=== PATIENT | male | born 1955 | race Two or more races ===

== ENCOUNTER 2017-11-09 19:51 | Inpatient (IN) | payer MEDICAID ==
[~2017-11-09] VITALS: Ht 180.3 cm; Wt 66.3 kg
[~2017-11-09 19:51] MED LIST: ALBUTEROL SULF8.5 GM INH; ATARAX25 MG ORAL; ELIMITE 5% CREA60 GM TOPIC; HYDROCORTISON28.4 G2 TP; LACTULOSE20 GM/301 ORAL; LEXAPRO10 MG ORAL; NORCO 10-325 T1 EACH ORAL; NORCO 5-325 TA1 EACH ORAL; ROBAXIN500 MG PO; UNK MEDS; vit D
[2017-11-09] MEDS ORDERED: Pantoprazole Inj IVP ONE (20:00)
--- NOTE | 2017-11-09 20:20 | Emergency Room Report ---
History of Present Illness General Chief Complaint: Vomiting Source: Patient Present Illness HPI 52-year-old male, history of liver cirrhosis, esophageal varices, presenting with hematemesis. Patient states that vomiting started today, about 3 episodes, Blood. Denies any abdominal pain. Complains of slight dizziness. States he has not had a bowel movement in 2 days. States that he had an outpatient endoscopy performed last Thursday but states that he does not know results and and that he does not know if there was any interventions done Allergies: Coded Allergies: IBUPROFEN (Unverified Allergy, Intermediate, 07/02/16) Patient History Past Medical History: see triage record Past Surgical History: none Pertinent Family History: none Reviewed Nursing Documentation: PMH: Agreed, PSxH: Agreed Nursing Documentation-PMH Hx Hypertension: Yes Hx Cancer: Yes - CIRRHOSIS OF LIVER Review of Systems All Other Systems: negative except mentioned in HPI Physical Exam Vital Signs Date Time Temp Pulse Resp B/P (MAP) Pulse Ox O2 Delivery O2 Flow Rate FiO2 11/09/17 19:47 98.1 115 18 109/56 100 Room Air Sp02 EP Interpretation: reviewed, normal General Appearance: alert, GCS 15, non-toxic, mild distress Head: normocephalic, atraumatic Eyes: bilateral eye normal inspection, bilateral eye PERRL, bilateral eye EOMI ENT: normal ENT inspection, normal pharynx, normal voice, moist mucus membranes Neck: normal inspection, full range of motion, supple Respiratory: normal inspection, lungs clear, normal breath sounds, no respiratory distress, no retraction, no wheezing, speaking full sentences, chest symmetrical Cardiovascular #1: tachycardia Cardiovascular #2: 2+ radial (R), 2+ radial (L) Gastrointestinal: other - +mild distension, nontender all abdomen, +bright red blood in vomitus Musculoskeletal: normal inspection, back normal, normal range of motion, non- tender Neurologic: normal inspection, alert, oriented x3, responsive, motor strength/ tone normal, sensory intact, normal gait, speech normal Psychiatric: normal inspection, judgement/insight normal, memory normal Skin: normal inspection, normal color, no rash, warm/dry, well hydrated, normal turgor Procedures Critical Care Time Critical Care Time 40 minutes of CC time 62-year-old male, history of esophageal varices, upper GI bleeding VS: Borderline hypotensive, tachycardic Airway patent. Not hypoxic. PLAN: IV access, labs, coags, but transfusion, octreotide, Protonix, GI consult Anticipate admission to icu CC time also includes review of labs, review of EMR, discussion with family and paperwork from SNF, d/w hospitalist CC could include dosing of pressors, additional Abx CC time does not include procedures Medical Decision Making Diagnostic Impression: Primary Impression: Upper GI bleeding Additional Impression: Pancreatitis ER Course 62-year-old male, history of esophageal varices, presenting with hematemesis Differential Diagnosis: Hematemesis high suspicion for esophageal varices given patient's history, versus gastritis versus peptic ulcer disease Patient is not on blood thinners Plan: Basic labs, ua, ekg Coags Protonix, octreotide Chest x-ray Possible blood transfusion ER course: hgb noted to be very low BP borderline, HR 100-110 octreotide/protonix given will xfuse 2 units prbcs I informed Dr Timmons from GI about patient Disposition: Patient will be admitted to ICU Endorsed to Dr Gayle who is covering for Dr Valencia Please note that this Emergency Department Report was dictated using [employer] immunologist technology software, occasionally this can lead to erroneous entry secondary to interpretation by the dictation equipment EKG Diagnostic Results EP Interpretation: Yes Rate: Tachycardic Rhythm: NSR ST Segments: No acute changes ASA given to patient: No Rhythm Strip EP Interpretation: Yes Rate: 108 Rhythm: NSR, no PVCs, no ectopy Chest X-ray CXR: Ordered: Yes 1 view Indication: Chest pain EP interpretation: Yes Interpretation: No consolidation, no effusion, no PTX, no acute cardiopulmonary disease Impression: No acute disease Electronically signed by Christine Lewis MD Laboratory Tests Test 11/09/17 20:08 White Blood Count 13.2 K/UL (4.8-10.8) H Red Blood Count 2.66 M/UL (4.70-6.10) L Hemoglobin 5.9 G/DL (14.2-18.0) *L Hematocrit 20.8 % (42.0-52.0) L Mean Corpuscular Volume 78 FL (80-99) L Mean Corpuscular Hemoglobin 22.1 PG (27.0-31.0) L Mean Corpuscular Hemoglobin Concent 28.3 G/DL (32.0-36.0) L Red Cell Distribution Width 21.5 % (11.6-14.8) H Platelet Count 371 K/UL (150-450) Mean Platelet Volume 5.0 FL (6.5-10.1) L Neutrophils (%) (Auto) % (45.0-75.0) Lymphocytes (%) (Auto) % (20.0-45.0) Monocytes (%) (Auto) % (1.0-10.0) Eosinophils (%) (Auto) % (0.0-3.0) Basophils (%) (Auto) % (0.0-2.0) Differential Total Cells Counted 100 Neutrophils % (Manual) 70 % (45-75) Lymphocytes % (Manual) 20 % (20-45) Monocytes % (Manual) 9 % (1-10) Eosinophils % (Manual) 0 % (0-3) Basophils % (Manual) 1 % (0-2) Band Neutrophils 0 % (0-8) Platelet Estimate Adequate Platelet Morphology Normal Polychromasia 1+ Hypochromasia 2+ Anisocytosis 2+ Prothrombin Time 11.6 SEC (9.30-11.50) H Prothrombin Time INR 1.1 (0.9-1.1) PTT 25 SEC (23-33) Sodium Level 136 MMOL/L (136-145) Potassium Level 4.1 MMOL/L (3.5-5.1) Chloride Level 103 MMOL/L (98-107) Carbon Dioxide Level 24 MMOL/L (21-32) Anion Gap 9 mmol/L (5-15) Blood Urea Nitrogen 14 mg/dL (7-18) Creatinine 1.3 MG/DL (0.55-1.30) Estimate Glomerular Filtration Rate 55.8 mL/min (>60) Glucose Level 160 MG/DL (74-106) H Calcium Level 8.2 MG/DL (8.5-10.1) L Total Bilirubin 2.0 MG/DL (0.2-1.0) H Direct Bilirubin 1.6 MG/DL (0.0-0.3) H Aspartate Amino Transferase (AST) 81 U/L (15-37) H Alanine Aminotransferase (ALT) 62 U/L (12-78) Alkaline Phosphatase 176 U/L (46-116) H Troponin I 0.009 ng/mL (0.000-0.056) Total Protein 6.4 G/DL (6.4-8.2) Albumin 2.0 G/DL (3.4-5.0) L Globulin 4.4 g/dL Albumin/Globulin Ratio 0.5 (1.0-2.7) L Lipase 569 U/L (73-393) H Last Vital Signs Date Time Temp Pulse Resp B/P (MAP) Pulse Ox O2 Delivery O2 Flow Rate FiO2 11/09/17 19:47 98.1 115 18 109/56 100 Room Air Disposition: ADMITTED INPATIENT Condition: Critical Christine Lewis M.D. Nov 09, 2017 20:20
[2017-11-09] MEDS ORDERED: PROTONIX40 MG ORAL (20:45)
[2017-11-09] MEDS ORDERED: FERROUS SULFAT325 MG ORAL (20:45)
[2017-11-09] MEDS ORDERED: TRAMADOL HCL50 MG ORAL (20:45)
[2017-11-09] MEDS ORDERED: NIFEDIPINE ER30 M2 ORAL (20:45)
[2017-11-09 20:50] LABS: MEAN CORPUSCULAR HEMOGLOBIN 22.1 PG (27.0-31.0); MEAN CORPUSCULAR HGB CONC 28.3 G/DL (32.0-36.0); MEAN CORPUSCULAR VOLUME 78 FL (80-99); PLATELET COUNT 371 K/UL (150-450); RED BLOOD COUNT 2.66 M/UL (4.70-6.10); RED CELL DISTRIBUTION WIDTH 21.5 % (11.6-14.8); WHITE BLOOD COUNT 13.2 K/UL (4.8-10.8)
[2017-11-09 20:52] LABS: ANION GAP 9 mmol/L (5-15); CALCIUM 8.2 MG/DL (8.5-10.1); CARBON DIOXIDE 24 MMOL/L (21-32); CHLORIDE 103 MMOL/L (98-107); CREATININE 1.3 MG/DL (0.55-1.30); GLOMERULAR FILTRATION RATE 55.8 mL/min (>60); POTASSIUM 4.1 MMOL/L (3.5-5.1); SODIUM 136 MMOL/L (136-145)
[2017-11-09 20:57] LABS: INR 1.1 (0.9-1.1); PROTHROMBIN TIME 11.6 SEC (9.30-11.50)
[2017-11-09 21:03] LABS: ALANINE AMINOTRANSFERASE 62 U/L (12-78); ALBUMIN/GLOBULIN RATIO 0.5 (1.0-2.7); ASPARTATE AMINO TRANSFERASE 81 U/L (15-37); LIPASE 569 U/L (73-393); TOTAL PROTEIN 6.4 G/DL (6.4-8.2)
[2017-11-09 21:09] LABS: BILIRUBIN,DIRECT 1.6 MG/DL (0.0-0.3)
[2017-11-09] MEDS: Octreotide Acetate 500 MCG in Sodium Chloride 500ML 499 ML IV SCH (21:18)
[2017-11-09 22:02] VITALS: BP 113/61
[2017-11-09 22:10] LABS: ANISOCYTOSIS 2+; BASOPHILS % (MANUAL) 1 % (0-2); HYPOCHROMASIA 2+; LYMPHOCYTES % (MANUAL) 20 % (20-45); NEUTROPHILS % (MANUAL) 70 % (45-75); TOTAL CELLS COUNTED 100
[2017-11-09 22:11] LABS: BAND NEUTROPHILS % (MANUAL) 0 % (0-8); EOSINOPHILS % (MANUAL) 0 % (0-3); PLATELET ESTIMATE ADEQUATE; PLATELET MORPHOLOGY NORMAL; POLYCHROMASIA 1+
[2017-11-09 22:17] VITALS: BP 110/65
[2017-11-10] VITALS (24 sets, daily range): BP systolic 106–159; BP diastolic 45–92
[2017-11-10 04:02] LABS: MEAN CORPUSCULAR HEMOGLOBIN 25.4 PG (27.0-31.0); MEAN CORPUSCULAR HGB CONC 31.7 G/DL (32.0-36.0); MEAN CORPUSCULAR VOLUME 80 FL (80-99); MEAN PLATELET VOLUME 6.1 FL (6.5-10.1); PLATELET COUNT 291 K/UL (150-450); RED BLOOD COUNT 3.07 M/UL (4.70-6.10); RED CELL DISTRIBUTION WIDTH 20.4 % (11.6-14.8)
[2017-11-10] MEDS: Octreotide Acetate 500 MCG in Sodium Chloride 500ML 499 ML IV SCH ×3 (06:00→23:03)
--- NOTE | 2017-11-10 08:27 | Pre-Procedure Note/Attestation ---
Pre-Procedure Note/Attestation Complete Prior to Procedure Planned Procedure: not applicable Procedure Narrative: esophagogastroduodenoscopy hemostasis Indications for Procedure Pre-Operative Diagnosis: gib Attestation I attest that I discussed the nature of the procedure; its benefits; risks and complications; and alternatives (and the risks and benefits of such alternatives ), prior to the procedure, with the patient (or the patient's legal mortician supplies sales representative). I attest that, if there was a reasonable possibility of needing a blood transfusion, the patient (or the patient's legal mortician supplies sales representative) was given the [facility] standardized written summary, pursuant to the Andrew Brooke Blood Safety Act ([place] Health and Safety Code # 1645, as amended). I attest that I re-evaluated the patient just prior to the surgery and that there has been no change in the patient's H&P, except as documented below: OZ PELLETIER Nov 10, 2017 08:27
--- NOTE | 2017-11-10 08:37 | Anethesia Preoperative Eval ---
Anesthesia Pre-op PMH/ROS General Date of Evaluation: Nov 10, 2017 Anesthesiologist: Ashish ASA Score: ASA 3 Mallampati Score Class I : Soft palate, uvula, fauces, pillars visible Class II: Soft palate, uvula, fauces visible Class III: Soft palate, base of uvula visible Class IV: Only hard plate visible Mallampati Classification: Class II Surgeon: Odilia Diagnosis: GI bleed, esophageal varices Surgical Procedure: EGD possible banding of varices Anesthesia History: none Social History: alcohol use - h/o alcohol abuse Family History: no anesthesia problems Allergies: Coded Allergies: IBUPROFEN (Unverified Allergy, Intermediate, 07/02/16) Medications: see eMAR Past Medical History Cardiovascular: Reports: HTN, Denies: CAD, [place], valve dz, arrhythmia, other Pulmonary: Denies: asthma, COPD, CARLOS, other Gastrointestinal/Genitourinary: Reports: GERD, other - Cirrhosis, liver cancer , Denies: CRI, ESRD Neurologic/Psychiatric: Denies: dementia, CVA, depression/anxiety, TIA, other Endocrine: Denies: DM, hypothyroidism, steroids, other HEENT: Denies: cataract (L), cataract (R), glaucoma, QAGAN TAYAGUNGIN (L), QAGAN TAYAGUNGIN (R), other Hematology/Immune: Denies: anemia, DVT, bleeding disorder, other Musculoskeletal/Integumentary: Denies: OA, RA, DJD, DDD, edema, other PSxH Narrative: Denies Anesthesia Pre-op Phys. Exam Physician Exam Last Vital Signs Date Time Temp Pulse Resp B/P (MAP) Pulse Ox O2 Delivery O2 Flow Rate FiO2 11/10/17 07:31 97.6 87 19 113/61 100 Room Air Constitutional: NAD Cardiovascular: other - tachy Respiratory: CTA Airway Exam Mallampati Score: Class II MO: limited ROM: full Teeth: missing, intact Anesthesia Pre-op A/P Labs Hematology Test 11/09/17 20:08 11/10/17 03:39 White Blood Count 13.2 K/UL (4.8-10.8) H 10.0 K/UL (4.8-10.8) Red Blood Count 2.66 M/UL (4.70-6.10) L 3.07 M/UL (4.70-6.10) L Hemoglobin 5.9 G/DL (14.2-18.0) *L 7.8 G/DL (14.2-18.0) #L Hematocrit 20.8 % (42.0-52.0) L 24.6 % (42.0-52.0) L Mean Corpuscular Volume 78 FL (80-99) L 80 FL (80-99) Mean Corpuscular Hemoglobin 22.1 PG (27.0-31.0) L 25.4 PG (27.0-31.0) L Mean Corpuscular Hemoglobin Concent 28.3 G/DL (32.0-36.0) L 31.7 G/DL (32.0-36.0) L Red Cell Distribution Width 21.5 % (11.6-14.8) H 20.4 % (11.6-14.8) H Platelet Count 371 K/UL (150-450) 291 K/UL (150-450) Mean Platelet Volume 5.0 FL (6.5-10.1) L 6.1 FL (6.5-10.1) L Neutrophils (%) (Auto) % (45.0-75.0) % (45.0-75.0) Lymphocytes (%) (Auto) % (20.0-45.0) % (20.0-45.0) Monocytes (%) (Auto) % (1.0-10.0) % (1.0-10.0) Eosinophils (%) (Auto) % (0.0-3.0) % (0.0-3.0) Basophils (%) (Auto) % (0.0-2.0) % (0.0-2.0) Differential Total Cells Counted 100 Neutrophils % (Manual) 70 % (45-75) Lymphocytes % (Manual) 20 % (20-45) Monocytes % (Manual) 9 % (1-10) Eosinophils % (Manual) 0 % (0-3) Basophils % (Manual) 1 % (0-2) Band Neutrophils 0 % (0-8) Platelet Estimate Adequate Platelet Morphology Normal Polychromasia 1+ Hypochromasia 2+ Anisocytosis 2+ Coagulation Test 11/09/17 20:08 Prothrombin Time 11.6 SEC (9.30-11.50) H Prothromb Time International Ratio 1.1 (0.9-1.1) Activated Partial Thromboplast Time 25 SEC (23-33) Chemistry Test 11/09/17 20:08 Sodium Level 136 MMOL/L (136-145) Potassium Level 4.1 MMOL/L (3.5-5.1) Chloride Level 103 MMOL/L (98-107) Carbon Dioxide Level 24 MMOL/L (21-32) Anion Gap 9 mmol/L (5-15) Blood Urea Nitrogen 14 mg/dL (7-18) Creatinine 1.3 MG/DL (0.55-1.30) Estimat Glomerular Filtration Rate 55.8 mL/min (>60) Glucose Level 160 MG/DL (74-106) H Calcium Level 8.2 MG/DL (8.5-10.1) L Total Bilirubin 2.0 MG/DL (0.2-1.0) H Direct Bilirubin 1.6 MG/DL (0.0-0.3) H Aspartate Amino Transf (AST/SGOT) 81 U/L (15-37) H Alanine Aminotransferase (ALT/SGPT) 62 U/L (12-78) Alkaline Phosphatase 176 U/L (46-116) H Troponin I 0.009 ng/mL (0.000-0.056) Total Protein 6.4 G/DL (6.4-8.2) Albumin 2.0 G/DL (3.4-5.0) L Globulin 4.4 g/dL Albumin/Globulin Ratio 0.5 (1.0-2.7) L Lipase 569 U/L (73-393) H Studies Pre-op Studies: EKG - ST Risk Assessment & Plan Assessment: ASA III Plan: MAC vs GA Status Change Before Surgery: No Pre-Antibiotics Drug: N/A JOSE RAI M.D. Nov 10, 2017 08:37
--- NOTE | 2017-11-10 09:21 | Short Stay Surgery H&P ---
History of Present Illness History of Present Illness Chief Complaint gib EFRAIN Guzmán is a 62 year old male who was admitted on Nov 09, 2017 at 22: 00 for Gastrointestinal Bleed Patient History Allergies: Coded Allergies: IBUPROFEN (Unverified Allergy, Intermediate, 07/02/16) PAST MEDICAL HISTORY: (1) ETOH abuse (2) Hepatitis-C (3) Back pain (4) Pancreatitis (5) Upper GI bleeding Past Surgeries: Social History: Medication History Scheduled Ferrous Sulfate* (Ferrous Sulfate*), 325 MG ORAL DAILY, (Reported) Nifedipine Er* (Nifedipine Er*), 30 MG ORAL DAILY, (Reported) Pantoprazole* (Protonix*), 40 MG ORAL EVERY 12 HOURS, (Reported) Scheduled PRN Tramadol Hcl* (Ultram*), 50 MG ORAL Q6H PRN for For Pain, (Reported) Discontinued Medications Albuterol Sulfate* (Albuterol Sulfate Mdi*), 2 PUFF INH Q4H, (Reported) Discontinued Reason: Pt stopped taking med Escitalopram Oxalate* (Lexapro*), Unknown Dose ORAL DAILY, (Reported) Discontinued Reason: Pt stopped taking med Hydrocodone Bit/Acetaminophen 10-325* ([place] 10-325*), Unknown Dose ORAL Q6H PRN for For Pain, (Reported) Discontinued Reason: Pt stopped taking med Hydrocodone Bit/Acetaminophen 5-325* ([place] 5-325*), 1 TAB ORAL Q6H PRN for For Pain Discontinued Reason: Pt stopped taking med Hydrocortisone/Aloe Vera (Hydrocortisone Plus 1% Cream), 28.4 GM TP TWICE A DAY Discontinued Reason: Pt stopped taking med Hydroxyzine HCl (Hydroxyzine HCl), 25 MG ORAL FOUR TIMES A DAY Discontinued Reason: Pt stopped taking med Lactulose (Lactulose*), 30 ML ORAL BID PRN for Constipation Discontinued Reason: Pt stopped taking med Methocarbamol* (Robaxin*), 500 MG PO TID Discontinued Reason: Pt stopped taking med Permethrin (Permethrin), 1 APPLIC TOPIC ONCE Discontinued Reason: Pt stopped taking med [vit D], (Reported) Discontinued Reason: Pt stopped taking med Review of Systems Cardiovascular: Reports: no symptoms Respiratory: Reports: no symptoms Gastrointestinal: Reports: hepatitis A,B,C Genitourinary: Reports: no symptoms Neurologic: Reports: no symptoms Endocrine: Reports: no symptoms Hematologic: Reports: no symptoms Physical Exam Vital Signs Last Vital Signs Date Time Temp Pulse Resp B/P (MAP) Pulse Ox O2 Delivery O2 Flow Rate FiO2 11/10/17 09:04 97.6 87 19 109/88 100 Room Air Labs Laboratory Tests Test 11/09/17 20:08 11/10/17 00:05 11/10/17 03:39 White Blood Count 13.2 K/UL (4.8-10.8) H 10.0 K/UL (4.8-10.8) Red Blood Count 2.66 M/UL (4.70-6.10) L 3.07 M/UL (4.70-6.10) L Hemoglobin 5.9 G/DL (14.2-18.0) *L 7.8 G/DL (14.2-18.0) #L Hematocrit 20.8 % (42.0-52.0) L 24.6 % (42.0-52.0) L Mean Corpuscular Volume 78 FL (80-99) L 80 FL (80-99) Mean Corpuscular Hemoglobin 22.1 PG (27.0-31.0) L 25.4 PG (27.0-31.0) L Mean Corpuscular Hemoglobin Concent 28.3 G/DL (32.0-36.0) L 31.7 G/DL (32.0-36.0) L Red Cell Distribution Width 21.5 % (11.6-14.8) H 20.4 % (11.6-14.8) H Platelet Count 371 K/UL (150-450) 291 K/UL (150-450) Mean Platelet Volume 5.0 FL (6.5-10.1) L 6.1 FL (6.5-10.1) L Neutrophils (%) (Auto) % (45.0-75.0) % (45.0-75.0) Lymphocytes (%) (Auto) % (20.0-45.0) % (20.0-45.0) Monocytes (%) (Auto) % (1.0-10.0) % (1.0-10.0) Eosinophils (%) (Auto) % (0.0-3.0) % (0.0-3.0) Basophils (%) (Auto) % (0.0-2.0) % (0.0-2.0) Differential Total Cells Counted 100 Neutrophils % (Manual) 70 % (45-75) Lymphocytes % (Manual) 20 % (20-45) Monocytes % (Manual) 9 % (1-10) Eosinophils % (Manual) 0 % (0-3) Basophils % (Manual) 1 % (0-2) Band Neutrophils 0 % (0-8) Platelet Estimate Adequate Platelet Morphology Normal Polychromasia 1+ Hypochromasia 2+ Anisocytosis 2+ Prothrombin Time 11.6 SEC (9.30-11.50) H Prothromb Time International Ratio 1.1 (0.9-1.1) Activated Partial Thromboplast Time 25 SEC (23-33) Sodium Level 136 MMOL/L (136-145) Potassium Level 4.1 MMOL/L (3.5-5.1) Chloride Level 103 MMOL/L (98-107) Carbon Dioxide Level 24 MMOL/L (21-32) Anion Gap 9 mmol/L (5-15) Blood Urea Nitrogen 14 mg/dL (7-18) Creatinine 1.3 MG/DL (0.55-1.30) Estimat Glomerular Filtration Rate 55.8 mL/min (>60) Glucose Level 160 MG/DL (74-106) H Calcium Level 8.2 MG/DL (8.5-10.1) L Total Bilirubin 2.0 MG/DL (0.2-1.0) H Direct Bilirubin 1.6 MG/DL (0.0-0.3) H Aspartate Amino Transf (AST/SGOT) 81 U/L (15-37) H Alanine Aminotransferase (ALT/SGPT) 62 U/L (12-78) Alkaline Phosphatase 176 U/L (46-116) H Troponin I 0.009 ng/mL (0.000-0.056) Total Protein 6.4 G/DL (6.4-8.2) Albumin 2.0 G/DL (3.4-5.0) L Globulin 4.4 g/dL Albumin/Globulin Ratio 0.5 (1.0-2.7) L Lipase 569 U/L (73-393) H Urine Opiates Screen Negative (NEGATIVE) Urine Barbiturates Screen Negative (NEGATIVE) Phencyclidine (PCP) Screen Negative (NEGATIVE) Urine Amphetamines Screen Negative (NEGATIVE) Urine Benzodiazepines Screen Negative (NEGATIVE) Urine Cocaine Screen Negative (NEGATIVE) Urine Marijuana (THC) Screen Negative (NEGATIVE) Skin: normal HENT: normal Heart: normal Lungs: normal Abdomen: normal Extremities: normal Plan Plan of Care egd Final Diagnosis: Attestation Are the patient's medical conditions optimized for surgery? Attestation Response: yes OZ PELLETIER Nov 10, 2017 09:21
--- NOTE | 2017-11-10 09:26 | Immediate Post-Op Evaluation ---
Immediate Post-Op Evalulation Immediate Post-Op Evalulation Procedure: EGD with esophageal banding Date of Evaluation: Nov 10, 2017 Time of Evaluation: 10:12 IV Fluids: 100 Blood Products: 0 Estimated Blood Loss: min Urinary Output: 0 Blood Pressure Systolic: 116 Blood Pressure Diastolic: 56 Pulse Rate: 90 Respiratory Rate: 24 O2 Sat by Pulse Oximetry: 100 Temperature (Fahrenheit): 98.6 Pain Score (1-10): 0 Nausea: No Vomiting: No Complications 0 Patient Status: awake, reacts, patent, none Hydration Status: adequate Drug: N/A JOSE RAI M.D. Nov 10, 2017 09:26
--- NOTE | 2017-11-10 09:32 | Endoscopy Procedure Note ---
Endoscopy Procedure Note Indication for Procedure: gib Procedures Performed: EGD Operative Findings/Diagnosis: banding of varices Specimen: none Pt Tolerated Procedure Well: Yes Estimated Blood Loss: none Anesthesiologist: cristian Anesthesia: MAC Implant(s) used?: No 50 yrs or older w/o bx or poly: Not Applicable 10yrs. F/U not recommended: Not Applicable OZ PELLETIER Nov 10, 2017 09:32
[2017-11-10 11:11] LABS: BASOPHILS % (AUTO) 0.8 % (0.0-2.0); EOSINOPHILS % (AUTO) 0.5 % (0.0-3.0); LYMPHOCYTES % (AUTO) 16.1 % (20.0-45.0); MEAN CORPUSCULAR HEMOGLOBIN 25.2 PG (27.0-31.0); MEAN CORPUSCULAR HGB CONC 31.1 G/DL (32.0-36.0); MEAN CORPUSCULAR VOLUME 81 FL (80-99); MEAN PLATELET VOLUME 6.6 FL (6.5-10.1); MONOCYTES % (AUTO) 15.4 % (1.0-10.0); NEUTROPHILS % (AUTO) 67.2 % (45.0-75.0); PLATELET COUNT 349 K/UL (150-450); RED BLOOD COUNT 3.37 M/UL (4.70-6.10); RED CELL DISTRIBUTION WIDTH 21.2 % (11.6-14.8); WHITE BLOOD COUNT 10.8 K/UL (4.8-10.8)
[2017-11-10] MEDS: Pantoprazole 80 MG in NS 250 ML IV SCH ×2 (12:07→22:41)
[2017-11-10] MEDS: cefTRIAXone 1 GM in D5W 55 ML IVPB SCH (12:07)
[2017-11-10] MEDS: Hydromorphone 0.5mg/0.5ml inj IVP PRN ×2 (12:11→18:31)
--- NOTE | 2017-11-10 17:23 | Pulmonolgy Critical Care Note ---
Critical Care - Asmt/Plan Problems: (1) Hepatocellular carcinoma (2) Esophageal varices (3) Upper GI bleeding (4) Pancreatitis (5) Hepatitis-C (6) ETOH abuse (7) Symptomatic anemia Assessment/Plan: 62 M h/o EtOH abuse, Hep C cirrhosis c/b EV and HCC p/w GIB 2/2 EV S/P banding and pancreatitis Respiratory: other - monitor oxygenation Cardiac: continue to monitor HR/BP Renal: other - monitor volumes Infectious Disease: other - Continue Ctx Gastrointestinal: other - F/U GI recs, octreotide and PPI gtt, advance diet per GI, monitor for bleeding Neurologic: keep patient comfortable Prophylaxis: SCDs Disposition: keep in ICU Time Spent (Minutes): 40 Notes Reviewed: manager event, GI Discussed with: nurses Critical Care - Objective Last 24 Hour Vital Signs Date Time Temp Pulse Resp B/P (MAP) Pulse Ox O2 Delivery O2 Flow Rate FiO2 11/10/17 17:00 91 19 116/68 100 Room Air 11/10/17 16:00 98.8 95 23 134/65 100 Room Air 11/10/17 16:00 90 11/10/17 15:00 95 21 159/74 99 Room Air 11/10/17 14:30 98 21 129/78 100 Room Air 11/10/17 14:00 92 19 126/64 100 Room Air 11/10/17 13:30 91 19 126/64 100 Room Air 11/10/17 13:00 94 20 112/59 100 Room Air 11/10/17 12:30 92 21 125/45 100 Room Air 11/10/17 12:00 98.5 91 20 132/59 100 Room Air 11/10/17 12:00 88 11/10/17 11:45 89 17 132/64 100 Room Air 11/10/17 11:30 91 20 132/68 100 Room Air 11/10/17 11:15 92 21 139/80 100 Room Air 11/10/17 11:00 93 25 123/57 100 Room Air 11/10/17 10:45 90 23 125/72 100 Room Air 11/10/17 10:30 93 24 116/62 100 Simple Mask 8.0 11/10/17 10:12 98.6 90 24 116/56 100 Simple Mask 8.0 11/10/17 10:00 89 11/10/17 09:04 97.6 87 19 109/88 100 Room Air 11/10/17 07:31 97.6 87 19 113/61 100 Room Air 11/10/17 03:41 98.1 99 20 11/10/17 00:36 98.1 95 20 106/62 100 Room Air 99 11/10/17 00:22 98.3 99 20 115/64 100 Room Air 11/09/17 22:34 98.2 101 20 11/09/17 22:17 97.8 101 20 110/65 100 Room Air 11/09/17 22:02 98.2 101 20 113/61 100 Room Air 11/09/17 19:47 98.1 115 18 109/56 100 Room Air Status: awake Condition: improving HEENT: atraumatic, normocephalic Lungs: clear Heart: HR/BP stable Abdomen: soft, non-tender, active bowel sounds Extremities: no C/C/E Critical Care - Subjective ROS Limited/Unobtainable: Yes ICU Day: 1 Intubation Day: N/A Interval Events: 62 M h/o Hep C, EtOH, EV p/w GIB 2/2 EV S/P EGD with banding x 4, now tx'd to ICU in stable condition. Prior imaging @ [facility] [place] with hepatic masses, states had a recent liver bx and was Dx'd with HCC, has not started therapy. Denies current therapy. Feels better, no F/C/CP/SOB/N/V/D/C/abdominal pain/urinary complaints. No further hematemesis, melena or BRBPR. Condition: critical IV Access: peripheral EKG Rhythm: Sinus Rhythm Drips: Octreotide and PPI I&O: Intake and Output 11/10/17 11/11/17 19:00 07:00 Intake Total 878 ml Output Total 295 ml Balance 583 ml Intake Oral 668 ml IV Total 170 ml Other 40 ml Output Urine Total 295 ml Subjective: Feels better, no F/C/CP/SOB/abdominal pain/BRBPR/hematemesis/melena or other complaints Labs: Laboratory Tests Test 11/09/17 20:08 11/10/17 00:05 11/10/17 03:39 11/10/17 10:55 White Blood Count 13.2 K/UL (4.8-10.8) H 10.0 K/UL (4.8-10.8) 10.8 K/UL (4.8-10.8) Red Blood Count 2.66 M/UL (4.70-6.10) L 3.07 M/UL (4.70-6.10) L 3.37 M/UL (4.70-6.10) L Hemoglobin 5.9 G/DL (14.2-18.0) *L 7.8 G/DL (14.2-18.0) #L 8.5 G/DL (14.2-18.0) L Hematocrit 20.8 % (42.0-52.0) L 24.6 % (42.0-52.0) L 27.4 % (42.0-52.0) L Mean Corpuscular Volume 78 FL (80-99) L 80 FL (80-99) 81 FL (80-99) Mean Corpuscular Hemoglobin 22.1 PG (27.0-31.0) L 25.4 PG (27.0-31.0) L 25.2 PG (27.0-31.0) L Mean Corpuscular Hemoglobin Concent 28.3 G/DL (32.0-36.0) L 31.7 G/DL (32.0-36.0) L 31.1 G/DL (32.0-36.0) L Red Cell Distribution Width 21.5 % (11.6-14.8) H 20.4 % (11.6-14.8) H 21.2 % (11.6-14.8) H Platelet Count 371 K/UL (150-450) 291 K/UL (150-450) 349 K/UL (150-450) Mean Platelet Volume 5.0 FL (6.5-10.1) L 6.1 FL (6.5-10.1) L 6.6 FL (6.5-10.1) Neutrophils (%) (Auto) % (45.0-75.0) % (45.0-75.0) 67.2 % (45.0-75.0) Lymphocytes (%) (Auto) % (20.0-45.0) % (20.0-45.0) 16.1 % (20.0-45.0) L Monocytes (%) (Auto) % (1.0-10.0) % (1.0-10.0) 15.4 % (1.0-10.0) H Eosinophils (%) (Auto) % (0.0-3.0) % (0.0-3.0) 0.5 % (0.0-3.0) Basophils (%) (Auto) % (0.0-2.0) % (0.0-2.0) 0.8 % (0.0-2.0) Differential Total Cells Counted 100 Neutrophils % (Manual) 70 % (45-75) Lymphocytes % (Manual) 20 % (20-45) Monocytes % (Manual) 9 % (1-10) Eosinophils % (Manual) 0 % (0-3) Basophils % (Manual) 1 % (0-2) Band Neutrophils 0 % (0-8) Other Cell Type Platelet Estimate Adequate Platelet Morphology Normal Polychromasia 1+ Hypochromasia 2+ Anisocytosis 2+ Prothrombin Time 11.6 SEC (9.30-11.50) H Prothromb Time International Ratio 1.1 (0.9-1.1) Activated Partial Thromboplast Time 25 SEC (23-33) Sodium Level 136 MMOL/L (136-145) Potassium Level 4.1 MMOL/L (3.5-5.1) Chloride Level 103 MMOL/L (98-107) Carbon Dioxide Level 24 MMOL/L (21-32) Anion Gap 9 mmol/L (5-15) Blood Urea Nitrogen 14 mg/dL (7-18) Creatinine 1.3 MG/DL (0.55-1.30) Estimat Glomerular Filtration Rate 55.8 mL/min (>60) Glucose Level 160 MG/DL (74-106) H Calcium Level 8.2 MG/DL (8.5-10.1) L Total Bilirubin 2.0 MG/DL (0.2-1.0) H Direct Bilirubin 1.6 MG/DL (0.0-0.3) H Aspartate Amino Transf (AST/SGOT) 81 U/L (15-37) H Alanine Aminotransferase (ALT/SGPT) 62 U/L (12-78) Alkaline Phosphatase 176 U/L (46-116) H Troponin I 0.009 ng/mL (0.000-0.056) Total Protein 6.4 G/DL (6.4-8.2) Albumin 2.0 G/DL (3.4-5.0) L Globulin 4.4 g/dL Albumin/Globulin Ratio 0.5 (1.0-2.7) L Lipase 569 U/L (73-393) H Urine Opiates Screen Negative (NEGATIVE) Urine Barbiturates Screen Negative (NEGATIVE) Phencyclidine (PCP) Screen Negative (NEGATIVE) Urine Amphetamines Screen Negative (NEGATIVE) Urine Benzodiazepines Screen Negative (NEGATIVE) Urine Cocaine Screen Negative (NEGATIVE) Urine Marijuana (THC) Screen Negative (NEGATIVE) PEE IQBAL M.D. Nov 10, 2017 17:23
--- NOTE | 2017-11-10 17:24 | Diagnostic Imaging Report ---
Indication: Reason For Exam: PAIN Technique: One view of the chest Comparison: none Findings: 2 cystic spaces are seen in the right lateral lower lung. Lungs and pleural spaces are otherwise clear. Heart size is normal. Impression: No acute process 2 cystic spaces in the right lateral lower lung, presumably residua of prior insult
--- NOTE | 2017-11-10 18:15 | Cardiology Report ---
APPROVED REPORT EKG Measurement Heart [id number] 130P31 [id number] Sinus tachycardia Minimal voltage criteria for LVH, may be normal variant Borderline ECG
--- NOTE | 2017-11-10 21:02 | Procedure Note ---
DATE OF PROCEDURE: 11/10/2017 SURGEON: Eduardo Hartley M.D. PROCEDURE: Upper endoscopy with banding of esophageal varices. ANESTHESIA: Per Dr. Hinojosa. INSTRUMENT: Olympus adult flexible upper endoscope. INDICATION: 1. Upper gastrointestinal bleeding. 2. History of esophageal varices. The procedure, risks, benefits, and possible consequences, including hemorrhage, aspiration, perforation and infection, and alternative treatments, were explained to the patient/legal guardian by Dr. Eduardo Hartley and the guardian understood and accepted these risks. DESCRIPTION OF PROCEDURE: After informed consent was obtained and the patient was adequately sedated, Olympus upper endoscope was advanced from the mouth into the second portion of the duodenum and retroflexion was performed of the stomach. The patient had four columns of grade IV distal esophageal varices with prior scarring suggestive of prior history of banding in the past. There was no evidence of any gastric varices. The patient had also evidence of portal hypertensive gastropathy. At this time, the scope was removed and we put a banding device , total of 4 bands were placed in the distal esophagus. The patient tolerated the procedure well without any complications. SUMMARY OF FINDINGS: 1. Esophageal varices, status post banding x4. 2. Portal hypertensive gastropathy. RECOMMENDATIONS: Keep the patient NPO for today. Keep hemoglobin above 7. Continue on octreotide drip. Continue on Protonix. The patient needs to be on antibiotics given the esophageal varices banding. We will start diet tomorrow if patient is stable. Eduardo Hartley M.D. DR: RADHA JOB#: [id number] CC:
[2017-11-11] VITALS (17 sets, daily range): BP systolic 115–158; BP diastolic 60–99
[2017-11-11 04:41] LABS: MEAN CORPUSCULAR HEMOGLOBIN 25.6 PG (27.0-31.0); MEAN CORPUSCULAR HGB CONC 31.5 G/DL (32.0-36.0); MEAN CORPUSCULAR VOLUME 81 FL (80-99); MEAN PLATELET VOLUME 5.5 FL (6.5-10.1); PLATELET COUNT 331 K/UL (150-450); RED BLOOD COUNT 2.91 M/UL (4.70-6.10); RED CELL DISTRIBUTION WIDTH 20.9 % (11.6-14.8); WHITE BLOOD COUNT 7.8 K/UL (4.8-10.8)
[2017-11-11 05:10] LABS: ALANINE AMINOTRANSFERASE 68 U/L (12-78); ALBUMIN/GLOBULIN RATIO 0.4 (1.0-2.7); ANION GAP 8 mmol/L (5-15); ASPARTATE AMINO TRANSFERASE 105 U/L (15-37); CALCIUM 7.9 MG/DL (8.5-10.1); CARBON DIOXIDE 24 MMOL/L (21-32); CHLORIDE 105 MMOL/L (98-107); CREATININE 0.9 MG/DL (0.55-1.30); GLOMERULAR FILTRATION RATE > 60 mL/min (>60); SODIUM 137 MMOL/L (136-145); TOTAL PROTEIN 6.2 G/DL (6.4-8.2)
[2017-11-11 05:16] LABS: BILIRUBIN,DIRECT 1.6 MG/DL (0.0-0.3)
--- NOTE | 2017-11-11 07:14 | 48 Hour Post Anesthesia Eval ---
Post Anesthesia Evaluation Procedure: EGD with esophageal banding Date of Evaluation: Nov 11, 2017 Time of Evaluation: 07:10 Blood Pressure Systolic: 126 0: 63 Pulse Rate: 85 Respiratory Rate: 20 Temperature (Fahrenheit): 98.2 O2 Sat by Pulse Oximetry: 100 Airway: patent Nausea: No Vomiting: No Pain Intensity: 0 Hydration Status: adequate Cardiopulmonary Status: at baseline Mental Status/LOC: patient returned to baseline Post-Anesthesia Complications: 0 Follow-up care needed: N/A - further care as per primary team JOSE RAI M.D. Nov 11, 2017 07:14
[2017-11-11] MEDS: Octreotide Acetate 500 MCG in Sodium Chloride 500ML 499 ML IV SCH (07:41)
[2017-11-11] MEDS: Pantoprazole 80 MG in NS 250 ML IV SCH (07:41)
[2017-11-11] MEDS: cefTRIAXone 1 GM in D5W 55 ML IVPB SCH (09:33)
--- NOTE | 2017-11-11 10:16 | History & Physical ---
History and Physical History & Physicial patient is seen and examined. Dictation completed Jack Gayle MD Nov 11, 2017 10:16
--- NOTE | 2017-11-11 11:51 | Pulmonolgy Critical Care Note ---
Critical Care - Asmt/Plan Problems: (1) Hepatocellular carcinoma (2) Esophageal varices (3) Upper GI bleeding (4) Pancreatitis (5) Hepatitis-C (6) ETOH abuse (7) Symptomatic anemia Assessment/Plan: 62 M h/o EtOH abuse, Hep C cirrhosis c/b EV and HCC p/w GIB 2/2 EV S/P banding and pancreatitis -Continue Octreotide and PPI gtt -Monitor H/H, transfuse PRN Hb < 7 -CLD per GI, ADAT -F/U GI recs -Needs O/P F/U Re: cirrhosis and HCC -Continue CTx, F/U Cx's -Monitor volumes -DVT Px: SCD -Stable from a pulmonary standpoint to transfer out of ICU if ok with GI D/W RN Time Spent (Minutes): 30 Critical Care - Objective Last 24 Hour Vital Signs Date Time Temp Pulse Resp B/P (MAP) Pulse Ox O2 Delivery O2 Flow Rate FiO2 11/11/17 11:00 89 20 158/82 100 Room Air 11/11/17 10:00 85 20 130/65 100 Room Air 11/11/17 09:00 91 20 135/78 100 Room Air 11/11/17 08:00 85 11/11/17 08:00 97.9 86 20 132/60 100 Room Air 11/11/17 07:14 85 20 100 11/11/17 07:13 90 24 100 11/11/17 07:10 85 20 126/63 100 Room Air 11/11/17 05:58 85 20 124/63 100 Room Air 11/11/17 05:00 90 18 144/75 98 Room Air 11/11/17 04:05 98.2 88 20 138/60 98 Room Air 11/11/17 04:01 88 11/11/17 03:00 90 18 115/64 100 Room Air 11/11/17 02:00 92 18 126/99 100 Room Air 11/11/17 01:00 90 19 134/63 100 Room Air 11/11/17 00:30 92 11/11/17 00:00 98.0 93 18 139/69 98 Room Air 11/10/17 23:00 95 19 130/74 100 Room Air 11/10/17 22:00 90 20 125/84 100 Room Air 11/10/17 21:00 92 18 116/47 100 Room Air 11/10/17 20:24 95 12/19/17 20:00 98.4 95 18 117/59 100 Room Air 11/10/17 18:00 100 20 121/92 99 Room Air 11/10/17 17:00 91 19 116/68 100 Room Air 11/10/17 16:00 98.8 95 23 134/65 100 Room Air 11/10/17 16:00 90 11/10/17 15:00 95 21 159/74 99 Room Air 11/10/17 14:30 98 21 129/78 100 Room Air 11/10/17 14:00 92 19 126/64 100 Room Air 11/10/17 13:30 91 19 126/64 100 Room Air 11/10/17 13:00 94 20 112/59 100 Room Air 11/10/17 12:30 92 21 125/45 100 Room Air 11/10/17 12:00 98.5 91 20 132/59 100 Room Air 11/10/17 12:00 88 Status: awake Condition: improving HEENT: atraumatic, normocephalic Neck: full ROM Lungs: clear Heart: HR/BP stable Abdomen: soft, non-tender, active bowel sounds Extremities: no C/C/E Critical Care - Subjective Interval Events: AFVSS, stable on RA, anoop CLD, no BM, no hematemesis, no melena, no BRBPR, no cough, no SOB, no FC/ H/H dropped to 7.4 from 8.f Condition: improving IV Access: peripheral EKG Rhythm: Sinus Rhythm I&O: Intake and Output 11/11/17 11/12/17 19:00 07:00 Intake Total 595 ml Output Total 600 ml Balance -5 ml Intake Oral 240 ml IV Total 355 ml Output Urine Total 600 ml Subjective: Feels better, no F/C/CP/SOB/abdominal pain/BRBPR/hematemesis/melena or other complaints Labs: Laboratory Tests Test 11/11/17 03:20 White Blood Count 7.8 K/UL (4.8-10.8) Red Blood Count 2.91 M/UL (4.70-6.10) L Hemoglobin 7.4 G/DL (14.2-18.0) L Hematocrit 23.6 % (42.0-52.0) L Mean Corpuscular Volume 81 FL (80-99) Mean Corpuscular Hemoglobin 25.6 PG (27.0-31.0) L Mean Corpuscular Hemoglobin Concent 31.5 G/DL (32.0-36.0) L Red Cell Distribution Width 20.9 % (11.6-14.8) H Platelet Count 331 K/UL (150-450) Mean Platelet Volume 5.5 FL (6.5-10.1) L Neutrophils (%) (Auto) % (45.0-75.0) Lymphocytes (%) (Auto) % (20.0-45.0) Monocytes (%) (Auto) % (1.0-10.0) Eosinophils (%) (Auto) % (0.0-3.0) Basophils (%) (Auto) % (0.0-2.0) Sodium Level 137 MMOL/L (136-145) Potassium Level 4.0 MMOL/L (3.5-5.1) Chloride Level 105 MMOL/L (98-107) Carbon Dioxide Level 24 MMOL/L (21-32) Anion Gap 8 mmol/L (5-15) Blood Urea Nitrogen 16 mg/dL (7-18) Creatinine 0.9 MG/DL (0.55-1.30) Estimat Glomerular Filtration Rate > 60 mL/min (>60) Glucose Level 88 MG/DL (74-106) Calcium Level 7.9 MG/DL (8.5-10.1) L Total Bilirubin 2.0 MG/DL (0.2-1.0) H Direct Bilirubin 1.6 MG/DL (0.0-0.3) H Aspartate Amino Transf (AST/SGOT) 105 U/L (15-37) H Alanine Aminotransferase (ALT/SGPT) 68 U/L (12-78) Alkaline Phosphatase 145 U/L (46-116) H Total Protein 6.2 G/DL (6.4-8.2) L Albumin 1.9 G/DL (3.4-5.0) L Globulin 4.3 g/dL Albumin/Globulin Ratio 0.4 (1.0-2.7) L PEE IQBAL M.D. Nov 11, 2017 11:51
--- NOTE | 2017-11-11 13:51 | GI Progress Note ---
Assessment/Plan Problems: (1) Esophageal varices ICD Codes: I85.00 - Esophageal varices without bleeding SNOMED: 14545956 (2) Symptomatic anemia ICD Codes: D64.9 - Anemia, unspecified SNOMED: 454056207 (3) Hepatitis-C ICD Codes: B19.20 - Unspecified viral hepatitis C without hepatic coma SNOMED: 94403353 (4) ETOH abuse ICD Codes: F10.10 - Alcohol abuse, uncomplicated SNOMED: 29259546, 72897018 (5) Upper GI bleeding ICD Codes: K92.2 - Gastrointestinal hemorrhage, unspecified SNOMED: 68775700 Status: stable Status Narrative Discussed with Dr. Hartley. Assessment/Plan SUMMARY OF FINDINGS: 1. Esophageal varices, status post banding x4. 2. Portal hypertensive gastropathy. RECOMMENDATIONS: adv to cardiac/low sodium soft diet monitor H&H, prn transfusion protonix gtt --> IV taper down octreotide gtt for one day avoid alcohol titrate propranolol for portal HTN >> hold for SBP under 100 / HR under 60 fu labs Subjective Gastrointestinal/Abdominal: Reports: no symptoms Subjective overall feels good hungry Objective Last 24 Hour Vital Signs Date Time Temp Pulse Resp B/P (MAP) Pulse Ox O2 Delivery O2 Flow Rate FiO2 11/11/17 13:00 87 20 149/72 100 Room Air 11/11/17 12:00 92 11/11/17 12:00 97.5 89 20 142/94 100 Room Air 11/11/17 11:00 89 20 158/82 100 Room Air 11/11/17 10:00 85 20 130/65 100 Room Air 11/11/17 09:00 91 20 135/78 100 Room Air 11/11/17 08:00 85 11/11/17 08:00 97.9 86 20 132/60 100 Room Air 11/11/17 07:14 85 20 100 11/11/17 07:13 90 24 100 11/11/17 07:10 85 20 126/63 100 Room Air 11/11/17 05:58 85 20 124/63 100 Room Air 11/11/17 05:00 90 18 144/75 98 Room Air 11/11/17 04:05 98.2 88 20 138/60 98 Room Air 11/11/17 04:01 88 11/11/17 03:00 90 18 115/64 100 Room Air 11/11/17 02:00 92 18 126/99 100 Room Air 11/11/17 01:00 90 19 134/63 100 Room Air 11/11/17 00:30 92 11/11/17 00:00 98.0 93 18 139/69 98 Room Air 11/10/17 23:00 95 19 130/74 100 Room Air 11/10/17 22:00 90 20 125/84 100 Room Air 11/10/17 21:00 92 18 116/47 100 Room Air 11/10/17 20:24 95 11/10/17 20:00 98.4 95 18 117/59 100 Room Air 11/10/17 18:00 100 20 121/92 99 Room Air 11/10/17 17:00 91 19 116/68 100 Room Air 11/10/17 16:00 98.8 95 23 134/65 100 Room Air 11/10/17 16:00 90 11/10/17 15:00 95 21 159/74 99 Room Air 11/10/17 14:30 98 21 129/78 100 Room Air 11/10/17 14:00 92 19 126/64 100 Room Air Intake and Output 11/10/17 11/11/17 19:00 07:00 Intake Total 1788 ml 1455 ml Output Total 295 ml 500 ml Balance 1493 ml 955 ml Intake Oral 1128 ml 480 ml IV Total 620 ml 975 ml Other 40 ml Output Urine Total 295 ml 500 ml Laboratory Tests Test 11/11/17 03:20 White Blood Count 7.8 K/UL (4.8-10.8) Red Blood Count 2.91 M/UL (4.70-6.10) L Hemoglobin 7.4 G/DL (14.2-18.0) L Hematocrit 23.6 % (42.0-52.0) L Mean Corpuscular Volume 81 FL (80-99) Mean Corpuscular Hemoglobin 25.6 PG (27.0-31.0) L Mean Corpuscular Hemoglobin Concent 31.5 G/DL (32.0-36.0) L Red Cell Distribution Width 20.9 % (11.6-14.8) H Platelet Count 331 K/UL (150-450) Mean Platelet Volume 5.5 FL (6.5-10.1) L Neutrophils (%) (Auto) % (45.0-75.0) Lymphocytes (%) (Auto) % (20.0-45.0) Monocytes (%) (Auto) % (1.0-10.0) Eosinophils (%) (Auto) % (0.0-3.0) Basophils (%) (Auto) % (0.0-2.0) Sodium Level 137 MMOL/L (136-145) Potassium Level 4.0 MMOL/L (3.5-5.1) Chloride Level 105 MMOL/L (98-107) Carbon Dioxide Level 24 MMOL/L (21-32) Anion Gap 8 mmol/L (5-15) Blood Urea Nitrogen 16 mg/dL (7-18) Creatinine 0.9 MG/DL (0.55-1.30) Estimat Glomerular Filtration Rate > 60 mL/min (>60) Glucose Level 88 MG/DL (74-106) Calcium Level 7.9 MG/DL (8.5-10.1) L Total Bilirubin 2.0 MG/DL (0.2-1.0) H Direct Bilirubin 1.6 MG/DL (0.0-0.3) H Aspartate Amino Transf (AST/SGOT) 105 U/L (15-37) H Alanine Aminotransferase (ALT/SGPT) 68 U/L (12-78) Alkaline Phosphatase 145 U/L (46-116) H Total Protein 6.2 G/DL (6.4-8.2) L Albumin 1.9 G/DL (3.4-5.0) L Globulin 4.3 g/dL Albumin/Globulin Ratio 0.4 (1.0-2.7) L Height (Feet): 5 Height (Inches): 11.00 Weight (Pounds): 149 General Appearance: WD/WN, no apparent distress, alert Cardiovascular: normal rate Respiratory/Chest: normal breath sounds, no respiratory distress Abdominal Exam: normal bowel sounds, non tender, soft Extremities: normal range of motion, non-tender Arlet Menendez N.Buddy Nov 11, 2017 13:51
[2017-11-11] MEDS ORDERED: Pantoprazole Inj IVP SCH (18:00)
[2017-11-11] MEDS ORDERED: Octreotide Acetate 500 MCG in Sodium Chloride 500ML 499 ML IV SCH (18:00)
[2017-11-11] MEDS ORDERED: Propranolol 10mg tab ORAL SCH (18:00)
[2017-11-11] MEDS: Pantoprazole Inj IVP SCH (18:59)
[2017-11-11] MEDS: Propranolol 10mg tab ORAL SCH (19:01)
--- NOTE | 2017-11-11 21:00 | History and Physical Report ---
DATE OF ADMISSION: 11/09/2017 SOURCE OF INFORMATION: EMR. HISTORY OF PRESENT ILLNESS: The patient is a 62-year-old male with history of upper gastrointestinal bleeding and esophageal varices. The patient is and lethargic at the time of evaluation in the emergency room of the [facility]. Therefore, this is a limited source of information. PAST MEDICAL HISTORY: Alcoholism, anxiety, depression, and upper gastrointestinal bleed. PAST SURGICAL HISTORY: Endoscopy. ALLERGIES: Ibuprofen. SOCIAL HISTORY: The patient is alcoholic. The remainder of the information is unobtainable. FAMILY HISTORY: Reviewed and noncontributory. REVIEW OF SYSTEMS: Positive episodes of throwing blood and vomitus, low blood pressure. Limited source of information. PHYSICAL EXAMINATION: VITAL SIGNS: Blood pressure 120/60, temperature 98.2, pulse oximetry 98% on room air, respiratory rate 18, and temperature 98.2. HEAD AND NECK: Atraumatic and normocephalic. CHEST: Clear to auscultation. HEART: S1 and S2. Regular rate and rhythm. ABDOMEN: Protuberant. Negative for CVA tenderness. NEUROLOGIC: The patient is awake, alert, and oriented x1. LABORATORY DATA: Labs dated 11/09/2017, WBC 13.2, hemoglobin 5.9, and platelets of 371. Sodium 136, potassium 4.1, BUN 14, and creatinine 1.3. Total bilirubin of 3, direct bilirubin of 1.6, AST 81, lipase 569. ASSESSMENT AND PLAN: 1. Acute on chronic upper gastrointestinal bleed. 2. Esophageal varices - confirmed by prior esophagogastroduodenoscopy, likely the source of information. 3. Acute pancreatitis. 4. Alcoholism. 5. Gastrointestinal and deep vein thrombosis prophylaxis. 6. Cirrhosis - the likely diagnosis not confirmed. PLAN OF CARE: I will order the abdominal ultrasound. Type and cross two units and transfuse. I agree to admit to ICU. Dr. Hartley, GI, is consulted. I will order the abdominal ultrasound. Jack Gayle M.D. DR: [place] JOB#: [id number] CC:
[2017-11-12] VITALS: BP 136/70
[2017-11-12 03:29] VITALS: BP 156/90
[2017-11-12 07:11] LABS: BASOPHILS % (AUTO) 1.3 % (0.0-2.0); EOSINOPHILS % (AUTO) 1.8 % (0.0-3.0); LYMPHOCYTES % (AUTO) 14.4 % (20.0-45.0); MEAN CORPUSCULAR HEMOGLOBIN 25.1 PG (27.0-31.0); MEAN CORPUSCULAR HGB CONC 30.8 G/DL (32.0-36.0); MEAN CORPUSCULAR VOLUME 82 FL (80-99); MEAN PLATELET VOLUME 5.2 FL (6.5-10.1); MONOCYTES % (AUTO) 13.4 % (1.0-10.0); NEUTROPHILS % (AUTO) 69.2 % (45.0-75.0); PLATELET COUNT 372 K/UL (150-450); RED BLOOD COUNT 3.35 M/UL (4.70-6.10); RED CELL DISTRIBUTION WIDTH 20.7 % (11.6-14.8); WHITE BLOOD COUNT 8.4 K/UL (4.8-10.8)
[2017-11-12 07:57] LABS: ALANINE AMINOTRANSFERASE 69 U/L (12-78); ALBUMIN/GLOBULIN RATIO 0.4 (1.0-2.7); ANION GAP 10 mmol/L (5-15); ASPARTATE AMINO TRANSFERASE 86 U/L (15-37); CALCIUM 8.2 MG/DL (8.5-10.1); CARBON DIOXIDE 25 MMOL/L (21-32); CHLORIDE 101 MMOL/L (98-107); CREATININE 0.8 MG/DL (0.55-1.30); GLOMERULAR FILTRATION RATE > 60 mL/min (>60); SODIUM 136 MMOL/L (136-145); TOTAL PROTEIN 6.7 G/DL (6.4-8.2)
[2017-11-12 08:00] VITALS: BP 151/81
[2017-11-12] MEDS: Propranolol 10mg tab ORAL SCH ×2 (08:57→18:14)
[2017-11-12] MEDS: Pantoprazole Inj IVP SCH (08:58)
[2017-11-12 10:16] LABS: BILIRUBIN,DIRECT 1.4 MG/DL (0.0-0.3)
--- NOTE | 2017-11-12 10:23 | Diagnostic Imaging Report ---
Indication: Abnormal liver function tests, pain, history of cirrhosis Technique: Spears-scale and duplex images of the upper abdomen were obtained Comparison: 07/03/2016, also CT scan dated 2 07/04/2016 Findings: Gallbladder demonstrates no stones. There is gallbladder wall thickening, gallbladder wall measuring 5 mm thick. Sonographic Robison's sign is negative. Common bile duct measures 5 mm in diameter. No intrahepatic biliary ductal dilatation. However, bright echoes within the liver parenchyma are suspicious for pneumobilia. Liver demonstrates coarsened echogenicity. There are numerous masses of varying sizes and echogenicity throughout the liver. Similar findings were reported previously. There is hepatic surface nodularity. Portal vein and hepatic veins are patent. There is a small amount of ascites fluid present. Pancreas is unremarkable. The spleen is enlarged, measuring 13.4 cm long axis dimension Left kidney measures 10.6 cm in length. Right kidney measures 9.7 cm length. Both kidneys demonstrate normal echogenicity. There is no hydronephrosis. There are bilateral renal cysts . Non-aneurysmal abdominal aorta . Impression: Multiple hepatic nodules, also previously described on [address], concerning for multifocal or disseminated neoplasm. Evidence of hepatic cirrhosis, with surface nodularity and coarse in echotexture also previously described Negative for gallstones. Gallbladder wall thickening is likely related to the above, but the possibility of acalculous acute cholecystitis should also be considered. Consider nuclear medicine hepatobiliary scan for further evaluation if clinically indicated. Negative for biliary ductal dilatation Evidence of portal hypertension, with trace ascites, splenomegaly Incidental finding bilateral renal cysts
--- NOTE | 2017-11-12 11:44 | GI Progress Note ---
Assessment/Plan Problems: (1) Esophageal varices ICD Codes: I85.00 - Esophageal varices without bleeding SNOMED: 50354309 (2) Symptomatic anemia ICD Codes: D64.9 - Anemia, unspecified SNOMED: 472920030 (3) Hepatitis-C ICD Codes: B19.20 - Unspecified viral hepatitis C without hepatic coma SNOMED: 89752793 (4) ETOH abuse ICD Codes: F10.10 - Alcohol abuse, uncomplicated SNOMED: 33662701, 79310462 (5) Upper GI bleeding ICD Codes: K92.2 - Gastrointestinal hemorrhage, unspecified SNOMED: 03121286 Status: stable Status Narrative Discussed with Dr. Hartley. Assessment/Plan SUMMARY OF FINDINGS: 1. Esophageal varices, status post banding x4. 2. Portal hypertensive gastropathy. RECOMMENDATIONS: okay for DC per GI standpoint adv to cardiac/low sodium soft diet monitor H&H, prn transfusion Protonix PO dc octreotide avoid alcohol titrate propranolol for portal HTN >> hold for SBP under 100 / HR under 60 Rx written for propranolol 10mg TID given to RN, patient to follow up as outpatient fu labs Subjective Subjective overall feels good hungry Objective Last 24 Hour Vital Signs Date Time Temp Pulse Resp B/P (MAP) Pulse Ox O2 Delivery O2 Flow Rate FiO2 11/12/17 08:57 75 141/82 11/12/17 08:00 97.5 73 20 151/81 100 11/12/17 04:07 Room Air 11/12/17 03:29 97.7 81 20 156/90 96 Room Air 11/12/17 00:00 Room Air 11/12/17 00:00 97.9 72 19 136/70 98 Room Air 11/11/17 20:00 Room Air 11/11/17 20:00 96.9 80 19 148/88 99 Room Air 11/11/17 19:01 87 151/87 11/11/17 15:38 97.3 90 20 149/86 98 11/11/17 14:00 88 20 137/76 100 Room Air 11/11/17 13:00 87 20 149/72 100 Room Air 11/11/17 12:00 92 11/11/17 12:00 97.5 89 20 142/94 100 Room Air Intake and Output 11/11/17 11/12/17 19:00 07:00 Intake Total 765 ml 275 ml Output Total 600 ml 450 ml Balance 165 ml -175 ml Intake Oral 240 ml IV Total 505 ml 275 ml Tube Feeding 20 ml Output Urine Total 600 ml 450 ml # Voids 4 # Bowel Movements 1 Laboratory Tests Test 11/12/17 04:55 White Blood Count 8.4 K/UL (4.8-10.8) Red Blood Count 3.35 M/UL (4.70-6.10) L Hemoglobin 8.4 G/DL (14.2-18.0) L Hematocrit 27.3 % (42.0-52.0) L Mean Corpuscular Volume 82 FL (80-99) Mean Corpuscular Hemoglobin 25.1 PG (27.0-31.0) L Mean Corpuscular Hemoglobin Concent 30.8 G/DL (32.0-36.0) L Red Cell Distribution Width 20.7 % (11.6-14.8) H Platelet Count 372 K/UL (150-450) Mean Platelet Volume 5.2 FL (6.5-10.1) L Neutrophils (%) (Auto) 69.2 % (45.0-75.0) Lymphocytes (%) (Auto) 14.4 % (20.0-45.0) L Monocytes (%) (Auto) 13.4 % (1.0-10.0) H Eosinophils (%) (Auto) 1.8 % (0.0-3.0) Basophils (%) (Auto) 1.3 % (0.0-2.0) Sodium Level 136 MMOL/L (136-145) Potassium Level 4.0 MMOL/L (3.5-5.1) Chloride Level 101 MMOL/L (98-107) Carbon Dioxide Level 25 MMOL/L (21-32) Anion Gap 10 mmol/L (5-15) Blood Urea Nitrogen 11 mg/dL (7-18) Creatinine 0.8 MG/DL (0.55-1.30) Estimat Glomerular Filtration Rate > 60 mL/min (>60) Glucose Level 90 MG/DL (74-106) Calcium Level 8.2 MG/DL (8.5-10.1) L Total Bilirubin 1.9 MG/DL (0.2-1.0) H Direct Bilirubin 1.4 MG/DL (0.0-0.3) H Aspartate Amino Transf (AST/SGOT) 86 U/L (15-37) H Alanine Aminotransferase (ALT/SGPT) 69 U/L (12-78) Alkaline Phosphatase 158 U/L (46-116) H Total Protein 6.7 G/DL (6.4-8.2) Albumin 2.0 G/DL (3.4-5.0) L Globulin 4.7 g/dL Albumin/Globulin Ratio 0.4 (1.0-2.7) L Height (Feet): 5 Height (Inches): 11.00 Weight (Pounds): 135 General Appearance: WD/WN, no apparent distress, alert Cardiovascular: normal rate Respiratory/Chest: normal breath sounds, no respiratory distress Abdominal Exam: normal bowel sounds, non tender, soft Extremities: normal range of motion, non-tender Arlet Menendez N.P. Nov 12, 2017 11:44
[2017-11-12 12:00] VITALS: BP 143/86
[2017-11-12] MEDS: cefTRIAXone 1 GM in D5W 55 ML IVPB SCH (12:02)
--- NOTE | 2017-11-12 12:35 | General Progress Note ---
Assessment/Plan Status: stable Assessment/Plan 1. Acute on chronic upper gastrointestinal bleed. 2. Esophageal varices - confirmed by prior esophagogastroduodenoscopy, likely the source of information. 3. Acute pancreatitis. 4. Alcoholism. 5. Liver Cirhosis 5. Gastrointestinal and deep vein thrombosis prophylaxis. 6. GI-DV prophylaxia Plan: Hospice consult, current management Subjective ROS Limited/Unobtainable: No Constitutional: Reports: no symptoms HEENT: Reports: no symptoms Cardiovascular: Reports: no symptoms Allergies: Coded Allergies: IBUPROFEN (Unverified Allergy, Intermediate, 07/02/16) Objective Last 24 Hour Vital Signs Date Time Temp Pulse Resp B/P (MAP) Pulse Ox O2 Delivery O2 Flow Rate FiO2 11/12/17 08:57 75 141/82 11/12/17 08:00 97.5 73 20 151/81 100 11/12/17 04:07 Room Air 11/12/17 03:29 97.7 81 20 156/90 96 Room Air 11/12/17 00:00 Room Air 11/12/17 00:00 97.9 72 19 136/70 98 Room Air 11/11/17 20:00 Room Air 11/11/17 20:00 96.9 80 19 148/88 99 Room Air 11/11/17 19:01 87 151/87 11/11/17 15:38 97.3 90 20 149/86 98 11/11/17 14:00 88 20 137/76 100 Room Air 11/11/17 13:00 87 20 149/72 100 Room Air Intake and Output 11/11/17 11/12/17 19:00 07:00 Intake Total 765 ml 275 ml Output Total 600 ml 450 ml Balance 165 ml -175 ml Intake Oral 240 ml IV Total 505 ml 275 ml Tube Feeding 20 ml Output Urine Total 600 ml 450 ml # Voids 4 # Bowel Movements 1 Laboratory Tests 11/12/17 04:55: White Blood Count 8.4, Red Blood Count 3.35L, Hemoglobin 8.4L, Hematocrit 27.3L , Mean Corpuscular Volume 82, Mean Corpuscular Hemoglobin 25.1L, Mean Corpuscular Hemoglobin Concent 30.8L, Red Cell Distribution Width 20.7H, Platelet Count 372, Mean Platelet Volume 5.2L, Neutrophils (%) (Auto) 69.2, Lymphocytes (%) (Auto) 14.4L, Monocytes (%) (Auto) 13.4H, Eosinophils (%) (Auto ) 1.8, Basophils (%) (Auto) 1.3, Sodium Level 136, Potassium Level 4.0, Chloride Level 101, Carbon Dioxide Level 25, Anion Gap 10, Blood Urea Nitrogen 11, Creatinine 0.8, Estimat Glomerular Filtration Rate > 60, Glucose Level 90, Calcium Level 8.2L, Total Bilirubin 1.9H, Direct Bilirubin 1.4H, Aspartate Amino Transf (AST/SGOT) 86H, Alanine Aminotransferase (ALT/SGPT) 69, Alkaline Phosphatase 158H, Total Protein 6.7, Albumin 2.0L, Globulin 4.7, Albumin/ Globulin Ratio 0.4L Height (Feet): 5 Height (Inches): 11.00 Weight (Pounds): 135 General Appearance: no apparent distress EENT: PERRL/EOMI Neck: supple Cardiovascular: normal rate Respiratory/Chest: rhonchi - bilaterally Abdomen: distended, guarding Jack Gayle MD Nov 12, 2017 12:35
[2017-11-12] MEDS ORDERED: Octreotide Acetate 500 MCG in Sodium Chloride 500ML 499 ML IV SCH (14:30)
[2017-11-12 16:00] VITALS: BP 139/76
[2017-11-12 20:00] VITALS: BP 139/77
[2017-11-12] MEDS: Hydromorphone 0.5mg/0.5ml inj IVP PRN (20:37)
--- NOTE | 2017-11-12 23:15 | Consultation ---
History of Present Illness General Date patient seen: Nov 12, 2017 Chief Complaint: Vomiting Present Illness HPI 62-year-old male with history of upper gastrointestinal bleeding and esophageal varices. the pt not able to provide hx Allergies: Coded Allergies: IBUPROFEN (Unverified Allergy, Intermediate, 07/02/16) Medication History Scheduled Ferrous Sulfate* (Ferrous Sulfate*), 325 MG ORAL DAILY, (Reported) Nifedipine Er* (Nifedipine Er*), 30 MG ORAL DAILY, (Reported) Pantoprazole* (Protonix*), 40 MG ORAL EVERY 12 HOURS, (Reported) Scheduled PRN Tramadol Hcl* (Ultram*), 50 MG ORAL Q6H PRN for For Pain, (Reported) Discontinued Medications Albuterol Sulfate* (Albuterol Sulfate Mdi*), 2 PUFF INH Q4H, (Reported) Discontinued Reason: Pt stopped taking med Escitalopram Oxalate* (Lexapro*), Unknown Dose ORAL DAILY, (Reported) Discontinued Reason: Pt stopped taking med Hydrocodone Bit/Acetaminophen 10-325* ([place] 10-325*), Unknown Dose ORAL Q6H PRN for For Pain, (Reported) Discontinued Reason: Pt stopped taking med Hydrocodone Bit/Acetaminophen 5-325* ([place] 5-325*), 1 TAB ORAL Q6H PRN for For Pain Discontinued Reason: Pt stopped taking med Hydrocortisone/Aloe Vera (Hydrocortisone Plus 1% Cream), 28.4 GM TP TWICE A DAY Discontinued Reason: Pt stopped taking med Hydroxyzine HCl (Hydroxyzine HCl), 25 MG ORAL FOUR TIMES A DAY Discontinued Reason: Pt stopped taking med Lactulose (Lactulose*), 30 ML ORAL BID PRN for Constipation Discontinued Reason: Pt stopped taking med Methocarbamol* (Robaxin*), 500 MG PO TID Discontinued Reason: Pt stopped taking med Permethrin (Permethrin), 1 APPLIC TOPIC ONCE Discontinued Reason: Pt stopped taking med [vit D], (Reported) Discontinued Reason: Pt stopped taking med Patient History Healthcare decision maker Resuscitation status Full Code Advanced Directive on File Physical Exam Last 24 Hour Vital Signs Date Time Temp Pulse Resp B/P (MAP) Pulse Ox O2 Delivery O2 Flow Rate FiO2 11/12/17 20:00 99.0 69 20 139/77 98 Room Air 11/12/17 18:14 81 147/116 11/12/17 16:00 97.3 71 20 139/76 100 12/21/17 12:00 97.3 69 20 143/86 98 11/12/17 08:57 75 141/82 11/12/17 08:00 97.5 73 20 151/81 100 11/12/17 04:07 Room Air 11/12/17 03:29 97.7 81 20 156/90 96 Room Air 11/12/17 00:00 Room Air 11/12/17 00:00 97.9 72 19 136/70 98 Room Air Intake and Output 11/11/17 11/12/17 19:00 07:00 Intake Total 765 ml 275 ml Output Total 600 ml 450 ml Balance 165 ml -175 ml Intake Oral 240 ml IV Total 505 ml 275 ml Tube Feeding 20 ml Output Urine Total 600 ml 450 ml # Voids 4 # Bowel Movements 1 Laboratory Tests Test 11/12/17 04:55 White Blood Count 8.4 K/UL (4.8-10.8) Red Blood Count 3.35 M/UL (4.70-6.10) L Hemoglobin 8.4 G/DL (14.2-18.0) L Hematocrit 27.3 % (42.0-52.0) L Mean Corpuscular Volume 82 FL (80-99) Mean Corpuscular Hemoglobin 25.1 PG (27.0-31.0) L Mean Corpuscular Hemoglobin Concent 30.8 G/DL (32.0-36.0) L Red Cell Distribution Width 20.7 % (11.6-14.8) H Platelet Count 372 K/UL (150-450) Mean Platelet Volume 5.2 FL (6.5-10.1) L Neutrophils (%) (Auto) 69.2 % (45.0-75.0) Lymphocytes (%) (Auto) 14.4 % (20.0-45.0) L Monocytes (%) (Auto) 13.4 % (1.0-10.0) H Eosinophils (%) (Auto) 1.8 % (0.0-3.0) Basophils (%) (Auto) 1.3 % (0.0-2.0) Sodium Level 136 MMOL/L (136-145) Potassium Level 4.0 MMOL/L (3.5-5.1) Chloride Level 101 MMOL/L (98-107) Carbon Dioxide Level 25 MMOL/L (21-32) Anion Gap 10 mmol/L (5-15) Blood Urea Nitrogen 11 mg/dL (7-18) Creatinine 0.8 MG/DL (0.55-1.30) Estimat Glomerular Filtration Rate > 60 mL/min (>60) Glucose Level 90 MG/DL (74-106) Calcium Level 8.2 MG/DL (8.5-10.1) L Total Bilirubin 1.9 MG/DL (0.2-1.0) H Direct Bilirubin 1.4 MG/DL (0.0-0.3) H Aspartate Amino Transf (AST/SGOT) 86 U/L (15-37) H Alanine Aminotransferase (ALT/SGPT) 69 U/L (12-78) Alkaline Phosphatase 158 U/L (46-116) H Total Protein 6.7 G/DL (6.4-8.2) Albumin 2.0 G/DL (3.4-5.0) L Globulin 4.7 g/dL Albumin/Globulin Ratio 0.4 (1.0-2.7) L Height (Feet): 5 Height (Inches): 11.00 Weight (Pounds): 135 Medications Current Medications Medications (Trade) Dose Ordered Sig/Candice Route PRN Reason Start Time Stop Time Status Last Admin Dose Admin Ceftriaxone Sodium 1 gm/ Dextrose 55 ml @ 110 mls/hr Q24H IVPB 11/12/17 10:30 11/17/17 10:29 11/12/17 12:02 Hydromorphone HCl (Dilaudid) 0.5 mg Q4H PRN IVP For Moderate to Severe Pain 11/11/17 15:45 11/17/17 15:44 11/12/17 20:37 Pantoprazole (Protonix) 40 mg DAILY ORAL 11/13/17 09:00 12/13/17 08:59 Propranolol HCl (Inderal) 10 mg BID ORAL 11/11/17 18:00 12/11/17 17:59 11/12/17 18:14 Cecilia Boswell M.D. Nov 12, 2017 23:15
[2017-11-13] VITALS: BP 119/73
[2017-11-13 04:00] VITALS: BP 127/72
[2017-11-13 06:39] LABS: BASOPHILS % (AUTO) 1.1 % (0.0-2.0); EOSINOPHILS % (AUTO) 1.9 % (0.0-3.0); LYMPHOCYTES % (AUTO) 21.9 % (20.0-45.0); MEAN CORPUSCULAR HEMOGLOBIN 24.7 PG (27.0-31.0); MEAN CORPUSCULAR HGB CONC 30.2 G/DL (32.0-36.0); MEAN CORPUSCULAR VOLUME 82 FL (80-99); MEAN PLATELET VOLUME 5.2 FL (6.5-10.1); MONOCYTES % (AUTO) 13.5 % (1.0-10.0); NEUTROPHILS % (AUTO) 61.6 % (45.0-75.0); PLATELET COUNT 405 K/UL (150-450); RED BLOOD COUNT 3.38 M/UL (4.70-6.10); WHITE BLOOD COUNT 8.1 K/UL (4.8-10.8)
[2017-11-13 07:17] LABS: ALANINE AMINOTRANSFERASE 67 U/L (12-78); ALBUMIN/GLOBULIN RATIO 0.4 (1.0-2.7); ANION GAP 5 mmol/L (5-15); ASPARTATE AMINO TRANSFERASE 88 U/L (15-37); CALCIUM 6.8 MG/DL (8.5-10.1); CARBON DIOXIDE 28 MMOL/L (21-32); CHLORIDE 104 MMOL/L (98-107); CREATININE 0.9 MG/DL (0.55-1.30); GLOMERULAR FILTRATION RATE > 60 mL/min (>60); POTASSIUM 4.7 MMOL/L (3.5-5.1); SODIUM 137 MMOL/L (136-145); TOTAL PROTEIN 6.8 G/DL (6.4-8.2)
[2017-11-13 07:28] LABS: BILIRUBIN,DIRECT 1.3 MG/DL (0.0-0.3)
[2017-11-13 08:00] VITALS: BP 134/77
[2017-11-13] MEDS: Propranolol 10mg tab ORAL SCH ×2 (08:35→17:30)
[2017-11-13] MEDS: cefTRIAXone 1 GM in D5W 55 ML IVPB SCH (09:14)
--- NOTE | 2017-11-13 09:29 | General Progress Note ---
Assessment/Plan Status: stable Assessment/Plan 1. Acute on chronic upper gastrointestinal bleed. 2. Esophageal varices - confirmed by prior esophagogastroduodenoscopy, likely the source of information. 3. Acute pancreatitis. 4. Alcoholism. 5. Liver Cirhosis 5. Gastrointestinal and deep vein thrombosis prophylaxis. 6. GI-DV prophylaxia Plan: Hospice consult, current management OK TO FU O/P ONCE ACCEPTED BY HOSPICE Subjective ROS Limited/Unobtainable: No Constitutional: Reports: malaise Cardiovascular: Reports: no symptoms Respiratory: Reports: no symptoms Gastrointestinal/Abdominal: Reports: no symptoms Allergies: Coded Allergies: IBUPROFEN (Unverified Allergy, Intermediate, 07/02/16) Objective Last 24 Hour Vital Signs Date Time Temp Pulse Resp B/P (MAP) Pulse Ox O2 Delivery O2 Flow Rate FiO2 11/13/17 08:35 69 134/77 11/13/17 08:00 97.7 69 18 134/77 100 Room Air 11/13/17 04:00 97.7 64 20 127/72 97 Room Air 11/13/17 00:00 97.9 66 20 119/73 99 Room Air 11/12/17 20:00 99.0 69 20 139/77 98 Room Air 11/12/17 18:14 81 147/116 11/12/17 16:00 97.3 71 20 139/76 100 11/12/17 12:00 97.3 69 20 143/86 98 Intake and Output 11/12/17 11/13/17 19:00 07:00 Intake Total 260 ml Balance 260 ml Intake Oral 260 ml # Voids 4 2 Laboratory Tests 11/13/17 05:15: White Blood Count 8.1, Red Blood Count 3.38L, Hemoglobin 8.3L, Hematocrit 27.7L , Mean Corpuscular Volume 82, Mean Corpuscular Hemoglobin 24.7L, Mean Corpuscular Hemoglobin Concent 30.2L, Red Cell Distribution Width 21.0H, Platelet Count 405, Mean Platelet Volume 5.2L, Neutrophils (%) (Auto) 61.6, Lymphocytes (%) (Auto) 21.9, Monocytes (%) (Auto) 13.5H, Eosinophils (%) (Auto) 1.9, Basophils (%) (Auto) 1.1, Sodium Level 137, Potassium Level 4.7, Chloride Level 104, Carbon Dioxide Level 28, Anion Gap 5, Blood Urea Nitrogen 12, Creatinine 0.9, Estimat Glomerular Filtration Rate > 60, Glucose Level 82, Calcium Level 6.8L, Total Bilirubin 1.8H, Direct Bilirubin 1.3H, Aspartate Amino Transf (AST/SGOT) 88H, Alanine Aminotransferase (ALT/SGPT) 67, Alkaline Phosphatase 191H, Total Protein 6.8, Albumin 2.0L, Globulin 4.8, Albumin/ Globulin Ratio 0.4L Height (Feet): 5 Height (Inches): 11.00 Weight (Pounds): 134 General Appearance: no apparent distress EENT: PERRL/EOMI Neck: supple Cardiovascular: normal rate Respiratory/Chest: lungs clear Abdomen: distended Extremities: other - atrophied muscles 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
[2017-11-13 12:00] VITALS: BP 128/75
[2017-11-13] MEDS: Hydromorphone 0.5mg/0.5ml inj IVP PRN (12:27)
--- NOTE | 2017-11-13 14:50 | GI Progress Note ---
Assessment/Plan Problems: (1) Esophageal varices ICD Codes: I85.00 - Esophageal varices without bleeding SNOMED: 94991482 (2) Symptomatic anemia ICD Codes: D64.9 - Anemia, unspecified SNOMED: 942581078 (3) Hepatitis-C ICD Codes: B19.20 - Unspecified viral hepatitis C without hepatic coma SNOMED: 55331725 (4) ETOH abuse ICD Codes: F10.10 - Alcohol abuse, uncomplicated SNOMED: 10217569, 71987172 (5) Upper GI bleeding ICD Codes: K92.2 - Gastrointestinal hemorrhage, unspecified SNOMED: 33522650 Status: stable Status Narrative Discussed with Dr. Hartley. Assessment/Plan SUMMARY OF FINDINGS: 1. Esophageal varices, status post banding x4. 2. Portal hypertensive gastropathy. RECOMMENDATIONS: okay for DC per GI standpoint adv to cardiac/low sodium soft diet monitor H&H, prn transfusion Protonix PO dc octreotide dc IVFs avoid alcohol titrate propranolol for portal HTN >> hold for SBP under 100 / HR under 60 Rx written for propranolol 10mg TID given to RN, patient to follow up as outpatient fu labs Subjective Subjective overall feels good hungry Objective Last 24 Hour Vital Signs Date Time Temp Pulse Resp B/P (MAP) Pulse Ox O2 Delivery O2 Flow Rate FiO2 11/13/17 12:00 97.8 66 20 128/75 100 Room Air 11/13/17 08:35 69 134/77 11/13/17 08:00 97.7 69 18 134/77 100 Room Air 11/13/17 04:00 97.7 64 20 127/72 97 Room Air 11/13/17 00:00 97.9 66 20 119/73 99 Room Air 11/12/17 20:00 99.0 69 20 139/77 98 Room Air 11/12/17 18:14 81 147/116 11/12/17 16:00 97.3 71 20 139/76 100 Intake and Output 11/12/17 11/13/17 19:00 07:00 Intake Total 260 ml Balance 260 ml Intake Oral 260 ml # Voids 4 2 Laboratory Tests Test 11/13/17 05:15 White Blood Count 8.1 K/UL (4.8-10.8) Red Blood Count 3.38 M/UL (4.70-6.10) L Hemoglobin 8.3 G/DL (14.2-18.0) L Hematocrit 27.7 % (42.0-52.0) L Mean Corpuscular Volume 82 FL (80-99) Mean Corpuscular Hemoglobin 24.7 PG (27.0-31.0) L Mean Corpuscular Hemoglobin Concent 30.2 G/DL (32.0-36.0) L Red Cell Distribution Width 21.0 % (11.6-14.8) H Platelet Count 405 K/UL (150-450) Mean Platelet Volume 5.2 FL (6.5-10.1) L Neutrophils (%) (Auto) 61.6 % (45.0-75.0) Lymphocytes (%) (Auto) 21.9 % (20.0-45.0) Monocytes (%) (Auto) 13.5 % (1.0-10.0) H Eosinophils (%) (Auto) 1.9 % (0.0-3.0) Basophils (%) (Auto) 1.1 % (0.0-2.0) Sodium Level 137 MMOL/L (136-145) Potassium Level 4.7 MMOL/L (3.5-5.1) Chloride Level 104 MMOL/L (98-107) Carbon Dioxide Level 28 MMOL/L (21-32) Anion Gap 5 mmol/L (5-15) Blood Urea Nitrogen 12 mg/dL (7-18) Creatinine 0.9 MG/DL (0.55-1.30) Estimat Glomerular Filtration Rate > 60 mL/min (>60) Glucose Level 82 MG/DL (74-106) Calcium Level 6.8 MG/DL (8.5-10.1) L Total Bilirubin 1.8 MG/DL (0.2-1.0) H Direct Bilirubin 1.3 MG/DL (0.0-0.3) H Aspartate Amino Transf (AST/SGOT) 88 U/L (15-37) H Alanine Aminotransferase (ALT/SGPT) 67 U/L (12-78) Alkaline Phosphatase 191 U/L (46-116) H Total Protein 6.8 G/DL (6.4-8.2) Albumin 2.0 G/DL (3.4-5.0) L Globulin 4.8 g/dL Albumin/Globulin Ratio 0.4 (1.0-2.7) L Height (Feet): 5 Height (Inches): 11.00 Weight (Pounds): 134 General Appearance: WD/WN, no apparent distress, alert Cardiovascular: normal rate Respiratory/Chest: normal breath sounds, no respiratory distress Abdominal Exam: normal bowel sounds, non tender, soft Extremities: normal range of motion, non-tender Arlet Menendez N.P. Nov 13, 2017 14:50
[2017-11-13 16:00] VITALS: BP 125/70
--- NOTE | 2017-11-13 17:01 | Progress Note ---
DATE: 11/11/2017 SUBJECTIVE: The patient is in bed resting. No behavior issues. The patient is calm and in no apparent distress. The patient has a long history of alcohol use and now presenting with esophageal varices. During the evaluation, encouraged him to stay away drinking alcohol. He was also notified that the hospice was consulted. The patient is able to understand and discuss his case rationally. MENTAL STATUS EXAMINATION: The patient is alert and oriented times self, place, and situation he is in. Mood is neutral. Affect is constricted. Congruent with mood. Thought process is concrete. Thought content, no suicidal or homicidal ideation. ASSESSMENT: Alcohol dependence and cognitive impairment. PLAN: We will continue with the current medications. Provide the patient with supportive therapy and reality orientation. Cecilia Boswell M.D. DR: MARION JOB#: [id number] CC:
[2017-11-13 20:00] VITALS: BP 123/74
[2017-11-14] VITALS: BP 127/70
[2017-11-14 04:00] VITALS: BP 127/73
[2017-11-14] MEDS: Hydromorphone 0.5mg/0.5ml inj IVP PRN ×2 (06:34→16:20)
[2017-11-14 07:55] VITALS: BP 138/78
--- NOTE | 2017-11-14 08:00 | General Progress Note ---
Assessment/Plan Problem List: (1) Upper GI bleeding ICD Codes: K92.2 - Gastrointestinal hemorrhage, unspecified SNOMED: 73502480 (2) Esophageal varices ICD Codes: I85.00 - Esophageal varices without bleeding SNOMED: 01615486 (3) Hepatitis-C ICD Codes: B19.20 - Unspecified viral hepatitis C without hepatic coma SNOMED: 04357602 (4) ETOH abuse ICD Codes: F10.10 - Alcohol abuse, uncomplicated SNOMED: 27969743, 14436007 Assessment/Plan s/p EGd and banding no recurrent bleed propanolol needs repeat EGd and banding as out patient in 4-6 weeks Subjective ROS Limited/Unobtainable: Yes Allergies: Coded Allergies: IBUPROFEN (Unverified Allergy, Intermediate, 07/02/16) Subjective no event Objective Last 24 Hour Vital Signs Date Time Temp Pulse Resp B/P (MAP) Pulse Ox O2 Delivery O2 Flow Rate FiO2 11/14/17 07:55 97.3 68 20 138/78 100 11/14/17 07:04 97.9 11/14/17 04:00 97.9 74 18 127/73 100 11/14/17 00:00 97.7 70 19 127/70 97 Room Air 11/13/17 20:00 98.2 65 18 123/74 99 11/13/17 17:30 88 140/73 11/13/17 16:00 97.5 69 18 125/70 100 Room Air 11/13/17 12:00 97.8 66 20 128/75 100 Room Air 11/13/17 08:35 69 134/77 11/13/17 08:00 97.7 69 18 134/77 100 Room Air Intake and Output 11/13/17 11/14/17 19:00 07:00 Intake Total 360 ml Balance 360 ml Intake Oral 360 ml # Voids 2 Height (Feet): 5 Height (Inches): 11.00 Weight (Pounds): 136 General Appearance: alert EENT: normal ENT inspection Neck: supple Cardiovascular: normal rate Respiratory/Chest: decreased breath sounds Abdomen: normal bowel sounds, non tender, soft Extremities: non-tender OZ PELLETIER Nov 14, 2017 08:00
[2017-11-14] MEDS: Propranolol 10mg tab ORAL SCH ×2 (09:22→17:37)
[2017-11-14] MEDS: cefTRIAXone 1 GM in D5W 55 ML IVPB SCH (09:23)
[2017-11-14 11:33] VITALS: BP 120/67
[2017-11-14 15:56] VITALS: BP 120/67
[2017-11-14] MEDS ORDERED: Tubing IV Secondary IV ONE (17:19)
[2017-11-14 20:00] VITALS: BP 125/69
--- NOTE | 2017-11-14 21:00 | Progress Note ---
DATE: 11/14/2017 SUBJECTIVE: The patient was in bed resting. No behavior issues. Mental condition is unchanged since previous encounter. MENTAL STATUS EXAMINATION: Mood is dysphoric. Affect is constricted, congruent with mood. Thought process is concrete. Thought content, no suicidal or homicidal ideation. ASSESSMENT: Alcohol dependence. PLAN: We will continue current medications. Cecilia Boswell M.D. DR: KATERINE JOB#: [id number] CC:
[2017-11-15] VITALS: BP 119/71
[2017-11-15 04:22] VITALS: BP 123/73
[2017-11-15 08:00] VITALS: BP 129/74
[2017-11-15] MEDS: Propranolol 10mg tab ORAL SCH ×2 (08:23→17:23)
[2017-11-15] MEDS: Hydromorphone 0.5mg/0.5ml inj IVP PRN ×3 (08:24→23:46)
--- NOTE | 2017-11-15 09:39 | General Progress Note ---
Assessment/Plan Problem List: (1) Upper GI bleeding ICD Codes: K92.2 - Gastrointestinal hemorrhage, unspecified SNOMED: 66570922 (2) Esophageal varices ICD Codes: I85.00 - Esophageal varices without bleeding SNOMED: 50462958 (3) Hepatitis-C ICD Codes: B19.20 - Unspecified viral hepatitis C without hepatic coma SNOMED: 66654403 (4) ETOH abuse ICD Codes: F10.10 - Alcohol abuse, uncomplicated SNOMED: 90221664, 64069253 Assessment/Plan s/p EGd and banding no recurrent bleed propanolol needs repeat EGd and banding as out patient in 4-6 weeks Subjective ROS Limited/Unobtainable: Yes Allergies: Coded Allergies: IBUPROFEN (Unverified Allergy, Intermediate, 07/02/16) Subjective no event Objective Last 24 Hour Vital Signs Date Time Temp Pulse Resp B/P (MAP) Pulse Ox O2 Delivery O2 Flow Rate FiO2 11/15/17 08:23 72 129/74 11/15/17 08:00 97.7 72 19 129/74 99 Room Air 11/15/17 04:22 97.7 68 19 123/73 99 11/15/17 00:00 75 18 119/71 100 11/14/17 20:00 97.9 71 18 125/69 100 11/14/17 17:37 69 120/67 11/14/17 15:56 97.7 69 20 120/67 99 11/14/17 11:33 98.0 68 20 120/67 100 Intake and Output 11/14/17 11/15/17 19:00 07:00 Intake Total 775 ml Balance 775 ml Intake Oral 720 ml IV Total 55 ml # Voids 2 # Bowel Movements 1 Height (Feet): 5 Height (Inches): 11.00 Weight (Pounds): 143 General Appearance: no apparent distress EENT: normal ENT inspection Neck: normal alignment Cardiovascular: normal rate Respiratory/Chest: decreased breath sounds Abdomen: normal bowel sounds, non tender, soft Extremities: non-tender OZ PELLETIER Nov 15, 2017 09:39
[2017-11-15] MEDS: cefTRIAXone 1 GM in D5W 55 ML IVPB SCH (10:37)
[2017-11-15 12:00] VITALS: BP 118/67
[2017-11-15 16:00] VITALS: BP 120/70
[2017-11-15 20:00] VITALS: BP 126/77
--- NOTE | 2017-11-15 20:47 | General Progress Note ---
Assessment/Plan Assessment/Plan Assessment/Plan 1. Acute on chronic upper gastrointestinal bleed s/p banding 2. Esophageal varices - confirmed by prior egd. 3. Acute pancreatitis. 4. Alcoholism. 5. Liver Cirhosis 5. Gastrointestinal and deep vein thrombosis prophylaxis. 6. GI-DV prophylaxia Subjective Allergies: Coded Allergies: IBUPROFEN (Unverified Allergy, Intermediate, 07/02/16) All Systems: reviewed and negative except above Subjective NAD Objective Last 24 Hour Vital Signs Date Time Temp Pulse Resp B/P (MAP) Pulse Ox O2 Delivery O2 Flow Rate FiO2 11/15/17 20:00 97.7 73 18 126/77 100 11/15/17 17:23 68 118/67 11/15/17 16:00 98.0 70 20 120/70 99 11/15/17 16:00 Room Air 11/15/17 13:01 98.1 11/15/17 12:00 Room Air 11/15/17 12:00 98.1 68 19 118/67 98 Room Air 11/15/17 08:23 72 129/74 11/15/17 08:00 Room Air 11/15/17 08:00 97.7 72 19 129/74 99 Room Air 11/15/17 04:22 97.7 68 19 123/73 99 11/15/17 00:00 75 18 119/71 100 Intake and Output 11/14/17 11/15/17 19:00 07:00 Intake Total 775 ml Balance 775 ml Intake Oral 720 ml IV Total 55 ml # Voids 2 # Bowel Movements 1 Height (Feet): 5 Height (Inches): 11.00 Weight (Pounds): 143 General Appearance: no apparent distress EENT: TMs normal Neck: normal alignment Cardiovascular: normal peripheral pulses Edema: trace edema 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
[2017-11-16] VITALS: BP 143/79
--- NOTE | 2017-11-16 01:00 | Consultation ---
DATE OF CONSULTATION: 11/14/2017 NOTE: POOR AUDIO QUALITY HEMATOLOGY/ONCOLOGY CONSULTATION CONSULTING PHYSICIAN: Voldoymyr Rasheed M.D. REQUESTING PHYSICIAN: Jack Gayle M.D. REASON FOR CONSULTATION: Evaluation of anemia. IDENTIFICATION: Dear Dr. Gayle, The patient is a pleasant 62-year-old male with a past medical history significant for anemia, hemoglobin of 8.3, upper GI bleed, alcohol abuse, hepatitis C, symptomatic anemia, and esophageal varices. At this time, he presented to the hospital with lethargy, presented to the ER at [facility]. Difficult to obtain further information from the patient. He has been seen and is followed by Psychiatry team and GI team as well. History of EGD completed here status post banding x4, portal hypertensive gastropathy noted, noted to be anemic. Hematology Service consulted at this time as well following the patient for anemia. Octreotide drip has been discontinued. PAST MEDICAL HISTORY: Anxiety, depression, upper gastrointestinal bleed, and alcoholism. PAST SURGICAL HISTORY: Endoscopy. ALLERGIES: Ibuprofen. SOCIAL HISTORY: Alcoholism. Other information not obtainable. FAMILY HISTORY: Noncontributory. REVIEW OF SYSTEMS: Positive for emesis, , nausea. PHYSICAL EXAMINATION: VITAL SIGNS: Reviewed. GENERAL: No acute distress. PULMONARY: Decreased breath sounds. CARDIOVASCULAR: Regular rate. No S3 or S4. ABDOMEN: Soft, nontender, and nondistended. EXTREMITIES: There is 1+ edema. LABORATORY DATA: WBC is 13.3, hemoglobin , hematocrit 16, and platelet count 372,000. ASSESSMENT AND RECOMMENDATIONS: 1. Anemia, secondary to upper gastrointestinal bleed. Obtain anemia workup. 2. Anemia, secondary to esophageal varices, prior esophagogastroduodenoscopy, likely responsible varices, status post banding. 3. Alcoholic pancreatitis. 4. Alcoholism history. Recommended cessation. 5. Alcohol dependence . I appreciate the consultation. Volodymyr Rasheed M.D. DR: MARZENA JOB#: [id number] CC:
[2017-11-16 04:00] VITALS: BP 134/80
[2017-11-16 07:08] LABS: BASOPHILS % (AUTO) 1.5 % (0.0-2.0); EOSINOPHILS % (AUTO) 1.7 % (0.0-3.0); LYMPHOCYTES % (AUTO) 23.7 % (20.0-45.0); MEAN CORPUSCULAR HEMOGLOBIN 24.3 PG (27.0-31.0); MEAN CORPUSCULAR HGB CONC 29.9 G/DL (32.0-36.0); MEAN CORPUSCULAR VOLUME 81 FL (80-99); MEAN PLATELET VOLUME 5.1 FL (6.5-10.1); MONOCYTES % (AUTO) 10.6 % (1.0-10.0); NEUTROPHILS % (AUTO) 62.4 % (45.0-75.0); PLATELET COUNT 424 K/UL (150-450); RED BLOOD COUNT 3.29 M/UL (4.70-6.10); RED CELL DISTRIBUTION WIDTH 21.3 % (11.6-14.8); WHITE BLOOD COUNT 7.2 K/UL (4.8-10.8)
[2017-11-16 08:08] VITALS: BP 147/75
[2017-11-16] MEDS: Propranolol 10mg tab ORAL SCH ×2 (08:18→17:36)
[2017-11-16] MEDS: Hydromorphone 0.5mg/0.5ml inj IVP PRN ×2 (08:36→17:36)
[2017-11-16] MEDS: cefTRIAXone 1 GM in D5W 55 ML IVPB SCH (10:32)
--- NOTE | 2017-11-16 10:40 | General Progress Note ---
Assessment/Plan Problem List: (1) Upper GI bleeding ICD Codes: K92.2 - Gastrointestinal hemorrhage, unspecified SNOMED: 33635919 (2) Esophageal varices ICD Codes: I85.00 - Esophageal varices without bleeding SNOMED: 65426307 (3) Hepatitis-C ICD Codes: B19.20 - Unspecified viral hepatitis C without hepatic coma SNOMED: 61416364 (4) ETOH abuse ICD Codes: F10.10 - Alcohol abuse, uncomplicated SNOMED: 07007375, 81500633 Assessment/Plan s/p EGD and banding no recurrent bleed propanolol needs repeat EGD and banding as out patient in 4-6 weeks Subjective ROS Limited/Unobtainable: Yes Allergies: Coded Allergies: IBUPROFEN (Unverified Allergy, Intermediate, 07/02/16) Subjective no event Objective Last 24 Hour Vital Signs Date Time Temp Pulse Resp B/P (MAP) Pulse Ox O2 Delivery O2 Flow Rate FiO2 11/16/17 09:06 97.9 11/16/17 08:18 74 147/75 11/16/17 08:08 97.9 74 20 147/75 99 11/16/17 04:00 Room Air 11/16/17 04:00 97.7 74 21 134/80 98 11/16/17 00:00 98.1 74 21 143/79 99 11/16/17 00:00 Room Air 11/15/17 20:00 Room Air 11/15/17 20:00 97.7 73 18 126/77 100 11/15/17 17:23 68 118/67 11/15/17 16:00 98.0 70 20 120/70 99 11/15/17 16:00 Room Air 11/15/17 12:00 Room Air 11/15/17 12:00 98.1 68 19 118/67 98 Room Air Intake and Output 11/15/17 11/16/17 19:00 07:00 Intake Total 1015 ml Output Total 900 ml Balance 115 ml Intake Oral 960 ml IV Total 55 ml Output Urine Total 900 ml # Voids 3 4 Laboratory Tests 11/16/17 04:40: White Blood Count 7.2, Red Blood Count 3.29L, Hemoglobin 8.0L, Hematocrit 26.7L , Mean Corpuscular Volume 81, Mean Corpuscular Hemoglobin 24.3L, Mean Corpuscular Hemoglobin Concent 29.9L, Red Cell Distribution Width 21.3H, Platelet Count 424, Mean Platelet Volume 5.1L, Neutrophils (%) (Auto) 62.4, Lymphocytes (%) (Auto) 23.7, Monocytes (%) (Auto) 10.6H, Eosinophils (%) (Auto) 1.7, Basophils (%) (Auto) 1.5 Height (Feet): 5 Height (Inches): 11.00 Weight (Pounds): 134 General Appearance: alert EENT: normal ENT inspection Neck: supple Cardiovascular: normal rate Respiratory/Chest: decreased breath sounds Abdomen: normal bowel sounds, non tender, soft Extremities: non-tender OZ PELLETIER Nov 16, 2017 10:40
[2017-11-16 12:06] VITALS: BP 137/85
--- NOTE | 2017-11-16 12:53 | Consultation ---
Consult Note Consult Note ID # [id number] FELIX DELUNA M.D. Nov 16, 2017 12:53
[2017-11-16 16:00] VITALS: BP 134/73
--- NOTE | 2017-11-16 19:09 | General Progress Note ---
Assessment/Plan Assessment/Plan Assessment/Plan # Multiple hepatic nodules, also previously described on [address] , concerning for multifocal or disseminated neoplasm. ==> order afp, cea, ca 19.9 as well as were elevated back in 2016 --> onco outpatient followup # Acute on chronic upper gastrointestinal bleed s/p egd banding, will need repeat in 4-6 weeks per GI # Esophageal varices - confirmed by prior egd. # Acute pancreatitis. # Anemia 2/2 GI bleed, s/p 2 units prbc. H/H improved. Continue to monitor # Liver Cirrhosis Subjective Allergies: Coded Allergies: IBUPROFEN (Unverified Allergy, Intermediate, 07/02/16) All Systems: reviewed and negative except above Subjective NAD Objective Last 24 Hour Vital Signs Date Time Temp Pulse Resp B/P (MAP) Pulse Ox O2 Delivery O2 Flow Rate FiO2 11/16/17 18:06 97.7 11/16/17 17:36 74 134/73 11/16/17 16:00 97.7 74 20 134/73 99 Room Air 11/16/17 12:06 98.2 70 20 137/85 98 11/16/17 08:18 74 147/75 11/16/17 08:08 97.9 74 20 147/75 99 11/16/17 04:00 Room Air 11/16/17 04:00 97.7 74 21 134/80 98 11/16/17 00:00 98.1 74 21 143/79 99 11/16/17 00:00 Room Air 11/15/17 20:00 Room Air 11/15/17 20:00 97.7 73 18 126/77 100 Intake and Output 11/15/17 11/16/17 19:00 07:00 Intake Total 1015 ml Output Total 900 ml Balance 115 ml Intake Oral 960 ml IV Total 55 ml Output Urine Total 900 ml # Voids 3 4 Laboratory Tests 11/16/17 04:40: White Blood Count 7.2, Red Blood Count 3.29L, Hemoglobin 8.0L, Hematocrit 26.7L , Mean Corpuscular Volume 81, Mean Corpuscular Hemoglobin 24.3L, Mean Corpuscular Hemoglobin Concent 29.9L, Red Cell Distribution Width 21.3H, Platelet Count 424, Mean Platelet Volume 5.1L, Neutrophils (%) (Auto) 62.4, Lymphocytes (%) (Auto) 23.7, Monocytes (%) (Auto) 10.6H, Eosinophils (%) (Auto) 1.7, Basophils (%) (Auto) 1.5 Height (Feet): 5 Height (Inches): 11.00 Weight (Pounds): 134 General Appearance: no apparent distress EENT: normal ENT inspection Neck: normal alignment Cardiovascular: normal rate Respiratory/Chest: chest wall non-tender Edema: trace edema Volodymyr Rasheed Nov 16, 2017 19:09
[2017-11-16 20:00] VITALS: BP 141/77
--- NOTE | 2017-11-16 21:00 | Consultation ---
DATE OF CONSULTATION: 11/16/2017 INFECTIOUS DISEASES CONSULTATION CONSULTING PHYSICIAN: Ezekiel Brooks M.D. REFERRING PHYSICIAN: Volodymyr Rasheed M.D. REASON FOR CONSULTATION: Evaluation of the patient for rash. HISTORY OF PRESENT ILLNESS: The patient is a 62-year-old male with multiple medical problems as listed below, who was admitted to this medical center for anemia. The patient was found to have pruritic rash that the patient is experiencing for the last four months and I have been consulted for possible scabies. Elimite was ordered yesterday. Infectious Diseases consultation has been requested for further evaluation of the patient and antibiotic management. The patient has history of three episodes of bloody vomiting prior to admission. PAST MEDICAL HISTORY: 1. Hepatitis C (untreated). 2. History of hepatocellular carcinoma. 3. History of pulmonary hypertension. 4. History of esophageal varices. 5. History of alcohol abuse. MEDICATIONS: Intravenous Rocephin. ALLERGIES: Ibuprofen. SOCIAL HISTORY: As mentioned above. FAMILY HISTORY: Noncontributory. REVIEW OF SYSTEMS: HEENT: No recent change in vision or hearing. PULMONARY: No cough or shortness of breath. CARDIOVASCULAR: No chest pain or palpitation. GASTROINTESTINAL: Abdomen, as mentioned. GENITOURINARY: No dysuria. MUSCULOSKELETAL: As mentioned above. SKIN: As mentioned above. NEUROLOGIC: No seizure. PHYSICAL EXAMINATION: VITAL SIGNS: Temperature 98 degrees, blood pressure 137/85, pulse 86, and respiratory rate 18. HEENT: No pale conjunctivae. No icterus. NECK: No lymphadenopathy. CHEST: Clear. HEART: S1 and S2. ABDOMEN: Soft and nontender. EXTREMITIES: No cyanosis. NEUROLOGIC: Awake. SKIN: The patient has rash, some are desquamated, some papular on the upper chest, arm, back, and one lesion on the scalp. LABORATORY AND DIAGNOSTIC DATA: White blood 7.3, hemoglobin 8, and platelets 242. White blood cells at the time of admission 13. BUN and creatinine unremarkable. Liver function tests elevated. Bilirubin 1.8. Ultrasound of the abdomen showed liver cirrhosis. Chest x-ray, unremarkable. ASSESSMENT: 1. Status post leukocytosis. 2. Afebrile. 3. Hepatitis C, was untreated. 4. History of human immunodeficiency virus test negative two months ago as per the patient. 5. Status post leukocytosis due to acute gastrointestinal bleed. 6. Skin rash, low suspicion for scabies. The patient received one dose of Elimite last night. PLAN: 1. We will repeat Elimite in one week, the patient is instructed to wash all his cloths at home. 2. We will discontinue IV Rocephin. 3. CBC and BMP. 4. We will follow GI evaluation (status post banding of esophageal varices). 5. Transfuse as needed. 6. Hepatocellular carcinoma. Workup on the way as an outpatient. Thank you, Dr. Rasheed, for allowing me to participate in the care of this patient. I will follow the patient with you during this hospitalization. Ezekiel Brooks M.D. DR: Coby JOB#: [id number] CC:
[2017-11-17] VITALS: BP 144/79
[2017-11-17 04:00] VITALS: BP 145/78
[2017-11-17 08:00] VITALS: BP 133/78
[2017-11-17] MEDS: Propranolol 10mg tab ORAL SCH (08:43)
--- NOTE | 2017-11-17 08:58 | Pulmonology Progress Note ---
Assessment/Plan Assessment/Plan Assessment Hepatocellular carcinoma Esophageal varices Upper GI bleeding s/p EGD with EV banding alcoholic pancreatitis Hepatitis-C ETOH abuse symptomatic anemia , requiring blood transfusion skin rash Plan of care MS floor pain management, denies pain tolerates diet HH at baseline, no further bleeding check anemia w/up and ferritin abdominal US noted, no gallstones, no dilated ducts goal to keep Hgb above 8 s/p EGD with banding, need to repeat in 4-6 wks EGD on PPI adn Propranolol, encourage complacence advised on abstinence from ETOH ID follows, s/p Elimite x 1 , low suspicion for scabies, instructed by ID to repeat at home in 1 week dc today iron apnel with low iron and ferritin, continue iron supplements outpt fup with GI and onco, tumor markers pending case discussed and evaluated by supervising physician Subjective Allergies: Coded Allergies: IBUPROFEN (Unverified Allergy, Intermediate, 07/02/16) Subjective denies chest pain, SOB, palpitations, no abdominal pain tolerates diet no evidence of GI bleeding wants to go home Objective Last 24 Hour Vital Signs Date Time Temp Pulse Resp B/P (MAP) Pulse Ox O2 Delivery O2 Flow Rate FiO2 11/17/17 08:00 97.3 74 20 133/78 100 11/17/17 04:00 97.7 70 20 145/78 96 Room Air 11/17/17 00:00 100 Room Air 11/17/17 00:00 97.0 68 20 144/79 100 Room Air 11/16/17 20:00 98 Room Air 11/16/17 20:00 98.1 72 20 141/77 98 Room Air 11/16/17 18:06 97.7 11/16/17 17:36 74 134/73 11/16/17 16:00 97.7 74 20 134/73 99 Room Air 11/16/17 12:06 98.2 70 20 137/85 98 Intake and Output 11/16/17 11/17/17 19:00 07:00 Intake Total 1255 ml 200 ml Output Total 1100 ml Balance 1255 ml -900 ml Intake Oral 1200 ml 200 ml IV Total 55 ml Output Urine Total 1100 ml # Voids 2 # Bowel Movements 3 General Appearance: no acute distress, cachetic HEENT: normocephalic, atraumatic, anicteric, mucous membranes moist Respiratory/Chest: lungs clear, no respiratory distress, no accessory muscle use Cardiovascular: normal peripheral pulses, normal rate, no gallop/murmur Abdomen: normal bowel sounds, soft, non tender, non distended Extremities: no edema, pedal pulses normal Neurologic/Psychiatric: no motor/sensory deficits, alert, oriented x 3, responsive Current Medications Medications (Trade) Dose Ordered Sig/Candice Route PRN Reason Start Time Stop Time Status Last Admin Dose Admin Hydromorphone HCl (Dilaudid) 0.5 mg Q4H PRN IVP For Moderate to Severe Pain 11/16/17 20:15 11/23/17 20:14 11/17/17 03:53 Pantoprazole (Protonix) 40 mg DAILY ORAL 11/13/17 09:00 12/13/17 08:59 11/16/17 08:18 Propranolol HCl (Inderal) 10 mg BID ORAL 11/11/17 18:00 12/11/17 17:59 11/16/17 17:36 [facility] Nov 17, 2017 08:58
[2017-11-17] MEDS ORDERED: INDERAL10 MG ORAL (09:07)
[2017-11-17] MEDS ORDERED: PROTONIX40 MG ORAL (09:07)
--- NOTE | 2017-11-17 09:09 | Discharge Instructions ---
Discharge Instructions Discharge Instructions Follow up with: with GI doctor and oncologist Call MD/Return to Hospital if: bloody emesis, blod in stool, intractable abd pain Special Instructions need EGD to repeat in 4-6 weeks For Congestive Heart Failure Reminder Report to your physician any weight gain of 5 pounds or more in one week. Tyler ([facility]),Krysta SOFIA Nov 17, 2017 09:09
[2017-11-17 09:46] LABS: BASOPHILS % (AUTO) 0.8 % (0.0-2.0); EOSINOPHILS % (AUTO) 1.3 % (0.0-3.0); LYMPHOCYTES % (AUTO) 15.7 % (20.0-45.0); MEAN CORPUSCULAR HEMOGLOBIN 24.2 PG (27.0-31.0); MEAN CORPUSCULAR HGB CONC 29.6 G/DL (32.0-36.0); MEAN CORPUSCULAR VOLUME 82 FL (80-99); MEAN PLATELET VOLUME 5.7 FL (6.5-10.1); MONOCYTES % (AUTO) 12.3 % (1.0-10.0); PLATELET COUNT 418 K/UL (150-450); RED BLOOD COUNT 3.32 M/UL (4.70-6.10); RED CELL DISTRIBUTION WIDTH 20.8 % (11.6-14.8); WHITE BLOOD COUNT 8.3 K/UL (4.8-10.8)
[2017-11-17 10:09] LABS: IRON 22 ug/dL (50-175); TOTAL IRON BINDING CAPACITY 329 ug/dL (250-450)
[2017-11-17 10:14] LABS: CALCIUM 7.7 MG/DL (8.5-10.1)
[2017-11-17 10:22] LABS: ANION GAP 6 mmol/L (5-15); CARBON DIOXIDE 26 MMOL/L (21-32); CHLORIDE 104 MMOL/L (98-107); CREATININE 0.9 MG/DL (0.55-1.30); FERRITIN 43 NG/ML (8-388); GLOMERULAR FILTRATION RATE > 60 mL/min (>60); LIPASE 633 U/L (73-393); POTASSIUM 4.1 MMOL/L (3.5-5.1); SODIUM 136 MMOL/L (136-145)
--- NOTE | 2017-11-17 10:52 | Infectious Diseases Prog Note ---
Assessment/Plan Assessment/Plan ASSESSMENT: 1. Status post leukocytosis -2ry to acute GIB 2. Afebrile. 3. Hepatitis C/Ethanol cirrhosis, untreated c/w HCC -esophagela varices 4. History of human immunodeficiency virus test negative two months ago as per the patient. 5.. Skin rash, low suspicion for scabies. on empiricc Rx PLAN: -Continue to monitor off abx -11/16 SP CEftriaxone #5 -. We will repeat topical permethrin in one week, the patient is instructed to washall his cloths at home. -Monitor CBC/BMP. - We will follow GI evaluation (status post banding of esophageal varices). - Transfuse as needed. - Hepatocellular carcinoma. Workup on the way as an outpatient. -Refer for Hep C tx as outpatient Thank you, Dr. Rasheed, for allowing me to participate in the care of this patient. I will follow the patient with you during this hospitalization. Subjective Allergies: Coded Allergies: IBUPROFEN (Unverified Allergy, Intermediate, 07/02/16) Subjective afebrile no leukocytosis Objective Vital Signs Last 24 Hour Vital Signs Date Time Temp Pulse Resp B/P (MAP) Pulse Ox O2 Delivery O2 Flow Rate FiO2 11/17/17 08:43 74 133/78 11/17/17 08:00 97.3 74 20 133/78 100 11/17/17 04:00 97.7 70 20 145/78 96 Room Air 11/17/17 00:00 100 Room Air 11/17/17 00:00 97.0 68 20 144/79 100 Room Air 11/16/17 20:00 98 Room Air 11/16/17 20:00 98.1 72 20 141/77 98 Room Air 11/16/17 18:06 97.7 11/16/17 17:36 74 134/73 11/16/17 16:00 97.7 74 20 134/73 99 Room Air 11/16/17 12:06 98.2 70 20 137/85 98 Height (Feet): 5 Height (Inches): 11.00 Weight (Pounds): 146 Objective HEENT: No pale conjunctivae. No icterus. NECK: No lymphadenopathy. CHEST: Clear. HEART: S1 and S2. ABDOMEN: Soft and nontender. EXTREMITIES: No cyanosis. NEUROLOGIC: Awake. SKIN: The patient has rash, some are desquamated, some papular on the upper chest, arm, back, and one lesion on the scalp. Laboratory Tests Test 11/17/17 09:35 White Blood Count 8.3 K/UL (4.8-10.8) Red Blood Count 3.32 M/UL (4.70-6.10) L Hemoglobin 8.0 G/DL (14.2-18.0) L Hematocrit 27.1 % (42.0-52.0) L Mean Corpuscular Volume 82 FL (80-99) Mean Corpuscular Hemoglobin 24.2 PG (27.0-31.0) L Mean Corpuscular Hemoglobin Concent 29.6 G/DL (32.0-36.0) L Red Cell Distribution Width 20.8 % (11.6-14.8) H Platelet Count 418 K/UL (150-450) Mean Platelet Volume 5.7 FL (6.5-10.1) L Neutrophils (%) (Auto) 70.0 % (45.0-75.0) Lymphocytes (%) (Auto) 15.7 % (20.0-45.0) L Monocytes (%) (Auto) 12.3 % (1.0-10.0) H Eosinophils (%) (Auto) 1.3 % (0.0-3.0) Basophils (%) (Auto) 0.8 % (0.0-2.0) Sodium Level 136 MMOL/L (136-145) Potassium Level 4.1 MMOL/L (3.5-5.1) Chloride Level 104 MMOL/L (98-107) Carbon Dioxide Level 26 MMOL/L (21-32) Anion Gap 6 mmol/L (5-15) Blood Urea Nitrogen 12 mg/dL (7-18) Creatinine 0.9 MG/DL (0.55-1.30) Estimat Glomerular Filtration Rate > 60 mL/min (>60) Glucose Level 114 MG/DL (74-106) H Calcium Level 7.7 MG/DL (8.5-10.1) L Iron Level 22 ug/dL (50-175) L Total Iron Binding Capacity 329 ug/dL (250-450) Percent Iron Saturation 7 % (15-50) L Unsaturated Iron Binding 307 ug/dL (112-346) Ferritin 43 NG/ML (8-388) Lipase 633 U/L (73-393) H Alpha Fetoprotein Pending Vitamin B12 Level Pending RBC Folate Hemolysate Pending Red Blood Cell Folate Pending Current Medications Medications (Trade) Dose Ordered Sig/Candice Route PRN Reason Start Time Stop Time Status Last Admin Dose Admin Hydromorphone HCl (Dilaudid) 0.5 mg Q4H PRN IVP For Moderate to Severe Pain 11/16/17 20:15 11/23/17 20:14 11/17/17 03:53 Pantoprazole (Protonix) 40 mg DAILY ORAL 11/13/17 09:00 12/13/17 08:59 11/17/17 08:42 Propranolol HCl (Inderal) 10 mg BID ORAL 11/11/17 18:00 12/11/17 17:59 11/17/17 08:43 Johana Salazar M.D. Nov 17, 2017 10:52
[2017-11-17] MEDS ORDERED: VITAMIN B-1100 MG ORAL (11:01)
[2017-11-17 12:00] VITALS: BP 137/76
--- NOTE | 2017-11-17 14:40 | GI Progress Note ---
Assessment/Plan Problems: (1) Esophageal varices ICD Codes: I85.00 - Esophageal varices without bleeding SNOMED: 88891561 (2) Symptomatic anemia ICD Codes: D64.9 - Anemia, unspecified SNOMED: 624109664 (3) Hepatitis-C ICD Codes: B19.20 - Unspecified viral hepatitis C without hepatic coma SNOMED: 46156972 (4) ETOH abuse ICD Codes: F10.10 - Alcohol abuse, uncomplicated SNOMED: 68708249, 82814118 (5) Upper GI bleeding ICD Codes: K92.2 - Gastrointestinal hemorrhage, unspecified SNOMED: 59386648 Status: stable Status Narrative Discussed with Dr. Hartley. Assessment/Plan SUMMARY OF FINDINGS: 1. Esophageal varices, status post banding x4. 2. Portal hypertensive gastropathy. RECOMMENDATIONS: okay for DC per GI standpoint adv to cardiac/low sodium soft diet monitor H&H, prn transfusion Protonix PO avoid alcohol titrate propranolol for portal HTN >> hold for SBP under 100 / HR under 60 Rx written for propranolol 10mg TID given to RN, patient to follow up as outpatient fu labs Subjective Subjective no symptoms Objective Last 24 Hour Vital Signs Date Time Temp Pulse Resp B/P (MAP) Pulse Ox O2 Delivery O2 Flow Rate FiO2 11/17/17 12:00 97.3 69 20 137/76 100 11/17/17 08:43 74 133/78 11/17/17 08:00 97.3 74 20 133/78 100 11/17/17 04:00 97.7 70 20 145/78 96 Room Air 11/17/17 00:00 100 Room Air 11/17/17 00:00 97.0 68 20 144/79 100 Room Air 11/16/17 20:00 98 Room Air 11/16/17 20:00 98.1 72 20 141/77 98 Room Air 11/16/17 18:06 97.7 11/16/17 17:36 74 134/73 11/16/17 16:00 97.7 74 20 134/73 99 Room Air Intake and Output 11/16/17 11/17/17 19:00 07:00 Intake Total 1255 ml 200 ml Output Total 1100 ml Balance 1255 ml -900 ml Intake Oral 1200 ml 200 ml IV Total 55 ml Output Urine Total 1100 ml # Voids 2 # Bowel Movements 3 Laboratory Tests Test 11/17/17 09:35 White Blood Count 8.3 K/UL (4.8-10.8) Red Blood Count 3.32 M/UL (4.70-6.10) L Hemoglobin 8.0 G/DL (14.2-18.0) L Hematocrit 27.1 % (42.0-52.0) L Mean Corpuscular Volume 82 FL (80-99) Mean Corpuscular Hemoglobin 24.2 PG (27.0-31.0) L Mean Corpuscular Hemoglobin Concent 29.6 G/DL (32.0-36.0) L Red Cell Distribution Width 20.8 % (11.6-14.8) H Platelet Count 418 K/UL (150-450) Mean Platelet Volume 5.7 FL (6.5-10.1) L Neutrophils (%) (Auto) 70.0 % (45.0-75.0) Lymphocytes (%) (Auto) 15.7 % (20.0-45.0) L Monocytes (%) (Auto) 12.3 % (1.0-10.0) H Eosinophils (%) (Auto) 1.3 % (0.0-3.0) Basophils (%) (Auto) 0.8 % (0.0-2.0) Sodium Level 136 MMOL/L (136-145) Potassium Level 4.1 MMOL/L (3.5-5.1) Chloride Level 104 MMOL/L (98-107) Carbon Dioxide Level 26 MMOL/L (21-32) Anion Gap 6 mmol/L (5-15) Blood Urea Nitrogen 12 mg/dL (7-18) Creatinine 0.9 MG/DL (0.55-1.30) Estimat Glomerular Filtration Rate > 60 mL/min (>60) Glucose Level 114 MG/DL (74-106) H Calcium Level 7.7 MG/DL (8.5-10.1) L Iron Level 22 ug/dL (50-175) L Total Iron Binding Capacity 329 ug/dL (250-450) Percent Iron Saturation 7 % (15-50) L Unsaturated Iron Binding 307 ug/dL (112-346) Ferritin 43 NG/ML (8-388) Lipase 633 U/L (73-393) H Alpha Fetoprotein Pending Vitamin B12 Level 1313 PG/ML (193-986) H RBC Folate Hemolysate Pending Red Blood Cell Folate Pending Height (Feet): 5 Height (Inches): 11.00 Weight (Pounds): 146 General Appearance: WD/WN, no apparent distress, alert, thin Cardiovascular: normal rate Respiratory/Chest: normal breath sounds, no respiratory distress Abdominal Exam: normal bowel sounds, non tender, soft Extremities: normal range of motion, non-tender Arlet Menendez N.P. Nov 17, 2017 14:40
--- NOTE | 2017-11-17 22:46 | General Progress Note ---
Assessment/Plan Assessment/Plan Assessment/Plan # Multiple hepatic nodules, also previously described on [address] , concerning for multifocal or disseminated neoplasm. ==> order afp, cea, ca 19.9 as well as were elevated back in 2016 --> tumor markers pending --> onco outpatient followup # Acute on chronic upper gastrointestinal bleed s/p egd banding, will need repeat in 4-6 weeks per GI # Esophageal varices - confirmed by prior egd. # Acute pancreatitis. # Anemia 2/2 GI bleed, s/p 2 units prbc. H/H improved. Continue to monitor and continue iron supplements. # Liver Cirrhosis Subjective Hematologic/Lymphatic: Reports: anemia Allergies: Coded Allergies: IBUPROFEN (Unverified Allergy, Intermediate, 07/02/16) All Systems: reviewed and negative except above Subjective NAD Objective Last 24 Hour Vital Signs Date Time Temp Pulse Resp B/P (MAP) Pulse Ox O2 Delivery O2 Flow Rate FiO2 11/17/17 12:00 97.3 69 20 137/76 100 11/17/17 08:43 74 133/78 11/17/17 08:00 97.3 74 20 133/78 100 11/17/17 04:00 97.7 70 20 145/78 96 Room Air 11/17/17 00:00 100 Room Air 11/17/17 00:00 97.0 68 20 144/79 100 Room Air Intake and Output 11/16/17 11/17/17 19:00 07:00 Intake Total 1255 ml 200 ml Output Total 1100 ml Balance 1255 ml -900 ml Intake Oral 1200 ml 200 ml IV Total 55 ml Output Urine Total 1100 ml # Voids 2 # Bowel Movements 3 Laboratory Tests 11/17/17 09:35: White Blood Count 8.3, Red Blood Count 3.32L, Hemoglobin 8.0L, Hematocrit 27.1L , Mean Corpuscular Volume 82, Mean Corpuscular Hemoglobin 24.2L, Mean Corpuscular Hemoglobin Concent 29.6L, Red Cell Distribution Width 20.8H, Platelet Count 418, Mean Platelet Volume 5.7L, Neutrophils (%) (Auto) 70.0, Lymphocytes (%) (Auto) 15.7L, Monocytes (%) (Auto) 12.3H, Eosinophils (%) (Auto ) 1.3, Basophils (%) (Auto) 0.8, Sodium Level 136, Potassium Level 4.1, Chloride Level 104, Carbon Dioxide Level 26, Anion Gap 6, Blood Urea Nitrogen 12 , Creatinine 0.9, Estimat Glomerular Filtration Rate > 60, Glucose Level 114H, Calcium Level 7.7L, Iron Level 22L, Total Iron Binding Capacity 329, Percent Iron Saturation 7L, Unsaturated Iron Binding 307, Ferritin 43, Lipase 633H, Alpha Fetoprotein [Pending], Vitamin B12 Level 1313H, RBC Folate Hemolysate [ Pending], Red Blood Cell Folate [Pending] Height (Feet): 5 Height (Inches): 11.00 Weight (Pounds): 146 General Appearance: no apparent distress Neck: normal alignment Cardiovascular: normal peripheral pulses Respiratory/Chest: chest wall non-tender Edema: mild edema Neurologic: screw down II-XII grossly normal Volodymyr Rasheed Nov 17, 2017 22:46
--- NOTE | 2017-11-17 23:23 | General Progress Note ---
Assessment/Plan Status: stable, progressing Subjective Date patient seen: Nov 17, 2017 Neurologic/Psychiatric: Reports: anxiety, depressed, emotional problems Allergies: Coded Allergies: IBUPROFEN (Unverified Allergy, Intermediate, 07/02/16) Objective Last 24 Hour Vital Signs Date Time Temp Pulse Resp B/P (MAP) Pulse Ox O2 Delivery O2 Flow Rate FiO2 11/17/17 12:00 97.3 69 20 137/76 100 11/17/17 08:43 74 133/78 11/17/17 08:00 97.3 74 20 133/78 100 11/17/17 04:00 97.7 70 20 145/78 96 Room Air 11/17/17 00:00 100 Room Air 11/17/17 00:00 97.0 68 20 144/79 100 Room Air Intake and Output 11/16/17 11/17/17 19:00 07:00 Intake Total 1255 ml 200 ml Output Total 1100 ml Balance 1255 ml -900 ml Intake Oral 1200 ml 200 ml IV Total 55 ml Output Urine Total 1100 ml # Voids 2 # Bowel Movements 3 Laboratory Tests 11/17/17 09:35: White Blood Count 8.3, Red Blood Count 3.32L, Hemoglobin 8.0L, Hematocrit 27.1L , Mean Corpuscular Volume 82, Mean Corpuscular Hemoglobin 24.2L, Mean Corpuscular Hemoglobin Concent 29.6L, Red Cell Distribution Width 20.8H, Platelet Count 418, Mean Platelet Volume 5.7L, Neutrophils (%) (Auto) 70.0, Lymphocytes (%) (Auto) 15.7L, Monocytes (%) (Auto) 12.3H, Eosinophils (%) (Auto ) 1.3, Basophils (%) (Auto) 0.8, Sodium Level 136, Potassium Level 4.1, Chloride Level 104, Carbon Dioxide Level 26, Anion Gap 6, Blood Urea Nitrogen 12 , Creatinine 0.9, Estimat Glomerular Filtration Rate > 60, Glucose Level 114H, Calcium Level 7.7L, Iron Level 22L, Total Iron Binding Capacity 329, Percent Iron Saturation 7L, Unsaturated Iron Binding 307, Ferritin 43, Lipase 633H, Alpha Fetoprotein [Pending], Vitamin B12 Level 1313H, RBC Folate Hemolysate [ Pending], Red Blood Cell Folate [Pending] Height (Feet): 5 Height (Inches): 11.00 Weight (Pounds): 146 General Appearance: no apparent distress, alert Neurologic: alert, oriented x 3, responsive Cecilia Boswell M.D. Nov 17, 2017 23:23
[2017-11-18 12:14] LABS: HEMATOCRIT 25.6 % (37.5-51.0)
--- NOTE | 2017-11-19 10:50 | Diagnostic Imaging Report ---
APPROVED REPORT CPT Code: 80119 Present Symptoms Comments: R/O DVT BILATERAL: Imaging reveals a patent deep venous system bilaterally. There is no evidence of thrombus within the femoral, popliteal or tibial segments. The greater saphenous veins are also within normal limits. Doppler indicates normal spontaneous flow within these segments.
--- NOTE | 2017-11-20 10:20 | Discharge Summary ---
Discharge Summary Hospital Course Date of Admission Nov 09, 2017 at 22:00 Date of Discharge Nov 17, 2017 at 16:00 Admitting Diagnosis GASTROINTESTINAL BLEED HPI Trell Guzmán is a 62 year old male who was admitted on Nov 09, 2017 at 22: 00 for Gastrointestinal Bleed Hospital Course [id number] Discharge Discharge Disposition Patient was discharged to Home with Hospice (50) Discharge Diagnoses: Discharge Instructions Discharge Instructions Follow up with: with GI doctor and oncologist Call MD/Return to Hospital if: bloody emesis, blod in stool, intractable abd pain Nissa Wilson NP Nov 20, 2017 10:20
--- NOTE | 2017-11-21 00:15 | Discharge Summary 2 SIG ---
DATE OF ADMISSION: 11/09/2017 DATE OF DISCHARGE: 11/17/2017 ATTENDING PHYSICIAN: Kecia Valencia M.D. CONSULTS: 1. Volodymyr Rasheed M.D. 2. Jack Gayle M.D. 3. Johana Salazar M.D. 4. Eduardo Hartley M.D. 5. Cecilia Boswell M.D. BRIEF HOSPITAL COURSE: The patient is a 62-year-old male with history of upper gastrointestinal bleed and esophageal varices, who was taken to [facility] for evaluation of vomiting. On evaluation at ED, was found to have hemoglobin of 5.9, lipase 569, AST 81, direct bilirubin of 1.6, and total bilirubin of 3. He was admitted to ICU for evaluation of acute gastrointestinal bleed and esophageal varices as well as possible pancreatitis. He was given two units of packed RBC blood transfusion and on 11/10/2017, underwent endoscopy status post banding of esophageal varices by Dr. Hartley. He was given octreotide drip and Protonix. He was given propranolol for portal hypertension and octreotide drip was tapered down. Diet was advanced. He was diagnosed with anemia secondary to gastrointestinal bleed due to esophageal varices. Post transfusion, hemoglobin had been stable. He had multiple hepatic nodules previously seen on ultrasound and CT from prior imaging. There was concern for multifocal or disseminated neoplasm. Tumor markers were checked. Results still pending. He had skin rash and was given Elimite treatment. Abdominal ultrasound done showed no gallstones or dilated ducts. The patient has hepatitis C, which was untreated. He was recommended hep C treatment as outpatient. He was taken off antibiotic treatment. Leukocytosis resolved. He was discharged home to follow up with PMD and Oncology. FINAL DIAGNOSES: 1. Hepatocellular carcinoma. 2. Acute anemia secondary to gastrointestinal bleed due to esophageal varices. 3. Status post esophagogastroduodenoscopy with esophageal varices and banding x4. 4. Alcoholic pancreatitis. 5. Hepatitis C. 6. Ethyl alcohol abuse. 7. Acute symptomatic anemia requiring blood transfusion. 8. Skin rash, possible scabies. 9. Multiple hepatic nodules. 10. Acute pancreatitis. 11. Liver cirrhosis. 12. Anemia. DISPOSITION: The patient was discharged home with hospice care. DISCHARGE MEDICATIONS: Refer to medication list. DISCHARGE INSTRUCTIONS: Repeat esophagogastroduodenoscopy in four to six weeks. FOLLOWUP: Follow up with Oncology and GI as an outpatient. Volodymyr Rasheed M.D. I have been assigned to dictate discharge summary on this account and I was not involved in the patient's management. Nissa Wilson N.P. DR: Sherron JOB#: [id number] CC:
== END 2017-11-17 16:00 | disposition hospice, home (50) | DRG 242 ==
LOC: EDBD 19:51 → EMR 21:08 → ICU 22:00 → EDBEDREQ 11-10 07:34 → 4E 11-11 14:50
PROC: 30233N1 Transfusion of Nonautologous Red Blood Cells into Peripheral Vein, Percutaneous Approach (ICD-10-PCS; 2017-11-10)
PROC: 06L38CZ Occlusion of Esophageal Vein with Extraluminal Device, Via Natural or Artificial Opening Endoscopic (ICD-10-PCS; principal; 2017-11-10 09:24)
DX: I85.01 Esophageal varices with bleeding (principal); C22.0 Liver cell carcinoma; K76.6 Portal hypertension; K85.20 Alcohol induced acute pancreatitis without necrosis or infection; K74.60 Unspecified cirrhosis of liver; D72.829 Elevated white blood cell count, unspecified; K31.89 Other diseases of stomach and duodenum; D62 Acute posthemorrhagic anemia; B19.20 Unspecified viral hepatitis C without hepatic coma; F10.20 Alcohol dependence, uncomplicated; Z88.6 Allergy status to analgesic agent; B86 Scabies
CPT/HCPCS: 36415; 71010; 76700; 80048; 80053; 80307; 82105; 82248; 82378; 82607; 82728; 82747; 83540; 83550; 83690; 84484; 85007; 85025; 85610; 85730; 86850; 86900; 86901; 86920; 93005; 93970; 94003; 94150

== ENCOUNTER 2017-12-19 23:24 | Inpatient (IN) | payer MEDICAID ==
[~2017-12-19] VITALS: Ht 180.3 cm; Wt 61.2 kg
[~2017-12-19 23:24] MED LIST changes: +FERROUS SULFAT325 MG ORAL; +INDERAL10 MG ORAL; +NIFEDIPINE ER30 M2 ORAL; +PROTONIX40 MG ORAL; +TRAMADOL HCL50 MG ORAL; +VITAMIN B-1100 MG ORAL
[2017-12-19 23:25] VITALS: BP 107/67
[2017-12-19 23:45] LABS: EOSINOPHILS % (AUTO) 1.3 % (0.0-3.0); HEMATOCRIT 30.7 % (42.0-52.0); HEMOGLOBIN 9.4 G/DL (14.2-18.0); LYMPHOCYTES % (AUTO) 11.9 % (20.0-45.0); MEAN CORPUSCULAR VOLUME 87 FL (80-99); NEUTROPHILS % (AUTO) 71.8 % (45.0-75.0); PLATELET COUNT 254 K/UL (150-450); RED BLOOD COUNT 3.54 M/UL (4.70-6.10); RED CELL DISTRIBUTION WIDTH 22.3 % (11.6-14.8); WHITE BLOOD COUNT 10.2 K/UL (4.8-10.8)
[2017-12-19] MEDS ORDERED: cefTRIAXone 1 GM in NS 55 ML IVPB ONE (23:45)
[2017-12-19] MEDS ORDERED: Pantoprazole Inj IVP ONE (23:45)
[2017-12-19] MEDS ORDERED: SandoSTATIN 50mcg Inj IVP ONE (23:45)
--- NOTE | 2017-12-19 23:46 | Emergency Room Report ---
History of Present Illness General Chief Complaint: Vomiting Source: Patient, EMS Present Illness HPI 62-year-old male, history of liver cirrhosis, esophageal varices, presenting with hematemesis. 1L blood per EMS at home. Denies assoc vomiting prior to bleed. States had 2 cheeseburgers from [employer] then "felt sick" and vomited right after. Denies diarrhea, sick contacts, abd pain, feeling sick otherwise. Per EMR, had banding of varices in Oct 2017 on last admission. Allergies: Coded Allergies: IBUPROFEN (Unverified Allergy, Intermediate, 07/02/16) Patient History Past Medical History: see triage record, old chart reviewed Past Surgical History: none Pertinent Family History: none Social History: Denies: smoking, alcohol use, drug use Immunizations: UTD Reviewed Nursing Documentation: PMH: Agreed, PSxH: Agreed Nursing Documentation-PMH Hx Hypertension: Yes Hx Cancer: Yes - liver CA Hx Gastrointestinal Problems: Yes - esophageal varices Hx Neurological Problems: No Review of Systems All Other Systems: negative except mentioned in HPI Physical Exam Vital Signs Date Time Temp Pulse Resp B/P (MAP) Pulse Ox O2 Delivery O2 Flow Rate FiO2 12/19/17 23:06 97.9 98 16 107/67 Sp02 EP Interpretation: reviewed, normal General Appearance: normal inspection, well appearing, no apparent distress, alert, GCS 15, non-toxic Head: normocephalic, atraumatic Eyes: bilateral eye PERRL, bilateral eye EOMI ENT: normal ENT inspection, hearing grossly normal, normal pharynx, no angioedema, normal voice, TMs + canals normal, uvula midline, moist mucus membranes Neck: normal inspection, full range of motion, supple, thyroid normal, no meningismus, no bony tend Respiratory: normal inspection, lungs clear, normal breath sounds, no rhonchi, no respiratory distress, no retraction, no accessory muscle use, no wheezing, speaking full sentences Cardiovascular #1: regular rate, rhythm, no edema, no JVD, normal capillary refill Gastrointestinal: normal inspection, normal bowel sounds, non tender, soft, no mass, no peritonitis, non-distended, no guarding, no hernia, no pulsatile mass Genitourinary: no CVA tenderness Musculoskeletal: normal inspection, back normal, normal range of motion, no calf tenderness, pelvis stable, Alisa's Sign negative Neurologic: normal inspection, alert, oriented x3, responsive, syrup blender III-XII nml as tested, motor strength/tone normal, cerebellar normal, normal gait, speech normal Psychiatric: normal inspection, judgement/insight normal, mood/affect normal, no suicidal/homicidal ideation, no delusions Skin: normal inspection, normal color, no rash Lymphatic: normal inspection, no adenopathy Procedures Critical Care Time Critical Care Time CC time 40 min Critical care time endorsed for this patient for massive hematemsis Critical care time includes review of laboratory tests, imaging, review of EMR, review of paperwork from SNF (if available), discussion with patient and family (if available), review of code status/POLS (if available). Critical care time also likely includes assessment of fluid status, stabilization of vital signs, transfusion, dosing of protonix and octreotide bolus, gtt. Critical care time does not include any procedures which are documented elsewhere in this EMR. Medical Decision Making Diagnostic Impression: Primary Impression: Upper GI bleeding Additional Impression: Esophageal varices Qualified Codes: I85.01 - Esophageal varices with bleeding ER Course Upper GI bleed, ?ruptured recently placed variceal band or new onset variceal bleed after vomiting ?from food poisoning VSS, afebrile in ED No active bleeding in ED Hb 9.4 Was given protonix, octreotide, ceftriaxone in the ED Feels better now Airway patent Non-focal abdomen Endorsed to Dr Valencia for tele admit at 1245am EKG Diagnostic Results Rate: normal Rhythm: NSR ST Segments: no acute changes ASA given to the pt in ED: No Rhythm Strip Diag. Results EP Interpretation: yes Rate: 89 Rhythm: NSR, no PVC's, no ectopy Chest X-Ray Diagnostic Results Chest X-Ray Diagnostic Results : Chest X-Ray Ordered: Yes # of Views/Limited/Complete: 1 View EP Interpretation: Yes Interpretation: no consolidation, no effusion, no pneumothorax, no acute cardiopulmonary disease Impression: No acute disease Electronically Signed by: Dr Reid Jacob MD Last Vital Signs Date Time Temp Pulse Resp B/P (MAP) Pulse Ox O2 Delivery O2 Flow Rate FiO2 12/19/17 23:06 97.9 98 16 107/67 Status: improved Disposition: ADMITTED INPATIENT Condition: Critical Referrals: [facility],REFERRING (PCP) REID JACOB M.D. Dec 19, 2017 23:46
[2017-12-19 23:54] LABS: INR 1.1 (0.9-1.1)
[2017-12-20 00:08] LABS: ANION GAP 8 mmol/L (5-15); BLOOD UREA NITROGEN 16 mg/dL (7-18); CALCIUM 8.8 MG/DL (8.5-10.1); CARBON DIOXIDE 23 MMOL/L (21-32); CHLORIDE 107 MMOL/L (98-107); CREATININE 1.1 MG/DL (0.55-1.30); POTASSIUM 4.6 MMOL/L (3.5-5.1); SODIUM 138 MMOL/L (136-145)
[2017-12-20 00:13] LABS: ALANINE AMINOTRANSFERASE 87 U/L (12-78); ALBUMIN 2.5 G/DL (3.4-5.0); ALBUMIN/GLOBULIN RATIO 0.5 (1.0-2.7); ALKALINE PHOSPHATASE 347 U/L (46-116); ASPARTATE AMINO TRANSFERASE 133 U/L (15-37); BILIRUBIN,TOTAL 0.9 MG/DL (0.2-1.0)
[2017-12-20 00:57] VITALS: BP 112/63
[2017-12-20] MEDS: D5NS 1,000 ML IV SCH ×2 (06:14→15:40)
[2017-12-20] MEDS ORDERED: Nitroglycerin Subl 0.4mg tab SL PRN (06:15)
[2017-12-20] MEDS ORDERED: Miralax 17gm pkt ORAL PRN (06:15)
[2017-12-20] MEDS ORDERED: Mylanta II UD 30ml ORAL PRN (06:15)
[2017-12-20] MEDS ORDERED: Phytonadione 10 MG in D5W 55 ML IVPB ONE (07:00)
[2017-12-20 08:00] VITALS: BP 110/65
--- NOTE | 2017-12-20 08:33 | History and Physical ---
History of Present Illness General Date patient seen: Dec 20, 2017 Reason for Hospitalization: Vomiting Present Illness HPI 62-year-old male, history of liver cirrhosis, liver cancer, esophageal varices, presenting with hematemesis. 1L blood per EMS at home. Denies assoc vomiting prior to bleed. pt is admitted to telemetry for further work up. Allergies: Coded Allergies: IBUPROFEN (Unverified Allergy, Intermediate, 07/02/16) Medication History Scheduled Ferrous Sulfate* (Ferrous Sulfate*), 325 MG ORAL DAILY, (Reported) Pantoprazole* (Protonix*), 40 MG ORAL DAILY Propranolol HCl (Propranolol HCl), 10 MG ORAL BID Thiamine Hcl* (Vitamin B-1*), 100 MG ORAL DAILY Patient History Healthcare decision maker Resuscitation status Full Code Advanced Directive on File No Past Medical/Surgical History Past Medical/Surgical History: (1) Upper GI bleeding (2) Hepatitis-C (3) ETOH abuse Review of Systems Constitutional: Reports: no symptoms Eye: Reports: no symptoms ENT: Reports: no symptoms Physical Exam General Appearance: WD/WN, alert Lines, tubes and drains: peripheral, central line HEENT: normocephalic, anicteric Neck: non-tender, normal alignment Respiratory/Chest: chest wall non-tender, lungs clear Last 24 Hour Vital Signs Date Time Temp Pulse Resp B/P (MAP) Pulse Ox O2 Delivery O2 Flow Rate FiO2 12/20/17 04:00 85 12/20/17 01:53 105 12/20/17 01:30 97.9 91 22 112/63 99 Room Air 12/20/17 00:57 91 22 112/63 99 Room Air 12/19/17 23:25 97.9 16 107/67 12/19/17 23:06 97.9 98 16 107/67 Intake and Output 12/19/17 12/20/17 19:00 07:00 Intake Total 0 ml Balance 0 ml Intake Oral 0 ml # Voids 1 # Bowel Movements 2 Laboratory Tests Test 12/19/17 23:30 White Blood Count 10.2 K/UL (4.8-10.8) Red Blood Count 3.54 M/UL (4.70-6.10) L Hemoglobin 9.4 G/DL (14.2-18.0) L Hematocrit 30.7 % (42.0-52.0) L Mean Corpuscular Volume 87 FL (80-99) Mean Corpuscular Hemoglobin 26.6 PG (27.0-31.0) L Mean Corpuscular Hemoglobin Concent 30.6 G/DL (32.0-36.0) L Red Cell Distribution Width 22.3 % (11.6-14.8) H Platelet Count 254 K/UL (150-450) Mean Platelet Volume 5.6 FL (6.5-10.1) L Neutrophils (%) (Auto) 71.8 % (45.0-75.0) Lymphocytes (%) (Auto) 11.9 % (20.0-45.0) L Monocytes (%) (Auto) 14.0 % (1.0-10.0) H Eosinophils (%) (Auto) 1.3 % (0.0-3.0) Basophils (%) (Auto) 1.0 % (0.0-2.0) Prothrombin Time 11.1 SEC (9.30-11.50) Prothromb Time International Ratio 1.1 (0.9-1.1) Sodium Level 138 MMOL/L (136-145) Potassium Level 4.6 MMOL/L (3.5-5.1) Chloride Level 107 MMOL/L (98-107) Carbon Dioxide Level 23 MMOL/L (21-32) Anion Gap 8 mmol/L (5-15) Blood Urea Nitrogen 16 mg/dL (7-18) Creatinine 1.1 MG/DL (0.55-1.30) Estimat Glomerular Filtration Rate > 60 mL/min (>60) Glucose Level 136 MG/DL (74-106) H Calcium Level 8.8 MG/DL (8.5-10.1) Total Bilirubin 0.9 MG/DL (0.2-1.0) Aspartate Amino Transf (AST/SGOT) 133 U/L (15-37) H Alanine Aminotransferase (ALT/SGPT) 87 U/L (12-78) H Alkaline Phosphatase 347 U/L (46-116) H Total Protein 7.7 G/DL (6.4-8.2) Albumin 2.5 G/DL (3.4-5.0) L Globulin 5.2 g/dL Albumin/Globulin Ratio 0.5 (1.0-2.7) L Lipase 358 U/L (73-393) Height (Feet): 5 Height (Inches): 11.00 Weight (Pounds): 135 Medications Current Medications Medications (Trade) Dose Ordered Sig/Candice Route PRN Reason Start Time Stop Time Status Last Admin Dose Admin Acetaminophen (Tylenol) 650 mg Q4H PRN ORAL fever 12/20/17 06:15 01/19/18 06:14 Al Hydroxide/Mg Hydroxide (Mylanta II) 30 ml Q6H PRN ORAL dyspepsia 12/20/17 06:15 01/19/18 06:14 Dextrose (Dextrose 50%) STAT PRN IV Hypoglycemia 12/20/17 06:15 01/19/18 06:14 Dextrose/Sodium Chloride 1,000 ml @ 100 mls/hr Q10H IV 12/20/17 06:14 01/19/18 06:13 12/20/17 06:14 Diphenhydramine HCl (Benadryl) 25 mg Q6H PRN ORAL Itching/Pruritis 12/20/17 06:15 01/19/18 06:14 Morphine Sulfate (Morphine Sulfate) 2 mg Q4H PRN IVP severe Pain (Pain Scale 7-10) 12/20/17 06:15 12/27/17 06:14 Nitroglycerin (Ntg) 0.4 mg Q5M X 3 DOSES PRN SL Prn Chest Pain 12/20/17 06:15 01/19/18 06:14 Ondansetron HCl (Zofran) 4 mg Q6H PRN IVP Nausea & Vomiting 12/20/17 06:15 01/19/18 06:14 Polyethylene Glycol (Miralax) 17 gm HSPRN PRN ORAL Constipation 12/20/17 06:15 01/19/18 06:14 Temazepam (Restoril) 15 mg HSPRN PRN ORAL Insomnia 12/20/17 06:15 12/27/17 06:14 Assessment/Plan Problem List: (1) Upper GI bleeding ICD Codes: K92.2 - Gastrointestinal hemorrhage, unspecified SNOMED: 66402453 (2) Esophageal varices ICD Codes: I85.00 - Esophageal varices without bleeding SNOMED: 11245261 Qualifiers: Qualified Codes: I85.01 - Esophageal varices with bleeding (3) Hepatocellular carcinoma ICD Codes: C22.0 - Liver cell carcinoma SNOMED: 715246545 Assessment/Plan npo iv fluids check electrolytes Morphine for comfort prbc prn LOREN WOLF Dec 20, 2017 08:33
[2017-12-20 09:20] LABS: HEMATOCRIT 25.9 % (42.0-52.0); HEMOGLOBIN 7.9 G/DL (14.2-18.0); MEAN CORPUSCULAR VOLUME 88 FL (80-99); PLATELET COUNT 187 K/UL (150-450); RED BLOOD COUNT 2.96 M/UL (4.70-6.10); RED CELL DISTRIBUTION WIDTH 21.6 % (11.6-14.8); WHITE BLOOD COUNT 5.9 K/UL (4.8-10.8)
--- NOTE | 2017-12-20 10:11 | Diagnostic Imaging Report ---
Indication: Reason For Exam: SOB Technique: One view of the chest Comparison: 11/09/2017 Findings: Cystic lesions are again noted in the right lateral lower lung, corresponding to the pneumatoceles noted in this region on images from the lower lungs included on CT of the abdomen and pelvis 07/04/2016. There is no focal airspace consolidation. No pleural effusion or pneumothorax. Heart size and mediastinal contours are stable. Impression: No radiographic evidence of acute cardiac pulmonary disease. Cystic spaces in the right lower lung unchanged likely pneumatoceles.
[2017-12-20 16:00] VITALS: BP 117/71
[2017-12-20] MEDS ORDERED: Tubing Blood Filter IV ONE (16:21)
[2017-12-20] MEDS ORDERED: NS 500ML ONE (16:21)
[2017-12-20] MEDS ORDERED: Tubing IV Secondary IV ONE (16:21)
[2017-12-20] MEDS: Pantoprazole Inj IVP SCH ×2 (17:57→23:00)
[2017-12-20 20:00] VITALS: BP 128/75
[2017-12-20] MEDS ORDERED: Morphine Sulfate 4mg/ml Inj ONE (21:29)
[2017-12-20] MEDS: Morphine Sulfate 2mg/ml Inj IVP PRN (21:52)
[2017-12-21] VITALS (12 sets, daily range): BP systolic 130–177; BP diastolic 74–100
[2017-12-21] MEDS: D5NS 1,000 ML IV SCH ×3 (02:14→22:01)
--- NOTE | 2017-12-21 02:45 | Consultation ---
DATE OF CONSULTATION: 12/20/2017 GASTROENTEROLOGY CONSULTATION CONSULTING PHYSICIAN: Kelly Timmons M.D. REFERRING PHYSICIAN: Kecia Valencia M.D. CHIEF COMPLAINT: I was asked to see this patient by Dr. Kecia Valencia for evaluation of upper gastrointestinal bleeding. HISTORY OF PRESENT ILLNESS: The patient is a 62-year-old man, who has a history of alcoholic liver cirrhosis, who came in to hospital for gastrointestinal bleeding. Was initially scheduled for outpatient endoscopy. Now, he comes in with one-day history of recurrent bright red hematemesis, which happened yesterday. He has no abdominal pain and the bowel movement was brown yesterday. PAST MEDICAL HISTORY: History of alcoholism, anxiety, depression, upper gastrointestinal bleeding, and esophageal varices. MEDICATIONS: See the chart list for details. ALLERGIES: None reported. FAMILY HISTORY: Noncontributory. SOCIAL HISTORY: The patient has had a history of alcoholism. REVIEW OF SYSTEMS: Otherwise, negative. PHYSICAL EXAMINATION: GENERAL: A pleasant man, seen in his room. HEENT: Normocephalic and atraumatic. Sclerae anicteric. Oropharynx clear. NECK: Supple. CHEST: Clear to auscultation. CARDIOVASCULAR: Regular rate. ABDOMEN: Soft and mildly distended with good bowel sounds. There is no organomegaly. EXTREMITIES: No edema. LABORATORY AND DIAGNOSTIC DATA: Laboratory data was noted. The patient's hematocrit has dropped to 26. ASSESSMENT: The patient has alcoholic liver disease with esophageal varices about a month ago. This is the time he will be scheduled for second look endoscopy for esophageal banding as well as another look for the current upper gastrointestinal bleeding. Indications and risks were explained to the patient and informed consent was obtained. RECOMMENDATIONS: 1. Clear liquid diet. 2. PPI 3. Endoscopy with banding tomorrow. 4. follow CBC 5. Discontinue alcohol. Thank you for asking me to participate in care of this patient. Kelly Timmons M.D. DR: IRVING JOB#: [id number] CC: DEIDRA
--- NOTE | 2017-12-21 06:44 | Anethesia Preoperative Eval ---
Anesthesia Pre-op PMH/ROS General Date of Evaluation: Dec 21, 2017 Time of Evaluation: 06:40 Anesthesiologist: zoya ASA Score: ASA 3 Mallampati Score Class I : Soft palate, uvula, fauces, pillars visible Class II: Soft palate, uvula, fauces visible Class III: Soft palate, base of uvula visible Class IV: Only hard plate visible Mallampati Classification: Class II Surgeon: gerardo Diagnosis: hematemesis Surgical Procedure: egd Anesthesia History: none Social History: smoking - former smoker Family History: no anesthesia problems Allergies: Coded Allergies: IBUPROFEN (Unverified Allergy, Intermediate, 07/02/16) Medications: see eMAR Past Medical History Cardiovascular: Reports: HTN Gastrointestinal/Genitourinary: Reports: GERD, other - liver cancer, esophageal varices Anesthesia Pre-op Phys. Exam Physician Exam Last Vital Signs Date Time Temp Pulse Resp B/P (MAP) Pulse Ox O2 Delivery O2 Flow Rate FiO2 12/21/17 04:00 95 12/21/17 04:00 99.0 18 130/78 97 Room Air Constitutional: NAD Neurologic: CN 2-12 intact Cardiovascular: RRR Respiratory: CTA Gastrointestinal: S/NT/ND Airway Exam Mallampati Score: Class II MO: limited Neck: supple TMD: 2fb ROM: limited Teeth: missing Anesthesia Pre-op A/P Labs Hematology Test 12/20/17 08:55 White Blood Count 5.9 K/UL (4.8-10.8) Red Blood Count 2.96 M/UL (4.70-6.10) L Hemoglobin 7.9 G/DL (14.2-18.0) L Hematocrit 25.9 % (42.0-52.0) L Mean Corpuscular Volume 88 FL (80-99) Mean Corpuscular Hemoglobin 26.6 PG (27.0-31.0) L Mean Corpuscular Hemoglobin Concent 30.4 G/DL (32.0-36.0) L Red Cell Distribution Width 21.6 % (11.6-14.8) H Platelet Count 187 K/UL (150-450) Mean Platelet Volume 6.4 FL (6.5-10.1) L Neutrophils (%) (Auto) % (45.0-75.0) Lymphocytes (%) (Auto) % (20.0-45.0) Monocytes (%) (Auto) % (1.0-10.0) Eosinophils (%) (Auto) % (0.0-3.0) Basophils (%) (Auto) % (0.0-2.0) Differential Total Cells Counted 100 Neutrophils % (Manual) 60 % (45-75) Lymphocytes % (Manual) 30 % (20-45) Monocytes % (Manual) 10 % (1-10) Eosinophils % (Manual) 0 % (0-3) Basophils % (Manual) 0 % (0-2) Band Neutrophils 0 % (0-8) Platelet Estimate Adequate Platelet Morphology Normal Hypochromasia 1+ Anisocytosis 2+ Risk Assessment & Plan Assessment: asa3 Plan: mac Status Change Before Surgery: No Pre-Antibiotics Drug: cefoxitin 1 gm Given Within 1 Hr of Incision: Yes Time Given: 08:16 DEBORAH RAINEY Dec 21, 2017 06:44
[2017-12-21 07:20] LABS: HEMOGLOBIN 7.9 G/DL (14.2-18.0); MEAN CORPUSCULAR VOLUME 87 FL (80-99); PLATELET COUNT 159 K/UL (150-450); RED BLOOD COUNT 2.89 M/UL (4.70-6.10); RED CELL DISTRIBUTION WIDTH 21.3 % (11.6-14.8); WHITE BLOOD COUNT 6.2 K/UL (4.8-10.8)
[2017-12-21] MEDS ORDERED: Propofol 200mg/20ml IV ONE (08:00)
[2017-12-21] MEDS ORDERED: Lidocaine 1% MPF 10mg/ml 5ml ONE (08:00)
[2017-12-21 08:04] LABS: ALANINE AMINOTRANSFERASE 79 U/L (12-78); ALBUMIN 2.1 G/DL (3.4-5.0); ALBUMIN/GLOBULIN RATIO 0.5 (1.0-2.7); ALKALINE PHOSPHATASE 221 U/L (46-116); AMYLASE 75 U/L (25-115); ASPARTATE AMINO TRANSFERASE 159 U/L (15-37); BILIRUBIN,TOTAL 0.8 MG/DL (0.2-1.0); BLOOD UREA NITROGEN 12 mg/dL (7-18); CALCIUM 8.3 MG/DL (8.5-10.1); CARBON DIOXIDE 24 MMOL/L (21-32); CREATININE 0.8 MG/DL (0.55-1.30)
[2017-12-21] MEDS ORDERED: NS 500ML IV ONE (08:05)
[2017-12-21 08:09] LABS: CHLORIDE 109 MMOL/L (98-107); POTASSIUM 3.9 MMOL/L (3.5-5.1); SODIUM 140 MMOL/L (136-145)
[2017-12-21] MEDS ORDERED: cefOXitin 1gm Inj IVP ONE (08:18)
--- NOTE | 2017-12-21 08:24 | Pre-Procedure Note/Attestation ---
Pre-Procedure Note/Attestation Complete Prior to Procedure Planned Procedure: not applicable Procedure Narrative: eGD Indications for Procedure Pre-Operative Diagnosis: esoph varices Attestation I attest that I discussed the nature of the procedure; its benefits; risks and complications; and alternatives (and the risks and benefits of such alternatives ), prior to the procedure, with the patient (or the patient's legal leather goods sales representative). I attest that, if there was a reasonable possibility of needing a blood transfusion, the patient (or the patient's legal leather goods sales representative) was given the [facility] standardized written summary, pursuant to the [place] Blood Safety Act ([place] Health and Safety Code # 1645, as amended). I attest that I re-evaluated the patient just prior to the surgery and that there has been no change in the patient's H&P, except as documented below: OZ PELLETIER Dec 21, 2017 08:24
--- NOTE | 2017-12-21 08:32 | Endoscopy Procedure Note ---
Endoscopy Procedure Note Indication for Procedure: gib Procedures Performed: EGD Operative Findings/Diagnosis: EV s/p banding x6 Specimen: none Pt Tolerated Procedure Well: Yes Estimated Blood Loss: none Anesthesiologist: ila Anesthesia: MAC Implant(s) used?: No 50 yrs or older w/o bx or poly: Not Applicable 10yrs. F/U not recommended: Not Applicable OZ PELLETIER Dec 21, 2017 08:31
[2017-12-21] MEDS ORDERED: Midazolam 2mg/2ml Inj IVP PRN (09:00)
[2017-12-21] MEDS ORDERED: Atropine Inj 1mg/10ml Syr IV PRN (09:00)
[2017-12-21] MEDS ORDERED: DiphenhydrAMINE 50mg/ml Inj IVP PRN (09:00)
[2017-12-21] MEDS ORDERED: fentaNYL 100 mcg/2 mL IV PRN (09:00)
[2017-12-21] MEDS: Pantoprazole Inj IVP SCH ×2 (09:37→21:44)
[2017-12-21] MEDS: cefTRIAXone 1 GM in NS 55 ML IVPB SCH (09:38)
[2017-12-21] MEDS: Octreotide Acetate 500 MCG in Sodium Chloride 500ML 499 ML IV SCH ×2 (10:28→21:43)
--- NOTE | 2017-12-21 12:10 | Immediate Post-Op Evaluation ---
Immediate Post-Op Evalulation Immediate Post-Op Evalulation Procedure: egd Date of Evaluation: Dec 21, 2017 Time of Evaluation: 08:50 IV Fluids: 200ml Blood Products: none Estimated Blood Loss: negligible Blood Pressure Systolic: 155 Blood Pressure Diastolic: 92 Pulse Rate: 92 Respiratory Rate: 18 O2 Sat by Pulse Oximetry: 99 Temperature (Fahrenheit): 98.9 Pain Score (1-10): 0 Nausea: No Vomiting: No Complications none Patient Status: awake, reacts, patent Hydration Status: adequate Drug: cefoxitin 1gm Given Within 1 Hr of Incision: Yes Time Given: 08:16 DEBORAH RAINEY Dec 21, 2017 12:10
--- NOTE | 2017-12-21 12:12 | 48 Hour Post Anesthesia Eval ---
Post Anesthesia Evaluation Procedure: egd Date of Evaluation: Dec 21, 2017 Time of Evaluation: 08:52 Blood Pressure Systolic: 177 0: 75 Pulse Rate: 88 Respiratory Rate: 18 Temperature (Fahrenheit): 98.9 O2 Sat by Pulse Oximetry: 99 Airway: patent Nausea: No Vomiting: No Pain Intensity: 0 Hydration Status: adequate Cardiopulmonary Status: stable Mental Status/LOC: patient returned to baseline Post-Anesthesia Complications: none Follow-up care needed: N/A DEBORAH RAINEY Dec 21, 2017 12:12
[2017-12-21] MEDS: Morphine Sulfate 2mg/ml Inj IVP PRN ×2 (12:24→21:45)
--- NOTE | 2017-12-21 12:44 | Pulmonology Progress Note ---
Assessment/Plan Problems: (1) Upper GI bleeding (2) Esophageal varices (3) Hepatocellular carcinoma (4) Tachycardia (5) Hepatitis-C Assessment/Plan s/p endoscopy check h/h cariology to see. cardizem prn add digoxin Subjective ROS Limited/Unobtainable: No Constitutional: Reports: no symptoms HEENT: Repors: no symptoms Allergies: Coded Allergies: IBUPROFEN (Unverified Allergy, Intermediate, 07/02/16) Objective Last 24 Hour Vital Signs Date Time Temp Pulse Resp B/P (MAP) Pulse Ox O2 Delivery O2 Flow Rate FiO2 12/21/17 12:12 88 18 99 12/21/17 12:10 92 18 99 12/21/17 09:56 86 12/21/17 09:11 98.9 88 23 160/96 97 Room Air 12/21/17 09:00 85 25 162/90 99 Room Air 12/21/17 08:55 86 24 153/91 98 Room Air 12/21/17 08:50 88 22 177/75 98 Room Air 12/21/17 08:45 92 18 155/92 100 Nasal Cannula 3.0 12/21/17 08:38 99.0 95 16 147/91 100 Nasal Cannula 3.0 12/21/17 08:00 98.2 89 20 133/77 100 Room Air 12/21/17 04:00 95 12/21/17 04:00 99.0 88 18 130/78 97 Room Air 12/21/17 00:00 99.0 89 18 130/76 98 Room Air 12/21/17 00:00 89 12/20/17 20:00 98.2 83 18 128/75 100 Room Air 12/20/17 20:00 89 12/20/17 16:00 98.4 87 117/71 12/20/17 16:00 87 Intake and Output 12/20/17 12/21/17 19:00 07:00 Intake Total 240 ml 400 ml Output Total 1100 ml Balance 240 ml -700 ml Intake Oral 240 ml 300 ml IV Total 100 ml Output Urine Total 1100 ml # Voids 2 Objective General Appearance: cachectic, alert Lines, tubes and drains: peripheral, central line HEENT: normocephalic, anicteric Neck: non-tender, normal alignment Respiratory/Chest: chest wall non-tender, lungs clear\ Abdomen: distended Laboratory Tests 12/21/17 05:05: White Blood Count 6.2, Red Blood Count 2.89L, Hemoglobin 7.9L, Hematocrit 25.0L , Mean Corpuscular Volume 87, Mean Corpuscular Hemoglobin 27.2, Mean Corpuscular Hemoglobin Concent 31.4L, Red Cell Distribution Width 21.3H, Platelet Count 159, Mean Platelet Volume 6.0L, Neutrophils (%) (Auto) , Lymphocytes (%) (Auto) , Monocytes (%) (Auto) , Eosinophils (%) (Auto) , Basophils (%) (Auto) , Differential Total Cells Counted 100, Neutrophils % ( Manual) 68, Lymphocytes % (Manual) 13L, Monocytes % (Manual) 17H, Eosinophils % (Manual) 1, Basophils % (Manual) 1, Band Neutrophils 0, Platelet Estimate Adequate, Platelet Morphology Normal, Hypochromasia 3+, Anisocytosis 3+, Prothrombin Time 10.4, Prothromb Time International Ratio 1.0, Activated Partial Thromboplast Time 28, Sodium Level 140, Potassium Level 3.9, Chloride Level 109H, Carbon Dioxide Level 24, Blood Urea Nitrogen 12, Creatinine 0.8, Estimat Glomerular Filtration Rate > 60, Glucose Level 103, Calcium Level 8.3L, Total Bilirubin 0.8, Aspartate Amino Transf (AST/SGOT) 159H, Alanine Aminotransferase (ALT/SGPT) 79H, Alkaline Phosphatase 221H, Total Protein 6.3L, Albumin 2.1L, Globulin 4.2, Albumin/Globulin Ratio 0.5L, Amylase Level 75, Lipase 240 Current Medications Medications (Trade) Dose Ordered Sig/Candice Route PRN Reason Start Time Stop Time Status Last Admin Dose Admin Acetaminophen (Tylenol) 650 mg Q4H PRN ORAL fever 12/20/17 06:15 01/19/18 06:14 Al Hydroxide/Mg Hydroxide (Mylanta II) 30 ml Q6H PRN ORAL dyspepsia 12/20/17 06:15 01/19/18 06:14 Al Hydroxide/Mg Hydroxide (Mylanta) 15 ml Q1H PRN ORAL gi upset 12/21/17 09:00 12/21/17 15:00 Atropine Sulfate (Atropine) 0.5 mg Q5M PRN IV bpm less than 45 12/21/17 09:00 12/21/17 15:00 Ceftriaxone Sodium 1 gm/ Sodium Chloride 55 ml @ 110 mls/hr Q24H IVPB 12/21/17 09:00 12/28/17 08:59 12/21/17 09:38 Dextrose (Dextrose 50%) STAT PRN IV Hypoglycemia 12/20/17 06:15 01/19/18 06:14 Dextrose/Sodium Chloride 1,000 ml @ 100 mls/hr Q10H IV 12/20/17 06:14 01/19/18 06:13 12/21/17 02:14 Diphenhydramine HCl (Benadryl) 25 mg Q15M PRN IVP Itching 12/21/17 09:00 12/21/17 15:00 Diphenhydramine HCl (Benadryl) 25 mg Q6H PRN ORAL Itching/Pruritis 12/20/17 06:15 01/19/18 06:14 Fentanyl Citrate (Sublimaze 100 mcg/2 mL) 25 mcg Q10M PRN IV Moderate Pain (Pain Scale 4-6) 12/21/17 09:00 12/21/17 15:00 Hydralazine HCl (Apresoline) 5 mg Q30M PRN IV SBP>160/DBP>90 12/21/17 09:00 12/21/17 15:00 Midazolam HCl (Versed 2mg/2ml vial) 1 mg Q15M PRN IVP For Anxiety 12/21/17 09:00 12/21/17 15:00 Morphine Sulfate (Morphine Sulfate) 2 mg Q4H PRN IVP severe Pain (Pain Scale 7-10) 12/20/17 06:15 12/27/17 06:14 12/21/17 12:24 Nitroglycerin (Ntg) 0.4 mg Q5M X 3 DOSES PRN SL Prn Chest Pain 12/20/17 06:15 01/19/18 06:14 Octreotide Acetate 500 mcg/ Sodium Chloride 500 ml @ 50 mls/hr Q10H IV 12/21/17 09:30 01/20/18 09:29 12/21/17 10:28 Ondansetron HCl (Zofran) 4 mg Q1H PRN IVP Nausea & Vomiting 12/21/17 09:00 12/21/17 15:00 Ondansetron HCl (Zofran) 4 mg Q6H PRN IVP Nausea & Vomiting 12/20/17 06:15 01/19/18 06:14 Pantoprazole (Protonix) 40 mg EVERY 12 HOURS IVP 12/20/17 17:00 01/19/18 16:59 12/21/17 09:37 Polyethylene Glycol (Miralax) 17 gm HSPRN PRN ORAL Constipation 12/20/17 06:15 01/19/18 06:14 Temazepam (Restoril) 15 mg HSPRN PRN ORAL Insomnia 12/20/17 06:15 12/27/17 06:14 LOREN WOLF Dec 21, 2017 12:44
[2017-12-21] MEDS ORDERED: dilTIAZem HCl 25mg/5ml Inj IV PRN (12:45)
[2017-12-21] MEDS ORDERED: Digoxin 0.5mg/2ml Inj IVP ONE (12:50)
[2017-12-21] MEDS ORDERED: Tubing Blood Filter IV ONE (15:30)
[2017-12-21] MEDS ORDERED: D5NS 1000ml IV ONE (15:30)
[2017-12-21] MEDS ORDERED: Tubing IV Secondary IV ONE (15:30)
--- NOTE | 2017-12-21 16:00 | Procedure Note ---
DATE OF PROCEDURE: 12/21/2017 PROCEDURE: Upper endoscopy with banding of esophageal varices. SURGEON: Eduardo Hartley M.D. REFERRING PHYSICIAN: Kecia Valencia M.D. ANESTHESIA: Per Dr. Harris. INSTRUMENT: Olympus adult flexible endoscope. INDICATIONS: Esophageal varices, GI bleeding. The procedure, risks, benefits, and possible consequences, including hemorrhage, aspiration, perforation and infection, and alternative treatments, were explained to the patient/legal guardian by Dr. Eduardo Hartley and the patient/legal guardian understood and accepted these risks. DESCRIPTION OF PROCEDURE: After informed consent was obtained and the patient was adequately sedated, Olympus upper endoscope was advanced from mouth into second portion of the duodenum and retroflexion was performed in the stomach. The patient has evidence of four columns of grade 4 distal esophageal varices, one of them had actually possible nipple on it. In the stomach, there was evidence of moderate portal hypertensive gastropathy. Retroflexion in the stomach was performed, which showed no evidence of any gastric varices. At this time, the upper endoscope was retrieved and banding device was placed. We reintroduced the scope with a banding device into the distal esophagus. A total of 6 bands were placed in the distal esophagus. The patient tolerated the procedure well without any complication. SUMMARY FINDINGS: 1. Portal hypertensive gastropathy. 2. Four columns of grade 4 distal esophageal varices, status post banding x6. RECOMMENDATIONS: Start octreotide. The patient received dose of antibiotics prior to this procedure, and we are going to start the patient on ceftriaxone 1 g daily for SBP prophylaxis. The patient to be started on a beta-swati when the patient is more stable, may be restarted tomorrow if the vital signs are stable. The patient to be kept NPO for today and start clear liquid diet tomorrow if stable. I want to thank, Dr. Valencia, for this kind referral. Eduardo Hartley M.D. DR: RADHA JOB#: [id number] CC: Kecia Valencia M.D.; Fax#: [phone]
[2017-12-21] MEDS ORDERED: Morphine Sulfate 4mg/ml Inj ONE (21:36)
[2017-12-22] VITALS (8 sets, daily range): BP systolic 127–166; BP diastolic 73–102
[2017-12-22] MEDS: Octreotide Acetate 500 MCG in Sodium Chloride 500ML 499 ML IV SCH (04:45)
[2017-12-22] MEDS: Pantoprazole Inj IVP SCH ×2 (08:08→21:58)
[2017-12-22] MEDS: cefTRIAXone 1 GM in NS 55 ML IVPB SCH (08:09)
[2017-12-22 08:29] LABS: BASOPHILS % (AUTO) 0.7 % (0.0-2.0); EOSINOPHILS % (AUTO) 1.3 % (0.0-3.0); HEMATOCRIT 28.7 % (42.0-52.0); HEMOGLOBIN 9.1 G/DL (14.2-18.0); LYMPHOCYTES % (AUTO) 17.3 % (20.0-45.0); MEAN CORPUSCULAR VOLUME 87 FL (80-99); MONOCYTES % (AUTO) 12.3 % (1.0-10.0); NEUTROPHILS % (AUTO) 68.3 % (45.0-75.0); PLATELET COUNT 129 K/UL (150-450); RED BLOOD COUNT 3.32 M/UL (4.70-6.10); RED CELL DISTRIBUTION WIDTH 19.5 % (11.6-14.8); WHITE BLOOD COUNT 6.8 K/UL (4.8-10.8)
[2017-12-22 08:41] LABS: ALANINE AMINOTRANSFERASE 72 U/L (12-78); ALBUMIN 2.3 G/DL (3.4-5.0); ALBUMIN/GLOBULIN RATIO 0.5 (1.0-2.7); ALKALINE PHOSPHATASE 208 U/L (46-116); ANION GAP 8 mmol/L (5-15); ASPARTATE AMINO TRANSFERASE 126 U/L (15-37); BILIRUBIN,TOTAL 2.1 MG/DL (0.2-1.0); BLOOD UREA NITROGEN 6 mg/dL (7-18); CALCIUM 8.5 MG/DL (8.5-10.1); CARBON DIOXIDE 26 MMOL/L (21-32); CHLORIDE 103 MMOL/L (98-107); CREATININE 0.8 MG/DL (0.55-1.30); POTASSIUM 3.6 MMOL/L (3.5-5.1); SODIUM 137 MMOL/L (136-145)
[2017-12-22 08:48] LABS: PHOSPHORUS 3.1 MG/DL (2.5-4.9)
[2017-12-22 08:50] LABS: BILIRUBIN,DIRECT 1.4 MG/DL (0.0-0.3)
--- NOTE | 2017-12-22 09:54 | GI Progress Note ---
Assessment/Plan Problems: (1) Hepatitis-C ICD Codes: B19.20 - Unspecified viral hepatitis C without hepatic coma SNOMED: 78738566 (2) ETOH abuse ICD Codes: F10.10 - Alcohol abuse, uncomplicated SNOMED: 22801572, 91537536 (3) Upper GI bleeding ICD Codes: K92.2 - Gastrointestinal hemorrhage, unspecified SNOMED: 51931250 (4) Esophageal varices ICD Codes: I85.00 - Esophageal varices without bleeding SNOMED: 95981467 Qualifiers: Qualified Codes: I85.01 - Esophageal varices with bleeding (5) Symptomatic anemia ICD Codes: D64.9 - Anemia, unspecified SNOMED: 842642618 Status: stable Status Narrative Discussed with Dr. Hartley. Assessment/Plan SUMMARY FINDINGS: 1. Portal hypertensive gastropathy. 2. Four columns of grade 4 distal esophageal varices, status post banding x6. RECOMMENDATIONS: taper octreotide gtt to 25mcg/hr today, will stop tomorrow. adv to soft diet start propranolol >> titrate SBP [100-120] ppi daily fu labs dc planning am Subjective Gastrointestinal/Abdominal: Reports: no symptoms Objective Last 24 Hour Vital Signs Date Time Temp Pulse Resp B/P (MAP) Pulse Ox O2 Delivery O2 Flow Rate FiO2 12/22/17 08:08 86 12/22/17 08:00 97.9 88 18 146/85 99 Room Air 12/22/17 07:17 127/73 12/22/17 04:45 162/91 12/22/17 04:43 162/91 12/22/17 04:00 100.0 84 20 160/102 99 Room Air 12/22/17 04:00 84 12/22/17 00:00 100.0 92 20 166/91 96 Room Air 12/22/17 00:00 93 12/21/17 20:00 100.0 96 20 146/91 98 Room Air 12/21/17 20:00 96 12/21/17 16:00 99.0 96 18 159/74 100 Room Air 12/21/17 16:00 99 12/21/17 13:13 164 177/75 12/21/17 12:53 158 12/21/17 12:12 88 18 99 12/21/17 12:10 92 18 99 12/21/17 12:00 99 12/21/17 12:00 96.1 156 18 156/100 100 Room Air 12/21/17 09:56 86 Intake and Output 12/21/17 12/22/17 19:00 07:00 Intake Total 1730 ml 236 ml Output Total 300 ml 350 ml Balance 1430 ml -114 ml Intake Oral 236 ml IV Total 1730 ml Output Urine Total 300 ml 350 ml Estimated Blood Loss 0 ml # Voids 2 5 Laboratory Tests Test 12/22/17 06:15 White Blood Count 6.8 K/UL (4.8-10.8) Red Blood Count 3.32 M/UL (4.70-6.10) L Hemoglobin 9.1 G/DL (14.2-18.0) L Hematocrit 28.7 % (42.0-52.0) L Mean Corpuscular Volume 87 FL (80-99) Mean Corpuscular Hemoglobin 27.4 PG (27.0-31.0) Mean Corpuscular Hemoglobin Concent 31.7 G/DL (32.0-36.0) L Red Cell Distribution Width 19.5 % (11.6-14.8) H Platelet Count 129 K/UL (150-450) L Mean Platelet Volume 5.4 FL (6.5-10.1) L Neutrophils (%) (Auto) 68.3 % (45.0-75.0) Lymphocytes (%) (Auto) 17.3 % (20.0-45.0) L Monocytes (%) (Auto) 12.3 % (1.0-10.0) H Eosinophils (%) (Auto) 1.3 % (0.0-3.0) Basophils (%) (Auto) 0.7 % (0.0-2.0) Prothrombin Time 10.5 SEC (9.30-11.50) Prothromb Time International Ratio 1.0 (0.9-1.1) Activated Partial Thromboplast Time 28 SEC (23-33) Sodium Level 137 MMOL/L (136-145) Potassium Level 3.6 MMOL/L (3.5-5.1) Chloride Level 103 MMOL/L (98-107) Carbon Dioxide Level 26 MMOL/L (21-32) Anion Gap 8 mmol/L (5-15) Blood Urea Nitrogen 6 mg/dL (7-18) L Creatinine 0.8 MG/DL (0.55-1.30) Estimat Glomerular Filtration Rate > 60 mL/min (>60) Glucose Level 109 MG/DL (74-106) H Calcium Level 8.5 MG/DL (8.5-10.1) Phosphorus Level 3.1 MG/DL (2.5-4.9) Magnesium Level 1.4 MG/DL (1.8-2.4) L Total Bilirubin 2.1 MG/DL (0.2-1.0) H Direct Bilirubin 1.4 MG/DL (0.0-0.3) H Aspartate Amino Transf (AST/SGOT) 126 U/L (15-37) H Alanine Aminotransferase (ALT/SGPT) 72 U/L (12-78) Alkaline Phosphatase 208 U/L (46-116) H Total Protein 6.9 G/DL (6.4-8.2) Albumin 2.3 G/DL (3.4-5.0) L Globulin 4.6 g/dL Albumin/Globulin Ratio 0.5 (1.0-2.7) L Height (Feet): 5 Height (Inches): 11.00 Weight (Pounds): 135 General Appearance: WD/WN, no apparent distress, alert Cardiovascular: normal rate Respiratory/Chest: normal breath sounds, no respiratory distress Abdominal Exam: normal bowel sounds, non tender, soft Extremities: normal range of motion, non-tender Arlet Menendez N.P. Dec 22, 2017 09:54
[2017-12-22] MEDS ORDERED: Octreotide Acetate 500 MCG in Sodium Chloride 500ML 499 ML IV SCH ×2 (10:30→12:00)
--- NOTE | 2017-12-22 12:32 | Pulmonology Progress Note ---
Assessment/Plan Problems: (1) Upper GI bleeding (2) Esophageal varices (3) Hepatocellular carcinoma (4) Tachycardia (5) Hepatitis-C Assessment/Plan s/p endoscopy check h/h cariology to see. cardizem prn add digoxin US of abdomen for paracentesis. Subjective ROS Limited/Unobtainable: No Interval Events: no more hematemesis Allergies: Coded Allergies: IBUPROFEN (Unverified Allergy, Intermediate, 07/02/16) Objective Last 24 Hour Vital Signs Date Time Temp Pulse Resp B/P (MAP) Pulse Ox O2 Delivery O2 Flow Rate FiO2 12/22/17 12:00 99.1 82 18 157/84 98 Room Air 12/22/17 08:08 86 12/22/17 08:00 97.9 88 18 146/85 99 Room Air 12/22/17 08:00 80 12/22/17 07:17 127/73 12/22/17 04:45 162/91 12/22/17 04:43 162/91 12/22/17 04:00 100.0 84 20 160/102 99 Room Air 12/22/17 04:00 84 12/22/17 00:00 100.0 92 20 166/91 96 Room Air 12/22/17 00:00 93 12/21/17 20:00 100.0 96 20 146/91 98 Room Air 12/21/17 20:00 96 12/21/17 16:00 99.0 96 18 159/74 100 Room Air 12/21/17 16:00 99 12/21/17 13:13 164 177/75 12/21/17 12:53 158 Intake and Output 12/21/17 12/22/17 19:00 07:00 Intake Total 1730 ml 236 ml Output Total 300 ml 350 ml Balance 1430 ml -114 ml Intake Oral 236 ml IV Total 1730 ml Output Urine Total 300 ml 350 ml Estimated Blood Loss 0 ml # Voids 2 5 Objective General Appearance: cachectic, alert Lines, tubes and drains: peripheral, central line HEENT: normocephalic, anicteric Neck: non-tender, normal alignment Respiratory/Chest: chest wall non-tender, lungs clear\ Abdomen: distended Laboratory Tests 12/22/17 06:15: White Blood Count 6.8, Red Blood Count 3.32L, Hemoglobin 9.1L, Hematocrit 28.7L , Mean Corpuscular Volume 87, Mean Corpuscular Hemoglobin 27.4, Mean Corpuscular Hemoglobin Concent 31.7L, Red Cell Distribution Width 19.5H, Platelet Count 129L, Mean Platelet Volume 5.4L, Neutrophils (%) (Auto) 68.3, Lymphocytes (%) (Auto) 17.3L, Monocytes (%) (Auto) 12.3H, Eosinophils (%) (Auto ) 1.3, Basophils (%) (Auto) 0.7, Prothrombin Time 10.5, Prothromb Time International Ratio 1.0, Activated Partial Thromboplast Time 28, Sodium Level 137, Potassium Level 3.6, Chloride Level 103, Carbon Dioxide Level 26, Anion Gap 8, Blood Urea Nitrogen 6L, Creatinine 0.8, Estimat Glomerular Filtration Rate > 60, Glucose Level 109H, Calcium Level 8.5, Phosphorus Level 3.1, Magnesium Level 1.4L, Total Bilirubin 2.1H, Direct Bilirubin 1.4H, Aspartate Amino Transf (AST/SGOT) 126H, Alanine Aminotransferase (ALT/SGPT) 72, Alkaline Phosphatase 208H, Total Protein 6.9, Albumin 2.3L, Globulin 4.6, Albumin/ Globulin Ratio 0.5L Current Medications Medications (Trade) Dose Ordered Sig/Candice Route PRN Reason Start Time Stop Time Status Last Admin Dose Admin Acetaminophen (Tylenol) 650 mg Q4H PRN ORAL fever 12/20/17 06:15 01/19/18 06:14 Al Hydroxide/Mg Hydroxide (Mylanta II) 30 ml Q6H PRN ORAL dyspepsia 12/20/17 06:15 01/19/18 06:14 Ceftriaxone Sodium 1 gm/ Sodium Chloride 55 ml @ 110 mls/hr Q24H IVPB 12/21/17 09:00 12/28/17 08:59 12/22/17 08:09 Dextrose (Dextrose 50%) STAT PRN IV Hypoglycemia 12/20/17 06:15 01/19/18 06:14 Digoxin (Lanoxin) 0.25 mg DAILY ORAL 12/22/17 09:00 01/21/18 08:59 12/22/17 08:08 Diltiazem HCl (Cardizem) 10 mg Q1H PRN IV heart rate more than 120, 12/21/17 12:45 01/20/18 12:44 12/21/17 13:13 Diphenhydramine HCl (Benadryl) 25 mg Q6H PRN ORAL Itching/Pruritis 12/20/17 06:15 01/19/18 06:14 Morphine Sulfate (Morphine Sulfate) 2 mg Q4H PRN IVP severe Pain (Pain Scale 7-10) 12/20/17 06:15 12/27/17 06:14 12/21/17 21:45 Nitroglycerin (Ntg) 0.4 mg Q5M X 3 DOSES PRN SL Prn Chest Pain 12/20/17 06:15 01/19/18 06:14 Octreotide Acetate 500 mcg/ Sodium Chloride 500 ml @ 25 mls/hr Q20H IV 12/22/17 12:00 01/21/18 11:59 12/22/17 12:13 Ondansetron HCl (Zofran) 4 mg Q6H PRN IVP Nausea & Vomiting 12/20/17 06:15 01/19/18 06:14 Pantoprazole (Protonix) 40 mg EVERY 12 HOURS IVP 12/20/17 17:00 01/19/18 16:59 12/22/17 08:08 Polyethylene Glycol (Miralax) 17 gm HSPRN PRN ORAL Constipation 12/20/17 06:15 01/19/18 06:14 Propranolol HCl (Inderal) 10 mg Q8HR ORAL 12/22/17 14:00 01/21/18 13:59 Temazepam (Restoril) 15 mg HSPRN PRN ORAL Insomnia 12/20/17 06:15 12/27/17 06:14 LOREN WOLF Dec 22, 2017 12:32
[2017-12-22] MEDS: Propranolol 10mg tab ORAL SCH ×2 (13:16→21:57)
[2017-12-22] MEDS ORDERED: D5NS 1000ml IV ONE (14:54)
--- NOTE | 2017-12-22 16:19 | Diagnostic Imaging Report ---
Indication: Abdominal distention, suspected ascites Technique: Grayscale images of all 4 quadrants of the abdomen assessing the peritoneal space in anticipation of paracentesis Comparison: Reference made to complete abdominal ultrasound 11/11/2017 Findings: No ascites fluid could be demonstrated Impression: Negative for evidence of ascites. Therefore no paracentesis performed
[2017-12-23] VITALS: BP 153/79
[2017-12-23 04:00] VITALS: BP 141/78
[2017-12-23] MEDS: Morphine Sulfate 2mg/ml Inj IVP PRN (04:14)
[2017-12-23] MEDS: Propranolol 10mg tab ORAL SCH ×2 (06:15→13:25)
[2017-12-23 08:00] VITALS: BP 127/73
[2017-12-23] MEDS: cefTRIAXone 1 GM in NS 55 ML IVPB SCH (09:38)
[2017-12-23] MEDS: Pantoprazole Inj IVP SCH (09:39)
--- NOTE | 2017-12-23 10:25 | GI Progress Note ---
Assessment/Plan Problems: (1) Hepatitis-C ICD Codes: B19.20 - Unspecified viral hepatitis C without hepatic coma SNOMED: 91617976 (2) ETOH abuse ICD Codes: F10.10 - Alcohol abuse, uncomplicated SNOMED: 45507617, 81150785 (3) Upper GI bleeding ICD Codes: K92.2 - Gastrointestinal hemorrhage, unspecified SNOMED: 08867730 (4) Esophageal varices ICD Codes: I85.00 - Esophageal varices without bleeding SNOMED: 57122731 Qualifiers: Qualified Codes: I85.01 - Esophageal varices with bleeding (5) Symptomatic anemia ICD Codes: D64.9 - Anemia, unspecified SNOMED: 493706742 Status: stable Status Narrative Discussed with Dr. Hartley. Assessment/Plan SUMMARY FINDINGS: 1. Portal hypertensive gastropathy. 2. Four columns of grade 4 distal esophageal varices, status post banding x6. RECOMMENDATIONS: okay for DC per GI standpoint dc octreotide gtt adv to soft diet propranolol >> titrate SBP [100-120] ppi daily fu labs Subjective Gastrointestinal/Abdominal: Reports: no symptoms Subjective improved ready to be discharged Objective Last 24 Hour Vital Signs Date Time Temp Pulse Resp B/P (MAP) Pulse Ox O2 Delivery O2 Flow Rate FiO2 12/23/17 09:38 63 12/23/17 08:00 98.1 63 18 127/73 97 Room Air 12/23/17 06:15 67 141/78 12/23/17 04:00 67 12/23/17 04:00 98.6 68 20 141/78 97 Room Air 12/23/17 00:00 98.6 70 18 153/79 98 Room Air 12/23/17 00:00 85 12/22/17 21:57 93 150/89 12/22/17 20:00 78 12/22/17 20:00 99.7 77 20 157/82 100 Room Air 12/22/17 16:00 78 12/22/17 15:40 99.4 84 20 158/86 97 Room Air 12/22/17 13:16 82 157/84 12/22/17 12:00 99.1 82 18 157/84 98 Room Air 12/22/17 12:00 82 Intake and Output 12/22/17 12/23/17 19:00 07:00 Intake Total 1046.5 ml 600 ml Output Total 2200 ml 400 ml Balance -1153.5 ml 200 ml Intake Oral 360 ml 300 ml IV Total 686.5 ml 300 ml Output Urine Total 2200 ml 400 ml # Bowel Movements 2 Laboratory Tests Test 12/22/17 18:50 Ferritin 158 NG/ML (8-388) Alpha Fetoprotein Pending CA 15-3 Antigen Pending Height (Feet): 5 Height (Inches): 11.00 Weight (Pounds): 135 General Appearance: WD/WN, no apparent distress, alert Cardiovascular: normal rate Respiratory/Chest: normal breath sounds, no respiratory distress Abdominal Exam: normal bowel sounds, non tender, soft Extremities: normal range of motion, non-tender Arlet Menendez N.P. Dec 23, 2017 10:25
[2017-12-23 11:04] LABS: BASOPHILS % (AUTO) 0.9 % (0.0-2.0); EOSINOPHILS % (AUTO) 1.4 % (0.0-3.0); HEMATOCRIT 29.6 % (42.0-52.0); HEMOGLOBIN 9.2 G/DL (14.2-18.0); LYMPHOCYTES % (AUTO) 15.9 % (20.0-45.0); MEAN CORPUSCULAR VOLUME 88 FL (80-99); MONOCYTES % (AUTO) 15.4 % (1.0-10.0); NEUTROPHILS % (AUTO) 66.4 % (45.0-75.0); PLATELET COUNT 149 K/UL (150-450); RED BLOOD COUNT 3.36 M/UL (4.70-6.10); RED CELL DISTRIBUTION WIDTH 19.8 % (11.6-14.8); WHITE BLOOD COUNT 6.5 K/UL (4.8-10.8)
[2017-12-23 11:44] LABS: ALANINE AMINOTRANSFERASE 60 U/L (12-78); ALBUMIN 2.2 G/DL (3.4-5.0); ALBUMIN/GLOBULIN RATIO 0.5 (1.0-2.7); ALKALINE PHOSPHATASE 195 U/L (46-116); ANION GAP 7 mmol/L (5-15); ASPARTATE AMINO TRANSFERASE 81 U/L (15-37); BILIRUBIN,TOTAL 2.1 MG/DL (0.2-1.0); BLOOD UREA NITROGEN 8 mg/dL (7-18); CALCIUM 8.7 MG/DL (8.5-10.1); CARBON DIOXIDE 26 MMOL/L (21-32); CHLORIDE 103 MMOL/L (98-107); CREATININE 0.8 MG/DL (0.55-1.30); POTASSIUM 4.1 MMOL/L (3.5-5.1); SODIUM 136 MMOL/L (136-145)
[2017-12-23 11:54] LABS: BILIRUBIN,DIRECT 1.4 MG/DL (0.0-0.3)
[2017-12-23 12:00] VITALS: BP 135/81
--- NOTE | 2017-12-23 14:49 | Pulmonology Progress Note ---
Assessment/Plan Problems: (1) Upper GI bleeding (2) Esophageal varices (3) Hepatocellular carcinoma (4) Tachycardia (5) Hepatitis-C Assessment/Plan s/p endoscopy check h/h heart rate better dc home today Subjective ROS Limited/Unobtainable: No Constitutional: Reports: no symptoms HEENT: Repors: no symptoms Allergies: Coded Allergies: IBUPROFEN (Unverified Allergy, Intermediate, 07/02/16) Objective Last 24 Hour Vital Signs Date Time Temp Pulse Resp B/P (MAP) Pulse Ox O2 Delivery O2 Flow Rate FiO2 12/23/17 13:25 61 135/81 12/23/17 12:00 97.8 61 18 135/81 98 Room Air 12/23/17 09:38 63 12/23/17 08:00 98.1 63 18 127/73 97 Room Air 12/23/17 08:00 69 12/23/17 06:15 67 141/78 12/23/17 04:00 67 12/23/17 04:00 98.6 68 20 141/78 97 Room Air 12/23/17 00:00 98.6 70 18 153/79 98 Room Air 12/23/17 00:00 85 12/22/17 21:57 93 150/89 12/22/17 20:00 78 12/22/17 20:00 99.7 77 20 157/82 100 Room Air 12/22/17 16:00 78 12/22/17 15:40 99.4 84 20 158/86 97 Room Air Intake and Output 12/22/17 12/23/17 19:00 07:00 Intake Total 1046.5 ml 600 ml Output Total 2200 ml 400 ml Balance -1153.5 ml 200 ml Intake Oral 360 ml 300 ml IV Total 686.5 ml 300 ml Output Urine Total 2200 ml 400 ml # Bowel Movements 2 Objective General Appearance: cachectic, alert Lines, tubes and drains: peripheral, central line HEENT: normocephalic, anicteric Neck: non-tender, normal alignment Respiratory/Chest: chest wall non-tender, lungs clear\ Abdomen: distended Laboratory Tests 12/22/17 18:50: Ferritin 158, Alpha Fetoprotein [Pending], CA 15-3 Antigen [Pending] 12/23/17 10:20: White Blood Count 6.5, Red Blood Count 3.36L, Hemoglobin 9.2L, Hematocrit 29.6L , Mean Corpuscular Volume 88, Mean Corpuscular Hemoglobin 27.2, Mean Corpuscular Hemoglobin Concent 31.0L, Red Cell Distribution Width 19.8H, Platelet Count 149L, Mean Platelet Volume 6.0L, Neutrophils (%) (Auto) 66.4, Lymphocytes (%) (Auto) 15.9L, Monocytes (%) (Auto) 15.4H, Eosinophils (%) (Auto ) 1.4, Basophils (%) (Auto) 0.9, Sodium Level 136, Potassium Level 4.1, Chloride Level 103, Carbon Dioxide Level 26, Anion Gap 7, Blood Urea Nitrogen 8 , Creatinine 0.8, Estimat Glomerular Filtration Rate > 60, Glucose Level 130H, Calcium Level 8.7, Total Bilirubin 2.1H, Direct Bilirubin 1.4H, Aspartate Amino Transf (AST/SGOT) 81H, Alanine Aminotransferase (ALT/SGPT) 60, Alkaline Phosphatase 195H, Total Protein 7.0, Albumin 2.2L, Globulin 4.8, Albumin/ Globulin Ratio 0.5L Current Medications Medications (Trade) Dose Ordered Sig/Candice Route PRN Reason Start Time Stop Time Status Last Admin Dose Admin Acetaminophen (Tylenol) 650 mg Q4H PRN ORAL fever 12/20/17 06:15 01/19/18 06:14 Al Hydroxide/Mg Hydroxide (Mylanta II) 30 ml Q6H PRN ORAL dyspepsia 12/20/17 06:15 01/19/18 06:14 Ceftriaxone Sodium 1 gm/ Sodium Chloride 55 ml @ 110 mls/hr Q24H IVPB 12/21/17 09:00 12/28/17 08:59 12/23/17 09:38 Dextrose (Dextrose 50%) STAT PRN IV Hypoglycemia 12/20/17 06:15 01/19/18 06:14 Digoxin (Lanoxin) 0.25 mg DAILY ORAL 12/22/17 09:00 01/21/18 08:59 12/23/17 09:38 Diltiazem HCl (Cardizem) 10 mg Q1H PRN IV heart rate more than 120, 12/21/17 12:45 01/20/18 12:44 12/21/17 13:13 Diphenhydramine HCl (Benadryl) 25 mg Q6H PRN ORAL Itching/Pruritis 12/20/17 06:15 01/19/18 06:14 12/23/17 09:51 Morphine Sulfate (Morphine Sulfate) 2 mg Q4H PRN IVP severe Pain (Pain Scale 7-10) 12/20/17 06:15 12/27/17 06:14 12/23/17 04:14 Nitroglycerin (Ntg) 0.4 mg Q5M X 3 DOSES PRN SL Prn Chest Pain 12/20/17 06:15 01/19/18 06:14 Ondansetron HCl (Zofran) 4 mg Q6H PRN IVP Nausea & Vomiting 12/20/17 06:15 01/19/18 06:14 Pantoprazole (Protonix) 40 mg EVERY 12 HOURS IVP 12/20/17 17:00 01/19/18 16:59 12/23/17 09:39 Polyethylene Glycol (Miralax) 17 gm HSPRN PRN ORAL Constipation 12/20/17 06:15 01/19/18 06:14 Propranolol HCl (Inderal) 10 mg Q8HR ORAL 12/22/17 14:00 01/21/18 13:59 12/23/17 13:25 Temazepam (Restoril) 15 mg HSPRN PRN ORAL Insomnia 12/20/17 06:15 12/27/17 06:14 LOREN WOLF Dec 23, 2017 14:49
[2017-12-23 16:00] VITALS: BP 149/76
[2017-12-23] MEDS ORDERED: Tubing IV Secondary IV ONE (17:14)
--- NOTE | 2017-12-24 10:56 | Discharge Summary ---
Discharge Summary Hospital Course Date of Admission Dec 20, 2017 at 00:34 Date of Discharge Dec 23, 2017 at 17:15 Admitting Diagnosis hematemesis HPI Trell Guzmán is a 62 year old male who was admitted on Dec 20, 2017 at 00: 34 for Hematemesis Hospital Course [id number] Discharge Discharge Disposition Patient was discharged to Home (01) Discharge Diagnoses: Nissa Wilson NP Dec 24, 2017 10:56
--- NOTE | 2017-12-24 23:49 | General Progress Note ---
Assessment/Plan Status: unchanged Assessment/Plan #. Alcoholic liver disease with esophageal varices. --> Recommened endoscopy for esophageal banding #. Upper GI bleeding. --> Monitor hgb levels, goal is >7 --> Trend cbc #. Anemia of chronic disease. --> Monitor closely. #. Hepatocellular carcinoma. Subjective Date patient seen: Dec 23, 2017 Constitutional: Denies: no symptoms, chills, diaphoresis, fever, malaise, weakness, other HEENT: Denies: no symptoms, eye pain, blurred vision, tearing, double vision, ear pain, ear discharge, nose pain, nose congestion, throat pain, throat swelling, mouth pain, mouth swelling, other Cardiovascular: Denies: no symptoms, chest pain, edema, irregular heart rate, lightheadedness, palpitations, syncope, other Respiratory: Denies: no symptoms, cough, orthopnea, shortness of breath, SOB with excertion, SOB at rest, sputum, stridor, wheezing, other Gastrointestinal/Abdominal: Denies: no symptoms, abdomen distended, abdominal pain, black stools, tarry stools, blood in stool, constipated, diarrhea, difficulty swallowing, nausea, poor appetite, poor fluid intake, rectal bleeding , vomiting, other Hematologic/Lymphatic: Reports: anemia Allergies: Coded Allergies: IBUPROFEN (Unverified Allergy, Intermediate, 07/02/16) Subjective On pain control. No fever. Objective Intake and Output 12/23/17 12/24/17 19:00 07:00 Intake Total 338.5 ml Output Total 650 ml Balance -311.5 ml Intake Oral 240 ml IV Total 98.5 ml Output Urine Total 650 ml Labs Test 12/22/17 06:15 12/22/17 18:50 12/23/17 10:20 White Blood Count 6.8 K/UL (4.8-10.8) 6.5 K/UL (4.8-10.8) Red Blood Count 3.32 M/UL (4.70-6.10) 3.36 M/UL (4.70-6.10) Hemoglobin 9.1 G/DL (14.2-18.0) 9.2 G/DL (14.2-18.0) Hematocrit 28.7 % (42.0-52.0) 29.6 % (42.0-52.0) Mean Corpuscular Volume 87 FL (80-99) 88 FL (80-99) Mean Corpuscular Hemoglobin 27.4 PG (27.0-31.0) 27.2 PG (27.0-31.0) Mean Corpuscular Hemoglobin Concent 31.7 G/DL (32.0-36.0) 31.0 G/DL (32.0-36.0) Red Cell Distribution Width 19.5 % (11.6-14.8) 19.8 % (11.6-14.8) Platelet Count 129 K/UL (150-450) 149 K/UL (150-450) Mean Platelet Volume 5.4 FL (6.5-10.1) 6.0 FL (6.5-10.1) Neutrophils (%) (Auto) 68.3 % (45.0-75.0) 66.4 % (45.0-75.0) Lymphocytes (%) (Auto) 17.3 % (20.0-45.0) 15.9 % (20.0-45.0) Monocytes (%) (Auto) 12.3 % (1.0-10.0) 15.4 % (1.0-10.0) Eosinophils (%) (Auto) 1.3 % (0.0-3.0) 1.4 % (0.0-3.0) Basophils (%) (Auto) 0.7 % (0.0-2.0) 0.9 % (0.0-2.0) Prothrombin Time 10.5 SEC (9.30-11.50) Prothromb Time International Ratio 1.0 (0.9-1.1) Activated Partial Thromboplast Time 28 SEC (23-33) Sodium Level 137 MMOL/L (136-145) 136 MMOL/L (136-145) Potassium Level 3.6 MMOL/L (3.5-5.1) 4.1 MMOL/L (3.5-5.1) Chloride Level 103 MMOL/L (98-107) 103 MMOL/L (98-107) Carbon Dioxide Level 26 MMOL/L (21-32) 26 MMOL/L (21-32) Anion Gap 8 mmol/L (5-15) 7 mmol/L (5-15) Blood Urea Nitrogen 6 mg/dL (7-18) 8 mg/dL (7-18) Creatinine 0.8 MG/DL (0.55-1.30) 0.8 MG/DL (0.55-1.30) Estimat Glomerular Filtration Rate > 60 mL/min (>60) > 60 mL/min (>60) Glucose Level 109 MG/DL (74-106) 130 MG/DL (74-106) Calcium Level 8.5 MG/DL (8.5-10.1) 8.7 MG/DL (8.5-10.1) Phosphorus Level 3.1 MG/DL (2.5-4.9) Magnesium Level 1.4 MG/DL (1.8-2.4) Total Bilirubin 2.1 MG/DL (0.2-1.0) 2.1 MG/DL (0.2-1.0) Direct Bilirubin 1.4 MG/DL (0.0-0.3) 1.4 MG/DL (0.0-0.3) Aspartate Amino Transf (AST/SGOT) 126 U/L (15-37) 81 U/L (15-37) Alanine Aminotransferase (ALT/SGPT) 72 U/L (12-78) 60 U/L (12-78) Alkaline Phosphatase 208 U/L (46-116) 195 U/L (46-116) Total Protein 6.9 G/DL (6.4-8.2) 7.0 G/DL (6.4-8.2) Albumin 2.3 G/DL (3.4-5.0) 2.2 G/DL (3.4-5.0) Globulin 4.6 g/dL 4.8 g/dL Albumin/Globulin Ratio 0.5 (1.0-2.7) 0.5 (1.0-2.7) Ferritin 158 NG/ML (8-388) Alpha Fetoprotein 14286.0 ng/mL (0.0-8.3) CA 15-3 Antigen 20.4 U/mL (0.0-25.0) Height (Feet): 5 Height (Inches): 11.00 Weight (Pounds): 135 Volodymyr Rasheed Dec 24, 2017 23:48
--- NOTE | 2017-12-25 12:54 | Consultation ---
DATE OF CONSULTATION: 12/22/2017 NOTE: POOR AUDIO AND GENDER DISCRIPANCY. GENDER KEPT PER PREVIOUS REPORTS HEMATOLOGY/ONCOLOGY CONSULTATION CONSULTING PHYSICIAN: Volodymyr Rasheed M.D. REQUESTING PHYSICIAN: Kecia Valencia M.D. REASON FOR CONSULTATION: Evaluation of multiple hepatic lesions. IDENTIFICATION DATA: Dear Dr. Valencia, The patient is a pleasant 62-year-old male. I have seen him before with past medical history significant for multiple hepatic nodules concerning for multifocal neoplasm dating back to 2016, elevated AFP, CEA, and CA 19-9, chronic abdominal pain, gastrointestinal bleeding, status post banding, esophageal varices, acute pancreatitis, and liver cirrhosis history. At this time, he presents to the hospital with hematemesis and decreased hemoglobin and hematocrit and history of cancer. Denies any associated bleeding further workup. Hematology Service was consulted for further evaluation and treatment. PAST MEDICAL HISTORY: Alcoholism, anxiety, depression, upper GI bleeding, and esophageal varices. PAST SURGICAL HISTORY: None noted. MEDICATIONS: Reviewed. ALLERGIES: No known drug allergies. FAMILY HISTORY: Noncontributory. SOCIAL HISTORY: Alcohol abuse. REVIEW OF SYSTEMS: A 12-point review of systems completed and is otherwise negative. PHYSICAL EXAMINATION: VITAL SIGNS: Reviewed. GENERAL: No distress. PULMONARY: Decreased breath sounds. CARDIOVASCULAR: Regular rate. No S3 or S4. ABDOMEN: Soft and nontender. EXTREMITIES: No cyanosis, swelling, or edema. LABORATORY DATA: Reviewed. WBC of 6.8, hemoglobin , and platelet count of 129,000. Prior AFP of . CEA cancer, multifocal. ASSESSMENT AND RECOMMENDATIONS: 1. I have seen him in the past before. We will obtain tumor markers again. The patient may require occasional paracentesis for ascites. 2. Anemia due to underlying chronic disease. Continue to closely monitor. I have reviewed anemia workup in the past. History of iron deficiency. Recheck the patient's ferritin. 3. Thrombocytopenia, likely secondary to liver cirrhosis and splenomegaly. 4. Hematemesis due to esophageal varices. The patient is seen by GI team, status post endoscopy. 5. Hepatocellular carcinoma. 6. Hepatitis C. I appreciate the consultation. Volodymyr [place] Rasheed DR: LUBA JOB#: [id number] CC:
--- NOTE | 2017-12-25 12:56 | Discharge Summary 2 SIG ---
DATE OF ADMISSION: 12/20/2017 DATE OF DISCHARGE: 12/23/2017 CONSULTANTS: Eduardo Hartley M.D. BRIEF HOSPITAL COURSE: The patient is a 62-year-old male with history of liver cirrhosis, liver CA, and esophageal varices presented to ED for hematemesis. He was brought in by EMS. The patient came from home. The patient felt sick after eating and vomited right after. He had history of banding of the esophageal varices on October 2017. On evaluation at ED, hemoglobin was 9.4. There was no active bleed. He was started on octreotide drip and was given Protonix. EKG was in normal sinus rhythm. Chest x-ray done showed no acute disease. He was admitted to telemetry for evaluation of acute gastrointestinal bleed and was seen by GI. There was drop in hemoglobin to 7.9 and two units packed RBCs was given. On 12/21/2017 the patient underwent esophagogastroduodenoscopy. Findings showed portal hypertensive gastropathy with four columns of grade 4 distal esophageal varices status post banding x6. Postprocedure, he was restarted on octreotide drip but on tapered dose. He was kept NPO. Diet was started the day after endoscopy. He was given ceftriaxone for SBP prophylaxis. Diet was advanced. He was given propranolol. He had episodes of increased heart rate and was given digoxin and Cardizem. Hemoglobin and hematocrit had been stable and heart rate with better control. There were no further episodes of bleeding. He was eventually discharged home. FINAL DIAGNOSES: 1. Acute upper gastrointestinal bleed secondary to esophageal varices. 2. Esophageal varices status post banding x6. 3. Hepatocellular carcinoma. 4. Tachycardia. 5. Hepatitis C. 6. ETOH abuse. DISPOSITION: The patient was discharged home. DISCHARGE MEDICATIONS: Continue with Protonix and propranolol. DISCHARGE INSTRUCTIONS: Follow up with PMD in a week. Kecia Valencia M.D. I have been assigned to dictate discharge summary on this account and I was not involved in the patient's management. Nissa Wilson N.P. DR: Juliana JOB#: [id number] CC: DEIDRA
--- NOTE | 2017-12-28 13:52 | Cardiology Report ---
APPROVED REPORT EKG Measurement Heart [id number] Normal sinus rhythm Minimal voltage criteria for LVH, may be normal variant Cannot rule out Anterior infarct, age undetermined Abnormal ECG
--- NOTE | 2017-12-29 11:43 | Diagnostic Imaging Report ---
APPROVED REPORT CPT Code: 75649 Present Symptoms Comments: R/O DVT BILATERAL: Imaging reveals a patent deep venous system bilaterally. There is no evidence of thrombus within the femoral, popliteal or tibial segments. The greater saphenous veins are also within normal limits. Doppler indicates normal spontaneous flow within these segments.
== END 2017-12-23 17:15 | disposition home or self-care (01) ==
LOC: EDBD 23:24 → EMR 23:34 → 2E 12-20 00:34 → EDBEDREQ 12-20 01:05
PROC: 30233N1 Transfusion of Nonautologous Red Blood Cells into Peripheral Vein, Percutaneous Approach (ICD-10-PCS; 2017-12-21)
PROC: 06L38CZ Occlusion of Esophageal Vein with Extraluminal Device, Via Natural or Artificial Opening Endoscopic (ICD-10-PCS; principal; 2017-12-21 08:21)
DX: K76.6 Portal hypertension (principal); I85.11 Secondary esophageal varices with bleeding; C22.0 Liver cell carcinoma; B19.20 Unspecified viral hepatitis C without hepatic coma; F10.10 Alcohol abuse, uncomplicated; D63.8 Anemia in other chronic diseases classified elsewhere; K31.89 Other diseases of stomach and duodenum; R00.0 Tachycardia, unspecified; K70.30 Alcoholic cirrhosis of liver without ascites; Z88.6 Allergy status to analgesic agent
CPT/HCPCS: 36415; 71045; 76942; 80053; 82105; 82150; 82248; 82378; 82728; 83690; 83735; 84100; 85007; 85025; 85610; 85730; 86300; 86850; 86900; 86901; 86920; 93005; 93970; 94003; 94150; 99291; J2405

== ENCOUNTER 2018-01-29 13:04 | Inpatient (IN) | payer MEDICAID ==
[~2018-01-29] VITALS: Ht 180.3 cm; Wt 60.4 kg
[2018-01-29] VITALS (9 sets, daily range): BP systolic 93–123; BP diastolic 50–67
[2018-01-29] MEDS ORDERED: Sodium Chloride 500ML 500 ML IV ONE (13:12)
[2018-01-29] MEDS ORDERED: Pantoprazole Inj IVP ONE (13:15)
--- NOTE | 2018-01-29 13:53 | Emergency Room Report ---
History of Present Illness General Chief Complaint: Gastrointestinal Bleed Source: Patient, Medical Record Present Illness HPI Patient present with complaints of vomiting blood Patient has history of recent upper GI bleed requiring acute intervention Patient admits to drinking alcohol again recently Denies any diarrhea has some mild epigastric discomfort Denies any dysuria frequency denies any back or flank pain Patient reports general weakness No focal weakness Allergies: Coded Allergies: IBUPROFEN (Unverified Allergy, Intermediate, 07/02/16) Patient History Past Medical History: see triage record Pertinent Family History: none Reviewed Nursing Documentation: PMH: Agreed, PSxH: Agreed Nursing Documentation-PMH Past Medical History: No History, Except For Hx Cardiac Problems: Yes Hx Hypertension: Yes Hx Cancer: Yes Hx Gastrointestinal Problems: Yes - esophageal varices Hx Neurological Problems: No Review of Systems All Other Systems: negative except mentioned in HPI Physical Exam Vital Signs Date Time Temp Pulse Resp B/P (MAP) Pulse Ox O2 Delivery O2 Flow Rate FiO2 01/29/18 13:09 98.6 93 18 126/79 96 Room Air 98.6 Sp02 EP Interpretation: reviewed, normal General Appearance: mild distress - actively vomiting Head: normocephalic, atraumatic Eyes: bilateral eye PERRL, bilateral eye EOMI ENT: hearing grossly normal, normal pharynx, TMs + canals normal, uvula midline Neck: full range of motion, supple, no meningismus, no bony tend Respiratory: lungs clear, normal breath sounds, no rhonchi, no respiratory distress, no retraction, no accessory muscle use Cardiovascular #1: normal peripheral pulses, regular rate, rhythm, no edema, no gallop, no JVD, no murmur Gastrointestinal: normal bowel sounds, soft, non-distended, no guarding, no hernia, no pulsatile mass, no rebound, hepatomegaly - With mild jaundice Genitourinary: no CVA tenderness Musculoskeletal: normal inspection Neurologic: oriented x3, responsive, bid clerk III-XII nml as tested, motor strength/ tone normal, sensory intact Psychiatric: mood/affect normal Skin: warm/dry, palpation normal, other - Mild jaundic Lymphatic: normal inspection, no adenopathy Procedures Critical Care Time Critical Care Time 40 minutes for emergency findings including possible and organ injury and possible active hemorrhage not including any procedural time Medical Decision Making Diagnostic Impression: Primary Impression: Gastrointestinal hemorrhage ER Course Patient presents with active vomiting On reevaluation there is evidence of hemoptysis Given the patient's recent intervention and now presentation is extremely concerning for active hemorrhage Patient requiring ICU admission GI consultation is made emergently patient placed on medications and is admitted in guarded condition Labs Test 01/30/18 22:09 01/31/18 03:50 02/01/18 03:50 White Blood Count 4.6 K/UL (4.8-10.8) 4.8 K/UL (4.8-10.8) 4.8 K/UL (4.8-10.8) Red Blood Count 3.26 M/UL (4.70-6.10) 3.55 M/UL (4.70-6.10) 3.23 M/UL (4.70-6.10) Hemoglobin 9.1 G/DL (14.2-18.0) 10.0 G/DL (14.2-18.0) 9.0 G/DL (14.2-18.0) Hematocrit 28.3 % (42.0-52.0) 31.4 % (42.0-52.0) 28.6 % (42.0-52.0) Mean Corpuscular Volume 87 FL (80-99) 88 FL (80-99) 88 FL (80-99) Mean Corpuscular Hemoglobin 27.9 PG (27.0-31.0) 28.2 PG (27.0-31.0) 27.9 PG (27.0-31.0) Mean Corpuscular Hemoglobin Concent 32.1 G/DL (32.0-36.0) 31.9 G/DL (32.0-36.0) 31.6 G/DL (32.0-36.0) Red Cell Distribution Width 15.5 % (11.6-14.8) 16.0 % (11.6-14.8) 15.2 % (11.6-14.8) Platelet Count 167 K/UL (150-450) 168 K/UL (150-450) 163 K/UL (150-450) Mean Platelet Volume 7.2 FL (6.5-10.1) 6.6 FL (6.5-10.1) 6.4 FL (6.5-10.1) Neutrophils (%) (Auto) 54.2 % (45.0-75.0) 56.7 % (45.0-75.0) 57.0 % (45.0-75.0) Lymphocytes (%) (Auto) 26.7 % (20.0-45.0) 25.1 % (20.0-45.0) 24.5 % (20.0-45.0) Monocytes (%) (Auto) 14.5 % (1.0-10.0) 13.6 % (1.0-10.0) 14.5 % (1.0-10.0) Eosinophils (%) (Auto) 3.5 % (0.0-3.0) 3.1 % (0.0-3.0) 2.7 % (0.0-3.0) Basophils (%) (Auto) 1.2 % (0.0-2.0) 1.4 % (0.0-2.0) 1.2 % (0.0-2.0) Prothrombin Time 10.9 SEC (9.30-11.50) 10.7 SEC (9.30-11.50) Prothromb Time International Ratio 1.0 (0.9-1.1) 1.1 (0.9-1.1) Activated Partial Thromboplast Time 27 SEC (23-33) 25 SEC (23-33) Sodium Level 138 MMOL/L (136-145) 139 MMOL/L (136-145) Potassium Level 3.7 MMOL/L (3.5-5.1) 4.4 MMOL/L (3.5-5.1) Chloride Level 104 MMOL/L (98-107) 106 MMOL/L (98-107) Carbon Dioxide Level 30 MMOL/L (21-32) 27 MMOL/L (21-32) Anion Gap 4 mmol/L (5-15) 6 mmol/L (5-15) Blood Urea Nitrogen 18 mg/dL (7-18) 10 mg/dL (7-18) Creatinine 0.9 MG/DL (0.55-1.30) 0.9 MG/DL (0.55-1.30) Estimat Glomerular Filtration Rate > 60 mL/min (>60) > 60 mL/min (>60) Glucose Level 80 MG/DL (74-106) 84 MG/DL (74-106) Calcium Level 8.5 MG/DL (8.5-10.1) 8.4 MG/DL (8.5-10.1) Phosphorus Level 3.4 MG/DL (2.5-4.9) 3.1 MG/DL (2.5-4.9) Magnesium Level 1.4 MG/DL (1.8-2.4) 1.4 MG/DL (1.8-2.4) Total Bilirubin 1.6 MG/DL (0.2-1.0) 1.6 MG/DL (0.2-1.0) Direct Bilirubin 0.8 MG/DL (0.0-0.3) 1.1 MG/DL (0.0-0.3) Aspartate Amino Transf (AST/SGOT) 156 U/L (15-37) 116 U/L (15-37) Alanine Aminotransferase (ALT/SGPT) 60 U/L (12-78) 54 U/L (12-78) Alkaline Phosphatase 207 U/L (46-116) 192 U/L (46-116) Total Protein 7.0 G/DL (6.4-8.2) 6.9 G/DL (6.4-8.2) Albumin 2.4 G/DL (3.4-5.0) 2.3 G/DL (3.4-5.0) Globulin 4.6 g/dL 4.6 g/dL Albumin/Globulin Ratio 0.5 (1.0-2.7) 0.5 (1.0-2.7) Rhythm Strip Diag. Results EP Interpretation: yes Rate: 88 Rhythm: NSR, no PVC's, no ectopy Chest X-Ray Diagnostic Results Chest X-Ray Diagnostic Results : Chest X-Ray Ordered: Yes # of Views/Limited/Complete: 1 View Indication: Chest Pain EP Interpretation: Yes Interpretation: no consolidation, no effusion, no pneumothorax Impression: No acute disease Electronically Signed by: reza Boss DO Last Vital Signs Date Time Temp Pulse Resp B/P (MAP) Pulse Ox O2 Delivery O2 Flow Rate FiO2 01/29/18 13:30 97.6 80 15 123/62 96 Room Air 97.6 Status: improved Disposition: ADMITTED INPATIENT Condition: Critical Referrals: [facility],REFERRING (PCP) REZA BOSS D.O. Jan 29, 2018 13:53
[2018-01-29 14:09] LABS: BASOPHILS % (AUTO) 1.5 % (0.0-2.0); EOSINOPHILS % (AUTO) 1.5 % (0.0-3.0); HEMATOCRIT 29.6 % (42.0-52.0); HEMOGLOBIN 9.3 G/DL (14.2-18.0); LYMPHOCYTES % (AUTO) 20.1 % (20.0-45.0); MEAN CORPUSCULAR VOLUME 87 FL (80-99); MONOCYTES % (AUTO) 12.1 % (1.0-10.0); PLATELET COUNT 260 K/UL (150-450); RED BLOOD COUNT 3.41 M/UL (4.70-6.10); RED CELL DISTRIBUTION WIDTH 17.1 % (11.6-14.8); WHITE BLOOD COUNT 7.2 K/UL (4.8-10.8)
[2018-01-29 14:21] LABS: ANION GAP 4 mmol/L (5-15); BLOOD UREA NITROGEN 29 mg/dL (7-18); CALCIUM 9.4 MG/DL (8.5-10.1); CARBON DIOXIDE 36 MMOL/L (21-32); CHLORIDE 99 MMOL/L (98-107); INR 1.4 (0.9-1.1); SODIUM 139 MMOL/L (136-145)
[2018-01-29 14:35] LABS: ALANINE AMINOTRANSFERASE 69 U/L (12-78); ALBUMIN 2.6 G/DL (3.4-5.0); ALBUMIN/GLOBULIN RATIO 0.5 (1.0-2.7); ALKALINE PHOSPHATASE 291 U/L (46-116); ASPARTATE AMINO TRANSFERASE 156 U/L (15-37); BILIRUBIN,TOTAL 1.2 MG/DL (0.2-1.0); CREATINE KINASE 154 U/L (26-308)
[2018-01-29 14:38] LABS: BILIRUBIN,DIRECT 0.4 MG/DL (0.0-0.3)
[2018-01-29] MEDS: Octreotide Acetate 500 MCG in Sodium Chloride 500ML 499 ML IV SCH ×3 (16:45→22:00)
--- NOTE | 2018-01-29 17:20 | GI Initial Consult Note ---
History of Present Illness General Date patient seen: Jan 29, 2018 Time patient seen: 17:11 Reason for Hospitalization: Gastrointestinal Bleed Referring physician: LOREN NAIR Reason for Consultation: GI BLEED Present Illness HPI Patient present with complaints of vomiting blood Patient has history of recent upper GI bleed requiring acute intervention Patient admits to drinking alcohol again recently Denies any diarrhea has some mild epigastric discomfort Denies any dysuria frequency denies any back or flank pain Patient reports general weakness No focal weakness GI consulted for GI bleed. Pt seen in ED, awake A&OX4 NAD with no active s/sx of N/V/D. Per patient, he had an episode of emesis; approximately 300 cc's of gastric contents with noted blood in it. Patient has history of recent esophageal varices s/p banding x 6 approximately one month ago. He denies any recent ETOH or drug use. Takes propranolol 10mg BID for his portal HTN. Currently has no abdominal pain, but noted epigastric discomfort. In addition, he presents today with anemia and abnormal LFTs. s/p EGD SUMMARY FINDINGS 12/21/17: 1. Portal hypertensive gastropathy. 2. Four columns of grade 4 distal esophageal varices, status post banding x6. Home Meds Active Scripts Thiamine Hcl* (VITAMIN B-1*) 100 Mg Tablet, 100 MG ORAL DAILY, #30 TAB 0 Refills Prov:Krysta Scott NP ([facility]) 11/17/17 Pantoprazole* (PROTONIX*) 40 Mg Tablet.dr, 40 MG ORAL DAILY, #30 TAB Prov:Krysta Scott NP (Vanchtein) 11/17/17 Propranolol HCl (Propranolol HCl) 10 Mg Tablet, 10 MG ORAL BID, #60 TAB Prov:Krysta Scott NP (Vanchtein) 11/17/17 Reported Medications Ferrous Sulfate* (FERROUS SULFATE*) 325 Mg Tablet, 325 MG ORAL DAILY 11/09/17 Med list reviewed/reconciled: Yes Allergies: Coded Allergies: IBUPROFEN (Unverified Allergy, Intermediate, 07/02/16) Patient History History Provided By: Patient, Medical Record Past Medical History: liver disease PMH Narrative Past Medical History: No History, Except For Hx Cardiac Problems: Yes Hx Hypertension: Yes Hx Cancer: Yes Hx Gastrointestinal Problems: Yes - esophageal varices Hx Neurological Problems: No Social History: Denies: smoking, alcohol use, drug use, other Review of Systems All Other Systems: negative except mentioned in HPI Physical Exam Vital Signs Date Time Temp Pulse Resp B/P (MAP) Pulse Ox O2 Delivery O2 Flow Rate FiO2 01/29/18 13:09 98.6 93 18 126/79 96 Room Air 98.6 Sp02 EP Interpretation: reviewed, normal Labs Laboratory Tests Test 01/29/18 13:50 01/29/18 15:06 White Blood Count 7.2 K/UL (4.8-10.8) Red Blood Count 3.41 M/UL (4.70-6.10) L Hemoglobin 9.3 G/DL (14.2-18.0) L Hematocrit 29.6 % (42.0-52.0) L Mean Corpuscular Volume 87 FL (80-99) Mean Corpuscular Hemoglobin 27.1 PG (27.0-31.0) Mean Corpuscular Hemoglobin Concent 31.3 G/DL (32.0-36.0) L Red Cell Distribution Width 17.1 % (11.6-14.8) H Platelet Count 260 K/UL (150-450) Mean Platelet Volume 6.9 FL (6.5-10.1) Neutrophils (%) (Auto) 65.0 % (45.0-75.0) Lymphocytes (%) (Auto) 20.1 % (20.0-45.0) Monocytes (%) (Auto) 12.1 % (1.0-10.0) H Eosinophils (%) (Auto) 1.5 % (0.0-3.0) Basophils (%) (Auto) 1.5 % (0.0-2.0) Prothrombin Time 14.2 SEC (9.30-11.50) H Prothromb Time International Ratio 1.4 (0.9-1.1) H Activated Partial Thromboplast Time 29 SEC (23-33) Sodium Level 139 MMOL/L (136-145) Potassium Level 5.0 MMOL/L (3.5-5.1) Chloride Level 99 MMOL/L (98-107) Carbon Dioxide Level 36 MMOL/L (21-32) H Anion Gap 4 mmol/L (5-15) L Blood Urea Nitrogen 29 mg/dL (7-18) H Creatinine 1.0 MG/DL (0.55-1.30) Estimat Glomerular Filtration Rate > 60 mL/min (>60) Glucose Level 100 MG/DL (74-106) Calcium Level 9.4 MG/DL (8.5-10.1) Total Bilirubin 1.2 MG/DL (0.2-1.0) H Direct Bilirubin 0.4 MG/DL (0.0-0.3) H Aspartate Amino Transf (AST/SGOT) 156 U/L (15-37) H Alanine Aminotransferase (ALT/SGPT) 69 U/L (12-78) Alkaline Phosphatase 291 U/L (46-116) H Total Creatine Kinase 154 U/L (26-308) Creatine Kinase MB 1.0 NG/ML (0.0-3.6) Creatine Kinase MB Relative Index 0.6 Troponin I 0.005 ng/mL (0.000-0.056) Total Protein 7.7 G/DL (6.4-8.2) Albumin 2.6 G/DL (3.4-5.0) L Globulin 5.1 g/dL Albumin/Globulin Ratio 0.5 (1.0-2.7) L Lipase 189 U/L (73-393) Urine Opiates Screen Negative (NEGATIVE) Urine Barbiturates Screen Negative (NEGATIVE) Phencyclidine (PCP) Screen Negative (NEGATIVE) Urine Amphetamines Screen Negative (NEGATIVE) Urine Benzodiazepines Screen Negative (NEGATIVE) Urine Cocaine Screen Negative (NEGATIVE) Urine Marijuana (THC) Screen Negative (NEGATIVE) General Appearance: well appearing, no apparent distress, alert, thin Head: normocephalic EENT: PERRL/EOMI, normal ENT inspection Neck: supple Respiratory: normal breath sounds, no respiratory distress Cardiovascular: normal rate Gastrointestinal: normal inspection, non tender, soft, normal bowel sounds, non -distended Rectal: deferred Genitourinary: deferred Musculoskeletal: normal inspection, back normal Neurologic: normal inspection, alert, oriented x3, responsive Psychiatric: normal inspection, judgement/insight normal, memory normal Skin: normal inspection, normal color, no rash, warm/dry, palpation normal, well hydrated Lymphatic: normal inspection, no adenopathy Current Medications Current Medications Medications (Trade) Dose Ordered Sig/Candice Route PRN Reason Start Time Stop Time Status Last Admin Dose Admin Octreotide Acetate 500 mcg/ Sodium Chloride 500 ml @ 50 mls/hr Q10H IV 01/29/18 14:00 02/28/18 13:59 01/29/18 16:45 GI: Plan Problems: (1) Esophageal varices (2) Upper GI bleeding (3) Hepatitis-C Plan SUMMARY FINDINGS: 1. Portal hypertensive gastropathy. 2. Four columns of grade 4 distal esophageal varices, status post banding x6. ?hx of hep C utox negative RECOMMENDATIONS: plan for EGD next thursday >> this patient will need to be placed on the surgical schedule over the weekend, since he was seen in ED. octreotide gtt PPI BID CLD, adv to soft diet if no active s/sx of hematemesis or coffee grounds propranolol 10 mg BID>> titrate SBP [100-120] prn transfusions fu labs, hep panel Discussed with Dr. Hartley. Thank you for this patient referral, we will follow. Arlet Menendez N.P. Jan 29, 2018 17:20
[2018-01-29] MEDS ORDERED: FLONASE1 SPRAYS (17:48)
[2018-01-29] MEDS ORDERED: ATARAX25 MG (17:48)
--- NOTE | 2018-01-29 18:01 | Diagnostic Imaging Report ---
Indication: Chest pain Technique: One view of the chest Comparison: 12/19/2017 Findings: Lungs and pleural spaces are clear. Heart size is normal. Better inspiration on the current exam. There are cysts again demonstrated in the right mid and lower lung, and possibly left perihilar region Impression: No acute process. Findings as noted
[2018-01-29] MEDS: Propranolol 10mg tab ORAL SCH (19:31)
[2018-01-30] VITALS (23 sets, daily range): BP systolic 90–159; BP diastolic 42–100
[2018-01-30 05:12] LABS: HEMATOCRIT 22.9 % (42.0-52.0); HEMOGLOBIN 7.4 G/DL (14.2-18.0); MEAN CORPUSCULAR VOLUME 86 FL (80-99); PLATELET COUNT 167 K/UL (150-450); RED BLOOD COUNT 2.65 M/UL (4.70-6.10); RED CELL DISTRIBUTION WIDTH 16.7 % (11.6-14.8); WHITE BLOOD COUNT 5.2 K/UL (4.8-10.8)
[2018-01-30 05:38] LABS: INR 1.3 (0.9-1.1)
[2018-01-30 05:47] LABS: ALANINE AMINOTRANSFERASE 54 U/L (12-78); ALBUMIN 2.1 G/DL (3.4-5.0); ALBUMIN/GLOBULIN RATIO 0.5 (1.0-2.7); ALKALINE PHOSPHATASE 203 U/L (46-116); ANION GAP 4 mmol/L (5-15); ASPARTATE AMINO TRANSFERASE 129 U/L (15-37); BILIRUBIN,TOTAL 0.9 MG/DL (0.2-1.0); BLOOD UREA NITROGEN 26 mg/dL (7-18); CALCIUM 8.3 MG/DL (8.5-10.1); CARBON DIOXIDE 33 MMOL/L (21-32); CHLORIDE 103 MMOL/L (98-107); POTASSIUM 3.8 MMOL/L (3.5-5.1); SODIUM 140 MMOL/L (136-145)
--- NOTE | 2018-01-30 07:48 | History and Physical ---
History of Present Illness General Date patient seen: Jan 30, 2018 Reason for Hospitalization: Gastrointestinal Bleed Present Illness HPI 63 year old male with hx of end stage liver disease, recurrent UGI bleeding present with complaints of vomiting blood. Pt had previous banding of the esophageal varices. GI has been consulted. Allergies: Coded Allergies: IBUPROFEN (Unverified Allergy, Intermediate, 07/02/16) Medication History Scheduled Pantoprazole* (Protonix*), 40 MG ORAL DAILY Propranolol HCl (Propranolol HCl), 10 MG ORAL BID Thiamine Hcl* (Vitamin B-1*), 100 MG ORAL DAILY Miscellaneous Medications Fluticasone Propionate (Fluticasone Propionate), (Reported) Hydroxyzine HCl (Hydroxyzine HCl), (Reported) Discontinued Medications Ferrous Sulfate* (Ferrous Sulfate*), 325 MG ORAL DAILY, (Reported) Discontinued Reason: Pt stopped taking med Patient History Healthcare decision maker Resuscitation status Full Code Advanced Directive on File Review of Systems All Other Systems: negative except mentioned in HPI Physical Exam General Appearance: cachetic Lines, tubes and drains: peripheral HEENT: normocephalic, atraumatic Neck: non-tender, normal alignment Respiratory/Chest: chest wall non-tender, lungs clear Breasts: no masses Cardiovascular/Chest: normal peripheral pulses Abdomen: normal bowel sounds Genitourinary/Rectal: normal genital exam Extremities: normal range of motion Lymphatic: anterior cervical Last 24 Hour Vital Signs Date Time Temp Pulse Resp B/P (MAP) Pulse Ox O2 Delivery O2 Flow Rate FiO2 01/30/18 07:00 65 15 90/42 98 Room Air 01/30/18 06:00 65 15 101/53 98 Room Air 01/30/18 05:00 85 15 117/57 98 Room Air 01/30/18 04:00 98.4 85 15 99/54 98 Room Air 98.4 01/30/18 04:00 71 01/30/18 03:00 85 15 136/48 98 Room Air 01/30/18 02:00 85 15 136/48 98 Room Air 01/30/18 01:00 81 15 100/60 98 Room Air 01/30/18 00:00 98.6 70 15 102/60 99 Room Air 98.6 01/30/18 00:00 79 01/29/18 23:00 69 15 93/50 98 Room Air 01/29/18 22:00 69 16 115/64 98 Room Air 01/29/18 21:00 69 15 96/55 98 Room Air 01/29/18 20:00 71 01/29/18 20:00 98.4 71 14 115/60 99 Room Air 98.4 01/29/18 19:31 79 102/60 01/29/18 19:00 81 15 102/60 98 Room Air 01/29/18 18:47 80 01/29/18 18:30 78 15 105/67 100 Room Air 01/29/18 18:02 97.6 90 16 123/60 100 Room Air 97.6 01/29/18 18:00 74 15 100 Room Air 01/29/18 15:00 90 16 123/60 100 Room Air 01/29/18 14:00 84 15 116/62 99 Room Air 01/29/18 13:30 97.6 80 15 123/62 96 Room Air 97.6 01/29/18 13:09 98.6 93 18 126/79 96 Room Air 98.6 Intake and Output 01/29/18 01/30/18 19:00 07:00 Intake Total 560 ml 450 ml Output Total 150 ml 250 ml Balance 410 ml 200 ml Intake Oral 60 ml 0 ml IV Total 500 ml 450 ml Output Urine Total 150 ml 250 ml # Bowel Movements 2 Laboratory Tests Test 01/29/18 13:50 01/29/18 15:06 01/30/18 04:35 White Blood Count 7.2 K/UL (4.8-10.8) 5.2 K/UL (4.8-10.8) Red Blood Count 3.41 M/UL (4.70-6.10) L 2.65 M/UL (4.70-6.10) L Hemoglobin 9.3 G/DL (14.2-18.0) L 7.4 G/DL (14.2-18.0) L Hematocrit 29.6 % (42.0-52.0) L 22.9 % (42.0-52.0) L Mean Corpuscular Volume 87 FL (80-99) 86 FL (80-99) Mean Corpuscular Hemoglobin 27.1 PG (27.0-31.0) 28.0 PG (27.0-31.0) Mean Corpuscular Hemoglobin Concent 31.3 G/DL (32.0-36.0) L 32.4 G/DL (32.0-36.0) Red Cell Distribution Width 17.1 % (11.6-14.8) H 16.7 % (11.6-14.8) H Platelet Count 260 K/UL (150-450) 167 K/UL (150-450) Mean Platelet Volume 6.9 FL (6.5-10.1) 7.2 FL (6.5-10.1) Neutrophils (%) (Auto) 65.0 % (45.0-75.0) % (45.0-75.0) Lymphocytes (%) (Auto) 20.1 % (20.0-45.0) % (20.0-45.0) Monocytes (%) (Auto) 12.1 % (1.0-10.0) H % (1.0-10.0) Eosinophils (%) (Auto) 1.5 % (0.0-3.0) % (0.0-3.0) Basophils (%) (Auto) 1.5 % (0.0-2.0) % (0.0-2.0) Prothrombin Time 14.2 SEC (9.30-11.50) H 13.3 SEC (9.30-11.50) H Prothromb Time International Ratio 1.4 (0.9-1.1) H 1.3 (0.9-1.1) H Activated Partial Thromboplast Time 29 SEC (23-33) 29 SEC (23-33) Sodium Level 139 MMOL/L (136-145) 140 MMOL/L (136-145) Potassium Level 5.0 MMOL/L (3.5-5.1) 3.8 MMOL/L (3.5-5.1) Chloride Level 99 MMOL/L (98-107) 103 MMOL/L (98-107) Carbon Dioxide Level 36 MMOL/L (21-32) H 33 MMOL/L (21-32) H Anion Gap 4 mmol/L (5-15) L 4 mmol/L (5-15) L Blood Urea Nitrogen 29 mg/dL (7-18) H 26 mg/dL (7-18) H Creatinine 1.0 MG/DL (0.55-1.30) 1.0 MG/DL (0.55-1.30) Estimat Glomerular Filtration Rate > 60 mL/min (>60) > 60 mL/min (>60) Glucose Level 100 MG/DL (74-106) 83 MG/DL (74-106) Calcium Level 9.4 MG/DL (8.5-10.1) 8.3 MG/DL (8.5-10.1) L Total Bilirubin 1.2 MG/DL (0.2-1.0) H 0.9 MG/DL (0.2-1.0) Direct Bilirubin 0.4 MG/DL (0.0-0.3) H Aspartate Amino Transf (AST/SGOT) 156 U/L (15-37) H 129 U/L (15-37) H Alanine Aminotransferase (ALT/SGPT) 69 U/L (12-78) 54 U/L (12-78) Alkaline Phosphatase 291 U/L (46-116) H 203 U/L (46-116) H Total Creatine Kinase 154 U/L (26-308) Creatine Kinase MB 1.0 NG/ML (0.0-3.6) Creatine Kinase MB Relative Index 0.6 Troponin I 0.005 ng/mL (0.000-0.056) Total Protein 7.7 G/DL (6.4-8.2) 6.3 G/DL (6.4-8.2) L Albumin 2.6 G/DL (3.4-5.0) L 2.1 G/DL (3.4-5.0) L Globulin 5.1 g/dL 4.2 g/dL Albumin/Globulin Ratio 0.5 (1.0-2.7) L 0.5 (1.0-2.7) L Lipase 189 U/L (73-393) Urine Opiates Screen Negative (NEGATIVE) Urine Barbiturates Screen Negative (NEGATIVE) Phencyclidine (PCP) Screen Negative (NEGATIVE) Urine Amphetamines Screen Negative (NEGATIVE) Urine Benzodiazepines Screen Negative (NEGATIVE) Urine Cocaine Screen Negative (NEGATIVE) Urine Marijuana (THC) Screen Negative (NEGATIVE) Neutrophils % (Manual) Pending Lymphocytes % (Manual) Pending Platelet Estimate Pending Platelet Morphology Pending Hepatitis A IgM Antibody Pending Hepatitis B Surface Antigen Pending Hepatitis B Core IgM Antibody Pending Hepatitis C Antibody Pending Height (Feet): 5 Height (Inches): 11.00 Weight (Pounds): 132 Medications Current Medications Medications (Trade) Dose Ordered Sig/Candice Route PRN Reason Start Time Stop Time Status Last Admin Dose Admin Octreotide Acetate 500 mcg/ Sodium Chloride 500 ml @ 50 mls/hr Q10H IV 01/29/18 22:00 02/28/18 21:59 01/29/18 22:00 Pantoprazole (Protonix) 40 mg EVERY 12 HOURS IVP 01/30/18 09:00 03/01/18 08:59 Propranolol HCl (Inderal) 10 mg BID ORAL 01/29/18 18:00 02/28/18 17:59 01/29/18 19:31 Assessment/Plan Problem List: (1) Upper GI bleeding ICD Codes: K92.2 - Gastrointestinal hemorrhage, unspecified SNOMED: 36319481 (2) Hepatocellular carcinoma ICD Codes: C22.0 - Liver cell carcinoma SNOMED: 180399902 (3) Hepatitis-C ICD Codes: B19.20 - Unspecified viral hepatitis C without hepatic coma SNOMED: 25872141 Assessment/Plan npo iv fluids GI evaluation f/u coagulation check h/h prbc prn LOREN WOLF Jan 30, 2018 07:48
[2018-01-30] MEDS: Octreotide Acetate 500 MCG in Sodium Chloride 500ML 499 ML IV SCH ×2 (08:14→18:11)
[2018-01-30] MEDS: Pantoprazole Inj IVP SCH ×2 (08:14→21:03)
[2018-01-30] MEDS: Propranolol 10mg tab ORAL SCH ×2 (08:21→18:11)
[2018-01-30] MEDS ORDERED: Phytonadione 10 MG in NS 55 ML IVPB ONE (09:00)
--- NOTE | 2018-01-30 18:14 | General Progress Note ---
Assessment/Plan Assessment/Plan Assessment (1) Esophageal varices (2) Upper GI bleeding (3) Hepatitis-C Plan follow closely daily CBC PPI EGD Thursday Subjective Allergies: Coded Allergies: IBUPROFEN (Unverified Allergy, Intermediate, 07/02/16) Subjective Feels OK no abdominal complaints Objective Last 24 Hour Vital Signs Date Time Temp Pulse Resp B/P (MAP) Pulse Ox O2 Delivery O2 Flow Rate FiO2 01/30/18 18:11 64 138/76 01/30/18 17:00 63 18 136/75 100 Room Air 01/30/18 16:00 98.3 75 18 117/65 100 Room Air 98.3 01/30/18 16:00 66 01/30/18 15:00 67 18 159/69 100 Room Air 01/30/18 14:00 68 16 108/66 98 Room Air 01/30/18 13:00 80 16 157/100 98 Room Air 01/30/18 12:00 97.8 72 17 127/62 100 Room Air 97.8 01/30/18 12:00 69 01/30/18 11:00 64 17 115/73 98 Room Air 01/30/18 10:00 67 15 108/61 98 Room Air 01/30/18 09:00 65 15 104/71 98 Room Air 01/30/18 08:21 75 107/61 01/30/18 08:00 98.4 75 15 107/61 98 Room Air 98.4 01/30/18 08:00 74 01/30/18 07:00 65 15 90/42 98 Room Air 01/30/18 06:00 65 15 101/53 98 Room Air 01/30/18 05:00 85 15 117/57 98 Room Air 01/30/18 04:00 98.4 85 15 99/54 98 Room Air 98.4 01/30/18 04:00 71 01/30/18 03:00 85 15 136/48 98 Room Air 01/30/18 02:00 85 15 136/48 98 Room Air 01/30/18 01:00 81 15 100/60 98 Room Air 01/30/18 00:00 98.6 70 15 102/60 99 Room Air 98.6 01/30/18 00:00 79 01/29/18 23:00 69 15 93/50 98 Room Air 01/29/18 22:00 69 16 115/64 98 Room Air 01/29/18 21:00 69 15 96/55 98 Room Air 01/29/18 20:00 71 01/29/18 20:00 98.4 71 14 115/60 99 Room Air 98.4 01/29/18 19:31 79 102/60 01/29/18 19:00 81 15 102/60 98 Room Air 01/29/18 18:47 80 01/29/18 18:30 78 15 105/67 100 Room Air Intake and Output 01/29/18 01/30/18 19:00 07:00 Intake Total 560 ml 500 ml Output Total 150 ml 250 ml Balance 410 ml 250 ml Intake Oral 60 ml 0 ml IV Total 500 ml 500 ml Output Urine Total 150 ml 250 ml # Bowel Movements 2 Laboratory Tests 01/30/18 04:35: White Blood Count 5.2, Red Blood Count 2.65L, Hemoglobin 7.4L, Hematocrit 22.9L , Mean Corpuscular Volume 86, Mean Corpuscular Hemoglobin 28.0, Mean Corpuscular Hemoglobin Concent 32.4, Red Cell Distribution Width 16.7H, Platelet Count 167, Mean Platelet Volume 7.2, Neutrophils (%) (Auto) , Lymphocytes (%) (Auto) , Monocytes (%) (Auto) , Eosinophils (%) (Auto) , Basophils (%) (Auto) , Differential Total Cells Counted 100, Neutrophils % ( Manual) 45, Lymphocytes % (Manual) 43, Monocytes % (Manual) 10, Eosinophils % ( Manual) 2, Basophils % (Manual) 0, Band Neutrophils 0, Platelet Estimate Adequate, Platelet Morphology Normal, Hypochromasia 1+, Anisocytosis 1+, Prothrombin Time 13.3H, Prothromb Time International Ratio 1.3H, Activated Partial Thromboplast Time 29, Sodium Level 140, Potassium Level 3.8, Chloride Level 103, Carbon Dioxide Level 33H, Anion Gap 4L, Blood Urea Nitrogen 26H, Creatinine 1.0, Estimat Glomerular Filtration Rate > 60, Glucose Level 83, Calcium Level 8.3L, Total Bilirubin 0.9, Aspartate Amino Transf (AST/SGOT) 129H , Alanine Aminotransferase (ALT/SGPT) 54, Alkaline Phosphatase 203H, Total Protein 6.3L, Albumin 2.1L, Globulin 4.2, Albumin/Globulin Ratio 0.5L, Hepatitis A IgM Antibody [Pending], Hepatitis B Surface Antigen [Pending], Hepatitis B Core IgM Antibody [Pending], Hepatitis C Antibody [Pending] Height (Feet): 5 Height (Inches): 11.00 Weight (Pounds): 132 Objective Thin AA man NCAT supple CTA RRR Soft ND NT no edema NORMA MENDOZA Jan 30, 2018 18:14
[2018-01-30 22:21] LABS: BASOPHILS % (AUTO) 1.2 % (0.0-2.0); EOSINOPHILS % (AUTO) 3.5 % (0.0-3.0); HEMATOCRIT 28.3 % (42.0-52.0); HEMOGLOBIN 9.1 G/DL (14.2-18.0); LYMPHOCYTES % (AUTO) 26.7 % (20.0-45.0); MEAN CORPUSCULAR VOLUME 87 FL (80-99); MONOCYTES % (AUTO) 14.5 % (1.0-10.0); NEUTROPHILS % (AUTO) 54.2 % (45.0-75.0); PLATELET COUNT 167 K/UL (150-450); RED BLOOD COUNT 3.26 M/UL (4.70-6.10); RED CELL DISTRIBUTION WIDTH 15.5 % (11.6-14.8); WHITE BLOOD COUNT 4.6 K/UL (4.8-10.8)
[2018-01-31] VITALS: BP 132/70
[2018-01-31 04:00] VITALS: BP 139/74
[2018-01-31 05:18] LABS: BASOPHILS % (AUTO) 1.4 % (0.0-2.0); EOSINOPHILS % (AUTO) 3.1 % (0.0-3.0); HEMATOCRIT 31.4 % (42.0-52.0); LYMPHOCYTES % (AUTO) 25.1 % (20.0-45.0); MEAN CORPUSCULAR VOLUME 88 FL (80-99); MONOCYTES % (AUTO) 13.6 % (1.0-10.0); NEUTROPHILS % (AUTO) 56.7 % (45.0-75.0); PLATELET COUNT 168 K/UL (150-450); RED BLOOD COUNT 3.55 M/UL (4.70-6.10); WHITE BLOOD COUNT 4.8 K/UL (4.8-10.8)
[2018-01-31] MEDS: Octreotide Acetate 500 MCG in Sodium Chloride 500ML 499 ML IV SCH ×3 (05:26→23:24)
[2018-01-31 06:08] LABS: ALANINE AMINOTRANSFERASE 60 U/L (12-78); ALBUMIN 2.4 G/DL (3.4-5.0); ALBUMIN/GLOBULIN RATIO 0.5 (1.0-2.7); ALKALINE PHOSPHATASE 207 U/L (46-116); ANION GAP 4 mmol/L (5-15); ASPARTATE AMINO TRANSFERASE 156 U/L (15-37); BILIRUBIN,TOTAL 1.6 MG/DL (0.2-1.0); BLOOD UREA NITROGEN 18 mg/dL (7-18); CALCIUM 8.5 MG/DL (8.5-10.1); CARBON DIOXIDE 30 MMOL/L (21-32); CHLORIDE 104 MMOL/L (98-107); CREATININE 0.9 MG/DL (0.55-1.30); PHOSPHORUS 3.4 MG/DL (2.5-4.9); POTASSIUM 3.7 MMOL/L (3.5-5.1); SODIUM 138 MMOL/L (136-145)
[2018-01-31 07:20] LABS: BILIRUBIN,DIRECT 0.8 MG/DL (0.0-0.3)
[2018-01-31 08:00] VITALS: BP 131/70
[2018-01-31] MEDS: Propranolol 10mg tab ORAL SCH ×2 (08:26→18:20)
[2018-01-31] MEDS: Pantoprazole Inj IVP SCH ×2 (08:27→20:16)
--- NOTE | 2018-01-31 10:30 | Pulmonology Progress Note ---
Assessment/Plan Problems: (1) Upper GI bleeding (2) Hepatocellular carcinoma (3) Hepatitis-C Assessment/Plan f/u h/h egd thursday check electrolytes GI following Subjective ROS Limited/Unobtainable: No Constitutional: Reports: no symptoms HEENT: Repors: no symptoms Respiratory: Reports: no symptoms Allergies: Coded Allergies: IBUPROFEN (Unverified Allergy, Intermediate, 07/02/16) Objective Last 24 Hour Vital Signs Date Time Temp Pulse Resp B/P (MAP) Pulse Ox O2 Delivery O2 Flow Rate FiO2 01/31/18 08:26 62 131/70 01/31/18 08:00 61 01/31/18 08:00 98.2 62 18 131/70 100 Room Air 98.2 01/31/18 04:00 98.1 65 18 139/74 100 Room Air 98.1 01/31/18 04:00 63 01/31/18 00:00 98.3 65 20 132/70 99 Room Air 98.3 01/30/18 22:00 62 20 136/76 100 Room Air 01/30/18 21:00 70 18 134/75 98 Room Air 01/30/18 20:00 60 01/30/18 20:00 98.1 63 20 131/80 96 Room Air 98.1 01/30/18 19:00 65 18 127/72 100 Room Air 01/30/18 18:11 64 138/76 01/30/18 18:00 67 18 137/78 100 Room Air 01/30/18 17:00 63 18 136/75 100 Room Air 01/30/18 16:00 98.3 75 18 117/65 100 Room Air 98.3 01/30/18 16:00 66 01/30/18 15:00 67 18 159/69 100 Room Air 01/30/18 14:00 68 16 108/66 98 Room Air 01/30/18 13:00 80 16 157/100 98 Room Air 01/30/18 12:00 97.8 72 17 127/62 100 Room Air 97.8 01/30/18 12:00 69 01/30/18 11:00 64 17 115/73 98 Room Air Intake and Output 01/30/18 01/31/18 19:00 07:00 Intake Total 350 ml 526.666 ml Output Total 300 ml Balance 50 ml 526.666 ml Intake Oral 0 ml 20 ml IV Total 350 ml 506.666 ml Output Urine Total 300 ml # Voids 6 1 # Bowel Movements 7 General Appearance: WD/WN HEENT: normocephalic, anicteric Respiratory/Chest: chest wall non-tender, lungs clear Cardiovascular: normal peripheral pulses, normal rate Abdomen: normal bowel sounds, soft, non tender Genitourinary: normal external genitalia Neurologic/Psychiatric: director 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 II-XII grossly normal Lymphatic: no neck adenopathy Musculoskeletal: normal muscle bulk Laboratory Tests 01/30/18 22:09: White Blood Count 4.6L, Red Blood Count 3.26L, Hemoglobin 9.1L, Hematocrit 28.3L , Mean Corpuscular Volume 87, Mean Corpuscular Hemoglobin 27.9, Mean Corpuscular Hemoglobin Concent 32.1, Red Cell Distribution Width 15.5H, Platelet Count 167, Mean Platelet Volume 7.2, Neutrophils (%) (Auto) 54.2, Lymphocytes (%) (Auto) 26.7, Monocytes (%) (Auto) 14.5H, Eosinophils (%) (Auto) 3.5H, Basophils (%) (Auto) 1.2 01/31/18 03:50: White Blood Count 4.8, Red Blood Count 3.55L, Hemoglobin 10.0L, Hematocrit 31.4L , Mean Corpuscular Volume 88, Mean Corpuscular Hemoglobin 28.2, Mean Corpuscular Hemoglobin Concent 31.9L, Red Cell Distribution Width 16.0H, Platelet Count 168, Mean Platelet Volume 6.6, Neutrophils (%) (Auto) 56.7, Lymphocytes (%) (Auto) 25.1, Monocytes (%) (Auto) 13.6H, Eosinophils (%) (Auto) 3.1H, Basophils (%) (Auto) 1.4, Prothrombin Time 10.9, Prothromb Time International Ratio 1.0, Activated Partial Thromboplast Time 27, Sodium Level 138, Potassium Level 3.7, Chloride Level 104, Carbon Dioxide Level 30, Anion Gap 4L, Blood Urea Nitrogen 18, Creatinine 0.9, Estimat Glomerular Filtration Rate > 60, Glucose Level 80, Calcium Level 8.5, Phosphorus Level 3.4, Magnesium Level 1.4L, Total Bilirubin 1.6H, Direct Bilirubin 0.8H, Aspartate Amino Transf (AST/SGOT) 156H, Alanine Aminotransferase (ALT/SGPT) 60, Alkaline Phosphatase 207H, Total Protein 7.0, Albumin 2.4L, Globulin 4.6, Albumin/Globulin Ratio 0.5L Current Medications Medications (Trade) Dose Ordered Sig/Candice Route PRN Reason Start Time Stop Time Status Last Admin Dose Admin Octreotide Acetate 500 mcg/ Sodium Chloride 500 ml @ 50 mls/hr Q10H IV 01/29/18 22:00 02/28/18 21:59 01/31/18 05:26 Pantoprazole (Protonix) 40 mg EVERY 12 HOURS IVP 01/30/18 09:00 03/01/18 08:59 01/31/18 08:27 Propranolol HCl (Inderal) 10 mg BID ORAL 01/29/18 18:00 02/28/18 17:59 01/31/18 08:26 LOREN WOLF Jan 31, 2018 10:30
[2018-01-31 12:00] VITALS: BP 143/76
--- NOTE | 2018-01-31 14:57 | General Progress Note ---
Assessment/Plan Assessment/Plan Assessment (1) Esophageal varices (2) Upper GI bleeding (3) Hepatitis-C Plan follow closely daily CBC PPI EGD Thursday Subjective Allergies: Coded Allergies: IBUPROFEN (Unverified Allergy, Intermediate, 07/02/16) Subjective Feels OK no abdominal complaints Objective Last 24 Hour Vital Signs Date Time Temp Pulse Resp B/P (MAP) Pulse Ox O2 Delivery O2 Flow Rate FiO2 01/31/18 12:00 57 01/31/18 12:00 97.5 60 20 143/76 100 Room Air 97.5 01/31/18 08:26 62 131/70 01/31/18 08:00 61 01/31/18 08:00 98.2 62 18 131/70 100 Room Air 98.2 01/31/18 04:00 98.1 65 18 139/74 100 Room Air 98.1 01/31/18 04:00 63 01/31/18 00:00 98.3 65 20 132/70 99 Room Air 98.3 01/30/18 22:00 62 20 136/76 100 Room Air 01/30/18 21:00 70 18 134/75 98 Room Air 01/30/18 20:00 60 01/30/18 20:00 98.1 63 20 131/80 96 Room Air 98.1 01/30/18 19:00 65 18 127/72 100 Room Air 01/30/18 18:11 64 138/76 01/30/18 18:00 67 18 137/78 100 Room Air 01/30/18 17:00 63 18 136/75 100 Room Air 01/30/18 16:00 98.3 75 18 117/65 100 Room Air 98.3 01/30/18 16:00 66 01/30/18 15:00 67 18 159/69 100 Room Air Intake and Output 01/30/18 01/31/18 19:00 07:00 Intake Total 350 ml 548.333 ml Output Total 300 ml Balance 50 ml 548.333 ml Intake Oral 0 ml 20 ml IV Total 350 ml 528.333 ml Output Urine Total 300 ml # Voids 6 1 # Bowel Movements 7 Laboratory Tests 01/30/18 22:09: White Blood Count 4.6L, Red Blood Count 3.26L, Hemoglobin 9.1L, Hematocrit 28.3L , Mean Corpuscular Volume 87, Mean Corpuscular Hemoglobin 27.9, Mean Corpuscular Hemoglobin Concent 32.1, Red Cell Distribution Width 15.5H, Platelet Count 167, Mean Platelet Volume 7.2, Neutrophils (%) (Auto) 54.2, Lymphocytes (%) (Auto) 26.7, Monocytes (%) (Auto) 14.5H, Eosinophils (%) (Auto) 3.5H, Basophils (%) (Auto) 1.2 01/31/18 03:50: White Blood Count 4.8, Red Blood Count 3.55L, Hemoglobin 10.0L, Hematocrit 31.4L , Mean Corpuscular Volume 88, Mean Corpuscular Hemoglobin 28.2, Mean Corpuscular Hemoglobin Concent 31.9L, Red Cell Distribution Width 16.0H, Platelet Count 168, Mean Platelet Volume 6.6, Neutrophils (%) (Auto) 56.7, Lymphocytes (%) (Auto) 25.1, Monocytes (%) (Auto) 13.6H, Eosinophils (%) (Auto) 3.1H, Basophils (%) (Auto) 1.4, Prothrombin Time 10.9, Prothromb Time International Ratio 1.0, Activated Partial Thromboplast Time 27, Sodium Level 138, Potassium Level 3.7, Chloride Level 104, Carbon Dioxide Level 30, Anion Gap 4L, Blood Urea Nitrogen 18, Creatinine 0.9, Estimat Glomerular Filtration Rate > 60, Glucose Level 80, Calcium Level 8.5, Phosphorus Level 3.4, Magnesium Level 1.4L, Total Bilirubin 1.6H, Direct Bilirubin 0.8H, Aspartate Amino Transf (AST/SGOT) 156H, Alanine Aminotransferase (ALT/SGPT) 60, Alkaline Phosphatase 207H, Total Protein 7.0, Albumin 2.4L, Globulin 4.6, Albumin/Globulin Ratio 0.5L Height (Feet): 5 Height (Inches): 11.00 Weight (Pounds): 131 Objective Thin AA man NCAT supple CTA RRR Soft ND NT no edema STEFFANIELUIS FERNANDOLYLY FARMERJAYLEN Jan 31, 2018 14:57
[2018-01-31 16:00] VITALS: BP 142/80
--- NOTE | 2018-01-31 16:32 | Cardiology Report ---
APPROVED REPORT EKG Measurement Heart [id number] Normal sinus rhythm Minimal voltage criteria for LVH, may be normal variant Borderline ECG
[2018-01-31 20:00] VITALS: BP 136/83
[2018-02-01] VITALS (9 sets, daily range): BP systolic 140–197; BP diastolic 77–100
[2018-02-01 06:12] LABS: BASOPHILS % (AUTO) 1.2 % (0.0-2.0); EOSINOPHILS % (AUTO) 2.7 % (0.0-3.0); HEMATOCRIT 28.6 % (42.0-52.0); LYMPHOCYTES % (AUTO) 24.5 % (20.0-45.0); MEAN CORPUSCULAR VOLUME 88 FL (80-99); MONOCYTES % (AUTO) 14.5 % (1.0-10.0); PLATELET COUNT 163 K/UL (150-450); RED BLOOD COUNT 3.23 M/UL (4.70-6.10); RED CELL DISTRIBUTION WIDTH 15.2 % (11.6-14.8); WHITE BLOOD COUNT 4.8 K/UL (4.8-10.8)
[2018-02-01 06:32] LABS: INR 1.1 (0.9-1.1)
[2018-02-01 06:59] LABS: ALANINE AMINOTRANSFERASE 54 U/L (12-78); ALBUMIN 2.3 G/DL (3.4-5.0); ALBUMIN/GLOBULIN RATIO 0.5 (1.0-2.7); ALKALINE PHOSPHATASE 192 U/L (46-116); ANION GAP 6 mmol/L (5-15); ASPARTATE AMINO TRANSFERASE 116 U/L (15-37); BILIRUBIN,TOTAL 1.6 MG/DL (0.2-1.0); BLOOD UREA NITROGEN 10 mg/dL (7-18); CALCIUM 8.4 MG/DL (8.5-10.1); CARBON DIOXIDE 27 MMOL/L (21-32); CHLORIDE 106 MMOL/L (98-107); CREATININE 0.9 MG/DL (0.55-1.30); PHOSPHORUS 3.1 MG/DL (2.5-4.9); POTASSIUM 4.4 MMOL/L (3.5-5.1); SODIUM 139 MMOL/L (136-145)
[2018-02-01 07:05] LABS: BILIRUBIN,DIRECT 1.1 MG/DL (0.0-0.3)
[2018-02-01] MEDS: Pantoprazole Inj IVP SCH (08:06)
[2018-02-01] MEDS: Propranolol 10mg tab ORAL SCH ×2 (08:11→11:42)
[2018-02-01] MEDS: Octreotide Acetate 500 MCG in Sodium Chloride 500ML 499 ML IV SCH (09:43)
[2018-02-01] MEDS ORDERED: NS 500ML IV ONE (10:28)
--- NOTE | 2018-02-01 10:28 | Pre-Procedure Note/Attestation ---
Pre-Procedure Note/Attestation Complete Prior to Procedure Planned Procedure: not applicable Procedure Narrative: egd Indications for Procedure Pre-Operative Diagnosis: gib Attestation I attest that I discussed the nature of the procedure; its benefits; risks and complications; and alternatives (and the risks and benefits of such alternatives ), prior to the procedure, with the patient (or the patient's legal ocean import representative). I attest that, if there was a reasonable possibility of needing a blood transfusion, the patient (or the patient's legal ocean import representative) was given the [facility] standardized written summary, pursuant to the Andrew Brooke Blood Safety Act ([place] Health and Safety Code # 1645, as amended). I attest that I re-evaluated the patient just prior to the surgery and that there has been no change in the patient's H&P, except as documented below: OZ PELLETIER Feb 01, 2018 10:28
[2018-02-01] MEDS ORDERED: Propofol 200mg/20ml IV ONE (10:30)
[2018-02-01] MEDS ORDERED: Midazolam 2mg/2ml Inj ONE (10:30)
[2018-02-01] MEDS ORDERED: fentaNYL 100 mcg/2 mL IV ONE (10:30)
--- NOTE | 2018-02-01 10:47 | Endoscopy Procedure Note ---
Endoscopy Procedure Note General Indication for Procedure: gib Procedures Performed: EGD Operative Findings/Diagnosis: esoph varices Specimen: none Pt Tolerated Procedure Well: Yes Estimated Blood Loss: none Anesthesia Anesthesiologist: see chart Anesthesia: MAC Inserted Devices Implant(s) used?: No GI Core Measures 50 yrs or older w/o bx or poly: Not Applicable 10yrs. F/U not recommended: Not Applicable OZ PELLETIER Feb 01, 2018 10:47
--- NOTE | 2018-02-01 12:15 | Pulmonology Progress Note ---
Assessment/Plan Problems: (1) Upper GI bleeding (2) Hepatocellular carcinoma (3) Hepatitis-C Assessment/Plan f/u h/h egd done h/h stable dc plan to day to home with hospice Subjective ROS Limited/Unobtainable: No Constitutional: Reports: no symptoms HEENT: Repors: no symptoms Respiratory: Reports: no symptoms Allergies: Coded Allergies: IBUPROFEN (Unverified Allergy, Intermediate, 07/02/16) Objective Last 24 Hour Vital Signs Date Time Temp Pulse Resp B/P (MAP) Pulse Ox O2 Delivery O2 Flow Rate FiO2 02/01/18 11:42 64 183/100 02/01/18 11:14 64 20 183/100 100 Room Air 64 02/01/18 11:07 63 20 190/99 97 Room Air 63 02/01/18 11:00 98.9 65 20 196/97 100 Nasal Cannula 3.0 98.9 65 02/01/18 10:47 98.9 65 20 197/99 100 Nasal Cannula 3.0 98.9 65 02/01/18 10:42 98.9 65 20 197/99 100 Nasal Cannula 3.0 98.9 65 02/01/18 08:54 97.9 63 20 140/77 96 Room Air 97.9 02/01/18 08:00 60 02/01/18 04:00 62 02/01/18 04:00 97.9 63 20 145/80 99 Room Air 97.9 02/01/18 00:00 98.4 62 20 140/78 97 Room Air 98.4 02/01/18 00:00 74 01/31/18 20:00 62 01/31/18 20:00 97.5 64 18 136/83 99 Room Air 97.5 01/31/18 18:20 60 142/80 01/31/18 16:00 59 01/31/18 16:00 97.2 60 20 142/80 96 Room Air 97.2 Intake and Output 01/31/18 02/01/18 19:00 07:00 Intake Total 600 ml 480 ml Balance 600 ml 480 ml IV Total 600 ml 480 ml # Voids 2 General Appearance: WD/WN HEENT: normocephalic, atraumatic Respiratory/Chest: chest wall non-tender, lungs clear Cardiovascular: normal peripheral pulses, normal rate Abdomen: soft, non tender, non distended Genitourinary: normal external genitalia Extremities: no cyanosis Skin: no ulcers Microbiology Date/Time Source Procedure Growth Status 01/29/18 18:00 Nasal Nares MRSA Culture - Final NO METHICILLIN RESISTANT STAPH AUREUS... Complete 01/29/18 18:00 Rectum VRE Culture - Final NO VANCOMYCIN RESISTANT ENTEROCOCCUS ... Complete Laboratory Tests 02/01/18 03:50: White Blood Count 4.8, Red Blood Count 3.23L, Hemoglobin 9.0L, Hematocrit 28.6L , Mean Corpuscular Volume 88, Mean Corpuscular Hemoglobin 27.9, Mean Corpuscular Hemoglobin Concent 31.6L, Red Cell Distribution Width 15.2H, Platelet Count 163, Mean Platelet Volume 6.4L, Neutrophils (%) (Auto) 57.0, Lymphocytes (%) (Auto) 24.5, Monocytes (%) (Auto) 14.5H, Eosinophils (%) (Auto) 2.7, Basophils (%) (Auto) 1.2, Prothrombin Time 10.7, Prothromb Time International Ratio 1.1, Activated Partial Thromboplast Time 25, Sodium Level 139, Potassium Level 4.4, Chloride Level 106, Carbon Dioxide Level 27, Anion Gap 6, Blood Urea Nitrogen 10, Creatinine 0.9, Estimat Glomerular Filtration Rate > 60, Glucose Level 84, Calcium Level 8.4L, Phosphorus Level 3.1, Magnesium Level 1.4L, Total Bilirubin 1.6H, Direct Bilirubin 1.1H, Aspartate Amino Transf (AST/SGOT) 116H, Alanine Aminotransferase (ALT/SGPT) 54, Alkaline Phosphatase 192H, Total Protein 6.9, Albumin 2.3L, Globulin 4.6, Albumin/ Globulin Ratio 0.5L Current Medications Medications (Trade) Dose Ordered Sig/Candice Route PRN Reason Start Time Stop Time Status Last Admin Dose Admin Octreotide Acetate 500 mcg/ Sodium Chloride 500 ml @ 25 mls/hr Q20H IV 02/01/18 13:00 03/03/18 12:59 Pantoprazole (Protonix) 40 mg EVERY 12 HOURS IVP 01/30/18 09:00 03/01/18 08:59 02/01/18 08:06 Propranolol HCl (Inderal) 10 mg BID ORAL 01/29/18 18:00 02/28/18 17:59 02/01/18 11:42 LOREN WOLF Feb 01, 2018 12:14
[2018-02-01] MEDS ORDERED: Octreotide Acetate 500 MCG in Sodium Chloride 500ML 499 ML IV SCH (13:00)
[2018-02-01] MEDS ORDERED: oxyCONTIN 10mg tab ORAL ONE (13:00)
[2018-02-01] MEDS ORDERED: Tubing IV Secondary IV ONE (16:08)
[2018-02-01] MEDS ORDERED: Tubing Blood Filter IV ONE (16:08)
[2018-02-01] MEDS ORDERED: NS 275ml ONE ×2 (16:08)
--- NOTE | 2018-02-01 17:15 | Procedure Note ---
DATE OF PROCEDURE: 02/01/2018 SURGEON: Eduardo Hartley M.D. REFERRING PHYSICIAN: Kecia Valencia M.D. PROCEDURE: EGD with banding of esophageal varices. ANESTHESIOLOGIST: Tomás Hinojosa MD INSTRUMENT: Olympus adult flexible upper endoscope. INDICATION: Upper GI bleeding, history of cirrhosis, history of esophageal varices with banding before. The procedure, risks, benefits, and possible consequences, including hemorrhage, aspiration, perforation and infection, and alternative treatments, were explained to the patient/legal guardian by Dr. Eduardo Hartley and the patient/legal guardian understood and accepted these risks. DESCRIPTION OF PROCEDURE: After informed consent was obtained and the patient was adequately sedated, Olympus upper endoscope was advanced from mouth to the second portion of the duodenum and retroflexion was performed in the stomach. The patient had evidence of the persistent esophageal varices with one of them at the GE junction. There was one ulceration at about 2 o'clock position at the GE junction from prior bandings. In the stomach, there was diffuse and severe portal hypertensive gastropathy. Retroflexion of the stomach showed no evidence of any gastric varices at this time. Then, we removed the scope. Banding device was placed. A total of 5 bands were placed in the distal esophagus. The patient tolerated the procedure very well without any complication. SUMMARY OF FINDINGS: 1. Esophageal varices, status post banding x5. 2. Portal hypertensive gastropathy. RECOMMENDATIONS: The patient just got 5 bands, on octreotide drip. We will cut the octreotide drip rate to half. Continue on Protonix daily. Start liquid diet later today and possibly discharge tomorrow if patient is stable. I want to thank Dr. Valencia for this kind referral. Eduardo Hartley M.D. DR: RADHA JOB#: [id number] CC: Kecia Valencia M.D.; Fax#: [phone]
--- NOTE | 2018-02-03 15:26 | Discharge Summary ---
Discharge Summary Hospital Course Date of Admission Jan 29, 2018 at 14:33 Date of Discharge Feb 01, 2018 at 16:09 Admitting Diagnosis upper GI bleed HPI Trell Guzmán is a 63 year old male who was admitted on Jan 29, 2018 at 14: 33 for Upper Gastro Intestinal Bleed Hospital Course dc summary #[id number] Discharge Medications Continued Medications: Pantoprazole* (Protonix*) 40 Mg Tablet.dr 40 MG ORAL DAILY, #30 TAB Propranolol HCl (Propranolol HCl) 10 Mg Tablet 10 MG ORAL BID, #60 TAB Discharge Discharge Disposition Patient was discharged to Home with hospice services Discharge Diagnoses: Discharge Instructions Discharge Instructions Special Instructions I have been assigned to complete a D/C Summary on this account. I was not involved in the patient management Krysta Scott NP (Vanchtein) Feb 03, 2018 15:26
--- NOTE | 2018-02-03 23:15 | Discharge Summary 2 SIG ---
DATE OF ADMISSION: 01/29/2018 DATE OF DISCHARGE: 02/01/2018 REASON FOR ADMISSION: 63 years old male with history of hypertension, liver cancer, cirrhosis, hepatitis C, and alcohol abuse, presented to the emergency department with complaints of vomiting blood. The patient had a history of recent upper GI bleeding for which he required acute intervention. The patient reported recent alcohol use. He denied diarrhea, but reported some mild epigastric discomfort. He denied dysuria or frequency. Denied back or flank pain. The patient reported generalized weakness. Vital signs were stable. No leukocytosis, hemoglobin -9.1, hematocrit -28.3. Magnesium low- 1.4. Elevated liver enzymes/ALT and AST; hyperbilirubinemia: total bilirubin -1.6 and direct bilirubin- 1.4. INR -1.4. The patient admitted with upper GI bleeding, hepatocellular carcinoma, and hepatitis C history. HOSPITAL COURSE: The patient was admitted. GI consult was requested. The patient was initially kept NPO. The patient was started on the IV fluids. The patient was started on octreotide drip and PPI b.i.d. Magnesium was replaced. Coagulopathy was corrected . Hemoglobin and hematocrit were closely monitored. The patient required one unit of blood transfusion for hemoglobin -7.4 and hematocrit- 22.9. The patient undergone upper endoscopy with banding of esophageal varices x5. The patient also noted to have portal hypertensive gastropathy. Octreotide drip was tapered down and eventually discontinued. PPI continued Hepatitis panel again revealed evidence of hepatitis C. The patient was started on liquid diet and was advance as tolerated. Antiemetics were on board as needed. Hemoglobin and hematocrit remained stable after transfusion and banding. Prior to discharge, hemoglobin- 9.0, hematocrit -28.6. AST down from 156 to 116. Elevated total and direct bilirubin. INR down to 1.1. Propranolol added to existing regimen. The patient was stable for discharge home with hospice services. The patient with end-stage liver disease, heaptocellular carcinoma, agreed to hospice services. FINAL DIAGNOSES: 1. Upper gastrointestinal bleeding. 2. Hepatocellular carcinoma 3. Hepatitis C. 4. Status post recent esophagogastroduodenoscopy with banding of esophageal varices x5. 5. Portal hypertensive gastropathy. 6. Coagulopathy. DISCHARGE MEDICATIONS: See medication reconciliation list. The patient was discharged on PPI and propranolol. DISCHARGE INSTRUCTIONS: The patient was discharged home with hospice services. Kecia Valencia M.D. I have been assigned to dictate discharge summary on this account and I was not involved in the patient's management. Krysta Scott (Vanchtein) NWilber DR: Melissa JOB#: [id number] CC: DEIDRA
== END 2018-02-01 16:09 | disposition home or self-care (01) | DRG 253 ==
LOC: EMR 13:25 → EDBEDREQ 13:49 → EDBEDREQSVC 13:49 → ICU 14:33 → EDBEDREQ 15:28 → 2W 01-31 00:48
PROC: 30233N1 Transfusion of Nonautologous Red Blood Cells into Peripheral Vein, Percutaneous Approach (ICD-10-PCS; 2018-01-30)
PROC: 06L38CZ Occlusion of Esophageal Vein with Extraluminal Device, Via Natural or Artificial Opening Endoscopic (ICD-10-PCS; principal; 2018-02-01 10:34)
DX: K92.2 Gastrointestinal hemorrhage, unspecified (principal); C22.0 Liver cell carcinoma; K76.6 Portal hypertension; D68.4 Acquired coagulation factor deficiency; K31.89 Other diseases of stomach and duodenum; I10 Essential (primary) hypertension; I85.00 Esophageal varices without bleeding; K70.30 Alcoholic cirrhosis of liver without ascites; B19.20 Unspecified viral hepatitis C without hepatic coma; Z88.6 Allergy status to analgesic agent
CPT/HCPCS: 36415; 71045; 80053; 80307; 82248; 82550; 82553; 83690; 83735; 84100; 84484; 85007; 85025; 85610; 85730; 86705; 86709; 86803; 86850; 86900; 86901; 86920; 87081; 87340; 93005; 94003; 94150; 99291; J2250

== ENCOUNTER 2018-02-15 03:08 | Inpatient (IN) | payer MEDICAID ==
[2018-02-15] VITALS (17 sets, daily range): BP systolic 118–183; BP diastolic 61–93
[~2018-02-15] VITALS: Ht 177.8 cm; Wt 60.3 kg
[~2018-02-15 03:08] MED LIST changes: +ATARAX25 MG; +FLONASE1 SPRAYS
[2018-02-15] MEDS ORDERED: PROPRANOLOL HCL10 MG ORAL (03:11)
[2018-02-15] MEDS ORDERED: Octreotide Acetate 500 MCG in Sodium Chloride 500ML 499 ML IV SCH ×3 (03:15→10:30)
[2018-02-15] MEDS ORDERED: Pantoprazole Inj IVP ONE (03:15)
--- NOTE | 2018-02-15 03:57 | Emergency Room Report ---
History of Present Illness General Chief Complaint: Vomiting Source: Patient, Medical Record, EMS Present Illness HPI 63-year-old male, history of liver cirrhosis from alcoholism, history of esophageal varices, status post banding within the last month, presenting with hematemesis. Patient states that he vomited bright red blood, estimated 3 cups , denies any current melena. Not on any blood thinners. No abdominal pain. Allergies: Coded Allergies: IBUPROFEN (Unverified Allergy, Intermediate, 07/02/16) Patient History Past Medical History: see triage record Past Surgical History: none Pertinent Family History: none Reviewed Nursing Documentation: PMH: Agreed; PSxH: Agreed Nursing Documentation-PMH Past Medical History: No History, Except For Hx Cardiac Problems: Yes Hx Hypertension: Yes Hx Cancer: Yes Hx Gastrointestinal Problems: Yes Hx Neurological Problems: No Review of Systems All Other Systems: negative except mentioned in HPI Physical Exam Vital Signs Date Time Temp Pulse Resp B/P (MAP) Pulse Ox O2 Delivery O2 Flow Rate FiO2 02/15/18 03:06 97.0 108 20 118/71 98 Room Air 97.0 Sp02 EP Interpretation: reviewed, normal General Appearance: alert, GCS 15, moderate distress Head: normocephalic, atraumatic Eyes: bilateral eye normal inspection, bilateral eye PERRL, bilateral eye EOMI ENT: normal ENT inspection, normal pharynx, normal voice, moist mucus membranes Neck: normal inspection, full range of motion, supple Respiratory: normal inspection, lungs clear, normal breath sounds, no respiratory distress, no retraction, no wheezing, speaking full sentences, chest symmetrical Cardiovascular #1: normal peripheral pulses, tachycardia Cardiovascular #2: 2+ radial (R), 2+ radial (L) Gastrointestinal: other - ascites, nontender abdomen Genitourinary: no CVA tenderness Musculoskeletal: normal inspection, back normal, normal range of motion, non- tender Neurologic: normal inspection, alert, oriented x3, responsive, motor strength/ tone normal, sensory intact, normal gait, speech normal Psychiatric: normal inspection, judgement/insight normal, memory normal Skin: other - well healing scars on back/abdomen, scabbed, none interwebs in fingers Procedures Critical Care Time Critical Care Time 40 minutes of CC time 63-year-old male with hematemesis VS: Tachycardic Airway patent. Not hypoxic. PLAN: IV access, labs, blood transfusion, octreotide, Protonix Anticipate admission to ICU CC time also includes review of labs, review of EMR, discussion with family and paperwork from SNF, d/w hospitalist CC could include dosing of pressors, additional Abx CC time does not include procedures Medical Decision Making Diagnostic Impression: Primary Impression: Upper GI bleeding Additional Impressions: History of esophageal varices with bleeding Hyperkalemia Renal failure Severe anemia ER Course 63-year-old male with hematemesis DDX: Upper GI bleed, esophageal varices, gastric ulcer Plan: Obtain labs, ua, EKG, CXR Octreotide, Protonix ER course: Patient tachycardic, ranging from 150-180 Systolic is 110 Given Protonix, octreotide permethrin cream ordered however not in stock at this time hgb 6.6, patient to be xfused to units prbcs in ED patient is notified of his critical condition, he is full code hyperK cocktail given Disposition: Patient is to be admitted to ICU D/W hospitalist Dr Gayle. Also told Dr Hartley from GI Please note that this Emergency Department Report was dictated using [employer] machinist apprentice technology software, occasionally this can lead to erroneous entry secondary to interpretation by the dictation equipment. EKG Diagnostic Results EP Interpretation: Yes Rate: normal Rhythm: NSR ST Segments: No acute changes ASA given to patient: No Rhythm Strip EP Interpretation: Yes Rate: 110 Rhythm: NSR, no PVCs, no ectopy Chest X-ray CXR: Ordered: Yes 1 view Indication: Pain EP interpretation: Yes Interpretation: No consolidation, no effusion, no PTX, no acute cardiopulmonary disease Impression: No acute disease Electronically signed by Christine Lewis MD Laboratory Tests Test 02/15/18 04:00 White Blood Count 13.2 K/UL (4.8-10.8) H Red Blood Count 2.39 M/UL (4.70-6.10) L Hemoglobin 6.6 G/DL (14.2-18.0) *L Hematocrit 20.9 % (42.0-52.0) L Mean Corpuscular Volume 88 FL (80-99) Mean Corpuscular Hemoglobin 27.6 PG (27.0-31.0) Mean Corpuscular Hemoglobin Concent 31.5 G/DL (32.0-36.0) L Red Cell Distribution Width 16.9 % (11.6-14.8) H Platelet Count 314 K/UL (150-450) Mean Platelet Volume 5.2 FL (6.5-10.1) L Neutrophils (%) (Auto) % (45.0-75.0) Lymphocytes (%) (Auto) % (20.0-45.0) Monocytes (%) (Auto) % (1.0-10.0) Eosinophils (%) (Auto) % (0.0-3.0) Basophils (%) (Auto) % (0.0-2.0) Prothrombin Time 14.7 SEC (9.30-11.50) H Prothrombin Time INR 1.4 (0.9-1.1) H PTT 24 SEC (23-33) Sodium Level 138 MMOL/L (136-145) Potassium Level 5.9 MMOL/L (3.5-5.1) H Chloride Level 103 MMOL/L (98-107) Carbon Dioxide Level 19 MMOL/L (21-32) L Anion Gap 16 mmol/L (5-15) H Blood Urea Nitrogen 25 mg/dL (7-18) H Creatinine 1.4 MG/DL (0.55-1.30) H Estimate Glomerular Filtration Rate 51.0 mL/min (>60) Glucose Level 133 MG/DL (74-106) H Calcium Level 8.0 MG/DL (8.5-10.1) L Total Bilirubin 1.4 MG/DL (0.2-1.0) H Direct Bilirubin 0.9 MG/DL (0.0-0.3) H Aspartate Amino Transferase (AST) 170 U/L (15-37) H Alanine Aminotransferase (ALT) 60 U/L (12-78) Alkaline Phosphatase 239 U/L (46-116) H Troponin I 0.007 ng/mL (0.000-0.056) Pro-B-Type Natriuretic Peptide 229 pg/mL (0-125) H Total Protein 6.1 G/DL (6.4-8.2) L Albumin 1.8 G/DL (3.4-5.0) L Globulin 4.3 g/dL Albumin/Globulin Ratio 0.4 (1.0-2.7) L Last Vital Signs Date Time Temp Pulse Resp B/P (MAP) Pulse Ox O2 Delivery O2 Flow Rate FiO2 02/15/18 03:06 97.0 108 20 118/71 98 Room Air 97.0 Disposition: ADMITTED INPATIENT Condition: Critical Referrals: [facility],REFERRING (PCP) Christine Lewis M.D. Feb 15, 2018 03:57
[2018-02-15] MEDS ORDERED: SandoSTATIN 50mcg Inj IVP ONE (04:00)
[2018-02-15 04:04] LABS: HEMATOCRIT 20.9 % (42.0-52.0); MEAN CORPUSCULAR VOLUME 88 FL (80-99); PLATELET COUNT 314 K/UL (150-450); RED BLOOD COUNT 2.39 M/UL (4.70-6.10); RED CELL DISTRIBUTION WIDTH 16.9 % (11.6-14.8); WHITE BLOOD COUNT 13.2 K/UL (4.8-10.8)
[2018-02-15 04:09] LABS: HEMOGLOBIN 6.6 G/DL (14.2-18.0)
[2018-02-15] MEDS ORDERED: Morphine Sulfate 4mg/ml Inj IVP ONE (04:15)
[2018-02-15 04:22] LABS: INR 1.4 (0.9-1.1)
[2018-02-15 04:32] LABS: ALANINE AMINOTRANSFERASE 60 U/L (12-78); ALBUMIN 1.8 G/DL (3.4-5.0); ALBUMIN/GLOBULIN RATIO 0.4 (1.0-2.7); ALKALINE PHOSPHATASE 239 U/L (46-116); ANION GAP 16 mmol/L (5-15); ASPARTATE AMINO TRANSFERASE 170 U/L (15-37); BILIRUBIN,TOTAL 1.4 MG/DL (0.2-1.0); BLOOD UREA NITROGEN 25 mg/dL (7-18); CARBON DIOXIDE 19 MMOL/L (21-32); CHLORIDE 103 MMOL/L (98-107); CREATININE 1.4 MG/DL (0.55-1.30); SODIUM 138 MMOL/L (136-145)
[2018-02-15 04:34] LABS: POTASSIUM 5.9 MMOL/L (3.5-5.1)
[2018-02-15 04:36] LABS: BILIRUBIN,DIRECT 0.9 MG/DL (0.0-0.3)
[2018-02-15] MEDS ORDERED: Sodium Bicarbonate 50ml Carp IV ONE (04:45)
[2018-02-15] MEDS ORDERED: Calcium Gluconate 1gm/10ml vial IVP ONE (04:45)
[2018-02-15 08:11] LABS: APPEARANCE,URINE CLEAR; BILIRUBIN, URINE NEGATIVE (NEGATIVE); GLUCOSE, URINE (UA) 1+ (NEGATIVE); KETONES,URINE 2+ (NEGATIVE); LEUKOCYTE ESTERASE ,URINE 1+ (NEGATIVE); NITRITE,URINE NEGATIVE (NEGATIVE); PH,URINE 5 (4.5-8.0); PROTEIN,URINE 2+ (NEGATIVE); UROBILINOGEN,URINE 8 MG/DL (0.0-1.0)
[2018-02-15 08:31] LABS: COLOR,URINE YELLOW
--- NOTE | 2018-02-15 09:12 | Pulmonolgy Critical Care Note ---
Critical Care - Asmt/Plan Problems: (1) Upper GI bleeding (2) Severe anemia (3) History of esophageal varices with bleeding (4) Renal failure (5) Hyperkalemia (6) Hepatocellular carcinoma (7) Hepatitis-C (8) Esophageal varices (9) Tachycardia (10) ETOH abuse (11) Hepatic lesion Respiratory: ABG Cardiac: continue to monitor HR/BP Renal: keep IV fluid, check electrolytes, other - Renal eval Infectious Disease: check cultures, add antibiotics - Zosyn, other Gastrointestinal: other - NPO until GI eval, PPI IV BID, octreotide gtt, PRBC Endocrine: monitor blood sugar Hematologic: monitor H/H, transfuse if hgb<8.5 Prophylaxis: Heparin, SCDs Disposition: keep in ICU Time Spent (Minutes): 50 Discussed with: nurses Critical Care - Objective Last 24 Hour Vital Signs Date Time Temp Pulse Resp B/P (MAP) Pulse Ox O2 Delivery O2 Flow Rate FiO2 02/15/18 08:50 97.8 108 15 97.8 02/15/18 08:35 97.7 109 19 97.7 02/15/18 08:00 97.7 102 0 97.7 02/15/18 06:40 100 16 143/64 100 Room Air 02/15/18 05:50 97.1 95 18 97.1 02/15/18 05:45 97.1 97 23 97.1 02/15/18 05:43 206.6 139 20 118/71 98 Room Air 206.6 02/15/18 05:40 97.1 95 21 97.1 02/15/18 04:51 206.6 02/15/18 04:21 97.0 02/15/18 03:10 97.0 139 20 118/71 98 Room Air 97.0 02/15/18 03:06 97.0 108 20 118/71 98 Room Air 97.0 Status: awake Condition: critical HEENT: atraumatic Neck: full ROM Lungs: clear Heart: HR/BP stable Abdomen: soft, non-tender, active bowel sounds Extremities: no C/C/E Critical Care - Subjective ROS Limited/Unobtainable: Yes ICU Day: 1 Interval Events: 63 M h/o ESLD, HCC, cirrhosis, Hep C, prior EtOH recent EV S/P banding p/w several episodes of hematemesis, Hb 6.6, WCt 13.2, + ALANNA and hyperkalemia. No F/C/CP/SOB/ISAAC/dizziness, + N, + V, + hematemesis x 5, no abdominal pain, no abd pain, no urinary complaints Condition: grave IV Access: peripheral EKG Rhythm: Sinus Rhythm Labs: Laboratory Tests Test 02/15/18 04:00 02/15/18 07:45 White Blood Count 13.2 K/UL (4.8-10.8) H Red Blood Count 2.39 M/UL (4.70-6.10) L Hemoglobin 6.6 G/DL (14.2-18.0) *L Hematocrit 20.9 % (42.0-52.0) L Mean Corpuscular Volume 88 FL (80-99) Mean Corpuscular Hemoglobin 27.6 PG (27.0-31.0) Mean Corpuscular Hemoglobin Concent 31.5 G/DL (32.0-36.0) L Red Cell Distribution Width 16.9 % (11.6-14.8) H Platelet Count 314 K/UL (150-450) Mean Platelet Volume 5.2 FL (6.5-10.1) L Neutrophils (%) (Auto) % (45.0-75.0) Lymphocytes (%) (Auto) % (20.0-45.0) Monocytes (%) (Auto) % (1.0-10.0) Eosinophils (%) (Auto) % (0.0-3.0) Basophils (%) (Auto) % (0.0-2.0) Prothrombin Time 14.7 SEC (9.30-11.50) H Prothromb Time International Ratio 1.4 (0.9-1.1) H Activated Partial Thromboplast Time 24 SEC (23-33) Sodium Level 138 MMOL/L (136-145) Potassium Level 5.9 MMOL/L (3.5-5.1) H Chloride Level 103 MMOL/L (98-107) Carbon Dioxide Level 19 MMOL/L (21-32) L Anion Gap 16 mmol/L (5-15) H Blood Urea Nitrogen 25 mg/dL (7-18) H Creatinine 1.4 MG/DL (0.55-1.30) H Estimat Glomerular Filtration Rate 51.0 mL/min (>60) Glucose Level 133 MG/DL (74-106) H Calcium Level 8.0 MG/DL (8.5-10.1) L Total Bilirubin 1.4 MG/DL (0.2-1.0) H Direct Bilirubin 0.9 MG/DL (0.0-0.3) H Aspartate Amino Transf (AST/SGOT) 170 U/L (15-37) H Alanine Aminotransferase (ALT/SGPT) 60 U/L (12-78) Alkaline Phosphatase 239 U/L (46-116) H Troponin I 0.007 ng/mL (0.000-0.056) Pro-B-Type Natriuretic Peptide 229 pg/mL (0-125) H Total Protein 6.1 G/DL (6.4-8.2) L Albumin 1.8 G/DL (3.4-5.0) L Globulin 4.3 g/dL Albumin/Globulin Ratio 0.4 (1.0-2.7) L Urine Color Yellow Urine Appearance Clear Urine pH 5 (4.5-8.0) Urine Specific [place] 1.020 (1.005-1.035) Urine Protein 2+ (NEGATIVE) H Urine Glucose (UA) 1+ (NEGATIVE) H Urine Ketones 2+ (NEGATIVE) H Urine Occult Blood 4+ (NEGATIVE) H Urine Nitrite Negative (NEGATIVE) Urine Bilirubin Negative (NEGATIVE) Urine Urobilinogen 8 MG/DL (0.0-1.0) H Urine Leukocyte Esterase 1+ (NEGATIVE) H Urine RBC 20-30 /HPF (0 - 0) H Urine WBC 2-4 /HPF (0 - 0) Urine Squamous Epithelial Cells Occasional /LPF Urine Bacteria Occasional /HPF (NONE) PEE IQBAL M.D. Feb 15, 2018 09:12
--- NOTE | 2018-02-15 09:44 | GI Initial Consult Note ---
History of Present Illness General Date patient seen: Feb 15, 2018 Time patient seen: 09:39 Reason for Hospitalization: Vomiting Referring physician: CONCHITA HERZOG Reason for Consultation: HEMATAEMESIS Present Illness HPI 63-year-old male, history of liver cirrhosis from alcoholism, history of esophageal varices, status post banding within the last month, presenting with hematemesis. Patient states that he vomited bright red blood, estimated 3 cups , denies any current melena. Not on any blood thinners. No abdominal pain. Patient present with complaints of vomiting blood Patient has history of recent upper GI bleed requiring acute intervention Denies drinking alcohol recently Denies any diarrhea has some mild epigastric discomfort Denies any dysuria frequency denies any back or flank pain Patient reports general weakness No focal weakness Pt seen in ICU, awake A&OX4 NAD with no active s/sx of N/V/D. Per patient, he had an episode of emesis; approximately half a plastic bag of blood. Patient has history of recent esophageal varices s/p banding twice once on 02/01/18 and another on 12/21/17. He denies any recent ETOH or drug use. Takes propranolol 10mg BID for his portal HTN. Currently has no abdominal pain, but noted epigastric discomfort. In addition, he presents today with anemia and abnormal LFTs. s/p EGD SUMMARY FINDINGS 02/01/18: 1. Esophageal varices, status post banding x5. 2. Portal hypertensive gastropathy. s/p EGD SUMMARY FINDINGS 12/21/17: 1. Portal hypertensive gastropathy. 2. Four columns of grade 4 distal esophageal varices, status post banding x6. Home Meds Active Scripts Thiamine Hcl* (VITAMIN B-1*) 100 Mg Tablet, 100 MG ORAL DAILY, #30 TAB 0 Refills Prov:Tyler (Reza)Krysta NP 11/17/17 Pantoprazole* (PROTONIX*) 40 Mg Tablet.dr, 40 MG ORAL DAILY, #30 TAB Prov:Krysta Scott NP (Vanchtein) 11/17/17 Propranolol HCl (Propranolol HCl) 10 Mg Tablet, 10 MG ORAL BID, #60 TAB Prov:Tyler (Krysta Hernandez NP 11/17/17 Reported Medications Propranolol Hcl* (INDERAL*) 10 Mg Tablet, 10 MG ORAL THREE TIMES A DAY, #90 TAB 0 Refills 02/15/18 Hydroxyzine HCl (Hydroxyzine HCl) 25 Mg Tablet 01/29/18 Fluticasone Propionate (Fluticasone Propionate) 16 Gm [place].susp 01/29/18 Med list reviewed/reconciled: Yes Allergies: Coded Allergies: IBUPROFEN (Unverified Allergy, Intermediate, 07/02/16) Patient History History Provided By: Patient, Medical Record PMH Narrative Past Medical History: see triage record Past Surgical History: none Pertinent Family History: none Reviewed Nursing Documentation: PMH: Agreed; PSxH: Agreed Nursing Documentation-PMH History Provided By: Patient, Medical Record Past Medical History: liver disease PMH Narrative Past Medical History: No History, Except For Hx Cardiac Problems: Yes Hx Hypertension: Yes Hx Cancer: Yes Hx Gastrointestinal Problems: Yes - esophageal varices Hx Neurological Problems: No Social History: Denies: smoking, alcohol use, drug use, other Review of Systems All Other Systems: negative except mentioned in HPI Physical Exam Vital Signs Date Time Temp Pulse Resp B/P (MAP) Pulse Ox O2 Delivery O2 Flow Rate FiO2 02/15/18 03:06 97.0 108 20 118/71 98 Room Air 97.0 Sp02 EP Interpretation: reviewed, normal Labs Laboratory Tests Test 02/15/18 04:00 02/15/18 07:45 White Blood Count 13.2 K/UL (4.8-10.8) H Red Blood Count 2.39 M/UL (4.70-6.10) L Hemoglobin 6.6 G/DL (14.2-18.0) *L Hematocrit 20.9 % (42.0-52.0) L Mean Corpuscular Volume 88 FL (80-99) Mean Corpuscular Hemoglobin 27.6 PG (27.0-31.0) Mean Corpuscular Hemoglobin Concent 31.5 G/DL (32.0-36.0) L Red Cell Distribution Width 16.9 % (11.6-14.8) H Platelet Count 314 K/UL (150-450) Mean Platelet Volume 5.2 FL (6.5-10.1) L Neutrophils (%) (Auto) % (45.0-75.0) Lymphocytes (%) (Auto) % (20.0-45.0) Monocytes (%) (Auto) % (1.0-10.0) Eosinophils (%) (Auto) % (0.0-3.0) Basophils (%) (Auto) % (0.0-2.0) Prothrombin Time 14.7 SEC (9.30-11.50) H Prothromb Time International Ratio 1.4 (0.9-1.1) H Activated Partial Thromboplast Time 24 SEC (23-33) Sodium Level 138 MMOL/L (136-145) Potassium Level 5.9 MMOL/L (3.5-5.1) H Chloride Level 103 MMOL/L (98-107) Carbon Dioxide Level 19 MMOL/L (21-32) L Anion Gap 16 mmol/L (5-15) H Blood Urea Nitrogen 25 mg/dL (7-18) H Creatinine 1.4 MG/DL (0.55-1.30) H Estimat Glomerular Filtration Rate 51.0 mL/min (>60) Glucose Level 133 MG/DL (74-106) H Calcium Level 8.0 MG/DL (8.5-10.1) L Total Bilirubin 1.4 MG/DL (0.2-1.0) H Direct Bilirubin 0.9 MG/DL (0.0-0.3) H Aspartate Amino Transf (AST/SGOT) 170 U/L (15-37) H Alanine Aminotransferase (ALT/SGPT) 60 U/L (12-78) Alkaline Phosphatase 239 U/L (46-116) H Troponin I 0.007 ng/mL (0.000-0.056) Pro-B-Type Natriuretic Peptide 229 pg/mL (0-125) H Total Protein 6.1 G/DL (6.4-8.2) L Albumin 1.8 G/DL (3.4-5.0) L Globulin 4.3 g/dL Albumin/Globulin Ratio 0.4 (1.0-2.7) L Urine Color Yellow Urine Appearance Clear Urine pH 5 (4.5-8.0) Urine Specific [place] 1.020 (1.005-1.035) Urine Protein 2+ (NEGATIVE) H Urine Glucose (UA) 1+ (NEGATIVE) H Urine Ketones 2+ (NEGATIVE) H Urine Occult Blood 4+ (NEGATIVE) H Urine Nitrite Negative (NEGATIVE) Urine Bilirubin Negative (NEGATIVE) Urine Urobilinogen 8 MG/DL (0.0-1.0) H Urine Leukocyte Esterase 1+ (NEGATIVE) H Urine RBC 20-30 /HPF (0 - 0) H Urine WBC 2-4 /HPF (0 - 0) Urine Squamous Epithelial Cells Occasional /LPF Urine Bacteria Occasional /HPF (NONE) General Appearance: well appearing, no apparent distress, alert, thin Head: normocephalic EENT: PERRL/EOMI, normal ENT inspection Neck: supple Respiratory: normal breath sounds, no respiratory distress Cardiovascular: normal rate Gastrointestinal: non tender, soft, distended Rectal: deferred Genitourinary: deferred Musculoskeletal: normal inspection, back normal Neurologic: normal inspection, alert, oriented x3, responsive Psychiatric: normal inspection, judgement/insight normal, memory normal Skin: normal inspection, normal color, no rash, warm/dry, palpation normal, well hydrated Lymphatic: normal inspection, no adenopathy Current Medications Current Medications Medications (Trade) Dose Ordered Sig/Candice Route PRN Reason Start Time Stop Time Status Last Admin Dose Admin Dextrose/Sodium Chloride 1,000 ml @ 75 mls/hr [id number] IV 02/15/18 10:00 03/17/18 09:59 Octreotide Acetate 500 mcg/ Sodium Chloride 500 ml @ 50 mls/hr Q10H IV 02/15/18 10:30 03/17/18 10:29 Pantoprazole 80 mg/Sodium Chloride 250 ml @ 25 mls/hr Q10H IV 02/15/18 10:45 03/17/18 10:44 Piperacillin Sod/ Tazobactam Sod 3.375 gm/Dextrose 110 ml @ 27.5 mls/hr EVERY 8 HOURS IVPB 02/15/18 14:00 02/20/18 13:59 Propranolol HCl (Inderal) 10 mg Q8HR ORAL 02/15/18 14:00 03/17/18 13:59 GI: Plan Problems: (1) Hepatitis-C (2) ETOH abuse (3) Upper GI bleeding (4) Esophageal varices (5) Severe anemia Plan EGD today. maintain NPO + IVFs ppt gtt octreotide gtt receiving 1 unit now will follow up with additional recs Discussed with Dr. Hartley. Thank you for this patient referral, we will follow. Arlet Menendez N.P. Feb 15, 2018 09:44
--- NOTE | 2018-02-15 10:42 | Diagnostic Imaging Report ---
Indication: Chest pain Technique: One view of the chest Comparison: 01/29/2018 Findings: A suboptimal inspiration. Left perihilar and basilar atelectatic changes are noted. Pneumatoceles in the right middle lower lung again demonstrated. Normal heart size. No acute infiltrates. No effusions Impression: Hypoventilatory exam with left basilar and perihilar atelectatic changes Chronic right pneumatoceles Negative for infiltrate or effusion
[2018-02-15] MEDS ORDERED: Pantoprazole 80 MG in NS 250 ML IV SCH (10:45)
[2018-02-15] MEDS: D5NS 1,000 ML IV SCH ×2 (10:56→23:20)
[2018-02-15 11:01] LABS: BASOPHILS % (AUTO) 0.3 % (0.0-2.0); HEMATOCRIT 25.4 % (42.0-52.0); HEMOGLOBIN 8.3 G/DL (14.2-18.0); LYMPHOCYTES % (AUTO) 11.4 % (20.0-45.0); MEAN CORPUSCULAR VOLUME 86 FL (80-99); MONOCYTES % (AUTO) 8.8 % (1.0-10.0); NEUTROPHILS % (AUTO) 79.5 % (45.0-75.0); PLATELET COUNT 254 K/UL (150-450); RED BLOOD COUNT 2.94 M/UL (4.70-6.10); RED CELL DISTRIBUTION WIDTH 15.2 % (11.6-14.8); WHITE BLOOD COUNT 11.8 K/UL (4.8-10.8)
[2018-02-15] MEDS ORDERED: Lactulose 20gm/30ml UDC ORAL ONE (11:30)
[2018-02-15] MEDS ORDERED: Propofol 200mg/20ml IV ONE (12:30)
[2018-02-15] MEDS ORDERED: Midazolam 2mg/2ml Inj ONE (12:30)
[2018-02-15] MEDS ORDERED: fentaNYL 100 mcg/2 mL IV ONE (12:30)
[2018-02-15] MEDS ORDERED: NS 500ML IV ONE (12:35)
--- NOTE | 2018-02-15 12:41 | History & Physical ---
History and Physical History & Physicial Dictated for Int Med-Dr Gayle no. [id number]. ICU PUJA LONG Feb 15, 2018 12:41
--- NOTE | 2018-02-15 12:58 | Endoscopy Procedure Note ---
Endoscopy Procedure Note General Indication for Procedure: gib Procedures Performed: EGD Operative Findings/Diagnosis: GEJ ulcer Specimen: none Pt Tolerated Procedure Well: Yes Estimated Blood Loss: none Anesthesia Anesthesiologist: david Anesthesia: MAC Inserted Devices Implant(s) used?: No GI Core Measures 50 yrs or older w/o bx or poly: Not Applicable 10yrs. F/U not recommended: Not Applicable OZ PELLETIER Feb 15, 2018 12:58
--- NOTE | 2018-02-15 13:20 | Anethesia Preoperative Eval ---
Anesthesia Pre-op PMH/ROS General Date of Evaluation: Feb 15, 2018 Time of Evaluation: 12:21 Anesthesiologist: Ahmet ASA Score: ASA 4 Mallampati Score Class I : Soft palate, uvula, fauces, pillars visible Class II: Soft palate, uvula, fauces visible Class III: Soft palate, base of uvula visible Class IV: Only hard plate visible Mallampati Classification: Class III Surgeon: Odilia Diagnosis: Upper GI bleed Surgical Procedure: EGD possible banding Anesthesia History: none Social History: smoking - h/o, alcohol use - h/o abuse Family History: no anesthesia problems Allergies: Coded Allergies: IBUPROFEN (Unverified Allergy, Intermediate, 07/02/16) Past Medical History Cardiovascular: Reports: HTN; Denies: CAD, LA, valve dz, arrhythmia, other Pulmonary: Denies: asthma, COPD, CARLOS, other Gastrointestinal/Genitourinary: Reports: GERD, CRI, other - Liver cirrosis ascitis recurrent GI bleed Neurologic/Psychiatric: Reports: depression/anxiety; Denies: dementia, CVA, TIA, other Endocrine: Reports: hypothyroidism HEENT: Denies: cataract (L), cataract (R), glaucoma, [place] (L), [place] (R), other Hematology/Immune: Reports: anemia - severe posthemorrhagic anemia; Denies: DVT, bleeding disorder, other Musculoskeletal/Integumentary: Denies: OA, RA, DJD, DDD, edema, other Other: other - malnourished PMH Narrative: admitted for hematemesis, black stool PSxH Narrative: See H&P Anesthesia Pre-op Phys. Exam Physician Exam Last Vital Signs Date Time Temp Pulse Resp B/P (MAP) Pulse Ox O2 Delivery O2 Flow Rate FiO2 02/15/18 09:00 97.8 108 15 135/80 98 Room Air 97.8 Constitutional: NAD Neurologic: CN 2-12 intact Cardiovascular: no M/R/G Respiratory: CTA Gastrointestinal: other - distended Airway Exam Mallampati Score: Class III MO: limited Neck: stiff ROM: limited Teeth: missing, broken Dentures: no upper, no lower Anesthesia Pre-op A/P Labs Hematology Test 02/15/18 04:00 02/15/18 10:40 White Blood Count 13.2 K/UL (4.8-10.8) H 11.8 K/UL (4.8-10.8) H Red Blood Count 2.39 M/UL (4.70-6.10) L 2.94 M/UL (4.70-6.10) L Hemoglobin 6.6 G/DL (14.2-18.0) *L 8.3 G/DL (14.2-18.0) L Hematocrit 20.9 % (42.0-52.0) L 25.4 % (42.0-52.0) L Mean Corpuscular Volume 88 FL (80-99) 86 FL (80-99) Mean Corpuscular Hemoglobin 27.6 PG (27.0-31.0) 28.3 PG (27.0-31.0) Mean Corpuscular Hemoglobin Concent 31.5 G/DL (32.0-36.0) L 32.9 G/DL (32.0-36.0) Red Cell Distribution Width 16.9 % (11.6-14.8) H 15.2 % (11.6-14.8) H Platelet Count 314 K/UL (150-450) 254 K/UL (150-450) Mean Platelet Volume 5.2 FL (6.5-10.1) L 6.0 FL (6.5-10.1) L Neutrophils (%) (Auto) % (45.0-75.0) 79.5 % (45.0-75.0) H Lymphocytes (%) (Auto) % (20.0-45.0) 11.4 % (20.0-45.0) L Monocytes (%) (Auto) % (1.0-10.0) 8.8 % (1.0-10.0) Eosinophils (%) (Auto) % (0.0-3.0) 0.0 % (0.0-3.0) Basophils (%) (Auto) % (0.0-2.0) 0.3 % (0.0-2.0) Coagulation Test 02/15/18 04:00 Prothrombin Time 14.7 SEC (9.30-11.50) H Prothromb Time International Ratio 1.4 (0.9-1.1) H Activated Partial Thromboplast Time 24 SEC (23-33) Chemistry Test 02/15/18 04:00 Sodium Level 138 MMOL/L (136-145) Potassium Level 5.9 MMOL/L (3.5-5.1) H Chloride Level 103 MMOL/L (98-107) Carbon Dioxide Level 19 MMOL/L (21-32) L Anion Gap 16 mmol/L (5-15) H Blood Urea Nitrogen 25 mg/dL (7-18) H Creatinine 1.4 MG/DL (0.55-1.30) H Estimat Glomerular Filtration Rate 51.0 mL/min (>60) Glucose Level 133 MG/DL (74-106) H Calcium Level 8.0 MG/DL (8.5-10.1) L Total Bilirubin 1.4 MG/DL (0.2-1.0) H Direct Bilirubin 0.9 MG/DL (0.0-0.3) H Aspartate Amino Transf (AST/SGOT) 170 U/L (15-37) H Alanine Aminotransferase (ALT/SGPT) 60 U/L (12-78) Alkaline Phosphatase 239 U/L (46-116) H Troponin I 0.007 ng/mL (0.000-0.056) Pro-B-Type Natriuretic Peptide 229 pg/mL (0-125) H Total Protein 6.1 G/DL (6.4-8.2) L Albumin 1.8 G/DL (3.4-5.0) L Globulin 4.3 g/dL Albumin/Globulin Ratio 0.4 (1.0-2.7) L Risk Assessment & Plan Assessment: ASA 4 Plan: MAC with minimal sedation Status Change Before Surgery: No Pre-Antibiotics Drug: none CJ ALMONTE M.D. Feb 15, 2018 13:20
--- NOTE | 2018-02-15 13:22 | Immediate Post-Op Evaluation ---
Immediate Post-Op Evalulation Immediate Post-Op Evalulation Procedure: EGD Date of Evaluation: Feb 15, 2018 Time of Evaluation: 13:10 IV Fluids: 300 Blood Products: none Estimated Blood Loss: none Urinary Output: none Blood Pressure Systolic: 98 Blood Pressure Diastolic: 54 Pulse Rate: 86 Respiratory Rate: 22 O2 Sat by Pulse Oximetry: 98 Temperature (Fahrenheit): 97.5 Pain Score (1-10): 1 Nausea: No Vomiting: No Complications none Patient Status: reacts, patent, none Hydration Status: adequate CJ ALMONTE M.D. Feb 15, 2018 13:22
--- NOTE | 2018-02-15 13:23 | 48 Hour Post Anesthesia Eval ---
Post Anesthesia Evaluation Procedure: EGD Date of Evaluation: Feb 15, 2018 Time of Evaluation: 13:22 Blood Pressure Systolic: 104 0: 52 Pulse Rate: 76 Respiratory Rate: 20 Temperature (Fahrenheit): 97.6 O2 Sat by Pulse Oximetry: 98 Airway: patent Nausea: No Vomiting: No Pain Intensity: 2 Hydration Status: adequate Cardiopulmonary Status: stable Mental Status/LOC: patient returned to baseline Follow-up Care/Observations: n/a Post-Anesthesia Complications: none Follow-up care needed: N/A CJ ALMONTE M.D. Feb 15, 2018 13:23
[2018-02-15] MEDS ORDERED: Phytonadione 1 MG in D5W 55 ML IVPB ONE (13:45)
[2018-02-15] MEDS: Octreotide Acetate 500 MCG in Sodium Chloride 500ML 499 ML IV SCH ×2 (15:00→19:56)
[2018-02-15] MEDS: Piperacillin/Tazobactam 3.375 GM in D5W 110 ML IVPB SCH ×2 (15:13→22:44)
[2018-02-15] MEDS: Propranolol 10mg tab ORAL SCH ×2 (15:13→22:00)
--- NOTE | 2018-02-15 17:10 | Consultation ---
Consult Note Consult Note 63-year-old male, history of liver cirrhosis from alcoholism, history of esophageal varices, status post banding within the last month, presenting with hematemesis. Patient states that he vomited bright red blood, estimated 3 cups , denies any current melena. Not on any blood thinners. No abdominal pain. Allergies: Coded Allergies: IBUPROFEN (Unverified Allergy, Intermediate, 07/02/16) Patient History Past Medical History: see triage record Past Surgical History: none Pertinent Family History: none Reviewed Nursing Documentation: PMH: Agreed; PSxH: Agreed Nursing Documentation-PMH Past Medical History: No History, Except For Hx Cardiac Problems: Yes Hx Hypertension: Yes Hx Cancer: Yes Hx Gastrointestinal Problems: Yes Hx Neurological Problems: No Assessment/Plan (1) Upper GI bleeding (2) Severe anemia (3) History of esophageal varices with bleeding (4) Renal failure (5) Hyperkalemia (6) Hepatocellular carcinoma (7) Hepatitis-C (8) Esophageal varices (9) Tachycardia (10) ETOH abuse (11) Hepatic lesion per GI monitor renal parameters watch H&H avoid nephrotoxics per consultants HANNY MARCOS Feb 15, 2018 17:10
[2018-02-15] MEDS ORDERED: Hydromorphone 0.5mg/0.5ml inj IM PRN (17:15)
--- NOTE | 2018-02-15 18:12 | Cardiology Report ---
APPROVED REPORT EXAM: Two-dimensional and M-mode echocardiogram with Doppler and color Doppler. INDICATION Abnormal cardiac function study M-Mode DIMENSIONS IVSd1.0 (0.7-1.1cm)Left Atrium (MM)4.0 (1.6-4.0cm) LVDd4.5 (3.5-5.6cm)Aortic Root2.9 (2.0-3.7cm) PWd0.8 (0.7-1.1cm)Aortic Cusp Exc.2.0 (1.5-2.0cm) LVDs2.5 (2.5-4.0cm) PWs1.4 cm Technically difficult and limited study due to patient's resistance. Study quality precludes accurate assessment of regional wall motion. Normal left ventricular chamber size, systolic function and wall motion. Left ventricular ejection fraction estimated to be 55%. No evidence of left ventricular hypertrophy. No evidence of pericardial effusion. All other cardiac chamber sizes are within normal limits. Focal aortic valve sclerosis with adequate cusp excursion. Heavily thickened mitral valve leaflets with normal excursion. Mild mitral annulus and aortic root calcification. Normal pulmonic valve structure. Normal tricuspid valve structure. Subcostal views not obtainable. A color flow and spectral Doppler study was performed and revealed: Trace aortic insufficiency. Moderate mitral regurgitation. Mitral diastolic velocities suggest mild left ventricular diastolic dysfunction (Grade I). Mild tricuspid regurgitation. Tricuspid systolic velocities suggests peak right ventricular systolic pressure of 35 mmHg, consistent with mild pulmonary hypertension. Mild pulmonic regurgitation present.
--- NOTE | 2018-02-15 20:46 | Procedure Note ---
DATE OF PROCEDURE: 02/15/2018 SURGEON: Eduardo Hartley M.D. PROCEDURE: Upper endoscopy. ANESTHESIOLOGIST: Ismael Leo M.D. INSTRUMENT: Olympus adult flexible upper endoscope. INDICATION: Upper GI bleeding. REASON FOR PROCEDURE: The procedure, risks, benefits, and possible consequences, including hemorrhage, aspiration, perforation and infection, and alternative treatments, were explained to the patient/legal guardian by Dr. Eduardo Hartley and the patient/legal guardian understood and accepted these risks. DESCRIPTION OF PROCEDURE: After informed consent was obtained and the patient was adequately sedated, Olympus upper endoscope was advanced from mouth into the second portion of the duodenum and retroflexion was performed in the stomach. This examination was limited. There was some blood clot sitting in the stomach made GE junction evaluation little bit difficult. There was no obvious esophageal varices, bleeding at this time. The patient had banding about few weeks ago since there was some ulceration of the prior banding site but there was no obvious large varices with stigmata at this time to band. The patient most probably bled from the old ulcer from the old banding site especially the one at the GE junction. There was no oozing blood at this time. Given the location of this and difficulty of the doing hemostasis at this time, we decided to hold off on doing any injection or cauterization at this time. We performed retroflexion of the stomach looking for gastric varices, again there was some blood clot sitting there so examination was limited but we did not see any obvious gastric varices at this time. At this time, the scope was retrieved and procedure was terminated. SUMMARY OF FINDINGS: Ulcers at the GE junction from prior banding site most probably the source of bleeding. RECOMMENDATIONS: 1. Keep the patient NPO. 2. Continue on Protonix. 3. Continue on octreotide. 4. Check if keep hemoglobin above 7. 5. Consider rescoping if patient rebleeds again. Eduardo Hartley M.D. DR: Pham JOB#: [id number] CC:
[2018-02-15] MEDS ORDERED: Pantoprazole Inj IVP SCH (21:00)
[2018-02-15] MEDS: Pantoprazole Inj IVP SCH (21:00)
--- NOTE | 2018-02-15 21:01 | History and Physical Report ---
DATE OF ADMISSION: 02/15/2018 CHIEF COMPLAINT: The patient is a 63-year-old male, who presents with a chief complaint of vomiting blood. HISTORY OF PRESENT ILLNESS: The patient has a history of esophageal varices secondary to alcoholic cirrhosis. The patient also has a history of hepatitis C. The patient previously had esophageal varices banding. The patient was admitted to [facility] from 01/29/2018 to 02/01/2018. Please see history and physical and discharge summary dictated at that time. The patient states history of present illness began yesterday, 02/14/2018. The patient experienced vomiting of bright red blood. The patient states he vomited about three cups of blood. The patient presented to [facility] emergency room. The patient was admitted for upper gastrointestinal bleeding. PAST MEDICAL HISTORY: Significant for, 1. Hypertension. 2. History of hepatocellular cancer. 3. Liver cirrhosis. 4. Hepatitis C. 5. History of alcohol dependence. 6. History of esophageal varices. PAST SURGICAL HISTORY: Significant for esophageal varices banding as above. CURRENT MEDICATIONS: 1. Flonase two sprays in each nostril once daily. 2. Atarax 25 mg p.o. q.6 hours p.r.n. 3. Protonix 40 mg p.o. daily. 4. Propranolol 10 mg p.o. two to three times daily. 5. Vitamin B1. ALLERGIES: Ibuprofen. SOCIAL HISTORY: The patient is single. The patient admits to previous alcohol abuse. The patient denies current tobacco use. REVIEW OF SYSTEMS: CONSTITUTIONAL: The patient denies weight loss or weight gain. The patient denies fevers or chills. HEENT: The patient denies ear or throat pain. The patient denies headache. CARDIOVASCULAR: The patient denies palpitations or chest pain. CHEST: The patient denies wheeze or shortness of breath. ABDOMEN: The patient complains of vomiting bright red blood as above. The patient denies diarrhea or constipation. GENITOURINARY: The patient denies dysuria or increased frequency of urination. NEUROMUSCULAR: The patient denies seizures or generalized weakness. PHYSICAL EXAMINATION: VITAL SIGNS: Temperature 97.1, respirations 18, pulse 95, and blood pressure 143/64. GENERAL: The patient is a thin-appearing male, in no apparent distress. HEENT: Eyes, pupils are equal and responsive to light and accommodation. Extraocular movements are intact. NECK: Supple without lymphadenopathy. CHEST: Lungs are clear to auscultation bilaterally without wheezes or rales. CARDIOVASCULAR: Regular rhythm and rate. S1 and S2 are normal without murmurs, rubs, or gallops. ABDOMEN: Soft, nontender, and nondistended. Positive bowel sounds. No evidence of hepatosplenomegaly. Currently, no rebound or guarding noted. EXTREMITIES: Negative for clubbing, cyanosis, or edema. RECTAL/GENITAL: Refused. NEUROLOGIC: Cranial nerves II to XII are grossly intact without focal deficits. Motor strength is 5/5 bilaterally. Deep tendon reflexes are 2+ plantar. LABORATORY STUDIES: WBC 13.2, hemoglobin 6.6, hematocrit 28.9, and platelets 314,000. Sodium 138, potassium 5.9, chloride 103, CO2 19, BUN 25, creatinine 1.4, and glucose 133. Liver function tests were elevated with alkaline phosphatase of 239 and AST of 170. ASSESSMENT: This is a 63-year-old male. 1. Hematemesis. 2. Anemia of blood loss. 3. Hypertension. 4. Hepatic cirrhosis of the liver. 5. Hepatocellular carcinoma. 6. Hepatitis C. 7. Alcohol abuse. TREATMENT: 1. Hematemesis/cirrhosis/hepatocellular cancer/hepatitis C. A Gastroenterology consultation is pending with Dr. Eduardo Hartley. The patient may require emergent endoscopy. We will follow recommendations of Dr. Hartley. 2. Anemia of blood loss. The patient has been typed and crossed 4 units of packed RBCs for possible transfusion. 3. Hypertension. The patient is currently hypotensive. Continue propranolol as above. Nando Wolf M.D. DR: KATHI JOB#: [id number] CC:
[2018-02-15] MEDS: Hydromorphone 0.5mg/0.5ml inj IVP PRN (22:39)
[2018-02-16] VITALS (18 sets, daily range): BP systolic 114–158; BP diastolic 63–96
[2018-02-16] MEDS: Hydromorphone 0.5mg/0.5ml inj IVP PRN ×4 (02:28→21:58)
[2018-02-16 05:46] LABS: BASOPHILS % (AUTO) 0.3 % (0.0-2.0); EOSINOPHILS % (AUTO) 0.1 % (0.0-3.0); HEMATOCRIT 25.6 % (42.0-52.0); HEMOGLOBIN 8.4 G/DL (14.2-18.0); LYMPHOCYTES % (AUTO) 10.3 % (20.0-45.0); MEAN CORPUSCULAR VOLUME 85 FL (80-99); MONOCYTES % (AUTO) 9.8 % (1.0-10.0); NEUTROPHILS % (AUTO) 79.6 % (45.0-75.0); PLATELET COUNT 275 K/UL (150-450); RED CELL DISTRIBUTION WIDTH 15.7 % (11.6-14.8); WHITE BLOOD COUNT 16.5 K/UL (4.8-10.8)
[2018-02-16] MEDS: Piperacillin/Tazobactam 3.375 GM in D5W 110 ML IVPB SCH ×3 (05:51→21:41)
[2018-02-16] MEDS: Propranolol 10mg tab ORAL SCH ×3 (05:52→21:29)
[2018-02-16 05:53] LABS: INR 1.2 (0.9-1.1)
[2018-02-16 06:10] LABS: ALANINE AMINOTRANSFERASE 376 U/L (12-78); ALBUMIN 2.2 G/DL (3.4-5.0); ALBUMIN/GLOBULIN RATIO 0.5 (1.0-2.7); ALKALINE PHOSPHATASE 250 U/L (46-116); ANION GAP 11 mmol/L (5-15); ASPARTATE AMINO TRANSFERASE 1597 U/L (15-37); BILIRUBIN,TOTAL 1.9 MG/DL (0.2-1.0); BLOOD UREA NITROGEN 27 mg/dL (7-18); CALCIUM 8.1 MG/DL (8.5-10.1); CARBON DIOXIDE 24 MMOL/L (21-32); CHLORIDE 108 MMOL/L (98-107); POTASSIUM 4.3 MMOL/L (3.5-5.1); SODIUM 143 MMOL/L (136-145)
[2018-02-16 06:12] LABS: BILIRUBIN,DIRECT 1.3 MG/DL (0.0-0.3)
[2018-02-16 06:19] LABS: PHOSPHORUS 3.1 MG/DL (2.5-4.9)
--- NOTE | 2018-02-16 07:44 | General Progress Note ---
Assessment/Plan Assessment/Plan 1. UGI bleeding: S/P EGD 2. Acute Hepatic encephalopathy with hyperammonemia 3 Hepatic cirrhosis of the liver. 5. Hepatocellular carcinoma. 6. Hepatitis C. 7. Alcohol abuse. 8. Ascitis 8. GI-DVT prophylaxia Plan: avoid hepatotoxic meds Notes from GI-Nephro- reviewed Subjective ROS Limited/Unobtainable: Yes Allergies: Coded Allergies: IBUPROFEN (Unverified Allergy, Intermediate, 07/02/16) Objective Last 24 Hour Vital Signs Date Time Temp Pulse Resp B/P (MAP) Pulse Ox O2 Delivery O2 Flow Rate FiO2 02/16/18 06:00 80 15 114/63 100 Room Air 02/16/18 05:52 80 156/88 02/16/18 05:00 82 15 157/86 100 Room Air 02/16/18 04:00 98.1 93 17 158/88 100 Room Air 98.1 02/16/18 04:00 93 02/16/18 03:00 89 15 148/83 100 Room Air 02/16/18 03:00 97.6 02/16/18 02:28 97.6 02/16/18 02:00 88 15 157/81 100 Room Air 02/16/18 01:00 90 15 148/81 100 Room Air 02/16/18 00:00 86 02/16/18 00:00 86 15 137/77 100 Room Air 02/15/18 23:00 80 21 124/75 100 Room Air 02/15/18 22:39 97.2 02/15/18 22:00 83 17 135/75 99 Room Air 02/15/18 22:00 85 135/75 02/15/18 21:00 83 19 182/83 99 Room Air 02/15/18 20:00 97.6 96 23 183/92 98 Room Air 97.6 02/15/18 19:00 86 21 153/86 100 Room Air 02/15/18 18:00 79 24 147/93 100 Room Air 02/15/18 17:48 97.8 02/15/18 17:18 97.8 02/15/18 17:00 80 24 142/84 100 Room Air 02/15/18 16:00 80 02/15/18 16:00 83 16 144/84 100 Room Air 02/15/18 15:13 85 120/79 02/15/18 15:00 84 16 126/72 100 Room Air 02/15/18 14:00 89 18 136/76 100 Room Air 02/15/18 13:23 207.7 76 20 98 02/15/18 13:22 207.5 86 22 98 02/15/18 13:00 91 18 143/64 100 Room Air 02/15/18 11:00 93 19 128/61 100 Room Air 02/15/18 10:00 94 17 140/71 100 Room Air 02/15/18 09:00 97.6 100 18 123/70 100 Room Air 97.6 02/15/18 09:00 97.8 108 15 135/80 98 Room Air 97.8 02/15/18 09:00 100 02/15/18 08:50 97.8 108 15 97.8 02/15/18 08:35 97.7 109 19 97.7 02/15/18 08:00 97.7 102 0 97.7 Intake and Output 02/15/18 02/16/18 19:00 07:00 Intake Total 2115.5 ml 1420 ml Output Total 450 ml 475 ml Balance 1665.5 ml 945 ml Intake IV Total 865.5 ml 1420 ml Blood Product 1250 ml Output Urine Total 450 ml 475 ml # Voids 1 # Bowel Movements 3 7 Laboratory Tests 02/15/18 07:45: Urine Color Yellow, Urine Appearance Clear, Urine pH 5, Urine Specific Randolph 1.020, Urine Protein 2+H, Urine Glucose (UA) 1+H, Urine Ketones 2+H, Urine Occult Blood 4+H, Urine Nitrite Negative, Urine Bilirubin Negative, Urine Urobilinogen 8H, Urine Leukocyte Esterase 1+H, Urine RBC 20-30H, Urine WBC 2-4, Urine Squamous Epithelial Cells Occasional, Urine Bacteria Occasional 02/15/18 09:13: Arterial Blood pH 7.460H, Arterial Blood Partial Pressure CO2 29.2L, Arterial Blood Partial Pressure O2 96.4, Arterial Blood HCO3 20.7L, Arterial Blood Oxygen Saturation 97.1, Arterial Blood Base Excess -2.5, Noah Test Positive 02/15/18 10:40: White Blood Count 11.8H, Red Blood Count 2.94L, Hemoglobin 8.3L, Hematocrit 25.4L, Mean Corpuscular Volume 86, Mean Corpuscular Hemoglobin 28.3, Mean Corpuscular Hemoglobin Concent 32.9, Red Cell Distribution Width 15.2H, Platelet Count 254, Mean Platelet Volume 6.0L, Neutrophils (%) (Auto) 79.5H, Lymphocytes (%) (Auto) 11.4L, Monocytes (%) (Auto) 8.8, Eosinophils (%) (Auto) 0.0, Basophils (%) (Auto) 0.3 02/15/18 18:05: Ammonia 54H 02/16/18 05:20: White Blood Count 16.5H, Red Blood Count 3.00L, Hemoglobin 8.4L, Hematocrit 25.6L, Mean Corpuscular Volume 85, Mean Corpuscular Hemoglobin 28.0, Mean Corpuscular Hemoglobin Concent 32.9, Red Cell Distribution Width 15.7H, Platelet Count 275, Mean Platelet Volume 5.8L, Neutrophils (%) (Auto) 79.6H, Lymphocytes (%) (Auto) 10.3L, Monocytes (%) (Auto) 9.8, Eosinophils (%) (Auto) 0.1, Basophils (%) (Auto) 0.3, Prothrombin Time 13.0H, Prothromb Time International Ratio 1.2H, Sodium Level 143, Potassium Level 4.3, Chloride Level 108H, Carbon Dioxide Level 24, Anion Gap 11, Blood Urea Nitrogen 27H, Creatinine 1.0, Estimat Glomerular Filtration Rate > 60, Glucose Level 127H, Uric Acid 4.8, Calcium Level 8.1L, Phosphorus Level 3.1, Magnesium Level 1.5L, Total Bilirubin 1.9H, Direct Bilirubin 1.3H, Aspartate Amino Transf (AST/SGOT) 1597H, Alanine Aminotransferase (ALT/SGPT) 376H, Alkaline Phosphatase 250H, Total Protein 6.6, Albumin 2.2L, Globulin 4.4, Albumin/Globulin Ratio 0.5L, Thyroid Stimulating Hormone (TSH) 0.343L Height (Feet): 5 Height (Inches): 10.00 Weight (Pounds): 133 General Appearance: no apparent distress EENT: scleral icterus Neck: supple Cardiovascular: normal rate Respiratory/Chest: lungs clear Abdomen: distended, other - shfiting dullness Extremities: other - attrophied muscles Neurologic: disoriented Jack Gayle MD Feb 16, 2018 07:44
[2018-02-16] MEDS: Pantoprazole Inj IVP SCH ×2 (09:03→21:29)
[2018-02-16] MEDS: D5NS 1,000 ML IV SCH (11:58)
--- NOTE | 2018-02-16 12:05 | Nephrology Progress Note ---
Assessment/Plan Problem List: (1) Hyperkalemia (2) Renal failure Assessment (1) Upper GI bleeding (2) Severe anemia (3) History of esophageal varices with bleeding (4) Renal failure Cr of 1.4 on admit now wnl (5) Hyperkalemia, resolved (6) Hepatocellular carcinoma (7) Hepatitis-C (8) Esophageal varices (9) Tachycardia (10) ETOH abuse (11) Hepatic lesion Plan per GI watch H&H and Renal parameters Subjective ROS Limited/Unobtainable: No Constitutional: Reports: malaise Objective Objective Last 24 Hour Vital Signs Date Time Temp Pulse Resp B/P (MAP) Pulse Ox O2 Delivery O2 Flow Rate FiO2 02/16/18 11:00 99.0 91 16 152/92 100 Nasal Cannula 2.0 99.0 02/16/18 10:00 86 14 138/78 100 Nasal Cannula 2.0 02/16/18 09:00 86 15 136/78 100 Nasal Cannula 2.0 02/16/18 08:00 84 18 135/77 100 Nasal Cannula 2.0 02/16/18 07:26 91 02/16/18 07:00 98.0 89 18 156/89 100 Nasal Cannula 2.0 98.0 02/16/18 06:00 80 15 114/63 100 Room Air 02/16/18 05:52 80 156/88 02/16/18 05:00 82 15 157/86 100 Room Air 02/16/18 04:00 98.1 93 17 158/88 100 Room Air 98.1 02/16/18 04:00 93 02/16/18 03:00 89 15 148/83 100 Room Air 02/16/18 03:00 97.6 02/16/18 02:28 97.6 02/16/18 02:00 88 15 157/81 100 Room Air 02/16/18 01:00 90 15 148/81 100 Room Air 02/16/18 00:00 86 02/16/18 00:00 86 15 137/77 100 Room Air 02/15/18 23:00 80 21 124/75 100 Room Air 02/15/18 22:39 97.2 02/15/18 22:00 83 17 135/75 99 Room Air 02/15/18 22:00 85 135/75 02/15/18 21:00 83 19 182/83 99 Room Air 02/15/18 20:00 97.6 96 23 183/92 98 Room Air 97.6 02/15/18 19:00 86 21 153/86 100 Room Air 02/15/18 18:00 79 24 147/93 100 Room Air 02/15/18 17:48 97.8 02/15/18 17:18 97.8 02/15/18 17:00 80 24 142/84 100 Room Air 02/15/18 16:00 80 02/15/18 16:00 83 16 144/84 100 Room Air 02/15/18 15:13 85 120/79 02/15/18 15:00 84 16 126/72 100 Room Air 02/15/18 14:00 89 18 136/76 100 Room Air 02/15/18 13:23 207.7 76 20 98 02/15/18 13:22 207.5 86 22 98 02/15/18 13:00 91 18 143/64 100 Room Air Intake and Output 02/15/18 02/16/18 19:00 07:00 Intake Total 2115.5 ml 1420 ml Output Total 450 ml 475 ml Balance 1665.5 ml 945 ml Intake IV Total 865.5 ml 1420 ml Blood Product 1250 ml Output Urine Total 450 ml 475 ml # Voids 1 # Bowel Movements 3 7 Laboratory Tests 02/15/18 18:05: Ammonia 54H 02/16/18 05:20: White Blood Count 16.5H, Red Blood Count 3.00L, Hemoglobin 8.4L, Hematocrit 25.6L, Mean Corpuscular Volume 85, Mean Corpuscular Hemoglobin 28.0, Mean Corpuscular Hemoglobin Concent 32.9, Red Cell Distribution Width 15.7H, Platelet Count 275, Mean Platelet Volume 5.8L, Neutrophils (%) (Auto) 79.6H, Lymphocytes (%) (Auto) 10.3L, Monocytes (%) (Auto) 9.8, Eosinophils (%) (Auto) 0.1, Basophils (%) (Auto) 0.3, Prothrombin Time 13.0H, Prothromb Time International Ratio 1.2H, Sodium Level 143, Potassium Level 4.3, Chloride Level 108H, Carbon Dioxide Level 24, Anion Gap 11, Blood Urea Nitrogen 27H, Creatinine 1.0, Estimat Glomerular Filtration Rate > 60, Glucose Level 127H, Uric Acid 4.8, Calcium Level 8.1L, Phosphorus Level 3.1, Magnesium Level 1.5L, Total Bilirubin 1.9H, Direct Bilirubin 1.3H, Aspartate Amino Transf (AST/SGOT) 1597H, Alanine Aminotransferase (ALT/SGPT) 376H, Alkaline Phosphatase 250H, Total Protein 6.6, Albumin 2.2L, Globulin 4.4, Albumin/Globulin Ratio 0.5L, Thyroid Stimulating Hormone (TSH) 0.343L Height (Feet): 5 Height (Inches): 10.00 Weight (Pounds): 133 General Appearance: no apparent distress Objective no change HANNY MARCOS Feb 16, 2018 12:05
--- NOTE | 2018-02-16 12:12 | Pulmonolgy Critical Care Note ---
Critical Care - Asmt/Plan Problems: (1) Upper GI bleeding (2) Severe anemia (3) History of esophageal varices with bleeding (4) Renal failure (5) Hyperkalemia (6) Hepatocellular carcinoma (7) Hepatitis-C (8) Esophageal varices (9) Tachycardia (10) ETOH abuse (11) Hepatic lesion Respiratory: adjust FIO2 - titrate to keep SaO2 > 90% Cardiac: continue to monitor HR/BP Renal: F/U I&O, keep IV fluid, check electrolytes, other - F/U renal recs Infectious Disease: check cultures, continue antibiotics - Zosyn (D2), other - Monitor WCt Gastrointestinal: other - Octreotide, PPI, F/U GI recs, D/W Dr. Correa --> para eval, NPO until seen by GI, then advance diet if ok, trend LFT's Endocrine: monitor blood sugar Neurologic: keep patient comfortable Prophylaxis: Protonix, SCDs Disposition: keep in ICU Time Spent (Minutes): 40 Notes Reviewed: data management engineer, renal, GI Discussed with: nurses, consultants Critical Care - Objective Last 24 Hour Vital Signs Date Time Temp Pulse Resp B/P (MAP) Pulse Ox O2 Delivery O2 Flow Rate FiO2 02/16/18 11:00 99.0 91 16 152/92 100 Nasal Cannula 2.0 99.0 02/16/18 10:00 86 14 138/78 100 Nasal Cannula 2.0 02/16/18 09:00 86 15 136/78 100 Nasal Cannula 2.0 02/16/18 08:00 84 18 135/77 100 Nasal Cannula 2.0 02/16/18 07:26 91 02/16/18 07:00 98.0 89 18 156/89 100 Nasal Cannula 2.0 98.0 02/16/18 06:00 80 15 114/63 100 Room Air 02/16/18 05:52 80 156/88 02/16/18 05:00 82 15 157/86 100 Room Air 02/16/18 04:00 98.1 93 17 158/88 100 Room Air 98.1 02/16/18 04:00 93 02/16/18 03:00 89 15 148/83 100 Room Air 02/16/18 03:00 97.6 02/16/18 02:28 97.6 02/16/18 02:00 88 15 157/81 100 Room Air 02/16/18 01:00 90 15 148/81 100 Room Air 02/16/18 00:00 86 02/16/18 00:00 86 15 137/77 100 Room Air 02/15/18 23:00 80 21 124/75 100 Room Air 02/15/18 22:39 97.2 02/15/18 22:00 83 17 135/75 99 Room Air 02/15/18 22:00 85 135/75 02/15/18 21:00 83 19 182/83 99 Room Air 02/15/18 20:00 97.6 96 23 183/92 98 Room Air 97.6 02/15/18 19:00 86 21 153/86 100 Room Air 02/15/18 18:00 79 24 147/93 100 Room Air 02/15/18 17:48 97.8 02/15/18 17:18 97.8 02/15/18 17:00 80 24 142/84 100 Room Air 02/15/18 16:00 80 02/15/18 16:00 83 16 144/84 100 Room Air 02/15/18 15:13 85 120/79 02/15/18 15:00 84 16 126/72 100 Room Air 02/15/18 14:00 89 18 136/76 100 Room Air 02/15/18 13:23 207.7 76 20 98 02/15/18 13:22 207.5 86 22 98 02/15/18 13:00 91 18 143/64 100 Room Air Status: awake Condition: grave HEENT: atraumatic, normocephalic Neck: full ROM Lungs: clear Heart: HR/BP stable Abdomen: soft, non-tender, active bowel sounds, distended Extremities: no C/C/E Critical Care - Subjective ROS Limited/Unobtainable: Yes ICU Day: 2 Intubation Day: N/A Interval Events: S/P EGD some bleeding @ old banding site @ GEJ o/w now active EV WCt 16.5, LFT's worse Condition: critical IV Access: peripheral EKG Rhythm: Sinus Rhythm I&O: Intake and Output 02/15/18 02/16/18 19:00 07:00 Intake Total 2115.5 ml 1420 ml Output Total 450 ml 475 ml Balance 1665.5 ml 945 ml Intake IV Total 865.5 ml 1420 ml Blood Product 1250 ml Output Urine Total 450 ml 475 ml # Voids 1 # Bowel Movements 3 7 Subjective: Inc abd dist, + pain, no F/C, no NV, NPO, no cough/SOB, no F/C Labs: Laboratory Tests Test 02/15/18 18:05 02/16/18 05:20 Ammonia 54 umol/L (11-32) H White Blood Count 16.5 K/UL (4.8-10.8) H Red Blood Count 3.00 M/UL (4.70-6.10) L Hemoglobin 8.4 G/DL (14.2-18.0) L Hematocrit 25.6 % (42.0-52.0) L Mean Corpuscular Volume 85 FL (80-99) Mean Corpuscular Hemoglobin 28.0 PG (27.0-31.0) Mean Corpuscular Hemoglobin Concent 32.9 G/DL (32.0-36.0) Red Cell Distribution Width 15.7 % (11.6-14.8) H Platelet Count 275 K/UL (150-450) Mean Platelet Volume 5.8 FL (6.5-10.1) L Neutrophils (%) (Auto) 79.6 % (45.0-75.0) H Lymphocytes (%) (Auto) 10.3 % (20.0-45.0) L Monocytes (%) (Auto) 9.8 % (1.0-10.0) Eosinophils (%) (Auto) 0.1 % (0.0-3.0) Basophils (%) (Auto) 0.3 % (0.0-2.0) Prothrombin Time 13.0 SEC (9.30-11.50) H Prothromb Time International Ratio 1.2 (0.9-1.1) H Sodium Level 143 MMOL/L (136-145) Potassium Level 4.3 MMOL/L (3.5-5.1) Chloride Level 108 MMOL/L (98-107) H Carbon Dioxide Level 24 MMOL/L (21-32) Anion Gap 11 mmol/L (5-15) Blood Urea Nitrogen 27 mg/dL (7-18) H Creatinine 1.0 MG/DL (0.55-1.30) Estimat Glomerular Filtration Rate > 60 mL/min (>60) Glucose Level 127 MG/DL (74-106) H Uric Acid 4.8 MG/DL (2.6-7.2) Calcium Level 8.1 MG/DL (8.5-10.1) L Phosphorus Level 3.1 MG/DL (2.5-4.9) Magnesium Level 1.5 MG/DL (1.8-2.4) L Total Bilirubin 1.9 MG/DL (0.2-1.0) H Direct Bilirubin 1.3 MG/DL (0.0-0.3) H Aspartate Amino Transf (AST/SGOT) 1597 U/L (15-37) H Alanine Aminotransferase (ALT/SGPT) 376 U/L (12-78) H Alkaline Phosphatase 250 U/L (46-116) H Total Protein 6.6 G/DL (6.4-8.2) Albumin 2.2 G/DL (3.4-5.0) L Globulin 4.4 g/dL Albumin/Globulin Ratio 0.5 (1.0-2.7) L Thyroid Stimulating Hormone (TSH) 0.343 uiU/mL (0.358-3.740) PEE IQBAL M.D. Feb 16, 2018 12:12
--- NOTE | 2018-02-16 14:51 | GI Progress Note ---
Assessment/Plan Problems: (1) Hepatitis-C ICD Codes: B19.20 - Unspecified viral hepatitis C without hepatic coma SNOMED: 07593534 (2) ETOH abuse ICD Codes: F10.10 - Alcohol abuse, uncomplicated SNOMED: 30276943, 40487848 (3) Upper GI bleeding ICD Codes: K92.2 - Gastrointestinal hemorrhage, unspecified SNOMED: 77653091 (4) Severe anemia ICD Codes: D64.9 - Anemia, unspecified SNOMED: 966095593 Status: progressing Status Narrative Discussed with Dr. Hartley. Assessment/Plan sj/p EGD SUMMARY OF FINDINGS: Ulcers at the GE junction from prior banding site most probably the source of bleeding. RECOMMENDATIONS: NPO + IVFs, will consider advancing diet tomorrow cont ppi gtt + octreotide gtt monitor H&H, prn transfusion Hgb above 7. paracentesis >> r/o SBP fu labs consider rescoping if patient rebleeds again. Subjective Gastrointestinal/Abdominal: Reports: abdomen distended Objective Last 24 Hour Vital Signs Date Time Temp Pulse Resp B/P (MAP) Pulse Ox O2 Delivery O2 Flow Rate FiO2 02/16/18 14:20 100 145/109 02/16/18 14:00 87 18 154/81 100 Nasal Cannula 2.0 02/16/18 13:00 98 18 138/91 100 Nasal Cannula 2.0 02/16/18 12:00 90 14 138/96 100 Nasal Cannula 2.0 02/16/18 11:53 98 02/16/18 11:00 99.0 91 16 152/92 100 Nasal Cannula 2.0 99.0 02/16/18 10:00 86 14 138/78 100 Nasal Cannula 2.0 02/16/18 09:00 86 15 136/78 100 Nasal Cannula 2.0 02/16/18 08:00 84 18 135/77 100 Nasal Cannula 2.0 02/16/18 07:26 91 02/16/18 07:00 98.0 89 18 156/89 100 Nasal Cannula 2.0 98.0 02/16/18 06:00 80 15 114/63 100 Room Air 02/16/18 05:52 80 156/88 02/16/18 05:00 82 15 157/86 100 Room Air 02/16/18 04:00 98.1 93 17 158/88 100 Room Air 98.1 02/16/18 04:00 93 02/16/18 03:00 89 15 148/83 100 Room Air 02/16/18 03:00 97.6 02/16/18 02:28 97.6 02/16/18 02:00 88 15 157/81 100 Room Air 02/16/18 01:00 90 15 148/81 100 Room Air 02/16/18 00:00 86 02/16/18 00:00 86 15 137/77 100 Room Air 02/15/18 23:00 80 21 124/75 100 Room Air 02/15/18 22:39 97.2 02/15/18 22:00 83 17 135/75 99 Room Air 02/15/18 22:00 85 135/75 02/15/18 21:00 83 19 182/83 99 Room Air 02/15/18 20:00 97.6 96 23 183/92 98 Room Air 97.6 02/15/18 19:00 86 21 153/86 100 Room Air 02/15/18 18:00 79 24 147/93 100 Room Air 02/15/18 17:48 97.8 02/15/18 17:18 97.8 02/15/18 17:00 80 24 142/84 100 Room Air 02/15/18 16:00 80 02/15/18 16:00 83 16 144/84 100 Room Air 02/15/18 15:13 85 120/79 02/15/18 15:00 84 16 126/72 100 Room Air Intake and Output 02/15/18 02/16/18 19:00 07:00 Intake Total 2115.5 ml 1420 ml Output Total 450 ml 475 ml Balance 1665.5 ml 945 ml Intake IV Total 865.5 ml 1420 ml Blood Product 1250 ml Output Urine Total 450 ml 475 ml # Voids 1 # Bowel Movements 3 7 Laboratory Tests Test 02/15/18 18:05 02/16/18 05:20 Ammonia 54 umol/L (11-32) H White Blood Count 16.5 K/UL (4.8-10.8) H Red Blood Count 3.00 M/UL (4.70-6.10) L Hemoglobin 8.4 G/DL (14.2-18.0) L Hematocrit 25.6 % (42.0-52.0) L Mean Corpuscular Volume 85 FL (80-99) Mean Corpuscular Hemoglobin 28.0 PG (27.0-31.0) Mean Corpuscular Hemoglobin Concent 32.9 G/DL (32.0-36.0) Red Cell Distribution Width 15.7 % (11.6-14.8) H Platelet Count 275 K/UL (150-450) Mean Platelet Volume 5.8 FL (6.5-10.1) L Neutrophils (%) (Auto) 79.6 % (45.0-75.0) H Lymphocytes (%) (Auto) 10.3 % (20.0-45.0) L Monocytes (%) (Auto) 9.8 % (1.0-10.0) Eosinophils (%) (Auto) 0.1 % (0.0-3.0) Basophils (%) (Auto) 0.3 % (0.0-2.0) Prothrombin Time 13.0 SEC (9.30-11.50) H Prothromb Time International Ratio 1.2 (0.9-1.1) H Sodium Level 143 MMOL/L (136-145) Potassium Level 4.3 MMOL/L (3.5-5.1) Chloride Level 108 MMOL/L (98-107) H Carbon Dioxide Level 24 MMOL/L (21-32) Anion Gap 11 mmol/L (5-15) Blood Urea Nitrogen 27 mg/dL (7-18) H Creatinine 1.0 MG/DL (0.55-1.30) Estimat Glomerular Filtration Rate > 60 mL/min (>60) Glucose Level 127 MG/DL (74-106) H Uric Acid 4.8 MG/DL (2.6-7.2) Calcium Level 8.1 MG/DL (8.5-10.1) L Phosphorus Level 3.1 MG/DL (2.5-4.9) Magnesium Level 1.5 MG/DL (1.8-2.4) L Total Bilirubin 1.9 MG/DL (0.2-1.0) H Direct Bilirubin 1.3 MG/DL (0.0-0.3) H Aspartate Amino Transf (AST/SGOT) 1597 U/L (15-37) H Alanine Aminotransferase (ALT/SGPT) 376 U/L (12-78) H Alkaline Phosphatase 250 U/L (46-116) H Total Protein 6.6 G/DL (6.4-8.2) Albumin 2.2 G/DL (3.4-5.0) L Globulin 4.4 g/dL Albumin/Globulin Ratio 0.5 (1.0-2.7) L Thyroid Stimulating Hormone (TSH) 0.343 uiU/mL (0.358-3.740) Height (Feet): 5 Height (Inches): 10.00 Weight (Pounds): 133 General Appearance: WD/WN, no apparent distress, alert, thin Cardiovascular: normal rate Respiratory/Chest: normal breath sounds, no respiratory distress Abdominal Exam: normal bowel sounds, non tender, soft, distended - c/d/i Extremities: non-tender Arlet Menendez N.P. Feb 16, 2018 14:51
[2018-02-17] VITALS: BP 142/80
[2018-02-17] MEDS: D5NS 1,000 ML IV SCH ×3 (01:52→20:38)
[2018-02-17 04:00] VITALS: BP 148/84
[2018-02-17] MEDS: Piperacillin/Tazobactam 3.375 GM in D5W 110 ML IVPB SCH ×3 (05:46→22:12)
[2018-02-17] MEDS: Propranolol 10mg tab ORAL SCH ×3 (05:47→22:00)
[2018-02-17 08:00] VITALS: BP 114/54
--- NOTE | 2018-02-17 08:09 | Pulmonology Progress Note ---
Assessment/Plan Problems: (1) Esophageal varices (2) Upper GI bleeding (3) ETOH abuse (4) Hepatitis-C (5) Hepatic lesion Assessment/Plan -Stable from pulmonary standpoint -F/U GI recs: para, PPI, octreotide -Defer to GI Re: advancing diet -Continue Abx -F/U AML -DVT Px: SCD's -Will sign off and follow peripherally, please call with any questions Subjective Allergies: Coded Allergies: IBUPROFEN (Unverified Allergy, Intermediate, 07/02/16) Subjective AFVSS, tx'd to floor, awaiting AML Abd less distended, awaiting para No F/C/CP/SOB/N/V/D/C Objective Last 24 Hour Vital Signs Date Time Temp Pulse Resp B/P (MAP) Pulse Ox O2 Delivery O2 Flow Rate FiO2 02/17/18 08:00 98.0 66 17 114/54 97 98.0 02/17/18 05:47 80 148/84 02/17/18 04:00 97.9 80 19 148/84 99 Nasal Cannula 2.0 97.9 02/17/18 04:00 71 02/17/18 00:00 79 02/17/18 00:00 98.1 89 19 142/80 99 Nasal Cannula 2.0 98.1 02/16/18 21:29 87 144/83 02/16/18 20:00 87 02/16/18 20:00 98.2 87 20 144/83 100 Nasal Cannula 2.0 98.2 02/16/18 16:00 98 18 155/91 100 Nasal Cannula 2.0 02/16/18 15:44 104 02/16/18 15:00 98.2 102 18 155/89 100 Nasal Cannula 2.0 98.2 02/16/18 14:20 100 145/109 02/16/18 14:00 87 18 154/81 100 Nasal Cannula 2.0 02/16/18 13:00 98 18 138/91 100 Nasal Cannula 2.0 02/16/18 12:00 90 14 138/96 100 Nasal Cannula 2.0 02/16/18 11:53 98 02/16/18 11:00 99.0 91 16 152/92 100 Nasal Cannula 2.0 99.0 02/16/18 10:00 86 14 138/78 100 Nasal Cannula 2.0 02/16/18 09:00 86 15 136/78 100 Nasal Cannula 2.0 Intake and Output 02/16/18 02/17/18 19:00 07:00 Intake Total 1055.0 ml 432.5 ml Output Total 575 ml 750 ml Balance 480.0 ml -317.5 ml Intake IV Total 1055.0 ml 432.5 ml Output Urine Total 575 ml 750 ml # Voids 1 1 # Bowel Movements 2 General Appearance: no acute distress, cachetic HEENT: normocephalic, atraumatic, other - icteric sclera Respiratory/Chest: chest wall non-tender, lungs clear, normal breath sounds, no respiratory distress Cardiovascular: normal peripheral pulses, normal rate, regular rhythm Abdomen: normal bowel sounds, soft, non tender, no organomegaly, distended Extremities: no cyanosis, no clubbing, no edema Microbiology Date/Time Source Procedure Growth Status 02/15/18 10:40 Blood Blood Culture - Preliminary NO GROWTH AFTER 24 HOURS Resulted 02/15/18 10:25 Blood Blood Culture - Preliminary NO GROWTH AFTER 24 HOURS Resulted Current Medications Medications (Trade) Dose Ordered Sig/Candice Route PRN Reason Start Time Stop Time Status Last Admin Dose Admin Dextrose/Sodium Chloride 1,000 ml @ 75 mls/hr [id number] IV 02/16/18 17:15 03/17/18 17:14 02/17/18 01:52 Hydromorphone HCl (Dilaudid) 0.5 mg Q4H PRN IVP Moderate to Severe Pain 02/16/18 16:45 02/22/18 16:44 02/16/18 21:58 Pantoprazole (Protonix) 40 mg EVERY 12 HOURS IVP 02/16/18 21:00 03/17/18 20:59 02/16/18 21:29 Piperacillin Sod/ Tazobactam Sod 3.375 gm/Dextrose 110 ml @ 27.5 mls/hr EVERY 8 HOURS IVPB 02/16/18 22:00 02/21/18 21:59 02/17/18 05:46 Propranolol HCl (Inderal) 10 mg Q8HR ORAL 02/16/18 22:00 03/17/18 13:59 02/17/18 05:47 PEE IQBAL M.D. Feb 17, 2018 08:09
[2018-02-17] MEDS ORDERED: Lidocaine 1% MPF 10mg/ml 5ml INJ PRN (09:15)
[2018-02-17] MEDS: Pantoprazole Inj IVP SCH ×2 (09:15→22:11)
--- NOTE | 2018-02-17 10:15 | Nephrology Progress Note ---
Assessment/Plan Problem List: (1) Hyperkalemia (2) Renal failure Assessment (1) Upper GI bleeding (2) Severe anemia (3) History of esophageal varices with bleeding (4) Renal failure Cr of 1.4 on admit now wnl (5) Hyperkalemia, resolved (6) Hepatocellular carcinoma (7) Hepatitis-C (8) Esophageal varices (9) Tachycardia (10) ETOH abuse (11) Hepatic lesion Plan per GI watch H&H and Renal parameters Subjective ROS Limited/Unobtainable: No Constitutional: Reports: malaise Objective Objective Last 24 Hour Vital Signs Date Time Temp Pulse Resp B/P (MAP) Pulse Ox O2 Delivery O2 Flow Rate FiO2 02/17/18 08:00 98.0 66 17 114/54 97 98.0 02/17/18 05:47 80 148/84 02/17/18 04:00 97.9 80 19 148/84 99 Nasal Cannula 2.0 97.9 02/17/18 04:00 71 02/17/18 00:00 79 02/17/18 00:00 98.1 89 19 142/80 99 Nasal Cannula 2.0 98.1 02/16/18 21:29 87 144/83 02/16/18 20:00 87 02/16/18 20:00 98.2 87 20 144/83 100 Nasal Cannula 2.0 98.2 02/16/18 16:00 98 18 155/91 100 Nasal Cannula 2.0 02/16/18 15:44 104 02/16/18 15:00 98.2 102 18 155/89 100 Nasal Cannula 2.0 98.2 02/16/18 14:20 100 145/109 02/16/18 14:00 87 18 154/81 100 Nasal Cannula 2.0 02/16/18 13:00 98 18 138/91 100 Nasal Cannula 2.0 02/16/18 12:00 90 14 138/96 100 Nasal Cannula 2.0 02/16/18 11:53 98 02/16/18 11:00 99.0 91 16 152/92 100 Nasal Cannula 2.0 99.0 Intake and Output 02/16/18 02/17/18 19:00 07:00 Intake Total 1055.0 ml 432.5 ml Output Total 575 ml 750 ml Balance 480.0 ml -317.5 ml Intake IV Total 1055.0 ml 432.5 ml Output Urine Total 575 ml 750 ml # Voids 1 1 # Bowel Movements 2 Height (Feet): 5 Height (Inches): 10.00 Weight (Pounds): 132 Cardiovascular: normal rate Respiratory/Chest: decreased breath sounds Abdomen: distended, other - ascitis Objective no change HANNY MARCOS Feb 17, 2018 10:15
--- NOTE | 2018-02-17 10:25 | Pre-Procedure Note/Attestation ---
Pre-Procedure Note/Attestation Complete Prior to Procedure Planned Procedure: not applicable Procedure Narrative: US guided paracentesis Indications for Procedure Pre-Operative Diagnosis: ascites Attestation I attest that I discussed the nature of the procedure; its benefits; risks and complications; and alternatives (and the risks and benefits of such alternatives ), prior to the procedure, with the patient (or the patient's legal delivery representative). I attest that, if there was a reasonable possibility of needing a blood transfusion, the patient (or the patient's legal delivery representative) was given the [facility] standardized written summary, pursuant to the [place] Blood Safety Act ([place] Health and Safety Code # 1645, as amended). I attest that I re-evaluated the patient just prior to the surgery and that there has been no change in the patient's H&P, except as documented below: Discussed by phone with pt's sister Monica at [id number] CHRISTOPH HEWITT M.D. Feb 17, 2018 10:25
[2018-02-17] MEDS: Hydromorphone 0.5mg/0.5ml inj IVP PRN ×3 (11:15→22:12)
--- NOTE | 2018-02-17 11:51 | Internal Med Progress Note ---
Subjective Date of Service: Feb 17, 2018 Physician Name Nando Long Attending Physician Jack Gayle MD Current Medications Medications (Trade) Dose Ordered Sig/Candice Route PRN Reason Start Time Stop Time Status Last Admin Dose Admin Dextrose/Sodium Chloride 1,000 ml @ 75 mls/hr [id number] IV 02/16/18 17:15 03/17/18 17:14 02/17/18 01:52 Hydromorphone HCl (Dilaudid) 0.5 mg Q4H PRN IVP Moderate to Severe Pain 02/16/18 16:45 02/22/18 16:44 02/17/18 11:15 Lidocaine (Xylocaine 1% MPF 5ml) 10 ml ONCE PRN INJ FOR PARACENTESIS 02/17/18 09:15 02/17/18 23:59 Pantoprazole (Protonix) 40 mg EVERY 12 HOURS IVP 02/16/18 21:00 03/17/18 20:59 02/17/18 09:15 Piperacillin Sod/ Tazobactam Sod 3.375 gm/Dextrose 110 ml @ 27.5 mls/hr EVERY 8 HOURS IVPB 02/16/18 22:00 02/21/18 21:59 02/17/18 05:46 Propranolol HCl (Inderal) 10 mg Q8HR ORAL 02/16/18 22:00 03/17/18 13:59 02/17/18 05:47 Allergies: Coded Allergies: IBUPROFEN (Unverified Allergy, Intermediate, 07/02/16) ROS Limited/Unobtainable: No Constitutional: Reports: no symptoms HEENT: Reports: no symptoms Cardiovascular: Reports: no symptoms Respiratory: Reports: no symptoms Gastrointestinal/Abdominal: Reports: abdomen distended, abdominal pain, nausea Genitourinary: Reports: no symptoms Neurologic/Psychiatric: Reports: no symptoms Subjective 63 YO M admitted with hematemesis and anemia. S/P EGD 02/15/18. Cover for Int Med-Dr Gayle. Await paracentesis. Objective Last Vital Signs Date Time Temp Pulse Resp B/P (MAP) Pulse Ox O2 Delivery O2 Flow Rate FiO2 02/17/18 08:00 98.0 66 17 114/54 97 98.0 02/17/18 04:00 Nasal Cannula 2.0 General Appearance: alert, mild distress, thin EENT: PERRL/EOMI, normal ENT inspection Neck: non-tender, normal alignment, supple, normal inspection Cardiovascular: normal peripheral pulses, normal rate, regular rhythm, no gallop/murmur, no JVD Respiratory/Chest: chest wall non-tender, lungs clear, normal breath sounds, no respiratory distress, no accessory muscle use Abdomen: decreased bowel sounds, distended, tender, hepatomegaly, splenomegaly Extremities: normal range of motion, non-tender 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 Complete 02/15/18 07:45 Rectum VRE Culture - Final NO VANCOMYCIN RESISTANT ENTEROCOCCUS ... Complete Intake and Output 02/16/18 02/17/18 19:00 07:00 Intake Total 1055.0 ml 432.5 ml Output Total 575 ml 750 ml Balance 480.0 ml -317.5 ml Intake IV Total 1055.0 ml 432.5 ml Output Urine Total 575 ml 750 ml # Voids 1 1 # Bowel Movements 2 Assessment/Plan Problem List: (1) Cirrhosis of liver (2) HTN (hypertension) (3) Hematemesis Assessment & Plan: S/P endoscopy 02/15/18-see GI note. (4) Esophageal varices Assessment & Plan: S/P banding (5) Severe anemia Assessment & Plan: Secondary to GI hemorrhage. S/P transfusion 2 units packed RBC (6) Hepatocellular carcinoma (7) Hepatitis-C (8) ETOH abuse (9) Upper GI bleeding (10) Ascites Assessment & Plan: Await paracentesis Status: not improved NANDO LONG Feb 17, 2018 11:51
--- NOTE | 2018-02-17 12:11 | GI Progress Note ---
Assessment/Plan Problems: (1) Hepatitis-C ICD Codes: B19.20 - Unspecified viral hepatitis C without hepatic coma SNOMED: 57928823 (2) ETOH abuse ICD Codes: F10.10 - Alcohol abuse, uncomplicated SNOMED: 62398161, 19620271 (3) Upper GI bleeding ICD Codes: K92.2 - Gastrointestinal hemorrhage, unspecified SNOMED: 28490057 (4) Severe anemia ICD Codes: D64.9 - Anemia, unspecified SNOMED: 874581317 Status: progressing Status Narrative Discussed with Dr. Hartley. Assessment/Plan sj/p EGD SUMMARY OF FINDINGS: Ulcers at the GE junction from prior banding site most probably the source of bleeding. RECOMMENDATIONS: adv diet after paracentesis >> r/o SBP ppi BID, dc octreotide monitor H&H, prn transfusion Hgb above 7. fu labs consider rescoping if patient rebleeds again. Subjective Gastrointestinal/Abdominal: Reports: abdomen distended Objective Last 24 Hour Vital Signs Date Time Temp Pulse Resp B/P (MAP) Pulse Ox O2 Delivery O2 Flow Rate FiO2 02/17/18 08:00 98.0 66 17 114/54 97 98.0 02/17/18 05:47 80 148/84 02/17/18 04:00 97.9 80 19 148/84 99 Nasal Cannula 2.0 97.9 02/17/18 04:00 71 02/17/18 00:00 79 02/17/18 00:00 98.1 89 19 142/80 99 Nasal Cannula 2.0 98.1 02/16/18 21:29 87 144/83 02/16/18 20:00 87 02/16/18 20:00 98.2 87 20 144/83 100 Nasal Cannula 2.0 98.2 02/16/18 16:00 98 18 155/91 100 Nasal Cannula 2.0 02/16/18 15:44 104 02/16/18 15:00 98.2 102 18 155/89 100 Nasal Cannula 2.0 98.2 02/16/18 14:20 100 145/109 02/16/18 14:00 87 18 154/81 100 Nasal Cannula 2.0 02/16/18 13:00 98 18 138/91 100 Nasal Cannula 2.0 Intake and Output 02/16/18 02/17/18 19:00 07:00 Intake Total 1055.0 ml 432.5 ml Output Total 575 ml 750 ml Balance 480.0 ml -317.5 ml Intake IV Total 1055.0 ml 432.5 ml Output Urine Total 575 ml 750 ml # Voids 1 1 # Bowel Movements 2 Height (Feet): 5 Height (Inches): 10.00 Weight (Pounds): 132 General Appearance: WD/WN, no apparent distress, alert, thin Cardiovascular: normal rate Respiratory/Chest: normal breath sounds, no respiratory distress Abdominal Exam: normal bowel sounds, non tender, soft, distended Extremities: normal range of motion, non-tender Arlet Menendez N.P. Feb 17, 2018 12:11
--- NOTE | 2018-02-17 12:18 | Consultation ---
History of Present Illness General Date patient seen: Feb 17, 2018 Chief Complaint: Vomiting Referring physician: CONCHITA HERZOG Reason for Consultation: HEMATAEMESIS Present Illness HPI 63-year-old male, history of liver cirrhosis, alcoholism,esophageal varices, status post banding within the last month, presenting with hematemesis. the pt was agitated and somewhat confused. not refractable. the pt is having cognitive impairment Allergies: Coded Allergies: IBUPROFEN (Unverified Allergy, Intermediate, 07/02/16) Medication History Scheduled Pantoprazole* (Protonix*), 40 MG ORAL DAILY Propranolol HCl (Propranolol HCl), 10 MG ORAL BID Propranolol Hcl* (Inderal*), 10 MG ORAL THREE TIMES A DAY, (Reported) Thiamine Hcl* (Vitamin B-1*), 100 MG ORAL DAILY Miscellaneous Medications Fluticasone Propionate (Fluticasone Propionate), (Reported) Hydroxyzine HCl (Hydroxyzine HCl), (Reported) Patient History Limited by: medical condition History Provided By: Patient, Medical Record, PMD Healthcare decision maker none Resuscitation status Full Code Advanced Directive on File No Past Medical/Surgical History Past Medical/Surgical History: (1) Scabies (2) Back pain (3) Symptomatic anemia (4) Hyperkalemia (5) Renal failure (6) History of esophageal varices with bleeding (7) Severe anemia (8) Hepatocellular carcinoma (9) Esophageal varices (10) Tachycardia (11) Upper GI bleeding (12) ETOH abuse (13) Hepatitis-C (14) Hepatic lesion (15) Hematemesis (16) Cirrhosis of liver (17) HTN (hypertension) (18) Ascites Review of Systems Psychiatric: Reports: prior hx, anxiety, depressed feelings, emotional problems Physical Exam General Appearance: no apparent distress, alert, confused Last 24 Hour Vital Signs Date Time Temp Pulse Resp B/P (MAP) Pulse Ox O2 Delivery O2 Flow Rate FiO2 02/17/18 08:00 98.0 66 17 114/54 97 98.0 02/17/18 05:47 80 148/84 02/17/18 04:00 97.9 80 19 148/84 99 Nasal Cannula 2.0 97.9 02/17/18 04:00 71 02/17/18 00:00 79 02/17/18 00:00 98.1 89 19 142/80 99 Nasal Cannula 2.0 98.1 02/16/18 21:29 87 144/83 02/16/18 20:00 87 02/16/18 20:00 98.2 87 20 144/83 100 Nasal Cannula 2.0 98.2 02/16/18 16:00 98 18 155/91 100 Nasal Cannula 2.0 02/16/18 15:44 104 02/16/18 15:00 98.2 102 18 155/89 100 Nasal Cannula 2.0 98.2 02/16/18 14:20 100 145/109 02/16/18 14:00 87 18 154/81 100 Nasal Cannula 2.0 02/16/18 13:00 98 18 138/91 100 Nasal Cannula 2.0 Intake and Output 02/16/18 02/17/18 19:00 07:00 Intake Total 1055.0 ml 432.5 ml Output Total 575 ml 750 ml Balance 480.0 ml -317.5 ml Intake IV Total 1055.0 ml 432.5 ml Output Urine Total 575 ml 750 ml # Voids 1 1 # Bowel Movements 2 Height (Feet): 5 Height (Inches): 10.00 Weight (Pounds): 132 Medications Current Medications Medications (Trade) Dose Ordered Sig/Candice Route PRN Reason Start Time Stop Time Status Last Admin Dose Admin Dextrose/Sodium Chloride 1,000 ml @ 75 mls/hr [id number] IV 02/16/18 17:15 03/17/18 17:14 02/17/18 01:52 Hydromorphone HCl (Dilaudid) 0.5 mg Q4H PRN IVP Moderate to Severe Pain 02/16/18 16:45 02/22/18 16:44 02/17/18 11:15 Lidocaine (Xylocaine 1% MPF 5ml) 10 ml ONCE PRN INJ FOR PARACENTESIS 02/17/18 09:15 02/17/18 23:59 Pantoprazole (Protonix) 40 mg EVERY 12 HOURS IVP 02/16/18 21:00 03/17/18 20:59 02/17/18 09:15 Piperacillin Sod/ Tazobactam Sod 3.375 gm/Dextrose 110 ml @ 27.5 mls/hr EVERY 8 HOURS IVPB 02/16/18 22:00 02/21/18 21:59 02/17/18 05:46 Propranolol HCl (Inderal) 10 mg Q8HR ORAL 02/16/18 22:00 03/17/18 13:59 02/17/18 05:47 Assessment/Plan Assessment/Plan hepato-encephalopathy alcohol dependence -ativan prn -xyprexa 5mg po qhs Cecilia Mendez M.D. Feb 17, 2018 12:18
[2018-02-17] MEDS ORDERED: LORazepam 1mg tab ORAL PRN (12:45)
--- NOTE | 2018-02-17 12:52 | Diagnostic Imaging Report ---
Indications: Ascites Technique: Ultrasound used to localize optimal puncture site. Sterile prepping and draping . Local anesthesia with 1% lidocaine. Under real-time ultrasound guidance, puncture peritoneal space using paracentesis needle. Stylet removed. Catheter placed to vacuum bottle suction. Total 3.6 liters of blood-tinged fluid aspirated. Patient tolerated procedure well, without immediate complication. Specimen was sent to the for laboratory for analysis Findings: Followup sonography demonstrates complete resolution of peritoneal fluid. Impression: Successful ultrasound-guided paracentesis, yielding 3.6 liters of blood-tinged fluid
[2018-02-17 20:00] VITALS: BP 106/58
[2018-02-18] VITALS (7 sets, daily range): BP systolic 96–124; BP diastolic 54–72
[2018-02-18] MEDS: Hydromorphone 0.5mg/0.5ml inj IVP PRN ×4 (04:43→23:27)
[2018-02-18] MEDS: Piperacillin/Tazobactam 3.375 GM in D5W 110 ML IVPB SCH ×4 (05:43→21:06)
[2018-02-18] MEDS: Propranolol 10mg tab ORAL SCH ×3 (05:43→21:06)
[2018-02-18 07:35] LABS: HEMATOCRIT 24.2 % (42.0-52.0); HEMOGLOBIN 7.6 G/DL (14.2-18.0); MEAN CORPUSCULAR VOLUME 85 FL (80-99); PLATELET COUNT 176 K/UL (150-450); RED BLOOD COUNT 2.87 M/UL (4.70-6.10); RED CELL DISTRIBUTION WIDTH 14.7 % (11.6-14.8); WHITE BLOOD COUNT 12.4 K/UL (4.8-10.8)
[2018-02-18 07:44] LABS: ANION GAP 4 mmol/L (5-15); BLOOD UREA NITROGEN 18 mg/dL (7-18); CALCIUM 7.2 MG/DL (8.5-10.1); CARBON DIOXIDE 27 MMOL/L (21-32); CHLORIDE 107 MMOL/L (98-107); CREATININE 0.8 MG/DL (0.55-1.30); POTASSIUM 3.9 MMOL/L (3.5-5.1); SODIUM 138 MMOL/L (136-145)
[2018-02-18] MEDS: Pantoprazole Inj IVP SCH ×2 (08:52→20:11)
[2018-02-18] MEDS: D5NS 1,000 ML IV SCH ×2 (08:54→13:45)
[2018-02-18] MEDS ORDERED: Lomotil 2.5mg tab ORAL PRN ×2 (09:45→13:45)
--- NOTE | 2018-02-18 09:52 | Nephrology Progress Note ---
Assessment/Plan Problem List: (1) Hyperkalemia (2) Renal failure Assessment (1) Upper GI bleeding (2) Severe anemia (3) History of esophageal varices with bleeding (4) Renal failure Cr of 1.4 on admit now wnl (5) Hyperkalemia, resolved (6) Hepatocellular carcinoma (7) Hepatitis-C (8) Esophageal varices (9) Tachycardia (10) ETOH abuse (11) Hepatic lesion Plan per GI watch H&H and Renal parameters Subjective ROS Limited/Unobtainable: No Objective Objective Last 24 Hour Vital Signs Date Time Temp Pulse Resp B/P (MAP) Pulse Ox O2 Delivery O2 Flow Rate FiO2 02/18/18 08:00 97.0 68 22 96/54 95 Room Air 97.0 02/18/18 05:43 78 124/68 02/18/18 05:11 97.0 02/18/18 04:43 97.0 02/18/18 04:00 97.0 75 20 124/68 100 Nasal Cannula 2.0 97.0 02/18/18 04:00 78 02/18/18 00:00 72 02/18/18 00:00 97.0 79 20 105/61 96 Nasal Cannula 2.0 97.0 02/17/18 22:12 97.3 02/17/18 22:00 78 106/58 02/17/18 20:00 76 02/17/18 20:00 97.3 78 20 106/58 98 Nasal Cannula 2.0 97.3 02/17/18 17:43 66 114/54 02/17/18 16:00 64 Intake and Output 02/17/18 02/18/18 19:00 07:00 Intake Total 700 ml 200 ml Output Total 600 ml 1400 ml Balance 100 ml -1200 ml Intake Oral 700 ml 200 ml Output Urine Total 600 ml 1400 ml # Bowel Movements 1 Laboratory Tests 02/18/18 06:15: White Blood Count 12.4H, Red Blood Count 2.87L, Hemoglobin 7.6L, Hematocrit 24.2L, Mean Corpuscular Volume 85, Mean Corpuscular Hemoglobin 26.6L, Mean Corpuscular Hemoglobin Concent 31.5L, Red Cell Distribution Width 14.7, Platelet Count 176, Mean Platelet Volume 6.3L, Neutrophils (%) (Auto) , Lymphocytes (%) (Auto) , Monocytes (%) (Auto) , Eosinophils (%) (Auto) , Basophils (%) (Auto) , Neutrophils % (Manual) [Pending], Lymphocytes % (Manual) [Pending], Platelet Estimate [Pending], Platelet Morphology [Pending], Sodium Level 138, Potassium Level 3.9, Chloride Level 107, Carbon Dioxide Level 27, Anion Gap 4L, Blood Urea Nitrogen 18, Creatinine 0.8, Estimat Glomerular Filtration Rate > 60, Glucose Level 123H, Calcium Level 7.2L Height (Feet): 5 Height (Inches): 10.00 Weight (Pounds): 138 General Appearance: no apparent distress, lethargic Respiratory/Chest: decreased breath sounds Abdomen: distended Objective no change HANNY MARCOS Feb 18, 2018 09:52
--- NOTE | 2018-02-18 10:05 | GI Progress Note ---
Assessment/Plan Problems: (1) Hepatitis-C ICD Codes: B19.20 - Unspecified viral hepatitis C without hepatic coma SNOMED: 40282527 (2) ETOH abuse ICD Codes: F10.10 - Alcohol abuse, uncomplicated SNOMED: 18964849, 22580928 (3) Upper GI bleeding ICD Codes: K92.2 - Gastrointestinal hemorrhage, unspecified SNOMED: 89101778 (4) Severe anemia ICD Codes: D64.9 - Anemia, unspecified SNOMED: 831626997 Status: stable Status Narrative Discussed with Dr. Hartley. Assessment/Plan s/p EGD SUMMARY OF FINDINGS: Ulcers at the GE junction from prior banding site most probably the source of bleeding. s/p paracentesis yielding 3.7L blood tinged fluid >> r/o SBP RECOMMENDATIONS: adv diet ppi BID, dc octreotide monitor H&H, prn transfusion Hgb above 7. fu labs consider rescoping if patient rebleeds again. dc planning Subjective Subjective abdominal pain Objective Last 24 Hour Vital Signs Date Time Temp Pulse Resp B/P (MAP) Pulse Ox O2 Delivery O2 Flow Rate FiO2 02/18/18 08:00 97.0 68 22 96/54 95 Room Air 97.0 02/18/18 05:43 78 124/68 02/18/18 05:11 97.0 02/18/18 04:43 97.0 02/18/18 04:00 97.0 75 20 124/68 100 Nasal Cannula 2.0 97.0 02/18/18 04:00 78 02/18/18 00:00 72 02/18/18 00:00 97.0 79 20 105/61 96 Nasal Cannula 2.0 97.0 02/17/18 22:12 97.3 02/17/18 22:00 78 106/58 02/17/18 20:00 76 02/17/18 20:00 97.3 78 20 106/58 98 Nasal Cannula 2.0 97.3 02/17/18 17:43 66 114/54 02/17/18 16:00 64 Intake and Output 02/17/18 02/18/18 19:00 07:00 Intake Total 700 ml 200 ml Output Total 600 ml 1400 ml Balance 100 ml -1200 ml Intake Oral 700 ml 200 ml Output Urine Total 600 ml 1400 ml # Bowel Movements 1 Laboratory Tests Test 02/18/18 06:15 White Blood Count 12.4 K/UL (4.8-10.8) H Red Blood Count 2.87 M/UL (4.70-6.10) L Hemoglobin 7.6 G/DL (14.2-18.0) L Hematocrit 24.2 % (42.0-52.0) L Mean Corpuscular Volume 85 FL (80-99) Mean Corpuscular Hemoglobin 26.6 PG (27.0-31.0) L Mean Corpuscular Hemoglobin Concent 31.5 G/DL (32.0-36.0) L Red Cell Distribution Width 14.7 % (11.6-14.8) Platelet Count 176 K/UL (150-450) Mean Platelet Volume 6.3 FL (6.5-10.1) L Neutrophils (%) (Auto) % (45.0-75.0) Lymphocytes (%) (Auto) % (20.0-45.0) Monocytes (%) (Auto) % (1.0-10.0) Eosinophils (%) (Auto) % (0.0-3.0) Basophils (%) (Auto) % (0.0-2.0) Neutrophils % (Manual) Pending Lymphocytes % (Manual) Pending Platelet Estimate Pending Platelet Morphology Pending Sodium Level 138 MMOL/L (136-145) Potassium Level 3.9 MMOL/L (3.5-5.1) Chloride Level 107 MMOL/L (98-107) Carbon Dioxide Level 27 MMOL/L (21-32) Anion Gap 4 mmol/L (5-15) L Blood Urea Nitrogen 18 mg/dL (7-18) Creatinine 0.8 MG/DL (0.55-1.30) Estimat Glomerular Filtration Rate > 60 mL/min (>60) Glucose Level 123 MG/DL (74-106) H Calcium Level 7.2 MG/DL (8.5-10.1) L Height (Feet): 5 Height (Inches): 10.00 Weight (Pounds): 138 General Appearance: WD/WN, no apparent distress, alert, thin Cardiovascular: normal rate Respiratory/Chest: normal breath sounds, no respiratory distress Abdominal Exam: normal bowel sounds, non tender, soft, distended Extremities: normal range of motion, non-tender MenendezArlet N.P. Feb 18, 2018 10:05
[2018-02-18 12:42] LABS: ALANINE AMINOTRANSFERASE 219 U/L (12-78); ALBUMIN 1.9 G/DL (3.4-5.0); ALKALINE PHOSPHATASE 198 U/L (46-116); ASPARTATE AMINO TRANSFERASE 417 U/L (15-37); BILIRUBIN,DIRECT 1.5 MG/DL (0.0-0.3)
--- NOTE | 2018-02-18 13:16 | General Progress Note ---
Assessment/Plan Status: stable Assessment/Plan 1. UGI bleeding: S/P EGD 2. Acute Hepatic encephalopathy with hyperammonemia 3 Hepatic cirrhosis of the liver. 5. Hepatocellular carcinoma. 6. Hepatitis C. 7. Alcohol abuse. 8. Ascitis 8. GI-DVT prophylaxia Plan: avoid hepatotoxic meds Notes from GI-Nephro- reviewed Ok to Monitor HH in Med-Surge current management. Subjective ROS Limited/Unobtainable: Yes Allergies: Coded Allergies: IBUPROFEN (Unverified Allergy, Intermediate, 07/02/16) Objective Last 24 Hour Vital Signs Date Time Temp Pulse Resp B/P (MAP) Pulse Ox O2 Delivery O2 Flow Rate FiO2 02/18/18 08:00 76 02/18/18 08:00 97.0 68 22 96/54 95 Room Air 97.0 02/18/18 05:43 78 124/68 02/18/18 05:11 97.0 02/18/18 04:43 97.0 02/18/18 04:00 97.0 75 20 124/68 100 Nasal Cannula 2.0 97.0 02/18/18 04:00 78 02/18/18 00:00 72 02/18/18 00:00 97.0 79 20 105/61 96 Nasal Cannula 2.0 97.0 02/17/18 22:12 97.3 02/17/18 22:00 78 106/58 02/17/18 20:00 76 02/17/18 20:00 97.3 78 20 106/58 98 Nasal Cannula 2.0 97.3 02/17/18 17:43 66 114/54 02/17/18 16:00 64 Intake and Output 02/17/18 02/18/18 19:00 07:00 Intake Total 700 ml 200 ml Output Total 600 ml 1400 ml Balance 100 ml -1200 ml Intake Oral 700 ml 200 ml Output Urine Total 600 ml 1400 ml # Bowel Movements 1 Laboratory Tests 02/18/18 06:15: White Blood Count 12.4H, Red Blood Count 2.87L, Hemoglobin 7.6L, Hematocrit 24.2L, Mean Corpuscular Volume 85, Mean Corpuscular Hemoglobin 26.6L, Mean Corpuscular Hemoglobin Concent 31.5L, Red Cell Distribution Width 14.7, Platelet Count 176, Mean Platelet Volume 6.3L, Neutrophils (%) (Auto) , Lymphocytes (%) (Auto) , Monocytes (%) (Auto) , Eosinophils (%) (Auto) , Basophils (%) (Auto) , Differential Total Cells Counted 100, Neutrophils % ( Manual) 64, Lymphocytes % (Manual) 20, Monocytes % (Manual) 16H, Eosinophils % ( Manual) 0, Basophils % (Manual) 0, Band Neutrophils 0, Platelet Estimate Adequate, Platelet Morphology Normal, Hypochromasia 1+, Anisocytosis 1+, Sodium Level 138, Potassium Level 3.9, Chloride Level 107, Carbon Dioxide Level 27, Anion Gap 4L, Blood Urea Nitrogen 18, Creatinine 0.8, Estimat Glomerular Filtration Rate > 60, Glucose Level 123H, Calcium Level 7.2L, Total Bilirubin 2.0H, Direct Bilirubin 1.5H, Aspartate Amino Transf (AST/SGOT) 417H, Alanine Aminotransferase (ALT/SGPT) 219H, Alkaline Phosphatase 198H, Total Protein 5.8L , Albumin 1.9L Height (Feet): 5 Height (Inches): 10.00 Weight (Pounds): 138 General Appearance: no apparent distress EENT: PERRL/EOMI, scleral icterus Neck: supple Cardiovascular: normal rate Respiratory/Chest: lungs clear Abdomen: soft Extremities: non-tender, other - loss of muscles 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
[2018-02-18] MEDS: Lactulose 20gm/30ml UDC ORAL SCH ×2 (17:19→17:23)
--- NOTE | 2018-02-18 19:18 | Cardiology Report ---
APPROVED REPORT EKG Measurement Heart [id number] ID [id number] Sinus tachycardia Nonspecific ST abnormality Abnormal ECG
--- NOTE | 2018-02-18 21:16 | General Progress Note ---
Assessment/Plan Status: stable, progressing Subjective Date patient seen: Feb 18, 2018 Neurologic/Psychiatric: Reports: anxiety, depressed Allergies: Coded Allergies: IBUPROFEN (Unverified Allergy, Intermediate, 07/02/16) Objective Last 24 Hour Vital Signs Date Time Temp Pulse Resp B/P (MAP) Pulse Ox O2 Delivery O2 Flow Rate FiO2 02/18/18 20:00 97.7 83 18 122/72 100 97.7 02/18/18 16:00 97.8 86 19 98/56 99 Room Air 97.8 86 02/18/18 15:42 98.0 02/18/18 15:12 98.0 02/18/18 14:00 99 100/58 02/18/18 14:00 98.0 99 18 100/58 100 Room Air 98.0 02/18/18 08:00 76 02/18/18 08:00 97.0 68 22 96/54 95 Room Air 97.0 02/18/18 05:43 78 124/68 02/18/18 05:11 97.0 02/18/18 04:43 97.0 02/18/18 04:00 97.0 75 20 124/68 100 Nasal Cannula 2.0 97.0 02/18/18 04:00 78 02/18/18 00:00 72 02/18/18 00:00 97.0 79 20 105/61 96 Nasal Cannula 2.0 97.0 02/17/18 22:12 97.3 02/17/18 22:00 78 106/58 Intake and Output 02/17/18 02/18/18 19:00 07:00 Intake Total 700 ml 200 ml Output Total 600 ml 1400 ml Balance 100 ml -1200 ml Intake Oral 700 ml 200 ml Output Urine Total 600 ml 1400 ml # Bowel Movements 1 Laboratory Tests 02/18/18 06:15: White Blood Count 12.4H, Red Blood Count 2.87L, Hemoglobin 7.6L, Hematocrit 24.2L, Mean Corpuscular Volume 85, Mean Corpuscular Hemoglobin 26.6L, Mean Corpuscular Hemoglobin Concent 31.5L, Red Cell Distribution Width 14.7, Platelet Count 176, Mean Platelet Volume 6.3L, Neutrophils (%) (Auto) , Lymphocytes (%) (Auto) , Monocytes (%) (Auto) , Eosinophils (%) (Auto) , Basophils (%) (Auto) , Differential Total Cells Counted 100, Neutrophils % ( Manual) 64, Lymphocytes % (Manual) 20, Monocytes % (Manual) 16H, Eosinophils % ( Manual) 0, Basophils % (Manual) 0, Band Neutrophils 0, Platelet Estimate Adequate, Platelet Morphology Normal, Hypochromasia 1+, Anisocytosis 1+, Sodium Level 138, Potassium Level 3.9, Chloride Level 107, Carbon Dioxide Level 27, Anion Gap 4L, Blood Urea Nitrogen 18, Creatinine 0.8, Estimat Glomerular Filtration Rate > 60, Glucose Level 123H, Calcium Level 7.2L, Total Bilirubin 2.0H, Direct Bilirubin 1.5H, Aspartate Amino Transf (AST/SGOT) 417H, Alanine Aminotransferase (ALT/SGPT) 219H, Alkaline Phosphatase 198H, Total Protein 5.8L , Albumin 1.9L Height (Feet): 5 Height (Inches): 10.00 Weight (Pounds): 138 General Appearance: no apparent distress, alert Cecilia Boswell M.D. Feb 18, 2018 21:16
[2018-02-19] MEDS: LORazepam 1mg tab ORAL PRN ×2 (02:05→09:11)
[2018-02-19] MEDS: D5NS 1,000 ML IV SCH (03:05)
[2018-02-19 04:15] VITALS: BP 118/67
[2018-02-19] MEDS: Piperacillin/Tazobactam 3.375 GM in D5W 110 ML IVPB SCH ×3 (04:56→21:34)
[2018-02-19] MEDS: Propranolol 10mg tab ORAL SCH ×3 (04:56→21:35)
[2018-02-19 06:21] LABS: BASOPHILS % (AUTO) 0.8 % (0.0-2.0); EOSINOPHILS % (AUTO) 0.1 % (0.0-3.0); HEMATOCRIT 26.5 % (42.0-52.0); HEMOGLOBIN 8.5 G/DL (14.2-18.0); LYMPHOCYTES % (AUTO) 11.5 % (20.0-45.0); MEAN CORPUSCULAR VOLUME 85 FL (80-99); MONOCYTES % (AUTO) 17.2 % (1.0-10.0); NEUTROPHILS % (AUTO) 70.4 % (45.0-75.0); PLATELET COUNT 226 K/UL (150-450); RED BLOOD COUNT 3.11 M/UL (4.70-6.10); RED CELL DISTRIBUTION WIDTH 15.1 % (11.6-14.8); WHITE BLOOD COUNT 14.5 K/UL (4.8-10.8)
[2018-02-19 06:55] LABS: ALANINE AMINOTRANSFERASE 163 U/L (12-78); ALBUMIN 1.8 G/DL (3.4-5.0); ALBUMIN/GLOBULIN RATIO 0.4 (1.0-2.7); ALKALINE PHOSPHATASE 229 U/L (46-116); ANION GAP 6 mmol/L (5-15); ASPARTATE AMINO TRANSFERASE 254 U/L (15-37); BILIRUBIN,TOTAL 2.5 MG/DL (0.2-1.0); BLOOD UREA NITROGEN 18 mg/dL (7-18); CALCIUM 7.5 MG/DL (8.5-10.1); CARBON DIOXIDE 27 MMOL/L (21-32); CHLORIDE 104 MMOL/L (98-107); CREATININE 0.9 MG/DL (0.55-1.30); POTASSIUM 3.6 MMOL/L (3.5-5.1); SODIUM 137 MMOL/L (136-145)
[2018-02-19 06:56] LABS: BILIRUBIN,DIRECT 1.9 MG/DL (0.0-0.3)
[2018-02-19] MEDS: Lactulose 20gm/30ml UDC ORAL SCH ×2 (08:26→17:22)
[2018-02-19] MEDS: Hydromorphone 0.5mg/0.5ml inj IVP PRN (08:26)
[2018-02-19] MEDS: Pantoprazole Inj IVP SCH ×2 (08:27→21:33)
[2018-02-19 08:37] VITALS: BP 125/66
--- NOTE | 2018-02-19 08:52 | Diagnostic Imaging Report ---
APPROVED REPORT CPT Code: 87145 Present Symptoms Shortness of breath BILATERAL: Imaging reveals a patent deep venous system bilaterally. There is no evidence of thrombus within the femoral, popliteal or tibial segments. The greater saphenous veins are also within normal limits. Doppler indicates normal spontaneous flow within these segments.
--- NOTE | 2018-02-19 09:09 | General Progress Note ---
Assessment/Plan Problem List: (1) Ascites ICD Codes: R18.8 - Other ascites SNOMED: 268938570 (2) HTN (hypertension) ICD Codes: I10 - Essential (primary) hypertension SNOMED: 05247863 (3) Cirrhosis of liver ICD Codes: K74.60 - Unspecified cirrhosis of liver SNOMED: 05366473 (4) Hepatitis-C ICD Codes: B19.20 - Unspecified viral hepatitis C without hepatic coma SNOMED: 24206719 (5) ETOH abuse ICD Codes: F10.10 - Alcohol abuse, uncomplicated SNOMED: 82318744, 97391990 (6) Upper GI bleeding ICD Codes: K92.2 - Gastrointestinal hemorrhage, unspecified SNOMED: 34961840 (7) Esophageal varices ICD Codes: I85.00 - Esophageal varices without bleeding SNOMED: 78392930 Assessment/Plan dc lomotil add xifaxan HL IV fu labs check ammonia level Subjective ROS Limited/Unobtainable: No Allergies: Coded Allergies: IBUPROFEN (Unverified Allergy, Intermediate, 07/02/16) Subjective confused poor po intake Objective Last 24 Hour Vital Signs Date Time Temp Pulse Resp B/P (MAP) Pulse Ox O2 Delivery O2 Flow Rate FiO2 02/19/18 08:37 97.2 78 18 125/66 98 Room Air 97.2 02/19/18 08:26 96.8 02/19/18 04:56 81 118/67 02/19/18 04:15 96.8 81 17 118/67 100 96.8 02/18/18 23:57 97.7 02/18/18 23:52 97.7 75 18 116/64 99 97.7 02/18/18 23:27 97.7 02/18/18 21:06 83 122/72 02/18/18 20:00 97.7 83 18 122/72 100 97.7 02/18/18 16:00 97.8 86 19 98/56 99 Room Air 97.8 86 02/18/18 15:12 98.0 02/18/18 14:00 99 100/58 02/18/18 14:00 98.0 99 18 100/58 100 Room Air 98.0 Intake and Output 02/18/18 02/19/18 19:00 07:00 Intake Total 400 ml 390 ml Output Total 300 ml 400 ml Balance 100 ml -10 ml Intake Oral 400 ml 240 ml IV Total 150 ml Output Urine Total 300 ml 400 ml Laboratory Tests 02/19/18 04:50: White Blood Count 14.5H, Red Blood Count 3.11L, Hemoglobin 8.5L, Hematocrit 26.5L, Mean Corpuscular Volume 85, Mean Corpuscular Hemoglobin 27.5, Mean Corpuscular Hemoglobin Concent 32.3, Red Cell Distribution Width 15.1H, Platelet Count 226, Mean Platelet Volume 5.5L, Neutrophils (%) (Auto) 70.4, Lymphocytes (%) (Auto) 11.5L, Monocytes (%) (Auto) 17.2H, Eosinophils (%) (Auto ) 0.1, Basophils (%) (Auto) 0.8, Sodium Level 137, Potassium Level 3.6, Chloride Level 104, Carbon Dioxide Level 27, Anion Gap 6, Blood Urea Nitrogen 18 , Creatinine 0.9, Estimat Glomerular Filtration Rate > 60, Glucose Level 107H, Calcium Level 7.5L, Total Bilirubin 2.5H, Direct Bilirubin 1.9H, Aspartate Amino Transf (AST/SGOT) 254H, Alanine Aminotransferase (ALT/SGPT) 163H, Alkaline Phosphatase 229H, Total Protein 6.5, Albumin 1.8L, Globulin 4.7, Albumin/Globulin Ratio 0.4L Height (Feet): 5 Height (Inches): 10.00 Weight (Pounds): 143 General Appearance: no apparent distress EENT: normal ENT inspection Neck: supple Cardiovascular: normal rate Respiratory/Chest: decreased breath sounds Abdomen: normal bowel sounds, non tender, soft Extremities: non-tender OZ PELLETIER Feb 19, 2018 09:09
[2018-02-19] MEDS ORDERED: D5NS 1000ml IV ONE (10:01)
[2018-02-19] MEDS ORDERED: Tubing IV Secondary IV ONE (10:01)
[2018-02-19] MEDS ORDERED: NS 275ml ONE (10:01)
[2018-02-19] MEDS: DiphenhydrAMINE 50mg/ml Inj IVP PRN ×2 (11:18→23:58)
--- NOTE | 2018-02-19 11:45 | Nephrology Progress Note ---
Assessment/Plan Problem List: (1) Hyperkalemia (2) Renal failure Assessment (1) Upper GI bleeding (2) Severe anemia (3) History of esophageal varices with bleeding (4) Renal failure Cr of 1.4 on admit now wnl (5) Hyperkalemia, resolved (6) Hepatocellular carcinoma (7) Hepatitis-C (8) Esophageal varices (9) Tachycardia (10) ETOH abuse (11) Hepatic lesion Plan per GI watch H&H and Renal parameters Subjective ROS Limited/Unobtainable: No Constitutional: Reports: malaise Objective Objective Last 24 Hour Vital Signs Date Time Temp Pulse Resp B/P (MAP) Pulse Ox O2 Delivery O2 Flow Rate FiO2 02/19/18 08:56 97.2 02/19/18 08:37 97.2 78 18 125/66 98 Room Air 97.2 02/19/18 08:26 96.8 02/19/18 04:56 81 118/67 02/19/18 04:15 96.8 81 17 118/67 100 96.8 02/18/18 23:52 97.7 75 18 116/64 99 97.7 02/18/18 23:27 97.7 02/18/18 21:06 83 122/72 02/18/18 20:00 97.7 83 18 122/72 100 97.7 02/18/18 16:00 97.8 86 19 98/56 99 Room Air 97.8 86 02/18/18 15:12 98.0 02/18/18 14:00 99 100/58 02/18/18 14:00 98.0 99 18 100/58 100 Room Air 98.0 Intake and Output 02/18/18 02/19/18 19:00 07:00 Intake Total 510.0 ml 390 ml Output Total 300 ml 400 ml Balance 210.0 ml -10 ml Intake Oral 400 ml 240 ml IV Total 110.0 ml 150 ml Output Urine Total 300 ml 400 ml Laboratory Tests 02/19/18 04:50: White Blood Count 14.5H, Red Blood Count 3.11L, Hemoglobin 8.5L, Hematocrit 26.5L, Mean Corpuscular Volume 85, Mean Corpuscular Hemoglobin 27.5, Mean Corpuscular Hemoglobin Concent 32.3, Red Cell Distribution Width 15.1H, Platelet Count 226, Mean Platelet Volume 5.5L, Neutrophils (%) (Auto) 70.4, Lymphocytes (%) (Auto) 11.5L, Monocytes (%) (Auto) 17.2H, Eosinophils (%) (Auto ) 0.1, Basophils (%) (Auto) 0.8, Sodium Level 137, Potassium Level 3.6, Chloride Level 104, Carbon Dioxide Level 27, Anion Gap 6, Blood Urea Nitrogen 18 , Creatinine 0.9, Estimat Glomerular Filtration Rate > 60, Glucose Level 107H, Calcium Level 7.5L, Total Bilirubin 2.5H, Direct Bilirubin 1.9H, Aspartate Amino Transf (AST/SGOT) 254H, Alanine Aminotransferase (ALT/SGPT) 163H, Alkaline Phosphatase 229H, Total Protein 6.5, Albumin 1.8L, Globulin 4.7, Albumin/Globulin Ratio 0.4L Height (Feet): 5 Height (Inches): 10.00 Weight (Pounds): 143 General Appearance: no apparent distress, lethargic Cardiovascular: normal rate Respiratory/Chest: decreased breath sounds Abdomen: distended Objective no change HANNY MARCOS Feb 19, 2018 11:45
[2018-02-19 12:22] VITALS: BP 121/80
--- NOTE | 2018-02-19 15:10 | General Progress Note ---
Assessment/Plan Status: stable Assessment/Plan manageable with meds cont current meds Subjective Date patient seen: Feb 19, 2018 Neurologic/Psychiatric: Reports: anxiety, emotional problems Allergies: Coded Allergies: IBUPROFEN (Unverified Allergy, Intermediate, 07/02/16) Objective Last 24 Hour Vital Signs Date Time Temp Pulse Resp B/P (MAP) Pulse Ox O2 Delivery O2 Flow Rate FiO2 02/19/18 14:00 83 121/80 02/19/18 12:22 98.0 83 16 121/80 99 Room Air 98.0 02/19/18 08:56 97.2 02/19/18 08:37 97.2 78 18 125/66 98 Room Air 97.2 02/19/18 08:26 96.8 02/19/18 04:56 81 118/67 02/19/18 04:15 96.8 81 17 118/67 100 96.8 02/18/18 23:52 97.7 75 18 116/64 99 97.7 02/18/18 23:27 97.7 02/18/18 21:06 83 122/72 02/18/18 20:00 97.7 83 18 122/72 100 97.7 02/18/18 16:00 97.8 86 19 98/56 99 Room Air 97.8 86 02/18/18 15:12 98.0 Intake and Output 02/18/18 02/19/18 19:00 07:00 Intake Total 510.0 ml 390 ml Output Total 300 ml 400 ml Balance 210.0 ml -10 ml Intake Oral 400 ml 240 ml IV Total 110.0 ml 150 ml Output Urine Total 300 ml 400 ml Laboratory Tests 02/19/18 04:50: White Blood Count 14.5H, Red Blood Count 3.11L, Hemoglobin 8.5L, Hematocrit 26.5L, Mean Corpuscular Volume 85, Mean Corpuscular Hemoglobin 27.5, Mean Corpuscular Hemoglobin Concent 32.3, Red Cell Distribution Width 15.1H, Platelet Count 226, Mean Platelet Volume 5.5L, Neutrophils (%) (Auto) 70.4, Lymphocytes (%) (Auto) 11.5L, Monocytes (%) (Auto) 17.2H, Eosinophils (%) (Auto ) 0.1, Basophils (%) (Auto) 0.8, Sodium Level 137, Potassium Level 3.6, Chloride Level 104, Carbon Dioxide Level 27, Anion Gap 6, Blood Urea Nitrogen 18 , Creatinine 0.9, Estimat Glomerular Filtration Rate > 60, Glucose Level 107H, Calcium Level 7.5L, Total Bilirubin 2.5H, Direct Bilirubin 1.9H, Aspartate Amino Transf (AST/SGOT) 254H, Alanine Aminotransferase (ALT/SGPT) 163H, Alkaline Phosphatase 229H, Total Protein 6.5, Albumin 1.8L, Globulin 4.7, Albumin/Globulin Ratio 0.4L Height (Feet): 5 Height (Inches): 10.00 Weight (Pounds): 143 General Appearance: no apparent distress, alert, confused, agitated Cecilia Boswell M.D. Feb 19, 2018 15:10
[2018-02-19 16:00] VITALS: BP 140/85
--- NOTE | 2018-02-19 17:33 | Internal Med Progress Note ---
Subjective Date of Service: Feb 19, 2018 Physician Name Nando Long Attending Physician Jack Gayle MD Current Medications Medications (Trade) Dose Ordered Sig/Candice Route PRN Reason Start Time Stop Time Status Last Admin Dose Admin Diphenhydramine HCl (Benadryl) 25 mg Q6H PRN IVP Itching 02/19/18 11:30 03/21/18 11:29 02/19/18 11:18 Hydromorphone HCl (Dilaudid) 0.5 mg Q4H PRN IVP Moderate to Severe Pain 02/18/18 14:00 02/22/18 13:59 02/19/18 08:26 Lactulose (Cephulac) 30 gm BID ORAL 02/18/18 18:00 03/20/18 17:59 02/19/18 17:22 Lorazepam (Ativan) 2 mg Q6H PRN ORAL For Anxiety 02/18/18 14:00 02/24/18 13:59 02/19/18 09:11 Olanzapine (ZyPREXA) 5 mg BEDTIME ORAL 02/18/18 21:00 03/19/18 20:59 02/18/18 20:12 Pantoprazole (Protonix) 40 mg EVERY 12 HOURS IVP 02/18/18 21:00 03/17/18 20:59 02/19/18 08:27 Piperacillin Sod/ Tazobactam Sod 3.375 gm/Dextrose 110 ml @ 27.5 mls/hr EVERY 8 HOURS IVPB 02/18/18 14:00 02/23/18 13:59 02/19/18 13:57 Propranolol HCl (Inderal) 10 mg Q8HR ORAL 02/18/18 14:00 03/17/18 13:59 02/19/18 14:00 Rifaximin (Xifaxan) 550 mg EVERY 12 HOURS ORAL 02/19/18 21:00 02/26/18 20:59 Allergies: Coded Allergies: IBUPROFEN (Unverified Allergy, Intermediate, 07/02/16) ROS Limited/Unobtainable: No Constitutional: Reports: no symptoms HEENT: Reports: no symptoms Cardiovascular: Reports: no symptoms Respiratory: Reports: no symptoms Gastrointestinal/Abdominal: Reports: abdominal pain Genitourinary: Reports: no symptoms Neurologic/Psychiatric: Reports: no symptoms Subjective 63 YO M admitted with hematemesis and anemia. S/P EGD 02/15/18. Cover for [facility]-Dr Gayle. S/P paracentesis 02/17/18. Objective Last Vital Signs Date Time Temp Pulse Resp B/P (MAP) Pulse Ox O2 Delivery O2 Flow Rate FiO2 02/19/18 16:00 96.8 81 18 140/85 97 96.8 02/19/18 12:22 Room Air 02/18/18 04:00 2.0 Laboratory Tests Test 02/19/18 04:50 White Blood Count 14.5 K/UL (4.8-10.8) H Red Blood Count 3.11 M/UL (4.70-6.10) L Hemoglobin 8.5 G/DL (14.2-18.0) L Hematocrit 26.5 % (42.0-52.0) L Mean Corpuscular Volume 85 FL (80-99) Mean Corpuscular Hemoglobin 27.5 PG (27.0-31.0) Mean Corpuscular Hemoglobin Concent 32.3 G/DL (32.0-36.0) Red Cell Distribution Width 15.1 % (11.6-14.8) H Platelet Count 226 K/UL (150-450) Mean Platelet Volume 5.5 FL (6.5-10.1) L Neutrophils (%) (Auto) 70.4 % (45.0-75.0) Lymphocytes (%) (Auto) 11.5 % (20.0-45.0) L Monocytes (%) (Auto) 17.2 % (1.0-10.0) H Eosinophils (%) (Auto) 0.1 % (0.0-3.0) Basophils (%) (Auto) 0.8 % (0.0-2.0) Sodium Level 137 MMOL/L (136-145) Potassium Level 3.6 MMOL/L (3.5-5.1) Chloride Level 104 MMOL/L (98-107) Carbon Dioxide Level 27 MMOL/L (21-32) Anion Gap 6 mmol/L (5-15) Blood Urea Nitrogen 18 mg/dL (7-18) Creatinine 0.9 MG/DL (0.55-1.30) Estimat Glomerular Filtration Rate > 60 mL/min (>60) Glucose Level 107 MG/DL (74-106) H Calcium Level 7.5 MG/DL (8.5-10.1) L Total Bilirubin 2.5 MG/DL (0.2-1.0) H Direct Bilirubin 1.9 MG/DL (0.0-0.3) H Aspartate Amino Transf (AST/SGOT) 254 U/L (15-37) H Alanine Aminotransferase (ALT/SGPT) 163 U/L (12-78) H Alkaline Phosphatase 229 U/L (46-116) H Total Protein 6.5 G/DL (6.4-8.2) Albumin 1.8 G/DL (3.4-5.0) L Globulin 4.7 g/dL Albumin/Globulin Ratio 0.4 (1.0-2.7) L Intake and Output 02/18/18 02/19/18 19:00 07:00 Intake Total 510.0 ml 390 ml Output Total 300 ml 400 ml Balance 210.0 ml -10 ml Intake Oral 400 ml 240 ml IV Total 110.0 ml 150 ml Output Urine Total 300 ml 400 ml Objective General Appearance: alert, mild distress, thin EENT: PERRL/EOMI, normal ENT inspection Neck: non-tender, normal alignment, supple, normal inspection Cardiovascular: normal peripheral pulses, normal rate, regular rhythm, no gallop/murmur, no JVD Respiratory/Chest: chest wall non-tender, lungs clear, normal breath sounds, no respiratory distress, no accessory muscle use Abdomen: decreased bowel sounds, distended, tender, hepatomegaly, splenomegaly Extremities: normal range of motion, non-tender 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 (4) Esophageal varices Assessment & Plan: S/P banding (5) Severe anemia Assessment & Plan: Secondary to GI hemorrhage. S/P transfusion 2 units packed RBC (6) Hepatocellular carcinoma (7) Hepatitis-C (8) ETOH abuse (9) Upper GI bleeding (10) Ascites Assessment & Plan: S/P paracentesis 02/17/18 Status: not improved NANDO LONG Feb 19, 2018 17:33
[2018-02-19 20:00] VITALS: BP 124/72
[2018-02-19 23:59] VITALS: BP 152/71
[2018-02-20 04:00] VITALS: BP 144/80
[2018-02-20] MEDS: Piperacillin/Tazobactam 3.375 GM in D5W 110 ML IVPB SCH ×3 (04:55→22:19)
[2018-02-20] MEDS: Propranolol 10mg tab ORAL SCH ×3 (04:59→22:19)
--- NOTE | 2018-02-20 07:39 | General Progress Note ---
Assessment/Plan Problem List: (1) Ascites ICD Codes: R18.8 - Other ascites SNOMED: 094348061 (2) HTN (hypertension) ICD Codes: I10 - Essential (primary) hypertension SNOMED: 08669524 (3) Cirrhosis of liver ICD Codes: K74.60 - Unspecified cirrhosis of liver SNOMED: 58445470 (4) Hepatitis-C ICD Codes: B19.20 - Unspecified viral hepatitis C without hepatic coma SNOMED: 91279166 (5) ETOH abuse ICD Codes: F10.10 - Alcohol abuse, uncomplicated SNOMED: 67697337, 69484913 (6) Upper GI bleeding ICD Codes: K92.2 - Gastrointestinal hemorrhage, unspecified SNOMED: 40726328 (7) Esophageal varices ICD Codes: I85.00 - Esophageal varices without bleeding SNOMED: 19638077 Assessment/Plan add lasix and aldactone monitor lytes fu oncology recs xifaxan HL IV fu labs check ammonia level Subjective ROS Limited/Unobtainable: Yes Allergies: Coded Allergies: IBUPROFEN (Unverified Allergy, Intermediate, 07/02/16) Subjective more alert poor po intake Objective Last 24 Hour Vital Signs Date Time Temp Pulse Resp B/P (MAP) Pulse Ox O2 Delivery O2 Flow Rate FiO2 02/20/18 04:59 79 144/80 02/20/18 04:00 97.3 79 19 144/80 100 97.3 02/19/18 23:59 97.7 79 18 152/71 96 Room Air 97.7 02/19/18 21:35 60 124/72 02/19/18 20:00 97.7 60 20 124/72 97 Room Air 97.7 02/19/18 16:00 96.8 81 18 140/85 97 96.8 02/19/18 14:00 83 121/80 02/19/18 12:22 98.0 83 16 121/80 99 Room Air 98.0 02/19/18 08:56 97.2 02/19/18 08:37 97.2 78 18 125/66 98 Room Air 97.2 02/19/18 08:26 96.8 Intake and Output 02/19/18 02/20/18 19:00 07:00 Intake Total 432.5 ml Output Total 250 ml 250 ml Balance 182.5 ml -250 ml Intake Oral 350 ml IV Total 82.5 ml Output Urine Total 250 ml 250 ml # Bowel Movements 1 Height (Feet): 5 Height (Inches): 10.00 Weight (Pounds): 142 General Appearance: no apparent distress EENT: normal ENT inspection Neck: supple Cardiovascular: normal rate Respiratory/Chest: decreased breath sounds Abdomen: normal bowel sounds, non tender, soft Extremities: non-tender OZ PELLETIER Feb 20, 2018 07:39
[2018-02-20 08:00] VITALS: BP 130/83
[2018-02-20] MEDS: Lactulose 20gm/30ml UDC ORAL SCH ×2 (08:48→18:07)
[2018-02-20] MEDS: LORazepam 1mg tab ORAL PRN (08:49)
[2018-02-20] MEDS: Spironolactone 50mg tab ORAL SCH (08:49)
[2018-02-20] MEDS: Dronabinol 2.5mg Cap ORAL SCH ×2 (08:49→18:07)
[2018-02-20] MEDS: Pantoprazole Inj IVP SCH ×2 (08:50→20:44)
[2018-02-20 09:03] LABS: BASOPHILS % (AUTO) 0.4 % (0.0-2.0); EOSINOPHILS % (AUTO) 0.2 % (0.0-3.0); HEMATOCRIT 27.5 % (42.0-52.0); HEMOGLOBIN 8.6 G/DL (14.2-18.0); LYMPHOCYTES % (AUTO) 12.6 % (20.0-45.0); MEAN CORPUSCULAR VOLUME 85 FL (80-99); MONOCYTES % (AUTO) 18.2 % (1.0-10.0); NEUTROPHILS % (AUTO) 68.6 % (45.0-75.0); PLATELET COUNT 317 K/UL (150-450); RED BLOOD COUNT 3.24 M/UL (4.70-6.10); RED CELL DISTRIBUTION WIDTH 15.2 % (11.6-14.8); WHITE BLOOD COUNT 15.2 K/UL (4.8-10.8)
[2018-02-20 09:24] LABS: AMMONIA 30 umol/L (11-32)
[2018-02-20 09:34] LABS: ALANINE AMINOTRANSFERASE 122 U/L (12-78); ALBUMIN 1.7 G/DL (3.4-5.0); ALBUMIN/GLOBULIN RATIO 0.3 (1.0-2.7); ALKALINE PHOSPHATASE 226 U/L (46-116); ANION GAP 9 mmol/L (5-15); ASPARTATE AMINO TRANSFERASE 164 U/L (15-37); BLOOD UREA NITROGEN 18 mg/dL (7-18); CARBON DIOXIDE 24 MMOL/L (21-32); CHLORIDE 105 MMOL/L (98-107); CREATININE 0.9 MG/DL (0.55-1.30); POTASSIUM 4.5 MMOL/L (3.5-5.1); SODIUM 138 MMOL/L (136-145)
[2018-02-20 09:35] LABS: BILIRUBIN,DIRECT 1.5 MG/DL (0.0-0.3)
--- NOTE | 2018-02-20 10:57 | Nephrology Progress Note ---
Assessment/Plan Problem List: (1) Hyperkalemia (2) Renal failure Assessment (1) Upper GI bleeding (2) Severe anemia (3) History of esophageal varices with bleeding (4) Renal failure Cr of 1.4 on admit now wnl (5) Hyperkalemia, resolved (6) Hepatocellular carcinoma (7) Hepatitis-C (8) Esophageal varices (9) Tachycardia (10) ETOH abuse (11) Hepatic lesion Plan per GI watch H&H and Renal parameters Subjective ROS Limited/Unobtainable: No Objective Objective Last 24 Hour Vital Signs Date Time Temp Pulse Resp B/P (MAP) Pulse Ox O2 Delivery O2 Flow Rate FiO2 02/20/18 08:00 97.0 81 19 130/83 97 97.0 02/20/18 04:59 79 144/80 02/20/18 04:00 97.3 79 19 144/80 100 97.3 02/19/18 23:59 97.7 79 18 152/71 96 Room Air 97.7 02/19/18 21:35 60 124/72 02/19/18 20:00 97.7 60 20 124/72 97 Room Air 97.7 02/19/18 16:00 96.8 81 18 140/85 97 96.8 02/19/18 14:00 83 121/80 02/19/18 12:22 98.0 83 16 121/80 99 Room Air 98.0 Intake and Output 02/19/18 02/20/18 19:00 07:00 Intake Total 432.5 ml Output Total 250 ml 250 ml Balance 182.5 ml -250 ml Intake Oral 350 ml IV Total 82.5 ml Output Urine Total 250 ml 250 ml # Bowel Movements 1 Laboratory Tests 02/20/18 06:20: White Blood Count 15.2H, Red Blood Count 3.24L, Hemoglobin 8.6L, Hematocrit 27.5L, Mean Corpuscular Volume 85, Mean Corpuscular Hemoglobin 26.5L, Mean Corpuscular Hemoglobin Concent 31.3L, Red Cell Distribution Width 15.2H, Platelet Count 317, Mean Platelet Volume 5.5L, Neutrophils (%) (Auto) 68.6, Lymphocytes (%) (Auto) 12.6L, Monocytes (%) (Auto) 18.2H, Eosinophils (%) (Auto ) 0.2, Basophils (%) (Auto) 0.4, Sodium Level 138, Potassium Level 4.5, Chloride Level 105, Carbon Dioxide Level 24, Anion Gap 9, Blood Urea Nitrogen 18 , Creatinine 0.9, Estimat Glomerular Filtration Rate > 60, Glucose Level 98, Calcium Level 8.0L, Total Bilirubin 3.0H, Direct Bilirubin 1.5H, Aspartate Amino Transf (AST/SGOT) 164H, Alanine Aminotransferase (ALT/SGPT) 122H, Alkaline Phosphatase 226H, Ammonia 30, Total Protein 6.9, Albumin 1.7L, Globulin 5.2, Albumin/Globulin Ratio 0.3L Height (Feet): 5 Height (Inches): 10.00 Weight (Pounds): 142 General Appearance: no apparent distress, confused Respiratory/Chest: decreased breath sounds Objective no change HANNY MARCOS Feb 20, 2018 10:57
[2018-02-20 12:00] VITALS: BP 154/75
[2018-02-20] MEDS: Hydromorphone 0.5mg/0.5ml inj IVP PRN (14:09)
--- NOTE | 2018-02-20 14:09 | Internal Med Progress Note ---
Subjective Date of Service: Feb 20, 2018 Physician Name Puja Long Attending Physician Jack Gayle MD Current Medications Medications (Trade) Dose Ordered Sig/Candice Route PRN Reason Start Time Stop Time Status Last Admin Dose Admin Diphenhydramine HCl (Benadryl) 25 mg Q6H PRN IVP Itching 02/19/18 11:30 03/21/18 11:29 02/19/18 23:58 Dronabinol (Marinol) 2.5 mg BID ORAL 02/20/18 09:00 03/22/18 08:59 02/20/18 08:49 Furosemide (Lasix) 20 mg DAILY IV 02/20/18 09:00 03/22/18 08:59 02/20/18 08:48 Hydromorphone HCl (Dilaudid) 0.5 mg Q4H PRN IVP Moderate to Severe Pain 02/18/18 14:00 02/22/18 13:59 02/19/18 08:26 Lactulose (Cephulac) 30 gm BID ORAL 02/18/18 18:00 03/20/18 17:59 02/20/18 08:48 Lorazepam (Ativan) 2 mg Q6H PRN ORAL For Anxiety 02/18/18 14:00 02/24/18 13:59 02/20/18 08:49 Olanzapine (ZyPREXA) 5 mg BEDTIME ORAL 02/18/18 21:00 03/19/18 20:59 02/19/18 21:33 Pantoprazole (Protonix) 40 mg EVERY 12 HOURS IVP 02/18/18 21:00 03/17/18 20:59 02/20/18 08:50 Piperacillin Sod/ Tazobactam Sod 3.375 gm/Dextrose 110 ml @ 27.5 mls/hr EVERY 8 HOURS IVPB 02/18/18 14:00 02/23/18 13:59 02/20/18 04:55 Propranolol HCl (Inderal) 10 mg Q8HR ORAL 02/18/18 14:00 03/17/18 13:59 02/20/18 04:59 Rifaximin (Xifaxan) 550 mg EVERY 12 HOURS ORAL 02/19/18 21:00 02/26/18 20:59 02/20/18 08:50 Spironolactone (Aldactone) 50 mg DAILY ORAL 02/20/18 09:00 03/22/18 08:59 02/20/18 08:49 Allergies: Coded Allergies: IBUPROFEN (Unverified Allergy, Intermediate, 07/02/16) ROS Limited/Unobtainable: No Constitutional: Reports: no symptoms HEENT: Reports: no symptoms Respiratory: Reports: no symptoms Gastrointestinal/Abdominal: Reports: abdomen distended, abdominal pain Genitourinary: Reports: no symptoms Neurologic/Psychiatric: Reports: no symptoms Subjective 63 YO M admitted with hematemesis and anemia. S/P EGD 02/15/18. Cover for Int [facility]-Dr Gayle. S/P paracentesis 02/17/18. Objective Last Vital Signs Date Time Temp Pulse Resp B/P (MAP) Pulse Ox O2 Delivery O2 Flow Rate FiO2 02/20/18 12:00 97.9 82 19 154/75 97 97.9 02/19/18 23:59 Room Air 02/18/18 04:00 2.0 Laboratory Tests Test 02/20/18 06:20 White Blood Count 15.2 K/UL (4.8-10.8) H Red Blood Count 3.24 M/UL (4.70-6.10) L Hemoglobin 8.6 G/DL (14.2-18.0) L Hematocrit 27.5 % (42.0-52.0) L Mean Corpuscular Volume 85 FL (80-99) Mean Corpuscular Hemoglobin 26.5 PG (27.0-31.0) L Mean Corpuscular Hemoglobin Concent 31.3 G/DL (32.0-36.0) L Red Cell Distribution Width 15.2 % (11.6-14.8) H Platelet Count 317 K/UL (150-450) Mean Platelet Volume 5.5 FL (6.5-10.1) L Neutrophils (%) (Auto) 68.6 % (45.0-75.0) Lymphocytes (%) (Auto) 12.6 % (20.0-45.0) L Monocytes (%) (Auto) 18.2 % (1.0-10.0) H Eosinophils (%) (Auto) 0.2 % (0.0-3.0) Basophils (%) (Auto) 0.4 % (0.0-2.0) Sodium Level 138 MMOL/L (136-145) Potassium Level 4.5 MMOL/L (3.5-5.1) Chloride Level 105 MMOL/L (98-107) Carbon Dioxide Level 24 MMOL/L (21-32) Anion Gap 9 mmol/L (5-15) Blood Urea Nitrogen 18 mg/dL (7-18) Creatinine 0.9 MG/DL (0.55-1.30) Estimat Glomerular Filtration Rate > 60 mL/min (>60) Glucose Level 98 MG/DL (74-106) Calcium Level 8.0 MG/DL (8.5-10.1) L Total Bilirubin 3.0 MG/DL (0.2-1.0) H Direct Bilirubin 1.5 MG/DL (0.0-0.3) H Aspartate Amino Transf (AST/SGOT) 164 U/L (15-37) H Alanine Aminotransferase (ALT/SGPT) 122 U/L (12-78) H Alkaline Phosphatase 226 U/L (46-116) H Ammonia 30 umol/L (11-32) Total Protein 6.9 G/DL (6.4-8.2) Albumin 1.7 G/DL (3.4-5.0) L Globulin 5.2 g/dL Albumin/Globulin Ratio 0.3 (1.0-2.7) L Intake and Output 02/19/18 02/20/18 19:00 07:00 Intake Total 432.5 ml Output Total 250 ml 250 ml Balance 182.5 ml -250 ml Intake Oral 350 ml IV Total 82.5 ml Output Urine Total 250 ml 250 ml # Bowel Movements 1 Objective General Appearance: alert, mild distress, thin EENT: PERRL/EOMI, normal ENT inspection Neck: non-tender, normal alignment, supple, normal inspection Cardiovascular: normal peripheral pulses, normal rate, regular rhythm, no gallop/murmur, no JVD Respiratory/Chest: chest wall non-tender, lungs clear, normal breath sounds, no respiratory distress, no accessory muscle use Abdomen: decreased bowel sounds, distended, tender, hepatomegaly, splenomegaly Extremities: normal range of motion, non-tender Neurologic: surveillance manager II-XII grossly normal, no motor/sensory deficits Skin: normal pigmentation, warm/dry Assessment/Plan Problem List: (1) Cirrhosis of liver (2) HTN (hypertension) (3) Hematemesis Assessment & Plan: S/P endoscopy 02/15/18-see GI note. (4) Esophageal varices Assessment & Plan: S/P banding (5) Severe anemia Assessment & Plan: Secondary to GI hemorrhage. S/P transfusion 2 units packed RBC (6) Hepatocellular carcinoma (7) Hepatitis-C (8) ETOH abuse (9) Upper GI bleeding (10) Ascites Assessment & Plan: S/P paracentesis 02/17/18 (11) Elevated liver enzymes Assessment & Plan: see GI note. Status: not improved PUJA LONG Feb 20, 2018 14:09
[2018-02-20 16:00] VITALS: BP 127/48
[2018-02-20 20:00] VITALS: BP 146/79
[2018-02-21] VITALS (7 sets, daily range): BP systolic 109–161; BP diastolic 54–87
[2018-02-21] MEDS: Hydromorphone 0.5mg/0.5ml inj IVP PRN ×2 (00:58→20:25)
[2018-02-21] MEDS: Propranolol 10mg tab ORAL SCH ×3 (05:35→22:00)
[2018-02-21] MEDS: Piperacillin/Tazobactam 3.375 GM in D5W 110 ML IVPB SCH ×3 (05:35→22:53)
[2018-02-21 07:23] LABS: INR 1.1 (0.9-1.1)
[2018-02-21 07:27] LABS: BASOPHILS % (AUTO) 0.6 % (0.0-2.0); EOSINOPHILS % (AUTO) 0.6 % (0.0-3.0); HEMATOCRIT 25.2 % (42.0-52.0); HEMOGLOBIN 8.3 G/DL (14.2-18.0); LYMPHOCYTES % (AUTO) 16.7 % (20.0-45.0); MEAN CORPUSCULAR VOLUME 85 FL (80-99); MONOCYTES % (AUTO) 14.3 % (1.0-10.0); NEUTROPHILS % (AUTO) 67.8 % (45.0-75.0); PLATELET COUNT 348 K/UL (150-450); RED BLOOD COUNT 2.98 M/UL (4.70-6.10); RED CELL DISTRIBUTION WIDTH 15.5 % (11.6-14.8); WHITE BLOOD COUNT 13.2 K/UL (4.8-10.8)
[2018-02-21 07:45] LABS: ALANINE AMINOTRANSFERASE 104 U/L (12-78); ALBUMIN 1.7 G/DL (3.4-5.0); ALBUMIN/GLOBULIN RATIO 0.3 (1.0-2.7); ALKALINE PHOSPHATASE 239 U/L (46-116); ANION GAP 10 mmol/L (5-15); ASPARTATE AMINO TRANSFERASE 125 U/L (15-37); BILIRUBIN,TOTAL 2.4 MG/DL (0.2-1.0); BLOOD UREA NITROGEN 20 mg/dL (7-18); CALCIUM 8.1 MG/DL (8.5-10.1); CARBON DIOXIDE 27 MMOL/L (21-32); CHLORIDE 105 MMOL/L (98-107); CREATININE 0.9 MG/DL (0.55-1.30); POTASSIUM 3.5 MMOL/L (3.5-5.1); SODIUM 141 MMOL/L (136-145)
[2018-02-21 07:47] LABS: BILIRUBIN,DIRECT 1.7 MG/DL (0.0-0.3)
--- NOTE | 2018-02-21 07:55 | General Progress Note ---
Assessment/Plan Problem List: (1) Ascites ICD Codes: R18.8 - Other ascites SNOMED: 262321453 (2) HTN (hypertension) ICD Codes: I10 - Essential (primary) hypertension SNOMED: 80630690 (3) Cirrhosis of liver ICD Codes: K74.60 - Unspecified cirrhosis of liver SNOMED: 86656799 (4) Hepatitis-C ICD Codes: B19.20 - Unspecified viral hepatitis C without hepatic coma SNOMED: 22372146 (5) ETOH abuse ICD Codes: F10.10 - Alcohol abuse, uncomplicated SNOMED: 02262574, 78222406 (6) Upper GI bleeding ICD Codes: K92.2 - Gastrointestinal hemorrhage, unspecified SNOMED: 27437621 (7) Esophageal varices ICD Codes: I85.00 - Esophageal varices without bleeding SNOMED: 33763728 Assessment/Plan add lasix and aldactone>> he is not taking any will reorder paracentesis monitor lytes fu oncology recs xifaxan fu labs check ammonia level not a candidiate for PEG given large ascites will pull NGT too so difficult case with poor po intake Subjective Allergies: Coded Allergies: IBUPROFEN (Unverified Allergy, Intermediate, 07/02/16) Subjective refusing meds getting out of bed now with a sitter poor po intake Objective Last 24 Hour Vital Signs Date Time Temp Pulse Resp B/P (MAP) Pulse Ox O2 Delivery O2 Flow Rate FiO2 02/21/18 05:35 79 149/79 02/21/18 04:00 97.5 79 18 149/79 97 Room Air 97.5 02/21/18 00:44 149/85 Room Air 02/21/18 00:00 98.1 87 20 161/87 96 98.1 02/20/18 22:19 85 138/75 02/20/18 20:00 97.2 87 19 146/79 98 97.2 02/20/18 20:00 Room Air 02/20/18 16:00 97.7 20 127/48 100 Room Air 97.7 02/20/18 16:00 Room Air 02/20/18 14:09 82 154/75 02/20/18 12:00 Room Air 02/20/18 12:00 97.9 82 19 154/75 97 97.9 02/20/18 08:00 97.0 81 19 130/83 97 97.0 02/20/18 08:00 Room Air Intake and Output 02/20/18 02/21/18 19:00 07:00 Intake Total 30 ml 197.5 ml Output Total 400 ml 800 ml Balance -370 ml -602.5 ml Intake Oral 30 ml 60 ml IV Total 137.5 ml Output Urine Total 400 ml 800 ml # Bowel Movements 1 Laboratory Tests 02/21/18 04:25: White Blood Count 13.2H, Red Blood Count 2.98L, Hemoglobin 8.3L, Hematocrit 25.2L, Mean Corpuscular Volume 85, Mean Corpuscular Hemoglobin 27.9, Mean Corpuscular Hemoglobin Concent 32.9, Red Cell Distribution Width 15.5H, Platelet Count 348, Mean Platelet Volume 5.2L, Neutrophils (%) (Auto) 67.8, Lymphocytes (%) (Auto) 16.7L, Monocytes (%) (Auto) 14.3H, Eosinophils (%) (Auto ) 0.6, Basophils (%) (Auto) 0.6, Prothrombin Time 11.5, Prothromb Time International Ratio 1.1, Sodium Level 141, Potassium Level 3.5, Chloride Level 105, Carbon Dioxide Level 27, Anion Gap 10, Blood Urea Nitrogen 20H, Creatinine 0.9, Estimat Glomerular Filtration Rate > 60, Glucose Level 97, Calcium Level 8.1L, Total Bilirubin 2.4H, Direct Bilirubin 1.7H, Aspartate Amino Transf (AST/ SGOT) 125H, Alanine Aminotransferase (ALT/SGPT) 104H, Alkaline Phosphatase 239H , Total Protein 7.1, Albumin 1.7L, Globulin 5.4, Albumin/Globulin Ratio 0.3L Height (Feet): 5 Height (Inches): 10.00 Weight (Pounds): 137 General Appearance: confused EENT: normal ENT inspection Neck: supple Cardiovascular: normal rate Respiratory/Chest: decreased breath sounds Abdomen: normal bowel sounds, non tender, soft Extremities: non-tender OZ PELLETIER Feb 21, 2018 07:55
[2018-02-21] MEDS: Spironolactone 50mg tab ORAL SCH (09:27)
[2018-02-21] MEDS: Lactulose 20gm/30ml UDC ORAL SCH ×2 (09:27→17:36)
[2018-02-21] MEDS: Pantoprazole Inj IVP SCH ×2 (09:27→20:24)
[2018-02-21] MEDS: Dronabinol 2.5mg Cap ORAL SCH ×2 (09:28→17:35)
--- NOTE | 2018-02-21 13:57 | Nephrology Progress Note ---
Assessment/Plan Problem List: (1) Hyperkalemia (2) Renal failure Assessment (1) Upper GI bleeding (2) Severe anemia (3) History of esophageal varices with bleeding (4) Renal failure Cr of 1.4 on admit now wnl (5) Hyperkalemia, resolved (6) Hepatocellular carcinoma (7) Hepatitis-C (8) Esophageal varices (9) Tachycardia (10) ETOH abuse (11) Hepatic lesion Plan per GI watch H&H and Renal parameters Subjective ROS Limited/Unobtainable: No Objective Objective Last 24 Hour Vital Signs Date Time Temp Pulse Resp B/P (MAP) Pulse Ox O2 Delivery O2 Flow Rate FiO2 02/21/18 12:00 97.9 82 20 143/87 95 Room Air 97.9 02/21/18 08:03 97.5 74 18 109/54 94 Room Air 97.5 02/21/18 05:35 79 149/79 02/21/18 04:00 97.5 79 18 149/79 97 Room Air 97.5 02/21/18 00:44 149/85 Room Air 02/21/18 00:00 98.1 87 20 161/87 96 98.1 02/20/18 22:19 85 138/75 02/20/18 20:00 97.2 87 19 146/79 98 97.2 02/20/18 20:00 Room Air 02/20/18 16:00 97.7 20 127/48 100 Room Air 97.7 02/20/18 16:00 Room Air 02/20/18 14:09 82 154/75 Intake and Output 02/20/18 02/21/18 19:00 07:00 Intake Total 30 ml 197.5 ml Output Total 400 ml 800 ml Balance -370 ml -602.5 ml Intake Oral 30 ml 60 ml IV Total 137.5 ml Output Urine Total 400 ml 800 ml # Bowel Movements 1 Laboratory Tests 02/21/18 04:25: White Blood Count 13.2H, Red Blood Count 2.98L, Hemoglobin 8.3L, Hematocrit 25.2L, Mean Corpuscular Volume 85, Mean Corpuscular Hemoglobin 27.9, Mean Corpuscular Hemoglobin Concent 32.9, Red Cell Distribution Width 15.5H, Platelet Count 348, Mean Platelet Volume 5.2L, Neutrophils (%) (Auto) 67.8, Lymphocytes (%) (Auto) 16.7L, Monocytes (%) (Auto) 14.3H, Eosinophils (%) (Auto ) 0.6, Basophils (%) (Auto) 0.6, Prothrombin Time 11.5, Prothromb Time International Ratio 1.1, Sodium Level 141, Potassium Level 3.5, Chloride Level 105, Carbon Dioxide Level 27, Anion Gap 10, Blood Urea Nitrogen 20H, Creatinine 0.9, Estimat Glomerular Filtration Rate > 60, Glucose Level 97, Calcium Level 8.1L, Total Bilirubin 2.4H, Direct Bilirubin 1.7H, Aspartate Amino Transf (AST/ SGOT) 125H, Alanine Aminotransferase (ALT/SGPT) 104H, Alkaline Phosphatase 239H , Total Protein 7.1, Albumin 1.7L, Globulin 5.4, Albumin/Globulin Ratio 0.3L Height (Feet): 5 Height (Inches): 10.00 Weight (Pounds): 137 General Appearance: no apparent distress Objective no change HANNY MARCOS Feb 21, 2018 13:57
[2018-02-22 00:20] VITALS: BP 139/77
[2018-02-22] MEDS: Hydromorphone 0.5mg/0.5ml inj IVP PRN (03:40)
[2018-02-22 04:00] VITALS: BP 121/69
[2018-02-22] MEDS: Propranolol 10mg tab ORAL SCH ×3 (06:06→21:32)
[2018-02-22] MEDS: Piperacillin/Tazobactam 3.375 GM in D5W 110 ML IVPB SCH ×3 (06:06→21:31)
[2018-02-22 08:00] VITALS: BP 101/56
[2018-02-22 08:12] LABS: INR 1.1 (0.9-1.1)
[2018-02-22] MEDS: Spironolactone 50mg tab ORAL SCH (08:51)
[2018-02-22] MEDS: Lactulose 20gm/30ml UDC ORAL SCH ×2 (08:51→18:45)
[2018-02-22] MEDS: Pantoprazole Inj IVP SCH ×2 (08:51→20:17)
[2018-02-22] MEDS: Dronabinol 2.5mg Cap ORAL SCH ×2 (08:53→18:46)
[2018-02-22] MEDS ORDERED: NS 275ml ONE (09:01)
--- NOTE | 2018-02-22 09:31 | General Progress Note ---
Assessment/Plan Problem List: (1) Ascites ICD Codes: R18.8 - Other ascites SNOMED: 435648088 (2) HTN (hypertension) ICD Codes: I10 - Essential (primary) hypertension SNOMED: 47483485 (3) Cirrhosis of liver ICD Codes: K74.60 - Unspecified cirrhosis of liver SNOMED: 19196289 (4) Hepatitis-C ICD Codes: B19.20 - Unspecified viral hepatitis C without hepatic coma SNOMED: 07193903 (5) ETOH abuse ICD Codes: F10.10 - Alcohol abuse, uncomplicated SNOMED: 33565690, 07351850 (6) Upper GI bleeding ICD Codes: K92.2 - Gastrointestinal hemorrhage, unspecified SNOMED: 81998069 (7) Esophageal varices ICD Codes: I85.00 - Esophageal varices without bleeding SNOMED: 26455230 Assessment/Plan add lasix and aldactone pending repeat paracentesis monitor lytes fu oncology recs xifaxan fu labs not a candidiate for PEG given large ascites will pull NGT too so difficult case with poor po intake Subjective ROS Limited/Unobtainable: Yes Allergies: Coded Allergies: IBUPROFEN (Unverified Allergy, Intermediate, 07/02/16) Subjective more alert Objective Last 24 Hour Vital Signs Date Time Temp Pulse Resp B/P (MAP) Pulse Ox O2 Delivery O2 Flow Rate FiO2 02/22/18 08:00 97.6 89 18 101/56 94 Room Air 97.6 02/22/18 06:06 78 129/81 02/22/18 04:00 97.9 77 20 121/69 96 Room Air 97.9 02/22/18 00:20 98.5 85 17 139/77 93 98.5 02/21/18 19:47 98.6 79 18 132/75 93 98.6 02/21/18 17:49 98.8 73 18 139/72 94 Room Air 98.8 02/21/18 14:20 82 143/87 02/21/18 12:00 97.9 82 20 143/87 95 Room Air 97.9 Intake and Output 02/21/18 02/22/18 19:00 07:00 Intake Total 70 ml Output Total 900 ml 200 ml Balance -830 ml -200 ml Intake Oral 70 ml Output Urine Total 900 ml 200 ml Laboratory Tests 02/22/18 04:55: Prothrombin Time 11.7H, Prothromb Time International Ratio 1.1, Activated Partial Thromboplast Time 31 Height (Feet): 5 Height (Inches): 10.00 Weight (Pounds): 135 General Appearance: lethargic EENT: normal ENT inspection Neck: supple Cardiovascular: normal rate Respiratory/Chest: decreased breath sounds Abdomen: normal bowel sounds, non tender, soft Extremities: non-tender OZ PELLETIER Feb 22, 2018 09:31
[2018-02-22 12:24] VITALS: BP 116/71
--- NOTE | 2018-02-22 12:42 | Diagnostic Imaging Report ---
Indications: Ascites Technique: Ultrasound used to localize optimal puncture site. Sterile prepping and draping . Local anesthesia with 1% lidocaine. Under real-time ultrasound guidance, puncture peritoneal space using paracentesis needle. Stylet removed. Catheter placed to vacuum bottle suction. Total 3.9 liters of fluid blood-tinged aspirated. Patient tolerated procedure well, without immediate complication. Findings: Followup sonography demonstrates complete resolution of peritoneal fluid. Impression: Successful ultrasound-guided paracentesis, yielding 3.9 liters of blood-tinged fluid
--- NOTE | 2018-02-22 13:00 | General Progress Note ---
Assessment/Plan Assessment/Plan manageable with meds cont current meds increase zyprexa Subjective Date patient seen: Feb 22, 2018 Neurologic/Psychiatric: Reports: anxiety, depressed, emotional problems Allergies: Coded Allergies: IBUPROFEN (Unverified Allergy, Intermediate, 07/02/16) Subjective the pts anxiety and agitation will be managed with meds. Objective Last 24 Hour Vital Signs Date Time Temp Pulse Resp B/P (MAP) Pulse Ox O2 Delivery O2 Flow Rate FiO2 02/22/18 12:24 97.0 74 18 116/71 95 Room Air 97.0 02/22/18 08:00 97.6 89 18 101/56 94 Room Air 97.6 02/22/18 06:06 78 129/81 02/22/18 04:00 97.9 77 20 121/69 96 Room Air 97.9 02/22/18 00:20 98.5 85 17 139/77 93 98.5 02/21/18 19:47 98.6 79 18 132/75 93 98.6 02/21/18 17:49 98.8 73 18 139/72 94 Room Air 98.8 02/21/18 14:20 82 143/87 Intake and Output 02/21/18 02/22/18 19:00 07:00 Intake Total 70 ml Output Total 900 ml 200 ml Balance -830 ml -200 ml Intake Oral 70 ml Output Urine Total 900 ml 200 ml Laboratory Tests 02/22/18 04:55: Prothrombin Time 11.7H, Prothromb Time International Ratio 1.1, Activated Partial Thromboplast Time 31 Height (Feet): 5 Height (Inches): 10.00 Weight (Pounds): 135 General Appearance: no apparent distress, alert, confused Cecilia Boswell M.D. Feb 22, 2018 13:00
--- NOTE | 2018-02-22 15:10 | Nephrology Progress Note ---
Assessment/Plan Problem List: (1) Hyperkalemia (2) Renal failure Assessment (1) Upper GI bleeding (2) Severe anemia (3) History of esophageal varices with bleeding (4) Renal failure Cr of 1.4 on admit now wnl (5) Hyperkalemia, resolved (6) Hepatocellular carcinoma (7) Hepatitis-C (8) Esophageal varices (9) Tachycardia (10) ETOH abuse (11) Hepatic lesion Plan per GI watch H&H and Renal parameters Subjective ROS Limited/Unobtainable: No Objective Objective Last 24 Hour Vital Signs Date Time Temp Pulse Resp B/P (MAP) Pulse Ox O2 Delivery O2 Flow Rate FiO2 02/22/18 13:32 74 116/71 02/22/18 12:24 97.0 74 18 116/71 95 Room Air 97.0 02/22/18 08:00 97.6 89 18 101/56 94 Room Air 97.6 02/22/18 06:06 78 129/81 02/22/18 04:00 97.9 77 20 121/69 96 Room Air 97.9 02/22/18 00:20 98.5 85 17 139/77 93 98.5 02/21/18 19:47 98.6 79 18 132/75 93 98.6 02/21/18 17:49 98.8 73 18 139/72 94 Room Air 98.8 Intake and Output 02/21/18 02/22/18 19:00 07:00 Intake Total 70 ml Output Total 900 ml 200 ml Balance -830 ml -200 ml Intake Oral 70 ml Output Urine Total 900 ml 200 ml Laboratory Tests 02/22/18 04:55: Prothrombin Time 11.7H, Prothromb Time International Ratio 1.1, Activated Partial Thromboplast Time 31 02/22/18 11:40: Body Fluid Albumin [Pending] Height (Feet): 5 Height (Inches): 10.00 Weight (Pounds): 135 General Appearance: no apparent distress Objective no change HANNY MARCOS Feb 22, 2018 15:10
[2018-02-22 16:10] VITALS: BP 113/58
[2018-02-22 20:00] VITALS: BP 101/71
--- NOTE | 2018-02-22 22:27 | Pulmonology Progress Note ---
Assessment/Plan Problems: (1) Symptomatic anemia (2) Ascites (3) Cirrhosis of liver (4) Hepatitis-C (5) ETOH abuse Assessment/Plan asymptomatic treatmnt dc home with home hospice, Subjective ROS Limited/Unobtainable: No Constitutional: Reports: no symptoms HEENT: Repors: no symptoms Respiratory: Reports: no symptoms Allergies: Coded Allergies: IBUPROFEN (Unverified Allergy, Intermediate, 07/02/16) Objective Last 24 Hour Vital Signs Date Time Temp Pulse Resp B/P (MAP) Pulse Ox O2 Delivery O2 Flow Rate FiO2 02/22/18 21:32 80 111/73 02/22/18 20:00 98.4 80 20 101/71 97 98.4 02/22/18 16:10 97.7 76 18 113/58 100 Room Air 97.7 02/22/18 13:32 74 116/71 02/22/18 12:24 97.0 74 18 116/71 95 Room Air 97.0 02/22/18 08:00 97.6 89 18 101/56 94 Room Air 97.6 02/22/18 06:06 78 129/81 02/22/18 04:00 97.9 77 20 121/69 96 Room Air 97.9 02/22/18 00:20 98.5 85 17 139/77 93 98.5 Intake and Output 02/21/18 02/22/18 19:00 07:00 Intake Total 70 ml Output Total 900 ml 200 ml Balance -830 ml -200 ml Intake Oral 70 ml Output Urine Total 900 ml 200 ml General Appearance: cachetic HEENT: normocephalic, atraumatic Respiratory/Chest: chest wall non-tender, normal breath sounds Abdomen: normal bowel sounds Genitourinary: normal external genitalia Extremities: no clubbing Neurologic/Psychiatric: service provider II-XII grossly normal Laboratory Tests 02/22/18 04:55: Prothrombin Time 11.7H, Prothromb Time International Ratio 1.1, Activated Partial Thromboplast Time 31 02/22/18 11:40: Body Fluid Albumin [Pending] Current Medications Medications (Trade) Dose Ordered Sig/Candice Route PRN Reason Start Time Stop Time Status Last Admin Dose Admin Diphenhydramine HCl (Benadryl) 25 mg Q6H PRN IVP Itching 02/19/18 11:30 03/21/18 11:29 02/19/18 23:58 Dronabinol (Marinol) 2.5 mg BID ORAL 02/20/18 09:00 03/22/18 08:59 02/22/18 18:46 Furosemide (Lasix) 20 mg DAILY IV 02/20/18 09:00 03/22/18 08:59 02/22/18 08:51 Hydromorphone HCl (Dilaudid) 0.5 mg Q4H PRN IVP Pain Scale (6-10) 02/22/18 21:15 03/01/18 21:14 Lactulose (Cephulac) 30 gm BID ORAL 02/18/18 18:00 03/20/18 17:59 02/22/18 18:45 Lorazepam (Ativan) 2 mg Q6H PRN ORAL For Anxiety 02/18/18 14:00 02/24/18 13:59 02/20/18 08:49 Olanzapine (ZyPREXA) 5 mg BID ORAL 02/22/18 18:00 03/24/18 17:59 02/22/18 18:46 Pantoprazole (Protonix) 40 mg EVERY 12 HOURS IVP 02/18/18 21:00 03/17/18 20:59 02/22/18 20:17 Piperacillin Sod/ Tazobactam Sod 3.375 gm/Dextrose 110 ml @ 27.5 mls/hr EVERY 8 HOURS IVPB 02/18/18 14:00 02/23/18 13:59 02/22/18 21:31 Propranolol HCl (Inderal) 10 mg Q8HR ORAL 02/18/18 14:00 03/17/18 13:59 02/22/18 21:32 Rifaximin (Xifaxan) 550 mg EVERY 12 HOURS ORAL 02/19/18 21:00 02/26/18 20:59 02/22/18 20:17 Spironolactone (Aldactone) 50 mg DAILY ORAL 02/20/18 09:00 03/22/18 08:59 02/22/18 08:51 Kecia Valencia MD Feb 22, 2018 22:27
[2018-02-23] VITALS: BP 118/53
[2018-02-23 04:00] VITALS: BP 116/67
[2018-02-23] MEDS: Hydromorphone 0.5mg/0.5ml inj IVP PRN ×2 (04:50→11:30)
[2018-02-23] MEDS: Propranolol 10mg tab ORAL SCH ×2 (05:26→14:12)
[2018-02-23] MEDS: Piperacillin/Tazobactam 3.375 GM in D5W 110 ML IVPB SCH (05:26)
[2018-02-23 08:00] VITALS: BP 126/77
--- NOTE | 2018-02-23 08:20 | General Progress Note ---
Assessment/Plan Problem List: (1) Ascites ICD Codes: R18.8 - Other ascites SNOMED: 697617974 (2) HTN (hypertension) ICD Codes: I10 - Essential (primary) hypertension SNOMED: 58601259 (3) Cirrhosis of liver ICD Codes: K74.60 - Unspecified cirrhosis of liver SNOMED: 00794487 (4) Hepatitis-C ICD Codes: B19.20 - Unspecified viral hepatitis C without hepatic coma SNOMED: 77980354 (5) ETOH abuse ICD Codes: F10.10 - Alcohol abuse, uncomplicated SNOMED: 93199314, 73676691 (6) Upper GI bleeding ICD Codes: K92.2 - Gastrointestinal hemorrhage, unspecified SNOMED: 80391324 (7) Esophageal varices ICD Codes: I85.00 - Esophageal varices without bleeding SNOMED: 77319199 Assessment/Plan add lasix and aldactone s/p repeat paracentesis (4 lit) monitor lytes fu oncology recs xifaxan fu labs not a candidiate for PEG given large ascites will pull NGT too so difficult case with poor po intake Subjective ROS Limited/Unobtainable: No Allergies: Coded Allergies: IBUPROFEN (Unverified Allergy, Intermediate, 07/02/16) Subjective more alert Objective Last 24 Hour Vital Signs Date Time Temp Pulse Resp B/P (MAP) Pulse Ox O2 Delivery O2 Flow Rate FiO2 02/23/18 05:26 77 116/67 02/23/18 04:00 Room Air 02/23/18 04:00 98.4 77 20 116/67 97 98.4 02/23/18 00:00 Room Air 02/23/18 00:00 98.5 85 20 118/53 97 98.5 02/22/18 21:32 80 111/73 02/22/18 20:00 98.4 80 20 101/71 97 98.4 02/22/18 20:00 Room Air 02/22/18 16:10 97.7 76 18 113/58 100 Room Air 97.7 02/22/18 13:32 74 116/71 02/22/18 12:24 97.0 74 18 116/71 95 Room Air 97.0 Intake and Output 02/22/18 02/23/18 19:00 07:00 Intake Total 240 ml 237.5 ml Output Total 1100 ml 400 ml Balance -860 ml -162.5 ml Intake Oral 240 ml 100 ml IV Total 137.5 ml Output Urine Total 1100 ml 400 ml Laboratory Tests 02/22/18 11:40: Body Fluid Albumin [Pending] Height (Feet): 5 Height (Inches): 10.00 Weight (Pounds): 133 General Appearance: lethargic EENT: normal ENT inspection Neck: supple Cardiovascular: normal rate Respiratory/Chest: decreased breath sounds Abdomen: normal bowel sounds, non tender, soft Extremities: non-tender OZ PELLETIER Feb 23, 2018 08:19
[2018-02-23] MEDS: Dronabinol 2.5mg Cap ORAL SCH ×2 (08:48→18:12)
[2018-02-23] MEDS: Spironolactone 50mg tab ORAL SCH (08:48)
[2018-02-23] MEDS: Lactulose 20gm/30ml UDC ORAL SCH ×2 (08:49→18:00)
[2018-02-23] MEDS: Pantoprazole Inj IVP SCH (08:49)
[2018-02-23 11:39] VITALS: BP 136/74
--- NOTE | 2018-02-23 15:42 | Pulmonology Progress Note ---
Assessment/Plan Problems: (1) Symptomatic anemia (2) Ascites (3) Cirrhosis of liver (4) Hepatitis-C (5) ETOH abuse Assessment/Plan asymptomatic treatmnt dc home with home hospice, continue current regimen Subjective ROS Limited/Unobtainable: No Constitutional: Reports: no symptoms HEENT: Repors: no symptoms Allergies: Coded Allergies: IBUPROFEN (Unverified Allergy, Intermediate, 07/02/16) Objective Last 24 Hour Vital Signs Date Time Temp Pulse Resp B/P (MAP) Pulse Ox O2 Delivery O2 Flow Rate FiO2 02/23/18 14:12 95 136/74 02/23/18 12:00 95.9 02/23/18 11:39 95.9 95 18 136/74 98 95.9 02/23/18 11:30 96.8 02/23/18 08:00 96.8 84 18 126/77 98 96.8 02/23/18 05:26 77 116/67 02/23/18 04:00 Room Air 02/23/18 04:00 98.4 77 20 116/67 97 98.4 02/23/18 00:00 Room Air 02/23/18 00:00 98.5 85 20 118/53 97 98.5 02/22/18 21:32 80 111/73 02/22/18 20:00 98.4 80 20 101/71 97 98.4 02/22/18 20:00 Room Air 02/22/18 16:10 97.7 76 18 113/58 100 Room Air 97.7 Intake and Output 02/22/18 02/23/18 19:00 07:00 Intake Total 240 ml 237.5 ml Output Total 1100 ml 400 ml Balance -860 ml -162.5 ml Intake Oral 240 ml 100 ml IV Total 137.5 ml Output Urine Total 1100 ml 400 ml General Appearance: cachetic HEENT: normocephalic Respiratory/Chest: chest wall non-tender, lungs clear Cardiovascular: normal peripheral pulses, normal rate Abdomen: normal bowel sounds, soft, non tender Skin: no rash Neurologic/Psychiatric: squad boss II-XII grossly normal Microbiology Date/Time Source Procedure Growth Status 02/22/18 11:40 Ascities Fluid Gram Stain - Final Resulted 02/22/18 11:40 Ascities Fluid Body Fluid Culture - Preliminary NO GROWTH AFTER 24 HOURS Resulted Current Medications Medications (Trade) Dose Ordered Sig/Candice Route PRN Reason Start Time Stop Time Status Last Admin Dose Admin Diphenhydramine HCl (Benadryl) 25 mg Q6H PRN IVP Itching 02/19/18 11:30 03/21/18 11:29 02/19/18 23:58 Dronabinol (Marinol) 2.5 mg BID ORAL 02/20/18 09:00 03/22/18 08:59 02/23/18 08:48 Furosemide (Lasix) 20 mg DAILY IV 02/20/18 09:00 03/22/18 08:59 02/23/18 08:49 Hydromorphone HCl (Dilaudid) 0.5 mg Q4H PRN IVP Pain Scale (6-10) 02/22/18 21:15 03/01/18 21:14 02/23/18 11:30 Lactulose (Cephulac) 30 gm BID ORAL 02/18/18 18:00 03/20/18 17:59 02/23/18 08:49 Lorazepam (Ativan) 2 mg Q6H PRN ORAL For Anxiety 02/18/18 14:00 02/24/18 13:59 02/20/18 08:49 Olanzapine (ZyPREXA) 5 mg BID ORAL 02/22/18 18:00 03/24/18 17:59 02/23/18 08:48 Pantoprazole (Protonix) 40 mg EVERY 12 HOURS IVP 02/18/18 21:00 03/17/18 20:59 02/23/18 08:49 Propranolol HCl (Inderal) 10 mg Q8HR ORAL 02/18/18 14:00 03/17/18 13:59 02/23/18 14:12 Rifaximin (Xifaxan) 550 mg EVERY 12 HOURS ORAL 02/19/18 21:00 02/26/18 20:59 02/23/18 08:48 Spironolactone (Aldactone) 50 mg DAILY ORAL 02/20/18 09:00 03/22/18 08:59 02/23/18 08:48 Kecia Valencia MD Feb 23, 2018 15:42
[2018-02-23 16:00] VITALS: BP 127/76
--- NOTE | 2018-02-23 16:41 | Nephrology Progress Note ---
Assessment/Plan Problem List: (1) Hyperkalemia (2) Renal failure Assessment (1) Upper GI bleeding (2) Severe anemia (3) History of esophageal varices with bleeding (4) Renal failure Cr of 1.4 on admit now wnl (5) Hyperkalemia, resolved (6) Hepatocellular carcinoma (7) Hepatitis-C (8) Esophageal varices (9) Tachycardia (10) ETOH abuse (11) Hepatic lesion Plan per GI watch H&H and Renal parameters Subjective ROS Limited/Unobtainable: No Constitutional: Reports: malaise Objective Objective Last 24 Hour Vital Signs Date Time Temp Pulse Resp B/P (MAP) Pulse Ox O2 Delivery O2 Flow Rate FiO2 02/23/18 16:00 96.3 105 19 127/76 99 96.3 02/23/18 14:12 95 136/74 02/23/18 12:00 95.9 02/23/18 11:39 95.9 95 18 136/74 98 95.9 02/23/18 11:30 96.8 02/23/18 08:00 96.8 84 18 126/77 98 96.8 02/23/18 05:26 77 116/67 02/23/18 04:00 Room Air 02/23/18 04:00 98.4 77 20 116/67 97 98.4 02/23/18 00:00 Room Air 02/23/18 00:00 98.5 85 20 118/53 97 98.5 02/22/18 21:32 80 111/73 02/22/18 20:00 98.4 80 20 101/71 97 98.4 02/22/18 20:00 Room Air Intake and Output 02/22/18 02/23/18 19:00 07:00 Intake Total 240 ml 237.5 ml Output Total 1100 ml 400 ml Balance -860 ml -162.5 ml Intake Oral 240 ml 100 ml IV Total 137.5 ml Output Urine Total 1100 ml 400 ml Height (Feet): 5 Height (Inches): 10.00 Weight (Pounds): 133 General Appearance: no apparent distress Objective no change HANNY MARCOS Feb 23, 2018 16:41
[2018-02-23] MEDS ORDERED: NS 500ML ONE (19:12)
[2018-02-23] MEDS ORDERED: Tubing IV Secondary IV ONE (19:12)
--- NOTE | 2018-02-23 22:54 | General Progress Note ---
Assessment/Plan Assessment/Plan manageable with meds cont current meds increase zyprexa Subjective Date patient seen: Feb 23, 2018 Allergies: Coded Allergies: IBUPROFEN (Unverified Allergy, Intermediate, 07/02/16) Subjective the pts anxiety and agitation will be managed with meds. Objective Last 24 Hour Vital Signs Date Time Temp Pulse Resp B/P (MAP) Pulse Ox O2 Delivery O2 Flow Rate FiO2 02/23/18 16:00 96.3 105 19 127/76 99 96.3 02/23/18 14:12 95 136/74 02/23/18 12:00 95.9 02/23/18 11:39 95.9 95 18 136/74 98 95.9 02/23/18 11:30 96.8 02/23/18 08:00 96.8 84 18 126/77 98 96.8 02/23/18 05:26 77 116/67 02/23/18 04:00 Room Air 02/23/18 04:00 98.4 77 20 116/67 97 98.4 02/23/18 00:00 Room Air 02/23/18 00:00 98.5 85 20 118/53 97 98.5 Intake and Output 02/22/18 02/23/18 19:00 07:00 Intake Total 240 ml 237.5 ml Output Total 1100 ml 400 ml Balance -860 ml -162.5 ml Intake Oral 240 ml 100 ml IV Total 137.5 ml Output Urine Total 1100 ml 400 ml Height (Feet): 5 Height (Inches): 10.00 Weight (Pounds): 133 Cecilia Boswell M.D. Feb 23, 2018 22:54
--- NOTE | 2018-02-25 14:43 | Discharge Summary ---
Discharge Summary Discharge Summary Discharge Summary DATE OF ADMISSION: 02/15/2018 DATE OF DISCHARGE: 02/23/2018 CONSULTANTS: Dr. Cecilia Hartley [facility] COURSE: Patient is a 63-year-old -[place] male presented with chief complaint of vomiting blood. Patient has history of esophageal varices secondary to alcoholic cirrhosis. Patient also has a history of hepatitis C. He had previously undergone esophageal varices banding. History of present illness began day prior to admission, patient experienced vomiting of bright red blood approximately 3 cups. On evaluation at ED, hemoglobin was 6.6 and hematocrit was 28, sodium 138, potassium 5.9, chloride 103, BUN 25, creatinine 1.4, glucose was 133. Liver function tests were elevated, alkaline phosphatase 239 and AST was 170. He was admitted for evaluation of hematemesis/cirrhosis/hepatocellular CA/hepatitis C. He was given 2 units packed RBC blood transfusion. He was placed on nothing by mouth and was given IV hydration, he was placed on Protonix drip and Sandostatin drip. He underwent upper endoscopy findings showed ulcers at the gastroesophageal junction, most probable source of bleeding. Renal function improved with IV hydration. Patient was agitated and confused. Patient has cognitive impairment. She was given Zyprexa and prn Ativan. Ammonia was 54, she was given Xifaxan, Lasix and Aldactone. She had a paracentesis done yielding 3.6 L of fluid, a repeat paracenteses yielded 3.9 L of fluid. Patient is not a candidate for PEG tube placement. He was discharged home with home hospice FINAL DIAGNOSES: Acute renal failure Hyperkalemia Upper GI bleed status post endoscopy Ulcers gastroesophageal junction most likely source of bleed Hepatocellular carcinoma Hepatic cirrhosis of the liver Acute hepatic encephalopathy with hyperammonemia Alcohol abuse Ascites status post paracentesis Hepatitis C Acute anemia requiring blood transfusion DISPOSITION: Patient was discharged home I have been assigned to dictate discharge summary on this account, and I was not involved in the patient's management. Nissa Wilson NP Feb 25, 2018 14:42
== END 2018-02-23 19:13 | disposition hospice, home (50) | DRG 241 ==
LOC: EDBD 03:08 → EMR 03:48 → EDBEDREQ 03:50 → EDBEDREQSVC 03:56 → ICU 05:11 → EDBEDREQ 05:32 → 2E 02-16 16:50 → 4W 02-18 13:41
PROC: 0DJ08ZZ Inspection of Upper Intestinal Tract, Via Natural or Artificial Opening Endoscopic (ICD-10-PCS; 2018-02-15)
PROC: 30233N1 Transfusion of Nonautologous Red Blood Cells into Peripheral Vein, Percutaneous Approach (ICD-10-PCS; principal; 2018-02-15 12:46)
PROC: 0W9G3ZZ Drainage of Peritoneal Cavity, Percutaneous Approach (ICD-10-PCS; 2018-02-17)
PROC: 0W9G3ZZ Drainage of Peritoneal Cavity, Percutaneous Approach (ICD-10-PCS; 2018-02-22)
DX: K25.4 Chronic or unspecified gastric ulcer with hemorrhage (principal); N17.9 Acute kidney failure, unspecified; C22.0 Liver cell carcinoma; K70.31 Alcoholic cirrhosis of liver with ascites; I10 Essential (primary) hypertension; K70.40 Alcoholic hepatic failure without coma; E87.5 Hyperkalemia; B19.20 Unspecified viral hepatitis C without hepatic coma; D64.9 Anemia, unspecified; F10.10 Alcohol abuse, uncomplicated; I85.00 Esophageal varices without bleeding; D62 Acute posthemorrhagic anemia; B18.2 Chronic viral hepatitis C; D50.0 Iron deficiency anemia secondary to blood loss (chronic)
CPT/HCPCS: 36415; 36600; 71045; 76942; 80048; 80053; 80076; 81003; 82140; 82248; 82803; 82962; 83735; 83880; 84100; 84443; 84484; 84550; 85007; 85025; 85610; 85730; 86850; 86900; 86901; 86920; 87040; 87070; 87081; 87205; 88104; 93005; 93306; 93970; 94003; 94150; 99291; J2250; J3430